=== PATIENT | male | born 1955 | race Caucasian/White ===

== ENCOUNTER 2017-03-20 15:38 | Inpatient (IN) | payer OTHER, SELFPAY ==
[2017-03-20 15:54] LABS: #Eosinphils 0.1 thou/uL (0.0-0.7); #Lymphocytes 0.8 thou/uL (1.20-3.40); #Monocytes 0.4 thou/uL (0.11-0.59); #Neutrophils 4.3 thou/uL (1.40-6.50); %Basophils 0.1 % (0.0-1.0); %Eosinophils 2.3 % (0.0-10.0); %Lymphocytes 14.6 % (21.0-51.0); %Monocytes 6.4 % (0.0-10.0); Hematocrit 34.2 % (42.0-52.0); Mean Platelet Volume 7.5 fL (7.4-10.4); Red Blood Cell (RBC) Count 3.58 mill/uL (4.70-6.10); White Blood Cell (WBC) Count 5.7 thou/uL (4.8-10.8)
[2017-03-20] MEDS ORDERED: Nitroglycerin 2% Ointment 1 INCH/1 GM Packet ONE (16:11)
[2017-03-20] MEDS ORDERED: Nitroglycerin 0.4 MG TAB (25 Tab Bottle) ONE (16:11)
[2017-03-20] MEDS ORDERED: Furosemide 40 MG/4 ML VIAL ONE (16:11)
[2017-03-20 16:15] LABS: ALT (SGPT) 20 U/L (8-55); AST (SGOT) 29 U/L (5-34); Alkaline Phosphatase 126 U/L (40-150); Anion Gap 10 mmol/L (10-20); BUN (Urea Nitrogen) 14 mg/dL (8.4-25.7); Bilirubin, Total 0.8 mg/dL (0.2-1.2); CK (CPK) 151 U/L (30-200); Calc. Creatinine Clearance 0 mL/min (70-130); Calcium 8.3 mg/dL (7.8-10.44); Carbon Dioxide 23 mmol/L (22-29); Chloride 103 mmol/L (98-107); Estimated GFR-MDRD 61; Globulin 4.5 g/dL (2.4-3.5); Protein, Total 7.7 g/dL (6.0-8.3)
[2017-03-20 16:19] LABS: Troponin I 0.116 ng/mL (< 0.028)
--- NOTE | 2017-03-20 16:43 | RAD ---
AP VIEW OF THE CHEST 03/20/17 INDICATION: Difficulty breathing. COMPARISON: Prior exam dated 08/27/15. FINDINGS: There is mild cardiomegaly. There is mild pulmonary vascular congestion. Left costophrenic angle is e xcluded. Right costophrenic angle is clear. No pneumothorax is evident. IMPRESSION: Cardiomegaly with pulmonary vascular congestion. POS: [facility]
[2017-03-20] MEDS ORDERED: Acetaminophen 325 MG TAB PO PRN (16:55)
[2017-03-20] MEDS ORDERED: Guaifenesin DM 100-10/5 ML UDCUP PO PRN (16:55)
[2017-03-20] MEDS ORDERED: Zolpidem Tartrate 5 MG TAB PO PRN (16:55)
[2017-03-20] MEDS ORDERED: Ondansetron HCl/PF 4 MG/2 ML Vial IVP PRN (16:55)
--- NOTE | 2017-03-20 17:41 | HP ---
DATE OF ADMISSION: 03/20/2017 ADMITTING PHYSICIAN: Russel Perrin M.D. PRIMARY CARE PHYSICIAN: None. CHIEF COMPLAINT: Shortness of breath. HISTORY OF PRESENT ILLNESS: The patient is a 61-year-old male with history of chronic heart failure, hyperglycemia, and hypertension as well as COPD. The patient admits that he has not taken any medic ation in several months. He reports that 3-4 days ago he began to experience increased dyspnea on ex ertion. He also reports increased shortness of breath when he is lying flat. He denies chest pain, diaphoresis, nausea or vomiting. He does report a nonproductive cough, but denies fevers, chills, or sick contacts. REVIEW OF SYSTEMS: The following complete review of systems was negative, unless otherwise mentioned in the HPI or below: Constitutional: Weight loss or gain, sense of well-being, ability to conduct usual activities, exercise tolerance. Skin/Breast: Rash, itching, changes in hair growth or loss, n ail changes, breast lumps, tenderness, swelling, nipple discharge. Eyes: Vision, double vision, tea ring, blind spots, pain. ENT/Mouth: Headaches (location, time of onset, duration, precipitating fac tors), vertigo, lightheadedness, injury. Vision, double vision, tearing, blind spots, pain, nose blee ding, colds, obstruction, discharge, dental difficulties, gingival bleeding, dentures, neck stiffness , pain, tenderness, masses in thyroid or other areas. Cardiovascular: Precordial pain, substernal d istress, palpitations, syncope, dyspnea on exertion, orthopnea, nocturnal paroxysmal dyspnea, edema, cyanosis, hypertension, heart murmurs, varicosities, phlebitis, claudication. Respiratory: Pain, sh ortness of breath, wheezing, stridor, cough, hemoptysis, fever or night sweats. Gastrointestinal: P oor appetite, dysphagia, indigestion, abdominal pain, heartburn, eructation, nausea, vomiting, hemate mesis, jaundice, constipation, or diarrhea, abnormal stools (bo-colored, tarry, bloody, greasy, fou l smelling), flatulence, hemorrhoids, recent changes in bowel habits. Genitourinary: Urgency, frequ ency, dysuria, nocturia, hematuria, polyuria, oliguria, unusual (or change in) color of urine, stones , hesitancy, change in size of stream, dribbling, acute retention or incontinence, libido, potency. Musculoskeletal: Pain, swelling, redness or heat of muscles or joints, limitation, of motion, muscul ar weakness, atrophy, cramps. Neurologic/Psychiatric: Convulsions, paralyses, tremor, incoordinatio n, parasthesias, difficulties with memory of speech, sensory or motor disturbances, or muscular coord ination (ataxia, tremor), emotional problems, anxiety, depression, previous psychiatric care, unusual perceptions, hallucinations. Allergy/Immunologic: Skin rash, anemia, bleeding tendency, polydipsia , polyuria, intolerance to heat or cold. PAST MEDICAL HISTORY: Untreated hypertension, coronary artery disease, GERD, COPD, congestive heart failure, hyperglycemia. PAST SURGICAL HISTORY: Significant for, right knee replacement, 2 cardiac stent placements and 2 her kelly repairs. PSYCHIATRIC HISTORY: Unknown. SOCIAL HISTORY: Patient does drink alcohol daily, does smoke cigarettes. Denies illicit drug abuse. HOME MEDICATIONS: None as patient is noncompliant. ALLERGIES: PENICILLINS. PHYSICAL EXAMINATION: VITAL SIGNS: Blood pressure 150/83, pulse 90, respirations 20, satting 99% on 2 liters. GENERAL: The patient is in mild distress, tachypneic. HEENT: Normocephalic, atraumatic. EYES: Pupils equally round and reactive to light. Extraocular muscles intact. Scleral icterus is p resent. ENT: Nose exam normal. No bleeding from the naris. Uvula exam normal. Tonsil exam normal. Mouth exam normal. [place] and moist mucous membranes. NECK: The patient does have visible JVD in the upper chest and neck. RESPIRATORY: Mild respiratory distress with shallow inspirations with some basilar crackles. CARDIOVASCULAR: Heart sounds were normal. No murmurs, regurgitation or gallops. ABDOMEN: Slightly distended, but nontender. Positive bowel sounds. EXTREMITIES: No clubbing, cyanosis or edema. NEUROLOGIC: Full range of motion of all extremities. Cranial nerves II-XII are grossly intact. LABORATORY DATA AND IMAGES: The 12 lead EKG shows sinus rhythm with occasional PVCs with normal ST s egments. Chest film shows mild cardiomegaly with pulmonary vascular congestion. CMP shows sodium of 132, potassium 4.3, CO2 of 23, BUN 14, creatinine 1.2, glucose 260. AST of 29, ALT of 20, alkaline phosphatase 126. Cardiac enzymes show creatinine kinase of 151, CK-MB of 4.4, troponin I of 0.116. BNP of 1234, albumin 3.2. CBC shows a white count of 5.7, hemoglobin 11.1, hematocrit 34.2, platelet s 139. ASSESSMENT: 1. Acute on chronic congestive heart failure. 2. Hypertension. 3. Hyperglycemia. 4. Chronic obstructive pulmonary disease. PLAN: The patient will be admitted to the telemetry floor. The patient will be treated with IV Lasi x as well as ZEENAT inhibitor and aspirin. We will order an echocardiogram and based on his EF we will add a beta tahir. Patient will also be given DuoNeb treatment p.r.n. We will place him on Accu- eks q.a.c. and at bedtime and also obtain hemoglobin A1c for definitive diagnosis.
[2017-03-20 18:03] VITALS: BMI 31.0
[2017-03-20 22:47] LABS: Troponin I 0.142 ng/mL (< 0.028)
[2017-03-21] MEDS: Furosemide 40 MG/4 ML VIAL SLOW IVP SCH ×2 (05:11→15:00)
[2017-03-21 05:46] LABS: #Eosinphils 0.1 thou/uL (0.0-0.7); #Lymphocytes 1.2 thou/uL (1.20-3.40); #Monocytes 0.5 thou/uL (0.11-0.59); #Neutrophils 3.8 thou/uL (1.40-6.50); %Basophils 0.3 % (0.0-1.0); %Eosinophils 2.6 % (0.0-10.0); %Lymphocytes 21.7 % (21.0-51.0); %Monocytes 8.2 % (0.0-10.0); Hematocrit 33.8 % (42.0-52.0); Mean Platelet Volume 7.7 fL (7.4-10.4); Red Blood Cell (RBC) Count 3.59 mill/uL (4.70-6.10); White Blood Cell (WBC) Count 5.7 thou/uL (4.8-10.8)
[2017-03-21 06:07] LABS: Hemoglobin A1c 7.5 % (4.0-6.0)
[2017-03-21 06:11] LABS: Anion Gap 12 mmol/L (10-20); BUN (Urea Nitrogen) 14 mg/dL (8.4-25.7); Calc. Creatinine Clearance 80 mL/min (70-130); Calcium 9.1 mg/dL (7.8-10.44); Carbon Dioxide 30 mmol/L (22-29); Chloride 101 mmol/L (98-107); Cholesterol 169 mg/dl (< 200 Desired); Estimated GFR-MDRD 59; LDL Cholesterol, Calculated 117 mg/dL
[2017-03-21] MEDS: Lisinopril 2.5 MG TAB PO SCH (08:10)
[2017-03-21] MEDS: Enoxaparin Sodium 40 MG/0.4 ML SYRINGE SC SCH (08:11)
--- NOTE | 2017-03-21 11:36 | PDOC.PN ---
- Subjective Encounter Start Date: 03/21/17 Encounter Start Time: 11:34 Subjective: FEELING MUCH BETTER, EXHAUSTED BUT BREATHING BETTER - Objective Resuscitation Status: Resuscitation Status FULL:Full Resuscitation MAR Reviewed: Yes Vital Signs & Weight: Vital Signs (12 hours) Temp Pulse Resp BP BP Pulse Ox 03/21/17 08:15 98.6 F 83 20 93 L 03/21/17 08:10 83 139/73 03/21/17 07:49 98.6 F 83 20 139/73 93 L 03/21/17 05:16 98.8 F 92 20 172/85 H 94 L Weight Weight 193 lb 6.4 oz I&O: 03/20/17 03/21/17 03/22/17 06:59 06:59 06:59 Intake Total 720 Output Total 3575 Balance -2855 Result Diagrams: 03/21/17 05:20 03/21/17 05:20 Additional Labs: Accuchecks 03/21/17 06:01 POC Glucose 116 H Phys Exam - Physical Examination Constitutional: NAD HEENT: PERRLA, moist MMs, sclera anicteric Neck: supple, full ROM Respiratory: clear to auscultation bilateral CRACKLES Cardiovascular: RRR Gastrointestinal: soft, non-tender, positive bowel sounds Musculoskeletal: no edema Neurological: non-focal, moves all 4 limbs Psychiatric: normal affect, A&O x 3 Skin: no rash Dx/Plan (1) Systolic and diastolic CHF, acute on chronic Code(s): I50.43 - ACUTE ON CHRONIC COMBINED SYSTOLIC AND DIASTOLIC HRT FAIL Status: Acute Comment: improving (2) CAD (coronary artery disease) Code(s): I25.10 - ATHSCL HEART DISEASE OF [place] CORONARY ARTERY W/O ANG PCTRS Status: Chronic Comment: s/p stent 08/26 (3) CKD (chronic kidney disease) stage 3, GFR 30-59 ml/min Status: Chronic (4) PVD (peripheral vascular disease) Code(s): I73.9 - PERIPHERAL VASCULAR DISEASE, UNSPECIFIED Status: Chronic (5) Tobacco dependence Code(s): F17.200 - NICOTINE DEPENDENCE, UNSPECIFIED, UNCOMPLICATED Status: Chronic - Plan cont current plan of care IMPROVED, HOME TOMORROW IF LABS AND FLUID STATUS WNL. * .
[2017-03-22 05:30] LABS: Anion Gap 9 mmol/L (10-20); BUN (Urea Nitrogen) 16 mg/dL (8.4-25.7); Calc. Creatinine Clearance 71 mL/min (70-130); Calcium 8.5 mg/dL (7.8-10.44); Carbon Dioxide 31 mmol/L (22-29); Chloride 96 mmol/L (98-107); Estimated GFR-MDRD 53
[2017-03-22] MEDS: Furosemide 40 MG/4 ML VIAL SLOW IVP SCH (05:42)
[2017-03-22] MEDS: Lisinopril 2.5 MG TAB PO SCH (09:09)
[2017-03-22] MEDS: Enoxaparin Sodium 40 MG/0.4 ML SYRINGE SC SCH (09:10)
[2017-03-22] MEDS ORDERED: Furosemide 40 MG TAB PO SCH (14:00)
--- NOTE | 2017-03-22 20:57 | PDOC.PN ---
- Subjective Encounter Start Date: 03/22/17 Encounter Start Time: 13:30 Patient seen and examined. SOB improving. No overnight events - Objective Resuscitation Status: Resuscitation Status FULL:Full Resuscitation MAR Reviewed: Yes Vital Signs & Weight: Vital Signs (12 hours) Temp Pulse Resp BP BP Pulse Ox 03/22/17 16:48 97.7 F 85 20 117/60 93 L 03/22/17 12:53 97.8 F 88 18 131/80 97 03/22/17 09:09 88 120/68 Weight Weight 186 lb 3.2 oz I&O: 03/21/17 03/22/17 03/23/17 06:59 06:59 06:59 Intake Total 720 1200 1010 Output Total 6739 8280 8965 Balance -1816 -6216 -828 Result Diagrams: 03/21/17 05:20 03/22/17 04:29 EKG Reviewed by me: Yes (Tele SR) Phys Exam - Physical Examination Constitutional: NAD Respiratory: no wheezing, no rhonchi Cardiovascular: RRR, no rub Gastrointestinal: soft, non-tender, positive bowel sounds Musculoskeletal: no edema Neurological: moves all 4 limbs Dx/Plan - Plan DVT proph w/lovenox, DVT proph w/SCDs IMPRESSION: 1. Acute on Chronic Systolic/Diastolic HF 2. CAD s/p BM stent 3. PVD 4. HTN 5. Tob dep 6. Hypokalemia PLAN: * Will change Lasix to PO * Cont to monitor * Cont low dose ZEENAT * Hold Coreg for now due to BP on low side * Replace Potassium Review of Systems - Review of Systems Respiratory: negative: Cough, Dry, Shortness of Breath, Hemoptysis, SOB with Excertion, Pleuritic Pain, Sputum, Wheezing Cardiovascular: negative: Chest Pain, Palpitations, Orthopnea, Paroxysmal Noc. Dyspnea, Edema, Light Headedness - Medications/Allergies Allergies/Adverse Reactions: Allergies Allergy/AdvReac Type Severity Reaction Status Date / Time Penicillins Allergy Verified 03/20/17 19:55 Medications: Current Medications Acetaminophen (Tylenol) 650 mg PO Q4H PRN PRN Reason: Headache/Fever or Pain Aspirin (Aspirin Chewable) 81 mg PO DAILY [facility] Last Admin: 03/22/17 09:09 Dose: 81 mg Furosemide (Lasix) 40 mg PO 0900,1400 [facility] Last Admin: 03/22/17 14:45 Dose: 40 mg Guaifenesin/Dextromethorphan (Robitussin Dm) 15 ml PO Q4H PRN PRN Reason: Cough Lisinopril (Zestril) 2.5 mg PO DAILY [facility] Last Admin: 03/22/17 09:09 Dose: 2.5 mg Ondansetron HCl (Zofran) 4 mg IVP Q6H PRN PRN Reason: Nausea/Vomiting Zolpidem Tartrate (Ambien) 5 mg PO HSPRN PRN PRN Reason: Insomnia
[2017-03-23] MEDS ORDERED: Potassium Chloride 20 MEQ TAB PO SCH (08:15)
[2017-03-23] MEDS ORDERED: Carvedilol 3.125 MG TAB PO SCH (09:00)
--- NOTE | 2017-03-23 11:09 | PDOC.EVN ---
Event Note - Event Note Event Note: No ACEI/ARB/Aldactone due to renal insufficiency
[2017-03-23 12:23] VITALS: BP 103/59; TEMP 97.7
--- NOTE | 2017-03-23 14:50 | DIS ---
DATE OF DISCHARGE: 03/23/2017 DISCHARGE DISPOSITION: Home. FOLLOWUP: With [facility] in 1 week. ALLERGIES: The patient is allergic to PENICILLIN. The patient was seen and examined on the day of discharge. Denies any new complaints. Shortness of breath has completely resolved. DISCHARGE MEDICATIONS: Aspirin 81 mg daily, carvedilol 3.125 mg b.i.d., Lasix 20 mg daily, potassium chloride 10 mEq daily. Base met in 1 week is recommended. Primary care physician is advised to follow. The patient was adv ised to follow up with [facility] in 1 week for medication refills. BRIEF HOSPITAL COURSE: The patient is a 61-year-old white male with chronic systolic and diastolic h eart failure, coronary artery disease, status post bare metal stent, hypertension, and peripheral vas cular disease and tobacco dependence, presented to the hospital with shortness of breath. Please not e that patient has discontinued taking all of his heart failure medications. Please refer to the his tory and physical dated 03/20/2017 for further details. The patient was admitted to the telemetry unit with a diagnosis of acute on chronic systolic/diastoli c heart failure exacerbation. He showed good improvement with diuretics. His weight on the day of d ischarge is 185 pounds from 198 pounds on admission. Due to slight elevation of creatinine, IV Lasix has been discontinued. He will follow up with [facility] next week for repeat labs. Lif estyle modification was emphasized including tobacco cessation. His A1c was 7.5. He appears stable for discharge. He was extensively counseled on heart failure including fluid restriction. FINAL DIAGNOSES: 1. Acute on chronic systolic/diastolic heart failure exacerbation. 2. Coronary artery disease, status post right coronary artery bare metal stent placement in 2015. 3. Ongoing tobacco abuse, the patient was counseled. 4. Chronic kidney disease stage 3. 5. Peripheral vascular disease. 6. New onset diabetes mellitus type 2. Hemoglobin A1c was 7.5. Metformin was not started due to sl ightly elevated creatinine. Primary care physician is advised to follow. He was advised to monitor his blood glucose and maintain a log. 7. Hypokalemia, replaced. 8. Tobacco dependence. The patient was counseled. 9. Elevated troponins, probably secondary to demand ischemia. 10. Penicillin allergy. Total time coordinating the discharge of this patient was 33 minutes.
== END 2017-03-23 13:55 | disposition home or self-care (01) | DRG 291 ==
LOC: ERS 15:38 → 2NO 16:47
PROVIDERS: ADMIT Internal Medicine Addiction Medicine; ATTEND Internal Medicine Addiction Medicine
DX: I13.0 Hypertensive heart and chronic kidney disease with heart failure and stage 1 through stage 4 chronic kidney disease, or unspecified chronic kidney disease (principal); I50.43 Acute on chronic combined systolic (congestive) and diastolic (congestive) heart failure; N18.3 Chronic kidney disease, stage 3 (moderate); E11.65 Type 2 diabetes mellitus with hyperglycemia; I24.8 Other forms of acute ischemic heart disease; I73.9 Peripheral vascular disease, unspecified; J44.9 Chronic obstructive pulmonary disease, unspecified; E87.6 Hypokalemia; I25.10 Atherosclerotic heart disease of native coronary artery without angina pectoris; F17.210 Nicotine dependence, cigarettes, uncomplicated; Z95.5 Presence of coronary angioplasty implant and graft; Z96.651 Presence of right artificial knee joint; Z88.0 Allergy status to penicillin; Z91.19 Patient's noncompliance with other medical treatment and regimen
CPT/HCPCS: 36415; 36416; 71010; 80048; 80053; 80061; 82553; 83036; 83880; 84484; 85025; 93005; 93306; 93798; 94640; 96374; J1650; J1940

== ENCOUNTER 2017-07-20 11:01 | Inpatient (IN) | payer SELFPAY ==
[2017-07-20 11:35] LABS: #Eosinphils 0.1 thou/uL (0.0-0.7); #Lymphocytes 1.1 thou/uL (1.20-3.40); #Monocytes 0.6 thou/uL (0.11-0.59); %Basophils 0.2 % (0.0-1.0); %Eosinophils 1.6 % (0.0-10.0); %Lymphocytes 13.6 % (21.0-51.0); %Monocytes 7.6 % (0.0-10.0); %Neutrophils 76.9 % (42.0-75.0); Hemoglobin 11.1 g/dL (14.0-18.0); Mean Corpuscular HGB CONC 32.4 g/dL (32.0-36.0); Mean Corpuscular Hemoglobin 29.4 pg (27.0-31.0); Mean Corpuscular Volume 90.7 fl (80.0-94.0); Mean Platelet Volume 8.3 fL (7.4-10.4); Platelet Count 187 thou/uL (130-400); RBC Distribution Width 14.9 % (11.5-14.5); Red Blood Cell (RBC) Count 3.76 mill/uL (4.70-6.10); White Blood Cell (WBC) Count 7.8 thou/uL (4.8-10.8)
[2017-07-20] MEDS ORDERED: Furosemide 40 MG/4 ML VIAL ONE (11:48)
[2017-07-20] MEDS ORDERED: methylPREDNISolone Sod Succ/PF 125 MG/2 ML VIAL ONE (11:48)
--- NOTE | 2017-07-20 11:51 | RAD ---
UPRIGHT PORTABLE CHEST ONE VIEW: History: 61-year-old male with history of dyspnea for three days. Past medial history of congestive heart fail ure and COPD. Comparison: 03-20-17 FINDINGS: Marked cardiomegaly. Mild increased markings bilaterally. No confluent pneumonia or pleural effusion. IMPRESSION: Stable cardiomegaly with mild vascular congestion. No overt edema, pneumonia, or other acute process. POS: [facility]
[2017-07-20 11:54] LABS: ALT (SGPT) 18 U/L (8-55); AST (SGOT) 51 U/L (5-34); Albumin 3.2 g/dL (3.5-5.0); Alkaline Phosphatase 139 U/L (40-150); Anion Gap 15 mmol/L (10-20); BUN (Urea Nitrogen) 27 mg/dL (8.4-25.7); Bilirubin, Total 1.4 mg/dL (0.2-1.2); CK (CPK) 568 U/L (30-200); Calc. Creatinine Clearance 0 mL/min (70-130); Calcium 8.4 mg/dL (7.8-10.44); Carbon Dioxide 23 mmol/L (22-29); Chloride 103 mmol/L (98-107); Estimated GFR-MDRD 35; Glucose 160 mg/dL (70-105); Protein, Total 8.2 g/dL (6.0-8.3); Sodium 136 mmol/L (136-145)
[2017-07-20 11:57] LABS: Troponin I 0.136 ng/mL (< 0.028)
[2017-07-20 12:01] LABS: CKMB 9.9 ng/mL (0-6.6)
[2017-07-20] MEDS ORDERED: Acetaminophen 325 MG TAB PO PRN ×2 (12:30→15:09)
[2017-07-20] MEDS ORDERED: Ondansetron ODT 4 MG TAB SL PRN (12:30)
[2017-07-20] MEDS ORDERED: Ondansetron HCl/PF 4 MG/2 ML Vial IVP PRN ×2 (12:30→15:09)
[2017-07-20] MEDS ORDERED: HYDROcodone/Acetaminophen 5/325 mg Tablet PO PRN ×2 (12:30)
[2017-07-20 13:17] LABS: Bilirubin Negative (Negative); Blood, Urine Negative (Negative); Clarity CLEAR (Clear); Glucose, Urine (Dipstick) Negative (Negative); Leukocyte Negative (Negative); Nitrite Negative (Negative); Protein, Urine (Dipstick) Negative (Neg-Trace); Specific Gravity, Urine 1.008 (1.002-1.036); Urobilinogen 0.2 mg/dL (0.2-1.0)
--- NOTE | 2017-07-20 13:17 | HP ---
PRIMARY CARE PHYSICIAN: [facility]. REASON FOR ADMISSION: Acute on chronic systolic congestive heart failure exacerbation. HISTORY OF PRESENT ILLNESS: A 61-year-old male who has chronic systolic heart failure, coronary artery disease as well as COPD, who came to emergency room with a complaint of increasing shortness of breath, increasing lower extremity edema. The patient reports that because he wanted to stay on his medication and money, he started taking half dose of his Lasix. Even though, he was taking Lasix half dose, he ran out his Lasix medication. The patient reports that when he was taking half dose of Lasix, he was not making much urination and his lower extremity edema started getting worse. Three days ago, he refilled the prescription and as his swelling was significantly increased and he gained significant amount of weight, he started taking Lasix double dose of whatever he was prescribed in the past, but he was not making urine and his swelling was getting worse and worse. He also started orthopnea and PND. He was feeling bloated. He reports that total of 40-pound he gained weight for the last few weeks. Even after walking a few steps, he was getting out of breath and that is why he decided to come to emergency room for evaluation. In the emergency room, his BNP was elevated. His chest x-ray showed pulmonary vascular congestion. He was having anasarca including lower extremity edema and scrotal swelling. We are admitting this patient in the hospital for appropriate diuresis. The patient denies any UTI symptoms. He denies any constipation or diarrhea. He denies any angina. He denies any melena or hematochezia. He denies any abdominal pain. He denies any flu-like illness. He denies any recent travel or sick exposure. He denies any syncope or palpitations. ALLERGIES: PENICILLIN. CURRENT HOME MEDICATIONS: The patient did not bring medication with him and based on our hospital record, the patient is on the following medications: Aspirin 81 mg p.o. daily, Coreg 3.125 mg p.o. b.i.d., Lasix 20 mg p.o. daily and potassium chloride 10 mEq p.o. daily. PAST MEDICAL HISTORY: Coronary artery disease with a history of stent x2 in 2004, history of stroke in 2004, gastroesophageal reflux disease, COPD, hypertension, chronic systolic heart failure, lumbar stenosis and valvular dysfunction. PAST SURGICAL HISTORY: Coronary artery stenting in 2004, left carotid endarterectomy in 2004, bilateral inguinal hernia repair in 2014, stent placement in the left leg in 2010 and right leg torn ligament repair by Dr. Faulkner in 1993. PAST PSYCHIATRIC HISTORY: Reviewed and negative. SOCIAL HISTORY: The patient is and lives at home with his . No history of alcohol abuse. He smokes on and off basis. He denies any other illicit drug abuse. FAMILY HISTORY: Father from heart disease and mother had hypertension. EMERGENCY ROOM COURSE: The patient is given Solu-Medrol 125 mg, Lasix 40 mg and DuoNeb therapy. REVIEW OF SYSTEMS: The following complete review of systems was negative, unless otherwise mentioned in the HPI or below: Constitutional: Weight loss or gain, ability to conduct usual activities. Skin: Rash, itching. Eyes: Double vision, pain. ENT/Mouth: Nose bleeding, neck stiffness, pain, tenderness. Cardiovascular: Palpitations, dyspnea on exertion, orthopnea. Respiratory: Shortness of breath, wheezing, cough, hemoptysis, fever or night sweats. Gastrointestinal: Poor appetite, abdominal pain, heartburn, nausea, vomiting, constipation, or diarrhea. Genitourinary: Urgency, frequency, dysuria, nocturia. Musculoskeletal: Pain, swelling. Neurologic/Psychiatric: Anxiety, depression. Allergy/Immunologic: Skin rash, bleeding tendency. Please see my HPI for pertinent positive and negative. All other review of systems reviewed and negative except as mentioned in the HPI. PHYSICAL EXAMINATION: VITAL SIGNS: On arrival, blood pressure 126/67, pulse 106, respiratory rate 24 , temperature 97.9, saturation 96% on room air and weight 99.7 kilograms. GENERAL: The patient is currently alert, awake, hypertensive, tachycardic and in mild distress due to shortness of breath, has generalized anasarca. HEAD: Normocephalic and atraumatic. EYES: Pupils are round and reactive to light. Extraocular muscle intact. ENT: Oropharynx within normal limits. Moist mucous membranes. No oral lesion , no pharyngeal erythema, no exudate. NECK: Supple, elevated JVD. No thyromegaly, no carotid bruit. LUNGS: Bilateral basilar rales and expiratory wheezing heard. Reduced air entry also noted. CARDIAC: S1 and S2 regular, tachycardia, diastolic murmur noted at apex. No gallop, no rub. ABDOMEN: Obesity present. Abdominal wall edema noted. No suprapubic tenderness, no peritoneal sign, no guarding, no rigidity, no organomegaly, no obesity limiting examination. GENITOURINARY: Testicular edema noted. BACK: Unremarkable. No CVA tenderness. EXTREMITIES: Upper extremity passive movement of all joints are normal. Lower extremity bilateral +4 pitting edema noted. SKIN: No skin rash. HEMATOLOGICAL SYSTEM: No lymphadenopathy. PSYCHIATRIC: Normal affect. NEUROLOGIC: Nonfocal examination. The patient is moving all 4 limbs. Plantar bilateral flexor. PSYCHIATRIC: Normal affect. SIGNIFICANT LABS AND IMAGING DATA: 1. EKG showing sinus tachycardia, nonspecific ST-T changes. Chest x-ray showing cardiomegaly and pulmonary vascular congestion. 2. CBC: WBC 7.8, hemoglobin 11.1 and platelet 187. 3. BMP: Sodium 136, potassium 5.0, chloride 103, carbon dioxide 23, anion gap 15, BUN 27, creatinine 1.96, glucose 160 and calcium 8.4. 3. LFT: AST 51, ALT 18, alkaline phosphatase 139, albumin 3.2. CK 568, CK-MB 9.9, troponin I 0.136. BNP 1557.2. ASSESSMENT, PLAN AND IMPRESSION: 1. Acute on chronic systolic and diastolic congestive heart failure exacerbation, likely due to medication noncompliance. The patient started taking half dose of Lasix and that might have contributed to his gradual worsening of edema. Currently, patient has anasarca and he will need hospitalization for diuresis. At this point, the patient will be admitted to telemetry floor. We will continue with Lasix 40 mg IV b.i.d. We will also give him Zaroxolyn 5 mg p.o. daily for adequate diuresis. We will monitor renal function and we will monitor creatinine. We will replace electrolytes as needed basis. We will monitor daily weight. Cardiac rehabilitation will be consulted while in hospital. Dietary education and fluid restriction discussed with the patient. 2. Acute kidney failure, likely due to cardiorenal syndrome. We will give him Lasix along with Zaroxolyn and we will monitor renal function. 3. Rhabdomyolysis. We will check TSH. We will avoid statin therapy. We will repeat CK level tomorrow. The patient has CK-MB elevated because of elevated total CK and we will also do serial cardiac enzymes to rule out any acute coronary syndrome. Because of elevated CK, he has AST elevated as well. Most likely, elevated total CK can be explained by his muscle edema from congestive heart failure from anasarca. 4. Anasarca. This patient has significant fluid overload status with edema of lower extremity abdominal wall and scrotal edema. This patient will need appropriate diuresis to make him euvolemic. 5. Coronary artery disease with history of stent. We will continue aspirin 325 mg p.o. daily. We will hold on statin therapy because of elevated total CK. We will continue Coreg 3.125 mg twice daily. We are avoiding lisinopril or ZEENAT inhibitor or ARB at this point because of relative hyperkalemia and renal insufficiency. 6. Morbid obesity. Dietary education given, weight loss education given. Healthy lifestyle measures discussed with the patient. 7. Gastroesophageal reflux disease. We will continue Pepcid 20 mg p.o. daily. 8. Chronic obstructive pulmonary disease. We will continue DuoNeb therapy q.6 hourly and Dulera 2 puffs inhalation b.i.d. 9. Hypertension. We will continue nitro patch q.8 hourly and patient is also kept on Lasix therapy. We will also continue Coreg 3.125 mg p.o. b.i.d. and upon stabilization, we will consider adding aldosterone receptor tahir. 10. Aortic regurgitation. 11. Mild tobacco and alcohol abuse. The patient is given counseling to avoid smoking as well as alcohol abuse. 12. Deep venous thrombosis prophylaxis. Heparin 5000 units subcu twice daily. 13. Gastrointestinal prophylaxis. Pepcid 20 mg p.o. daily. 14. Elevated troponin. We will do serial cardiac enzyme x3 to rule out acute coronary syndrome and we will continue aspirin 325 mg p.o. daily. 15. Chronic kidney disease, stage 3. We will monitor renal function, avoid nephrotoxin agent. 16. Hypoalbuminemia, likely related with renal insufficiency. 17. Anemia, normocytic, normochromic. We will continue with ferrous sulfate 325 mg p.o. daily. CODE STATUS: The patient is FULL CODE and patient's is the surrogate decision maker. Disposition plan based on clinical course. We are expecting patient's stay in hospital more than 2 midnights. Plan of care discussed with the patient and his in the emergency room. RAMONE
[2017-07-20] MEDS ORDERED: Loperamide HCl 2 MG CAP PO PRN (15:09)
[2017-07-20] MEDS ORDERED: Eucerin (Mineral Oil/Petrolatum,White) 30 gm Jar TOP PRN (15:09)
[2017-07-20] MEDS ORDERED: Mag-Al 1200 mg/1200 mg/30 ML UDCUP PO PRN (15:09)
[2017-07-20] MEDS ORDERED: Milk Of Magnesia 30 ML UDCUP PO PRN (15:09)
[2017-07-20] MEDS ORDERED: Chloraseptic Spray 180 ml Bottle PO PRN (15:09)
[2017-07-20] MEDS ORDERED: Diabetic Tussin 200 MG/10 ML UDCUP PO PRN (15:09)
[2017-07-20] MEDS ORDERED: Senokot 8.6 MG TAB PO PRN (15:09)
[2017-07-20] MEDS ORDERED: Ondansetron ODT 4 MG TAB PO PRN (15:09)
[2017-07-20] MEDS ORDERED: Artificial Tear Sol 15 ML BOT EA EYE PRN (15:09)
[2017-07-20] MEDS ORDERED: Sodium Chloride 0.65% Nasal 44 ML BOT EA NARE PRN (15:09)
[2017-07-20] MEDS ORDERED: hydrALAZINE 20 MG/ML VIAL SLOW IVP PRN (15:09)
[2017-07-20] MEDS ORDERED: Nitroglycerin 0.4 MG TAB (25 Tab Bottle) SL PRN (15:09)
[2017-07-20] MEDS ORDERED: Zolpidem Tartrate 5 MG TAB PO PRN (15:09)
[2017-07-20] MEDS ORDERED: Loratadine 10 MG TAB PO PRN (15:09)
[2017-07-20] MEDS ORDERED: Metolazone 5 MG TAB PO SCH (15:30)
[2017-07-20] MEDS: HYDROcodone/Acetaminophen 5/325 mg Tablet PO PRN (15:50)
[2017-07-20 16:10] LABS: Troponin I 0.139 ng/mL (< 0.028)
[2017-07-20 17:58] LABS: Troponin I 0.122 ng/mL (< 0.028)
[2017-07-20] MEDS: Mometasone/Formoterol 120 PUFF INHALER INH SCH (18:40)
[2017-07-20 18:41] LABS: Bilirubin Negative (Negative); Blood, Urine Negative (Negative); Clarity CLEAR (Clear); Glucose, Urine (Dipstick) Negative (Negative); Leukocyte Negative (Negative); Nitrite Negative (Negative); Protein, Urine (Dipstick) Trace mg/dL (Neg-Trace); Specific Gravity, Urine 1.009 (1.002-1.036); Urobilinogen 0.2 mg/dL (0.2-1.0); pH, Urine 5.5 (5.0-9.0)
[2017-07-20 18:43] LABS: Bacteria/HPF None Seen HPF (None Seen); Hyaline Casts/LPF 0-3 HYALINE CAST LPF (0-3 Hyaline); Pathc Cast-AUWi Flag 0.29 (0-2.49); RBC/HPF 0-3 HPF (0-3); Squamous Epithelial None Seen HPF (0-3); WBC/HPF None Seen HPF (0-3)
[2017-07-20] MEDS: Heparin 5,000 UNITS/ML VIAL SC SCH ×2 (20:48)
[2017-07-20] MEDS: Carvedilol 3.125 MG TAB PO SCH (20:48)
[2017-07-20] MEDS: Nitroglycerin 2% Ointment 1 INCH/1 GM Packet TOP SCH (21:18)
[2017-07-21] MEDS: Furosemide 40 MG/4 ML VIAL SLOW IVP SCH ×2 (05:01→14:39)
[2017-07-21] MEDS: Nitroglycerin 2% Ointment 1 INCH/1 GM Packet TOP SCH ×3 (05:01→20:40)
[2017-07-21] MEDS: HYDROcodone/Acetaminophen 5/325 mg Tablet PO PRN ×2 (05:02→14:37)
[2017-07-21 05:08] LABS: #Lymphocytes 0.7 thou/uL (1.20-3.40); #Monocytes 0.5 thou/uL (0.11-0.59); #Neutrophils 6.2 thou/uL (1.40-6.50); %Basophils 0.1 % (0.0-1.0); %Lymphocytes 9.5 % (21.0-51.0); %Monocytes 7.3 % (0.0-10.0); Hemoglobin 10.3 g/dL (14.0-18.0); Mean Corpuscular HGB CONC 32.3 g/dL (32.0-36.0); Mean Corpuscular Hemoglobin 29.3 pg (27.0-31.0); Mean Corpuscular Volume 90.8 fl (80.0-94.0); Mean Platelet Volume 7.8 fL (7.4-10.4); Platelet Count 164 thou/uL (130-400); RBC Distribution Width 14.4 % (11.5-14.5); Red Blood Cell (RBC) Count 3.52 mill/uL (4.70-6.10); White Blood Cell (WBC) Count 7.4 thou/uL (4.8-10.8)
[2017-07-21 05:43] LABS: ALT (SGPT) 16 U/L (8-55); AST (SGOT) 27 U/L (5-34); Albumin 3.3 g/dL (3.5-5.0); Alkaline Phosphatase 132 U/L (40-150); Anion Gap 14 mmol/L (10-20); BUN (Urea Nitrogen) 32 mg/dL (8.4-25.7); Bilirubin, Total 1.2 mg/dL (0.2-1.2); CK (CPK) 630 U/L (30-200); Calc. Creatinine Clearance 57 mL/min (70-130); Calcium 8.6 mg/dL (7.8-10.44); Carbon Dioxide 25 mmol/L (22-29); Cardiac Risk 4.7 (Less than 4.5); Chloride 99 mmol/L (98-107); Cholesterol 173 mg/dl (< 200 Desired); Estimated GFR-MDRD 34; Globulin 4.1 g/dL (2.4-3.5); Glucose 196 mg/dL (70-105); HDL Cholesterol 37 mg/dL (>60 Neg Risk); LDL Cholesterol, Calculated 118 mg/dL; Magnesium 1.7 mg/dL (1.6-2.6); Potassium 3.3 mmol/L (3.5-5.1); Protein, Total 7.4 g/dL (6.0-8.3); Sodium 135 mmol/L (136-145); Triglycerides 92 mg/dL (Less than 150); Uric Acid 7.6 mg/dL (3.5-7.2)
[2017-07-21] MEDS ORDERED: Potassium Chloride 20 MEQ TAB PO SCH ×2 (07:15)
[2017-07-21] MEDS: Mometasone/Formoterol 120 PUFF INHALER INH SCH ×2 (07:45→19:16)
[2017-07-21] MEDS ORDERED: Aspirin 325 MG TAB PO SCH (09:00)
[2017-07-21] MEDS: Potassium Chloride 20 MEQ TAB PO SCH ×2 (09:29)
[2017-07-21] MEDS: Heparin 5,000 UNITS/ML VIAL SC SCH ×4 (09:30→20:40)
[2017-07-21] MEDS: Metolazone 5 MG TAB PO SCH (09:30)
[2017-07-21] MEDS: Ferrous Sulfate 325 MG TAB PO SCH (09:30)
[2017-07-21] MEDS: Famotidine 20 MG TAB PO SCH (09:30)
[2017-07-21] MEDS: Carvedilol 3.125 MG TAB PO SCH ×2 (09:30→20:40)
[2017-07-21 12:24] LABS: Hemoglobin 10.8 g/dL (14.0-18.0); Mean Corpuscular Hemoglobin 29.1 pg (27.0-31.0); Mean Corpuscular Volume 90.7 fl (80.0-94.0); Mean Platelet Volume 7.5 fL (7.4-10.4); Platelet Count 184 thou/uL (130-400); RBC Distribution Width 14.6 % (11.5-14.5); Red Blood Cell (RBC) Count 3.72 mill/uL (4.70-6.10); White Blood Cell (WBC) Count 11.2 thou/uL (4.8-10.8)
[2017-07-21 12:50] LABS: Anion Gap 16 mmol/L (10-20); BUN (Urea Nitrogen) 36 mg/dL (8.4-25.7); Calc. Creatinine Clearance 53 mL/min (70-130); Calcium 9.2 mg/dL (7.8-10.44); Carbon Dioxide 21 mmol/L (22-29); Chloride 101 mmol/L (98-107); Estimated GFR-MDRD 33; Glucose 148 mg/dL (70-105); Potassium 3.3 mmol/L (3.5-5.1); Sodium 135 mmol/L (136-145)
[2017-07-21 12:51] LABS: Band 5 % (5-11); Lymphocytes 12 % (21-51); MDiff Complete? YES; Monocytes 8 % (0-10); Neutrophil 74 % (42-75); PLT Morphology Comment Appears Adequate; Polychromasia SLIGHT = 2-3 cells (100X) (0-2/hpf)
[2017-07-21 12:54] LABS: Troponin I 0.169 ng/mL (< 0.028)
[2017-07-21 13:01] LABS: CKMB 9.5 ng/mL (0-6.6)
--- NOTE | 2017-07-21 13:05 | CT ---
CT BRAIN WITHOUT CONTRAST: History: Fall while on heparin. Hit cheek. Comparison: None. FINDINGS: There is a hypodensity of the left, there is also an infarct of the anterior limb right internal caps ule. No hemorrhage. The paranasal sinuses and mastoids are clear. IMPRESSION: 1. Likely chronic changes. No acute post-traumatic intracranial hemorrhage or sequellae. 2. Likely old left medial orbital wall fracture. POS: [facility]
--- NOTE | 2017-07-21 14:01 | PDOC.EVN ---
Event Note - Event Note Event Note: Code surendra called after patient choked on a hamburger and fell, hitting his right cheek and mouth on the floor. ? passed out. He was awake and well oriented. Has some bleeding from the leg and his great toe. CT head ordered and negative for acute pathology. Wound care consult also placed. Will continue to monitor patient. 12 lead EKG ordered, as well as labs.
--- NOTE | 2017-07-21 14:09 | PDOC.PN ---
- Subjective Encounter Start Date: 07/21/17 Encounter Start Time: 14:28 Subjective: No new complaints. -: No acute events overnight. - Objective Resuscitation Status: Resuscitation Status FULL:Full Resuscitation MAR Reviewed: Yes Vital Signs & Weight: Vital Signs (12 hours) Temp Pulse Resp BP BP Pulse Ox 07/21/17 13:59 112 H 21 H 07/21/17 08:15 97.5 F L 116 H 20 95 07/21/17 08:13 97.5 F L 116 H 20 144/74 H 95 07/21/17 07:45 111 H 20 07/21/17 04:00 97.7 F 105 H 20 135/68 94 L Weight Weight 217 lb 1 oz I&O: 07/20/17 07/21/17 07/22/17 06:59 06:59 06:59 Intake Total 900 Output Total 1775 Balance -875 Result Diagrams: 07/21/17 12:11 07/21/17 12:11 Phys Exam - Physical Examination Constitutional: NAD HEENT: PERRLA, moist MMs, sclera anicteric, oral pharynx no lesions Neck: no JVD, supple, full ROM Respiratory: no wheezing, no rales, no rhonchi, clear to auscultation bilateral mild bibasilar crackles Cardiovascular: RRR, no significant murmur, no rub Gastrointestinal: soft, non-tender, no distention, positive bowel sounds Musculoskeletal: pulses present, edema present anasarca Neurological: non-focal, moves all 4 limbs Psychiatric: normal affect, A&O x 3 Skin: no rash, normal turgor Dx/Plan (1) Systolic and diastolic CHF, acute on chronic Code(s): I50.43 - ACUTE ON CHRONIC COMBINED SYSTOLIC AND DIASTOLIC HRT FAIL Status: Acute Comment: p/w anasarca. Started on diuretics. Cardiology consulted. (2) Acute on chronic renal failure Code(s): N17.9 - ACUTE KIDNEY FAILURE, UNSPECIFIED; N18.9 - CHRONIC KIDNEY DISEASE, UNSPECIFIED Status: Acute Qualifiers: Chronic kidney disease stage: stage 3 (moderate) (3) Rhabdomyolysis Code(s): M62.82 - RHABDOMYOLYSIS Status: Acute Qualifiers: Rhabdomyolysis type: non-traumatic Qualified Code(s): M62.82 - Rhabdomyolysis (4) COPD (chronic obstructive pulmonary disease) Status: Acute Qualifiers: COPD type: unspecified COPD Qualified Code(s): J44.9 - Chronic obstructive pulmonary disease, unspecified (5) HTN (hypertension) Code(s): I10 - ESSENTIAL (PRIMARY) HYPERTENSION Status: Acute Qualifiers: Hypertension type: essential hypertension Qualified Code(s): I10 - Essential (primary) hypertension (6) CAD (coronary artery disease) Code(s): I25.10 - ATHSCL HEART DISEASE OF [place] CORONARY ARTERY W/O ANG PCTRS Status: Chronic Qualifiers: Coronary Disease-Associated Artery/Lesion type: unspecified vessel or lesion type Associated angina: without angina Comment: s/p stent 08/27/15. Stable, chest pain free. (7) PVD (peripheral vascular disease) Code(s): I73.9 - PERIPHERAL VASCULAR DISEASE, UNSPECIFIED Status: Chronic - Plan cont current plan of care, DVT proph w/heparin Continue diuresis -: f/u cardiology recs -: Monitor I/O, daily weights. * . Review of Systems - Medications/Allergies Allergies/Adverse Reactions: Allergies Allergy/AdvReac Type Severity Reaction Status Date / Time Penicillins Allergy Verified 03/20/17 19:55 Medications: Current Medications Acetaminophen (Tylenol) 650 mg PO Q4H PRN PRN Reason: Headache/Fever or Pain Hydrocodone Bitart/Acetaminophen ([place] 5/325) 1 tab PO Q4H PRN PRN Reason: Moderate Pain (4-6) Last Admin: 07/21/17 05:02 Dose: 1 tab Al Hydroxide/Mg Hydroxide (Maalox) 30 ml PO Q6H PRN PRN Reason: Heartburn or Indigestion Albuterol/Ipratropium (Duoneb) 3 ml NEB [id number] [facility] Last Admin: 07/21/17 13:59 Dose: 3 ml Artificial Tears (Tears Renewed 15ml Bottle) 0 drop EA EYE PRN PRN PRN Reason: Dry Eyes Aspirin (Aspirin) 325 mg PO DAILY [facility] Last Admin: 07/21/17 09:30 Dose: 325 mg Carvedilol (Coreg) 3.125 mg PO BID [facility] Last Admin: 07/21/17 09:30 Dose: 3.125 mg Famotidine (Pepcid) 20 mg PO DAILY [facility] Last Admin: 07/21/17 09:30 Dose: Not Given Ferrous Sulfate (Feosol) 325 mg PO QAM-[facility] Last Admin: 07/21/17 09:30 Dose: 325 mg Furosemide (Lasix) 40 mg SLOW IVP 0600,1400 [facility] Last Admin: 07/21/17 05:01 Dose: 40 mg Guaifenesin (Robitussin Sf) 200 mg PO Q4H PRN PRN Reason: Cough Heparin Sodium (Porcine) (Heparin) 5,000 units SC BID [facility] Last Admin: 07/21/17 09:30 Dose: 5,000 units Hydralazine HCl (Apresoline) 10 mg SLOW IVP Q4H PRN PRN Reason: Systolic BP > 180 Loperamide HCl (Imodium) 2 mg PO PRN PRN PRN Reason: Diarrhea/Loose Stools Loratadine (Claritin) 10 mg PO DAILYPRN PRN PRN Reason: Sinus Symptoms Magnesium Hydroxide (Milk Of Magnesium) 30 ml PO DAILYPRN PRN PRN Reason: Constipation Metolazone (Zaroxolyn) 5 mg PO 0830 [facility] Last Admin: 07/21/17 09:30 Dose: 5 mg Mineral Oil/White Petrolatum (Eucerin Cream) 0 gm TOP BIDPRN PRN PRN Reason: Dry Skin Mometasone Furoate/Formoterol Fumar (Dulera 200 Mcg/5 Mcg Inhaler) 2 puff INH BID-RT [facility] Last Admin: 07/21/17 07:45 Dose: 2 puff Nitroglycerin (Nitrostat) 0.4 mg SL Q5MIN PRN PRN Reason: Chest Pain Nitroglycerin (Nitro-Bid 2% Ointment) 0.5 inch TOP Q8HR [facility] Last Admin: 07/21/17 05:01 Dose: 0.5 inch Ondansetron HCl (Zofran Odt) 4 mg PO Q6H PRN PRN Reason: Nausea/Vomiting Ondansetron HCl (Zofran) 4 mg IVP Q6H PRN PRN Reason: Nausea/Vomiting Phenol (Chloraseptic [place] 180 Ml Bot) 0 ml PO PRN PRN PRN Reason: Sore Throat Potassium Chloride (K-Dur) 20 meq PO QAM-[facility] Last Admin: 07/21/17 09:29 Dose: 20 meq Senna (Senokot) 2 tab PO HSPRN PRN PRN Reason: Constipation Sodium Chloride ([place] Nasal [place] 0.65%) 0 ml EA NARE QIDPRN PRN PRN Reason: Nasal Congestion Zolpidem Tartrate (Ambien) 5 mg PO HSPRN PRN PRN Reason: Insomnia
[2017-07-21] MEDS ORDERED: Non-Formulary Item 1 EACH (Budesonide-Formoterol [Symbicort 160-4.5] 2 INHALER) INH PRN ×2 (14:24)
[2017-07-21] MEDS ORDERED: Albuterol Sulfate 2.5 mg/3 ml Neb NEB PRN (14:24)
[2017-07-21] MEDS ORDERED: Mometasone/Formoterol 120 PUFF INHALER INH PRN (14:42)
[2017-07-21 18:33] LABS: ALT (SGPT) 18 U/L (8-55); AST (SGOT) 34 U/L (5-34); Albumin 3.3 g/dL (3.5-5.0); Alkaline Phosphatase 133 U/L (40-150); Anion Gap 14 mmol/L (10-20); BUN (Urea Nitrogen) 42 mg/dL (8.4-25.7); Bilirubin, Total 1.2 mg/dL (0.2-1.2); Calc. Creatinine Clearance 51 mL/min (70-130); Calcium 8.9 mg/dL (7.8-10.44); Carbon Dioxide 28 mmol/L (22-29); Chloride 98 mmol/L (98-107); Estimated GFR-MDRD 32; Globulin 4.2 g/dL (2.4-3.5); Glucose 183 mg/dL (70-105); Potassium 3.5 mmol/L (3.5-5.1); Protein, Total 7.5 g/dL (6.0-8.3); Sodium 136 mmol/L (136-145)
--- NOTE | 2017-07-21 18:33 | CON ---
DATE OF CONSULTATION: 07/21/2017 REASON FOR CONSULTATION: Congestive heart failure and third degree AV block. HISTORY OF PRESENT ILLNESS: Mr. Daniels is a 61-year-old gentleman, who is a patient of Dr. Elliott. Israel shepherd underwent successful stent placement to right coronary artery in 2016. He also has an occluded saniya nt to the OM branch. His LVEF in the past was 45% to 50%. He recently presented with shortness of breath. He states he was secondary to COPD. He has complain ed of lower extremity edema in addition to PND. He has had some diuresis noted over the last 24 hour s. He states he feels better. He recently had a code green after recently choking. He also appeared to have asymptomatic third deg ree AV block noted. This occurred several hours after the code green. He denies syncope, presyncope or other associated symptoms. PAST MEDICAL HISTORY: As above. CVA, acid reflux, COPD, hypertension, mild systolic heart failure, lumbar stenosis. Carotid endarterectomy, inguinal hernia repair, stent placement to the left lower e xtremity. SOCIAL HISTORY: No current alcohol use. He intermittently smokes. FAMILY HISTORY: Positive for CAD. REVIEW OF SYSTEMS: Ten point review of systems reviewed and as above, otherwise negative. PHYSICAL EXAMINATION: GENERAL: Patient is a pleasant male who is in no acute distress. The patient appears his stated age . VITAL SIGNS: Blood pressure 145/74, pulse 110, respirations 20. NEUROLOGIC: The patient is alert and oriented times 3 with no focal neurologic deficits. HEENT: Sclerae without icterus. Mouth has moist mucous membranes with normal pallor. NECK: No JVD. Carotid upstroke brisk. No bruits bilaterally. LUNGS: Rhonchi and rales bilaterally. BACK: No scoliosis or kyphosis. CARDIAC: Regular rate and rhythm with normal S1 and S2. No S3 or S4 noted. No significant rubs, mu rmurs, thrills, or gallops noted throughout the precordium. PMI is not displaced. There is no tish ternal heave. ABDOMEN: Soft, nontender, nondistended. No peritoneal signs present. No hepatosplenomegaly. No ab normal striae. EXTREMITIES: 1 to 2+ pitting edema. SKIN: No gross abnormalities. PERTINENT LABORATORY DATA: Hemoglobin 10.8, white blood cell count 11.2. Peak MB 9.5 with a troponi n of 0.169. Creatinine 2.05. IMPRESSION: 1. Shortness of breath. 2. Mild acute on chronic systolic heart failure. 3. Chronic obstructive pulmonary disease. 4. Third degree AV block. RECOMMENDATIONS: Mr. Daniels continues to do well from a CV standpoint. He is currently on Lasix IV w ith diuresis. Would continue carvedilol in addition to aspirin. Would decrease aspirin to 81 q.a.m. He is also on metolazone. Third degree AV block may be related to electrolyte disturbance. He has received Lasix and metolazone today. We will recheck his potassium level. We would also check a ma gnesium level. We will also consult with EP, recommendations on third degree AV block.
[2017-07-21 18:46] LABS: Troponin I 0.167 ng/mL (< 0.028)
[2017-07-22 05:24] LABS: #Eosinphils 0.1 thou/uL (0.0-0.7); #Monocytes 0.5 thou/uL (0.11-0.59); %Basophils 0.4 % (0.0-1.0); %Eosinophils 1.9 % (0.0-10.0); %Lymphocytes 18.1 % (21.0-51.0); %Monocytes 8.8 % (0.0-10.0); %Neutrophils 70.8 % (42.0-75.0); Hemoglobin 10.4 g/dL (14.0-18.0); Mean Corpuscular HGB CONC 32.2 g/dL (32.0-36.0); Mean Corpuscular Hemoglobin 29.3 pg (27.0-31.0); Mean Platelet Volume 7.3 fL (7.4-10.4); Platelet Count 139 thou/uL (130-400); RBC Distribution Width 14.5 % (11.5-14.5); Red Blood Cell (RBC) Count 3.56 mill/uL (4.70-6.10); White Blood Cell (WBC) Count 5.6 thou/uL (4.8-10.8)
[2017-07-22 05:39] LABS: Anion Gap 12 mmol/L (10-20); BUN (Urea Nitrogen) 41 mg/dL (8.4-25.7); CK (CPK) 529 U/L (30-200); Calc. Creatinine Clearance 52 mL/min (70-130); Calcium 8.9 mg/dL (7.8-10.44); Carbon Dioxide 32 mmol/L (22-29); Chloride 97 mmol/L (98-107); Estimated GFR-MDRD 33; Glucose 132 mg/dL (70-105); Potassium 3.6 mmol/L (3.5-5.1); Sodium 137 mmol/L (136-145)
[2017-07-22] MEDS: Nitroglycerin 2% Ointment 1 INCH/1 GM Packet TOP SCH ×3 (05:43→21:41)
[2017-07-22] MEDS: Furosemide 40 MG/4 ML VIAL SLOW IVP SCH ×2 (05:44→13:31)
[2017-07-22] MEDS: Mometasone/Formoterol 120 PUFF INHALER INH SCH ×2 (06:36→18:59)
[2017-07-22] MEDS: Ferrous Sulfate 325 MG TAB PO SCH (09:06)
[2017-07-22] MEDS: Famotidine 20 MG TAB PO SCH (09:06)
[2017-07-22] MEDS: Metolazone 5 MG TAB PO SCH (09:06)
[2017-07-22] MEDS: Carvedilol 3.125 MG TAB PO SCH ×2 (09:06→20:19)
[2017-07-22] MEDS: Heparin 5,000 UNITS/ML VIAL SC SCH ×4 (09:06→20:19)
[2017-07-22] MEDS: Potassium Chloride 20 MEQ TAB PO SCH ×2 (09:06)
[2017-07-22] MEDS: Triple Antibiotic Oint 1 GM Packet TOP SCH (09:06)
[2017-07-22] MEDS: Spironolactone 25 MG TAB PO SCH (09:06)
--- NOTE | 2017-07-22 14:30 | PDOC.PN ---
- Subjective Encounter Start Date: 07/22/17 Encounter Start Time: 14:36 Subjective: No complaints -: Asymptomatic third degree AV block noted yesterday. - Objective Resuscitation Status: Resuscitation Status FULL:Full Resuscitation MAR Reviewed: Yes Vital Signs & Weight: Vital Signs (12 hours) Temp Pulse Resp BP BP Pulse Ox 07/22/17 13:27 97.0 F L 106 H 18 138/63 95 07/22/17 13:26 84 16 07/22/17 12:00 92 L 07/22/17 08:26 98.2 F 100 20 92 L 07/22/17 08:24 98.2 F 100 20 99/49 L 92 L 07/22/17 06:36 96 16 07/22/17 06:29 96 16 07/22/17 04:00 97.4 F L 80 18 142/69 H 97 Weight Admit Weight 224 lb 3.2 oz Weight 217 lb 1 oz I&O: 07/21/17 07/22/17 07/23/17 06:59 06:59 06:59 Intake Total 900 1180 Output Total 1775 4350 Balance -875 -3170 Result Diagrams: 07/22/17 05:03 07/22/17 05:03 Phys Exam - Physical Examination Constitutional: NAD HEENT: PERRLA, moist MMs, sclera anicteric, oral pharynx no lesions Neck: no JVD, supple, full ROM Respiratory: no wheezing, clear to auscultation bilateral w minimal bibasilar crackles Cardiovascular: RRR, no significant murmur, no rub Gastrointestinal: soft, non-tender, no distention, positive bowel sounds Musculoskeletal: pulses present, edema present (anasarca w scrotal edema) Neurological: non-focal, moves all 4 limbs Psychiatric: normal affect, A&O x 3 Skin: no rash, normal turgor Dx/Plan (1) Systolic and diastolic CHF, acute on chronic Code(s): I50.43 - ACUTE ON CHRONIC COMBINED SYSTOLIC AND DIASTOLIC HRT FAIL Status: Acute Comment: EF 45-50% from TTE in March 2017. p/w anasarca. Started on diuretics- diuresing well. Cardiology on board. Recs appreciated. (2) AV block, 3rd degree Code(s): I44.2 - ATRIOVENTRICULAR BLOCK, COMPLETE Status: Acute Comment: Cardiology on board. EP consulted. (3) Acute on chronic renal failure Code(s): N17.9 - ACUTE KIDNEY FAILURE, UNSPECIFIED; N18.9 - CHRONIC KIDNEY DISEASE, UNSPECIFIED Status: Acute Qualifiers: Chronic kidney disease stage: stage 3 (moderate) Comment: Improving. (4) COPD (chronic obstructive pulmonary disease) Status: Chronic Qualifiers: COPD type: unspecified COPD Qualified Code(s): J44.9 - Chronic obstructive pulmonary disease, unspecified (5) HTN (hypertension) Code(s): I10 - ESSENTIAL (PRIMARY) HYPERTENSION Status: Chronic Qualifiers: Hypertension type: essential hypertension Qualified Code(s): I10 - Essential (primary) hypertension (6) CAD (coronary artery disease) Code(s): I25.10 - ATHSCL HEART DISEASE OF [place] CORONARY ARTERY W/O ANG PCTRS Status: Chronic Qualifiers: Coronary Disease-Associated Artery/Lesion type: unspecified vessel or lesion type Associated angina: without angina Comment: s/p stent 08/27/15. Stable, chest pain free. (7) PVD (peripheral vascular disease) Code(s): I73.9 - PERIPHERAL VASCULAR DISEASE, UNSPECIFIED Status: Chronic - Plan cont current plan of care, out of bed/ambulate, DVT proph w/heparin Continue telemetric monitoring -: f/u EP recs -: Continue IV diuresis * . Review of Systems - Medications/Allergies Allergies/Adverse Reactions: Allergies Allergy/AdvReac Type Severity Reaction Status Date / Time Penicillins Allergy Verified 03/20/17 19:55 Medications: Current Medications Acetaminophen (Tylenol) 650 mg PO Q4H PRN PRN Reason: Headache/Fever or Pain Hydrocodone Bitart/Acetaminophen ([place] 5/325) 1 tab PO Q4H PRN PRN Reason: Moderate Pain (4-6) Last Admin: 07/21/17 14:37 Dose: 1 tab Al Hydroxide/Mg Hydroxide (Maalox) 30 ml PO Q6H PRN PRN Reason: Heartburn or Indigestion Albuterol Sulfate (Ventolin) 2.5 mg NEB [id number] PRN PRN Reason: Wheezing Albuterol/Ipratropium (Duoneb) 3 ml NEB [id number] Last Admin: 07/22/17 13:26 Dose: 3 ml Artificial Tears (Tears Renewed 15ml Bottle) 0 drop EA EYE PRN PRN PRN Reason: Dry Eyes Aspirin (Aspirin Chewable) 81 mg PO DAILY [facility] Last Admin: 07/22/17 09:06 Dose: 81 mg Carvedilol (Coreg) 3.125 mg PO BID [facility] Last Admin: 07/22/17 09:06 Dose: 3.125 mg Famotidine (Pepcid) 20 mg PO DAILY [facility] Last Admin: 07/22/17 09:06 Dose: 20 mg Ferrous Sulfate (Feosol) 325 mg PO QAM-WM [facility] Last Admin: 07/22/17 09:06 Dose: 325 mg Furosemide (Lasix) 40 mg SLOW IVP 0600,1400 [facility] Last Admin: 07/22/17 13:31 Dose: 40 mg Guaifenesin (Robitussin Sf) 200 mg PO Q4H PRN PRN Reason: Cough Heparin Sodium (Porcine) (Heparin) 5,000 units SC BID [facility] Last Admin: 07/22/17 09:06 Dose: 5,000 units Hydralazine HCl (Apresoline) 10 mg SLOW IVP Q4H PRN PRN Reason: Systolic BP > 180 Lidocaine HCl (Xylocaine 4% Topical Denise) 0 ml TOP ASDIR [facility] Loperamide HCl (Imodium) 2 mg PO PRN PRN PRN Reason: Diarrhea/Loose Stools Loratadine (Claritin) 10 mg PO DAILYPRN PRN PRN Reason: Sinus Symptoms Magnesium Hydroxide (Milk Of Magnesium) 30 ml PO DAILYPRN PRN PRN Reason: Constipation Metolazone (Zaroxolyn) 5 mg PO 0830 [facility] Last Admin: 07/22/17 09:06 Dose: 5 mg Mineral Oil/White Petrolatum (Eucerin Cream) 0 gm TOP BIDPRN PRN PRN Reason: Dry Skin Mometasone Furoate/Formoterol Fumar (Dulera 200 Mcg/5 Mcg Inhaler) 2 puff INH BID-RT [facility] Last Admin: 07/22/17 06:36 Dose: 2 puff Mometasone Furoate/Formoterol Fumar (Dulera 200 Mcg/5 Mcg Inhaler) 2 puff INH BIDPRN PRN PRN Reason: SOB Neomycin/Polymyxin/Bacitracin (Triple Antibiotic) 1 gm TOP QAM [facility] Last Admin: 07/22/17 09:06 Dose: 1 gm Nitroglycerin (Nitrostat) 0.4 mg SL Q5MIN PRN PRN Reason: Chest Pain Nitroglycerin (Nitro-Bid 2% Ointment) 0.5 inch TOP Q8HR [facility] Last Admin: 07/22/17 13:31 Dose: 0.5 inch Ondansetron HCl (Zofran Odt) 4 mg PO Q6H PRN PRN Reason: Nausea/Vomiting Ondansetron HCl (Zofran) 4 mg IVP Q6H PRN PRN Reason: Nausea/Vomiting Phenol (Chloraseptic [place] 180 Ml Bot) 0 ml PO PRN PRN PRN Reason: Sore Throat Potassium Chloride (K-Dur) 20 meq PO QAM-WM [facility] Last Admin: 07/22/17 09:06 Dose: 20 meq Senna (Senokot) 2 tab PO HSPRN PRN PRN Reason: Constipation Sodium Chloride ([place] Nasal [place] 0.65%) 0 ml EA NARE QIDPRN PRN PRN Reason: Nasal Congestion Spironolactone (Aldactone) 25 mg PO DAILY [facility] Last Admin: 07/22/17 09:06 Dose: 25 mg Zolpidem Tartrate (Ambien) 5 mg PO HSPRN PRN PRN Reason: Insomnia
[2017-07-22] MEDS: HYDROcodone/Acetaminophen 5/325 mg Tablet PO PRN (16:28)
--- NOTE | 2017-07-22 18:28 | PDOC.CTH ---
Cardiology Progress Note - Subjective he has not had any more AV block. No chest pain. - Objective Vital Signs Temp Pulse Resp BP BP Pulse Ox 07/22/17 16:24 98 F 96 18 150/78 H 96 07/22/17 16:00 96 07/22/17 13:27 97.0 F L 106 H 18 138/63 95 07/22/17 13:26 84 16 07/22/17 12:00 92 L 07/22/17 08:26 98.2 F 100 20 92 L 07/22/17 08:24 98.2 F 100 20 99/49 L 92 L 07/22/17 06:36 96 16 07/22/17 06:29 96 16 Admit Weight 224 lb 3.2 oz Weight 217 lb 1 oz 07/21/17 07/22/17 07/23/17 06:59 06:59 06:59 Intake Total 900 1180 1180 Output Total 8404 1080 5366 [facility], [place] [phone] - Physical Examination General/Neuro: alert & oriented x3, NAD Neck: no JVD present Lungs: CTA, unlabored respirations Heart: RRR Abdomen: NT/ND Extremities: + edema B (3+) - Telemetry Telemetry Rhythm: NSR - Labs Result Diagrams: 07/22/17 05:03 07/22/17 05:03 Troponin/CKMB CK-MB (CK-2) 9.5 ng/mL (0-6.6) H* 07/21/17 12:11 Troponin I 0.167 ng/mL (< 0.028) H 07/21/17 18:06 - Assessment/Plan 1. Intermitent 3rd degree AV block, asymptomatic. 2. Acute on chronic systolic and diastolic CHF 3. Last EF at 45-50% 4. COPD 5. RV dysfunction 6. CARIE on CKD PLAN: - I spoke with him about possible LHC versus a stress test. HE is adamantly refusing a stress test to evaluate for ischemia. As far as a LHC I voiced his risk of developing contrast nephropathy due to baseline high creatinine and he does not want to risk his kidneys at this time. - Will talk to Dr. Bermudez about possible PPM placement for now. - Continue IV lasix and metolazone for now.
--- NOTE | 2017-07-22 20:57 | CON ---
DATE OF CONSULTATION: 07/22/2017 REFERRING PHYSICIANS: Donn Crenshaw M.D. and Daniel Elliott M.D. I am seeing Mr. Daniels at our [facility] as an electrophysiology operations consultant. His problems ar e: 1. Paroxysmal bradyarrhythmias with sinus bradycardia and paroxysmal complete AV block. 2. Occasional PVCs. 3. Acute on chronic systolic congestive heart failure with acute fluid overload on presentation. A. Chronically reduced LVEF in the 30% range, but now improved to 45% to 50% on the last echo in . B. Status post stent placement in 08/2015 in the mid right coronary artery. 4. Coronary artery risk factors significant for a stent placement also x2 in 2004 and 2015, has stro ke in 2004, gastroesophageal reflux disease, chronic obstructive pulmonary disease, hypertension, chr onic systolic heart failure, lumbar stenosis and valvular dysfunction. SUBJECTIVE: Mr. Daniels is here with symptoms of fluid overload, which has been bothering him for a co uple of weeks. He was placed in diuretics usually, but he ran out of Lasix and hence was admitted an d found to be fluid overloaded and is being diuresed while on monitoring, though he developed a choki ng episode and then his heart rate dropped. There was another episode as well of bradycardia and kin d of which is consistent with progressive sinus bradycardia and eventually complete drop of the AV no jordi conduction also seen in occasional junctional escape. He has had some choking sensation in the f irst episode, but later, no symptoms were noted. On further questioning though, he does have episode s of transient blackouts associated with coughing and breathing hard. At home, they are somewhat inf requently a couple of times a month occurring. Never associated with palpitations is impaired or raffaele st pains. Currently, the PND is improving. He continues to diurese. He has no stroke-like symptoms, no bleedi ng issues. REVIEW OF SYSTEMS: Rest of twelve-point system otherwise unremarkable. SOCIAL HISTORY: The patient denies ETOH or drug use intravenous smokes. FAMILY HISTORY: Significant for coronary artery disease. OBJECTIVE DATA: VITAL SIGNS: Blood pressure is 99/49, heart rate 100, respirations 20 and temperature 98.2 degrees F ahrenheit. GENERAL: This is an oriented male, in no apparent distress. NECK: Supple. Jugular veins not distended. CHEST: Coarse without crackles. CARDIOVASCULAR: Heart sounds are regular to rate and rhythm. No murmur or gallop. ABDOMEN: Benign. Bowel sounds positive. EXTREMITIES: Left lower extremities without edema, clubbing or cyanosis. Pulses are adequate. NEUROLOGIC: The patient nonfocal. MUSCULOSKELETAL: No joint swelling or deformities. SKIN: Without rash. DATABASE: EKG is reviewed revealing sinus rhythm, narrow QRS, normal AV conduction at baseline. No ST-T changes. Telemetry strips do reveal episodic sinus rhythm progressing to sinus bradycardia, wilber ntually AV block and junctional escape seen at times. White count is 5.6, hemoglobin 10.4, and plate let count is 139. Sodium 137, potassium 3.6, BUN is 41 and creatinine is 2.09. Troponins are 0.169 and then 0.167 consecutively. BNP was elevated and on admission 15. ASSESSMENT: Mr. Daniels is a pleasant 61-year-old man with prior history of coronary artery disease, p rior stent placement, who had been admitted with an acute heart failure exacerbation. He developed a n episode of coughing, choking on a burger and he subsequently fell and hit his chin. He had subsequ ent episodes of bradycardia, which though on the other hand were asymptomatic. On the other hand, in the past, he has some minor syncopal spells, usually associated with dyspnea. PLAN: This gentleman's gracie episodes are unusual. The progressive sinus bradycardia and concomitan t AV block would suggest hypervagotonia, the potential etiology. On the other hand, he is not compla ined of any abdominal discomfort or any other trigger for hypervagotonia, nonetheless in view of the coronary artery disease history, if ischemia could also be a potential cause. His systolic-diastolic heart failure could also potentially warrant further ischemic evaluation. We discussed with Dr. Col william. If above is negative, we could consider an EP study to evaluate his AV ashlyn conduction and con chisel worker pacing. Should his LVEF further drop back to the previous 35% range or below, then ICD implant ation is a potential option as well. We will follow up with you. Thank you for the consult.
[2017-07-23] MEDS: HYDROcodone/Acetaminophen 5/325 mg Tablet PO PRN ×4 (01:34→20:35)
[2017-07-23] MEDS: Nitroglycerin 2% Ointment 1 INCH/1 GM Packet TOP SCH ×2 (05:15→13:01)
[2017-07-23] MEDS: Furosemide 40 MG/4 ML VIAL SLOW IVP SCH ×2 (05:16→13:00)
[2017-07-23 05:55] LABS: #Eosinphils 0.1 thou/uL (0.0-0.7); #Lymphocytes 0.8 thou/uL (1.20-3.40); #Monocytes 0.4 thou/uL (0.11-0.59); %Basophils 0.5 % (0.0-1.0); %Eosinophils 2.4 % (0.0-10.0); %Lymphocytes 18.3 % (21.0-51.0); %Monocytes 9.4 % (0.0-10.0); %Neutrophils 69.4 % (42.0-75.0); Hemoglobin 11.4 g/dL (14.0-18.0); Mean Corpuscular HGB CONC 32.7 g/dL (32.0-36.0); Mean Corpuscular Hemoglobin 29.7 pg (27.0-31.0); Mean Platelet Volume 7.4 fL (7.4-10.4); Platelet Count 136 thou/uL (130-400); RBC Distribution Width 14.3 % (11.5-14.5); Red Blood Cell (RBC) Count 3.85 mill/uL (4.70-6.10); White Blood Cell (WBC) Count 4.3 thou/uL (4.8-10.8)
[2017-07-23 06:06] LABS: Anion Gap 10 mmol/L (10-20); BUN (Urea Nitrogen) 36 mg/dL (8.4-25.7); Calc. Creatinine Clearance 53 mL/min (70-130); Calcium 9.6 mg/dL (7.8-10.44); Carbon Dioxide 37 mmol/L (22-29); Chloride 92 mmol/L (98-107); Estimated GFR-MDRD 37; Glucose 178 mg/dL (70-105); Magnesium 1.6 mg/dL (1.6-2.6); Potassium 3.7 mmol/L (3.5-5.1); Sodium 135 mmol/L (136-145)
[2017-07-23] MEDS: Mometasone/Formoterol 120 PUFF INHALER INH SCH ×2 (06:53→18:46)
[2017-07-23] MEDS: Ferrous Sulfate 325 MG TAB PO SCH (09:35)
[2017-07-23] MEDS: Carvedilol 3.125 MG TAB PO SCH ×2 (09:35→20:34)
[2017-07-23] MEDS: Famotidine 20 MG TAB PO SCH (09:35)
[2017-07-23] MEDS: Spironolactone 25 MG TAB PO SCH (09:35)
[2017-07-23] MEDS: Triple Antibiotic Oint 1 GM Packet TOP SCH (09:36)
[2017-07-23] MEDS: Potassium Chloride 20 MEQ TAB PO SCH ×2 (09:36)
[2017-07-23] MEDS: Metolazone 5 MG TAB PO SCH (09:36)
[2017-07-23] MEDS: Heparin 5,000 UNITS/ML VIAL SC SCH ×4 (09:36→20:34)
--- NOTE | 2017-07-23 12:47 | PRG ---
DATE OF SERVICE: 07/23/2017 SUBJECTIVE: Mr. Daniels seems to be doing better. He continues to diurese. His in's and out's are ac tually negative 5.1 liters. His weight is also decreasing from 224-197 pounds since admit. OBJECTIVE DATA: VITAL SIGNS: Blood pressure is 135/85, heart rate 80, respiration 18, temperature 97.3 degrees [place] nheit. GENERAL: Alert and oriented man, in no apparent distress. NECK: Supple. Jugular veins slightly distended, hepatojugular reflux is still positive. CHEST: Coarse without crackles. CARDIOVASCULAR: Heart sounds are regular to rate and rhythm. No murmur, rub or gallop. ABDOMEN: Benign. Bowel sounds are positive. EXTREMITIES: Lower extremities without edema, clubbing or cyanosis. DATABASE: Telemetry strips reveal sinus rhythm. Still episodic bradycardia is noted, but no high-gr indu AV blocks are seen today. LABORATORY DATA: Reviewed, the creatinine is 1.88, BUN is 36. Sodium 135, potassium 3.7. ASSESSMENT AND PLAN: Mr. Daniels is a 61-year-old man with history of coronary artery disease, prior s tent placements, who also has ischemic cardiomyopathy. In the past, his left ventricular systolic fu nction was severely reduced, but there was some improvement based on last echocardiogram in March. He continues to have the heart failure exacerbations. The reason for that is could be systolic and diastolic combined heart failure. He denies angina-like chest pains. On the other hand, he was not ed to have a periodic bradycardia somehow associated acute choking on food, but also occurs asymptoma tically. He does take frequent naps during the day and indeed the episodes and the patient has hyper vagotonia possibly related to sleep apnea. He does have occasional syncopal spell related to coughin g spell, but usually they are corrected very quickly. Alternative explanation could be potential inferior wall ischemia as contributing to his hypervagoton ia. We discussed the treatment options. For now, he is very hesitant to undergo further ischemic evaluat ion and that could be indeed a risk of further worsening renal dysfunction. Also at this point, he i s somewhat not very much interested in a pacemaker implantation. Hence, there was a short duration o f these spells, it is not reasonable. He feels better when his fluid levels are corrected. It might be reasonable to continue to monitor him as an outpatient. We will discuss with Dr. Elliott. Thank you for allowing me to participate in the care of this patient.
--- NOTE | 2017-07-23 16:07 | PDOC.PN ---
- Subjective Encounter Start Date: 07/23/17 Encounter Start Time: 16:00 Subjective: f/u for acute systolic CHF due to non-compliance with meds. Overall -: feeling better with weight loss 27lbs since admit. No SOB and able to -: lay in bed. Still c/o scrotal edema. - Objective Resuscitation Status: Resuscitation Status FULL:Full Resuscitation MAR Reviewed: Yes Vital Signs & Weight: Vital Signs (12 hours) Temp Pulse Resp BP Pulse Ox 07/23/17 13:26 82 18 95 07/23/17 12:15 98.2 F 86 18 155/57 H 94 L 07/23/17 09:10 97.9 F 92 18 154/81 H 93 L 07/23/17 08:15 97.9 F 82 18 95 07/23/17 06:53 91 16 97 07/23/17 04:18 97.3 F L 84 18 135/85 94 L Weight Admit Weight 224 lb 3.2 oz Weight 197 lb I&O: 07/22/17 07/23/17 07/24/17 06:59 06:59 06:59 Intake Total 1180 1500 Output Total 3570 7339 [id number] -[id number] Result Diagrams: 07/23/17 05:37 07/23/17 05:37 Additional Labs: Laboratory Tests 03/20/17 07/20/17 07/20/17 15:45 11:26 11:26 Creatinine Troponin I 0.136 H B-Natriuretic Peptide 1234.9 H 1557.2 H 07/20/17 07/20/17 07/21/17 15:31 17:14 12:11 Creatinine Troponin I 0.139 H 0.122 H 0.169 H B-Natriuretic Peptide 07/21/17 07/21/17 07/22/17 18:06 18:06 05:03 Creatinine 2.14 H 2.09 H Troponin I 0.167 H B-Natriuretic Peptide Radiology Reviewed by me: Yes (2D echo - 03/2017 - EF 45%, mod aortic regurg) EKG Reviewed by me: Yes (Tele - SR in 90's) Phys Exam - Physical Examination Constitutional: NAD alert, responsive HEENT: PERRLA, moist MMs, sclera anicteric, oral pharynx no lesions Neck: no nodes, no JVD, supple few basilar crackles Respiratory: no wheezing, no rhonchi I/ JEANNE in RUSB Cardiovascular: RRR, no rub, gallop Gastrointestinal: soft, non-tender, no distention, positive bowel sounds + scrotal edema Musculoskeletal: pulses present, edema present Neurological: non-focal, normal sensation, moves all 4 limbs Psychiatric: normal affect, A&O x 3 Skin: no rash, normal turgor, cap refill <2 seconds Dx/Plan (1) Systolic and diastolic CHF, acute on chronic Code(s): I50.43 - ACUTE ON CHRONIC COMBINED SYSTOLIC AND DIASTOLIC HRT FAIL Status: Acute Comment: EF 45-50% from TTE in March 2017. p/w anasarca. Started on diuretics- weight loss 27lbs since admit, continue IV Lasix (2) AV block, 3rd degree Code(s): I44.2 - ATRIOVENTRICULAR BLOCK, COMPLETE Status: Acute Comment: Cardiology on board. EP consulted. No intervention currently, pt declining pacemaker (3) Acute on chronic renal failure Code(s): N17.9 - ACUTE KIDNEY FAILURE, UNSPECIFIED; N18.9 - CHRONIC KIDNEY DISEASE, UNSPECIFIED Status: Acute Qualifiers: Chronic kidney disease stage: stage 3 (moderate) Comment: Improving. Watch renal function closely given diuretic therapy, serial creatinine, avoid nephrotoxic meds and contrast (4) CAD (coronary artery disease) Code(s): I25.10 - ATHSCL HEART DISEASE OF [place] CORONARY ARTERY W/O ANG PCTRS Status: Chronic Qualifiers: Coronary Disease-Associated Artery/Lesion type: unspecified vessel or lesion type Associated angina: without angina Comment: s/p stent 08/27/15. Stable, chest pain free. Continue ASA and Coreg. 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
--- NOTE | 2017-07-23 18:29 | PDOC.CTH ---
Cardiology Progress Note - Subjective He is feeling much better with increased diuresis. - Objective Vital Signs Temp Pulse Resp BP BP Pulse Ox 07/23/17 16:24 98.4 F 91 18 141/72 H 95 07/23/17 13:26 82 18 95 07/23/17 12:15 98.2 F 86 18 155/57 H 94 L 07/23/17 09:10 97.9 F 92 18 154/81 H 93 L 07/23/17 08:15 97.9 F 82 18 95 07/23/17 06:53 91 16 97 Admit Weight 224 lb 3.2 oz Weight 197 lb 07/22/17 07/23/17 07/24/17 06:59 06:59 06:59 Intake Total 1180 1500 820 Output Total 6059 4515 9944 Balance -8246 -3241 -3415 - Physical Examination General/Neuro: alert & oriented x3, NAD Neck: no JVD present Lungs: unlabored respirations Heart: RRR Abdomen: NT/ND Extremities: + edema B (2+) - Telemetry Telemetry Rhythm: NSR - Labs Result Diagrams: 07/23/17 05:37 07/23/17 05:37 Troponin/CKMB CK-MB (CK-2) 9.5 ng/mL (0-6.6) H* 07/21/17 12:11 Troponin I 0.167 ng/mL (< 0.028) H 07/21/17 18:06 - Assessment/Plan 1. Bradycardia, asymptomatic. 2. Acute on chronic systolic and diastolic CHF 3. Last EF at 45-50% 4. COPD 5. RV dysfunction 6. CARIE on CKD PLAN: - Episodes of braycardia are intermittent, asymptomatic and short lived. Likely related to vagotonia. - No indication for pacemaker rat this time after discussing with EP. - Still volume up, will continue IV diuresis. - Home when more euvolemic.
[2017-07-24] MEDS: HYDROcodone/Acetaminophen 5/325 mg Tablet PO PRN ×5 (00:52→20:08)
[2017-07-24 05:07] LABS: #Eosinphils 0.1 thou/uL (0.0-0.7); #Lymphocytes 0.9 thou/uL (1.20-3.40); #Monocytes 0.4 thou/uL (0.11-0.59); #Neutrophils 3.1 thou/uL (1.40-6.50); %Basophils 0.7 % (0.0-1.0); %Eosinophils 2.9 % (0.0-10.0); %Lymphocytes 19.6 % (21.0-51.0); %Monocytes 8.5 % (0.0-10.0); %Neutrophils 68.2 % (42.0-75.0); Hemoglobin 11.9 g/dL (14.0-18.0); Mean Corpuscular HGB CONC 31.9 g/dL (32.0-36.0); Mean Corpuscular Hemoglobin 28.9 pg (27.0-31.0); Mean Corpuscular Volume 90.7 fl (80.0-94.0); Mean Platelet Volume 7.5 fL (7.4-10.4); Platelet Count 150 thou/uL (130-400); Red Blood Cell (RBC) Count 4.12 mill/uL (4.70-6.10); White Blood Cell (WBC) Count 4.5 thou/uL (4.8-10.8)
[2017-07-24 05:28] LABS: Anion Gap 16 mmol/L (10-20); Carbon Dioxide 33 mmol/L (22-29); Chloride 89 mmol/L (98-107); Potassium 3.6 mmol/L (3.5-5.1); Sodium 134 mmol/L (136-145)
[2017-07-24 05:32] LABS: BUN (Urea Nitrogen) 36 mg/dL (8.4-25.7); Calc. Creatinine Clearance 47 mL/min (70-130); Calcium 9.7 mg/dL (7.8-10.44); Estimated GFR-MDRD 32; Glucose 201 mg/dL (70-105); Magnesium 1.9 mg/dL (1.6-2.6)
[2017-07-24] MEDS: Furosemide 40 MG/4 ML VIAL SLOW IVP SCH ×2 (06:08→14:22)
[2017-07-24] MEDS: Mometasone/Formoterol 120 PUFF INHALER INH SCH ×2 (06:38→19:11)
[2017-07-24] MEDS: Triple Antibiotic Oint 1 GM Packet TOP SCH (10:05)
[2017-07-24] MEDS: Famotidine 20 MG TAB PO SCH (10:05)
[2017-07-24] MEDS: Heparin 5,000 UNITS/ML VIAL SC SCH ×4 (10:05→20:08)
[2017-07-24] MEDS: Carvedilol 3.125 MG TAB PO SCH ×2 (10:06→20:09)
[2017-07-24] MEDS: Spironolactone 25 MG TAB PO SCH (10:07)
[2017-07-24] MEDS: Metolazone 5 MG TAB PO SCH (10:07)
[2017-07-24] MEDS: Potassium Chloride 20 MEQ TAB PO SCH ×2 (10:07)
[2017-07-24] MEDS: Ferrous Sulfate 325 MG TAB PO SCH (10:07)
[2017-07-24] MEDS: Lidocaine 4% Topical Sol 50 ML BOT TOP SCH (10:12)
--- NOTE | 2017-07-24 13:43 | PDOC.CTH ---
Cardiology Progress Note - Subjective He is doing better. Has not had any syncope or presyncope. He is diuresing well and edema has improved. - Objective Vital Signs Temp Pulse Resp BP BP BP Pulse Ox 07/24/17 11:10 86 20 136/69 07/24/17 07:22 97.8 F 94 18 129/71 93 L 07/24/17 06:38 80 14 07/24/17 04:00 97.9 F 87 18 137/67 96 Admit Weight 224 lb 3.2 oz Weight 189 lb 8 oz 07/23/17 07/24/17 07/25/17 06:59 06:59 06:59 Intake Total 1500 1300 Output Total 6604 8640 Balance -3544 -5291 - Physical Examination General/Neuro: alert & oriented x3, NAD Neck: no JVD present Lungs: CTA, unlabored respirations Heart: RRR Abdomen: NT/ND Extremities: + edema B (2+) - Telemetry Telemetry Rhythm: NSR - Labs Result Diagrams: 07/24/17 04:55 07/24/17 04:55 Troponin/CKMB CK-MB (CK-2) 9.5 ng/mL (0-6.6) H* 07/21/17 12:11 Troponin I 0.167 ng/mL (< 0.028) H 07/21/17 18:06 - Assessment/Plan 1. Bradycardia, asymptomatic. 2. Acute on chronic systolic and diastolic CHF 3. Last EF at 45-50% 4. COPD 5. RV dysfunction 6. CARIE on CKD PLAN: - Episodes of braycardia are intermittent, asymptomatic and short lived. Likely related to vagotonia. - No indication for pacemaker per EP. - Still volume up, will continue IV diuresis. - Home when more euvolemic.
--- NOTE | 2017-07-24 14:42 | PDOC.CTH ---
<Zahra Eugene - Last Filed: 07/24/17 14:41> Cardiology Progress Note - Subjective EP progress note: Patient seen and evaluated. No new cardiac complaints. Continues to diurese. No syncope/near syncope. Denies heart racing or palpitations. No dizziness. - Objective Vital Signs Temp Pulse Resp BP BP BP Pulse Ox 07/24/17 13:48 70 14 07/24/17 11:10 86 20 136/69 07/24/17 07:22 97.8 F 94 18 129/71 93 L 07/24/17 06:38 80 14 07/24/17 04:00 97.9 F 87 18 137/67 96 Admit Weight 224 lb 3.2 oz Weight 189 lb 8 oz 07/23/17 07/24/17 07/25/17 06:59 06:59 06:59 Intake Total 1500 1300 Output Total 6608 3950 Balance -4595 -5884 - Physical Examination General/Neuro: alert & oriented x3, NAD Neck: carotid US brisk, no JVD present Lungs: CTA, unlabored respirations Heart: PMI normal, RRR Abdomen: NT/ND, soft - Telemetry Telemetry Rhythm: SR - Labs Result Diagrams: 07/24/17 04:55 07/24/17 04:55 Troponin/CKMB CK-MB (CK-2) 9.5 ng/mL (0-6.6) H* 07/21/17 12:11 Troponin I 0.167 ng/mL (< 0.028) H 07/21/17 18:06 - Assessment/Plan CAD with prior PCI, per cardiology Ischemic cardiomyopathy with fluctuation LVEF, most recently 35-40%, managed by cardiology. Periodic bradycardia episodes which occur with choking. Hypervagotonia, possibly related to inferior wall ischemia Patient wishes for conservative management at this time. No clear indication for PPM. If EF remains low, we will further discuss ICD with him. 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 <Cralton Bermudez - Last Filed: 07/24/17 15:39> Cardiology Progress Note - Objective Vital Signs Temp Pulse Resp BP BP BP Pulse Ox 07/24/17 13:48 70 14 07/24/17 11:10 86 20 136/69 07/24/17 07:22 97.8 F 70 14 129/71 93 L 07/24/17 06:38 80 14 07/24/17 04:00 97.9 F 87 18 137/67 96 Admit Weight 224 lb 3.2 oz Weight 189 lb 8 oz 07/23/17 07/24/17 07/25/17 06:59 06:59 06:59 Intake Total 1500 1300 Output Total 7784 2196 Balance -1785 -0440 - Labs Result Diagrams: 07/24/17 04:55 07/24/17 04:55 Troponin/CKMB CK-MB (CK-2) 9.5 ng/mL (0-6.6) H* 07/21/17 12:11 Troponin I 0.167 ng/mL (< 0.028) H 07/21/17 18:06 Attending Addendum - Attending Addendum Date/Time: 07/24/17 3306 I personally evaluated the patient and discussed the management with Ms Eugene. I agree with the History, Examination, Assessment and Plan documented above with any addition or exceptions noted below.
--- NOTE | 2017-07-24 17:59 | PDOC.PN ---
- Subjective Encounter Start Date: 07/24/17 Encounter Start Time: 17:45 Subjective: f/u for acute systolic CHF with 27+lb weight loss since admit. Overall -: feels better but ambulating short distances with foot pain. Eating well. -: No SOB or fever. - Objective Resuscitation Status: Resuscitation Status FULL:Full Resuscitation MAR Reviewed: Yes Vital Signs & Weight: Vital Signs (12 hours) Temp Pulse Resp BP BP Pulse Ox 07/24/17 16:00 98.1 F 82 15 131/67 97 07/24/17 13:48 70 14 07/24/17 11:10 86 20 136/69 95 07/24/17 07:22 97.8 F 70 14 129/71 93 L 07/24/17 06:38 80 14 Weight Admit Weight 224 lb 3.2 oz Weight 189 lb 8 oz I&O: 07/23/17 07/24/17 07/25/17 06:59 06:59 06:59 Intake Total 1500 1300 Output Total 6679 1573 Balance -5239 -5604 Result Diagrams: 07/24/17 04:55 07/24/17 04:55 Additional Labs: Laboratory Tests 03/20/17 07/20/17 07/20/17 15:45 11:26 11:26 Creatinine Troponin I 0.136 H B-Natriuretic Peptide 1234.9 H 1557.2 H 07/20/17 07/20/17 07/21/17 15:31 17:14 12:11 Creatinine Troponin I 0.139 H 0.122 H 0.169 H B-Natriuretic Peptide 07/21/17 07/21/17 07/22/17 18:06 18:06 05:03 Creatinine 2.14 H 2.09 H Troponin I 0.167 H B-Natriuretic Peptide EKG Reviewed by me: Yes (Tele - SR) Phys Exam - Physical Examination Constitutional: NAD HEENT: PERRLA, moist MMs, sclera anicteric, oral pharynx no lesions Neck: no nodes, no JVD, supple Respiratory: no wheezing, no rales, no rhonchi, clear to auscultation bilateral Cardiovascular: RRR, no significant murmur, no rub, gallop Gastrointestinal: soft, non-tender, no distention, positive bowel sounds decreased edema LE's Musculoskeletal: pulses present, edema present Neurological: non-focal, normal sensation, moves all 4 limbs Psychiatric: normal affect, A&O x 3 Skin: no rash, normal turgor, cap refill <2 seconds Deviation from normal: decreased scrotal edema Dx/Plan (1) Systolic and diastolic CHF, acute on chronic Code(s): I50.43 - ACUTE ON CHRONIC COMBINED SYSTOLIC AND DIASTOLIC HRT FAIL Status: Acute Comment: EF 45-50% from TTE in March 2017. p/w anasarca. Started on diuretics- weight loss 27lbs since admit, continue IV Lasix (2) AV block, 3rd degree Code(s): I44.2 - ATRIOVENTRICULAR BLOCK, COMPLETE Status: Acute Comment: Cardiology on board. EP consulted. No intervention currently, pt declining pacemaker (3) Acute on chronic renal failure Code(s): N17.9 - ACUTE KIDNEY FAILURE, UNSPECIFIED; N18.9 - CHRONIC KIDNEY DISEASE, UNSPECIFIED Status: Acute Qualifiers: Chronic kidney disease stage: stage 3 (moderate) Comment: Watch renal function closely given diuretic therapy, serial creatinine , avoid nephrotoxic meds and contrast (4) CAD (coronary artery disease) Code(s): I25.10 - ATHSCL HEART DISEASE OF [place] CORONARY ARTERY W/O ANG PCTRS Status: Chronic Qualifiers: Coronary Disease-Associated Artery/Lesion type: unspecified vessel or lesion type Associated angina: without angina Comment: s/p stent 08/27/15. Stable, chest pain free. Continue ASA and Coreg. 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
[2017-07-25] MEDS: HYDROcodone/Acetaminophen 5/325 mg Tablet PO PRN ×4 (02:21→20:54)
[2017-07-25] MEDS: Furosemide 40 MG/4 ML VIAL SLOW IVP SCH ×2 (05:39→15:20)
[2017-07-25 06:00] LABS: Anion Gap 12 mmol/L (10-20); BUN (Urea Nitrogen) 37 mg/dL (8.4-25.7); Calc. Creatinine Clearance 44 mL/min (70-130); Calcium 9.6 mg/dL (7.8-10.44); Carbon Dioxide 36 mmol/L (22-29); Chloride 88 mmol/L (98-107); Estimated GFR-MDRD 32; Glucose 246 mg/dL (70-105); Potassium 3.8 mmol/L (3.5-5.1); Sodium 132 mmol/L (136-145)
[2017-07-25] MEDS: Mometasone/Formoterol 120 PUFF INHALER INH SCH ×2 (07:10→18:21)
[2017-07-25] MEDS: Heparin 5,000 UNITS/ML VIAL SC SCH ×4 (07:57→20:44)
[2017-07-25] MEDS: Potassium Chloride 20 MEQ TAB PO SCH ×2 (07:57)
[2017-07-25] MEDS: Famotidine 20 MG TAB PO SCH (07:58)
[2017-07-25] MEDS: Spironolactone 25 MG TAB PO SCH (07:58)
[2017-07-25] MEDS: Carvedilol 3.125 MG TAB PO SCH ×2 (07:58→20:44)
[2017-07-25] MEDS: Ferrous Sulfate 325 MG TAB PO SCH (07:58)
[2017-07-25] MEDS: Metolazone 5 MG TAB PO SCH (07:58)
--- NOTE | 2017-07-25 09:58 | PDOC.CTH ---
<MolinaKasey fernandez - Last Filed: 07/25/17 15:59> Cardiology Progress Note - Subjective Awake, watching tv. Denies acute complaints. No chest pain, shortness of breath, on room air. - Objective Vital Signs Temp Pulse Resp BP Pulse Ox 07/25/17 07:55 97.6 F 92 20 132/70 96 07/25/17 07:13 78 12 07/25/17 07:11 99 07/25/17 07:10 78 12 07/25/17 04:00 97.4 F L 83 13 124/57 L 95 07/24/17 23:48 94 L Admit Weight 224 lb 3.2 oz Weight 189 lb 8 oz 07/24/17 07/25/17 07/26/17 06:59 06:59 06:59 Intake Total 1300 854 Output Total 3950 3475 Balance -0100 -9001 - Physical Examination General/Neuro: alert & oriented x3, NAD Neck: no JVD present Lungs: CTA Heart: RRR Abdomen: NT/ND, soft Extremities: + edema B (moderate BLE edema) Other PE findings: anasarca - Telemetry Telemetry Rhythm: NSR 60s-80s - Labs Result Diagrams: 07/24/17 04:55 07/25/17 05:13 Troponin/CKMB CK-MB (CK-2) 9.5 ng/mL (0-6.6) H* 07/21/17 12:11 Troponin I 0.167 ng/mL (< 0.028) H 07/21/17 18:06 - Assessment/Plan Assessment/Plan: 1. Bradycardia, asymptomatic-intermittent, asymptomatic. Evaluated by EP-no indication for PM at this time. Episodes likely r/t vagotonia. Patient refusing LHC this admission 2. Acute on chronic systolic and diastolic CHF-most recent EF 45-50%, BNP >1550 upon admission, poor compliance with diuretics at home; volume status improving , continue IV diuresis, continue low-dose carvedilol. 3. COPD-stable, on RA 7. CARIE on CKD-stable, creat 2.15 this am Home soon. <Fabian Cross - Last Filed: 07/25/17 16:14> Cardiology Progress Note - Objective Vital Signs Temp Pulse Resp BP Pulse Ox 07/25/17 15:22 98.2 F 85 18 123/64 94 L 07/25/17 14:28 84 16 07/25/17 11:32 97.9 F 83 17 117/65 96 07/25/17 07:55 97.6 F 92 20 132/70 96 07/25/17 07:13 78 12 07/25/17 07:11 99 07/25/17 07:10 78 12 Admit Weight 224 lb 3.2 oz Weight 189 lb 8 oz 07/24/17 07/25/17 07/26/17 06:59 06:59 06:59 Intake Total 1300 854 Output Total 2639 5930 Balance -1770 -7780 - Labs Result Diagrams: 07/24/17 04:55 07/25/17 05:13 Troponin/CKMB CK-MB (CK-2) 9.5 ng/mL (0-6.6) H* 07/21/17 12:11 Troponin I 0.167 ng/mL (< 0.028) H 07/21/17 18:06 Attending Addendum - Attending Addendum Date/Time: 07/25/17 8813 I personally evaluated the patient and discussed the management with Kasey Molina NP. I agree with the History, Examination, Assessment and Plan documented above with any addition or exceptions noted below.
[2017-07-25] MEDS: Triple Antibiotic Oint 1 GM Packet TOP SCH (11:22)
--- NOTE | 2017-07-25 17:28 | PDOC.PN ---
- Subjective Encounter Start Date: 07/25/17 Encounter Start Time: 17:20 Subjective: f/u for systolic CHF with 35lb weight loss on Lasix, Zaroxolyn. Feels diana -: overall. Some foot pain when ambulating. Appetite ok. - Objective Resuscitation Status: Resuscitation Status FULL:Full Resuscitation MAR Reviewed: Yes Vital Signs & Weight: Vital Signs (12 hours) Temp Pulse Resp BP Pulse Ox 07/25/17 15:22 98.2 F 85 18 123/64 94 L 07/25/17 14:28 84 16 07/25/17 11:32 97.9 F 83 17 117/65 96 07/25/17 07:55 97.6 F 92 20 132/70 96 07/25/17 07:13 78 12 07/25/17 07:11 99 07/25/17 07:10 78 12 Weight Admit Weight 224 lb 3.2 oz Weight 189 lb 8 oz I&O: 07/24/17 07/25/17 07/26/17 06:59 06:59 06:59 Intake Total 1300 854 Output Total 3950 1315 Balance -0200 2622 Result Diagrams: 07/24/17 04:55 07/25/17 05:13 Additional Labs: Laboratory Tests 03/20/17 07/20/17 07/20/17 15:45 11:26 11:26 Creatinine Troponin I 0.136 H B-Natriuretic Peptide 1234.9 H 1557.2 H 07/20/17 07/20/17 07/21/17 15:31 17:14 12:11 Creatinine Troponin I 0.139 H 0.122 H 0.169 H B-Natriuretic Peptide 07/21/17 07/21/17 07/22/17 18:06 18:06 05:03 Creatinine 2.14 H 2.09 H Troponin I 0.167 H B-Natriuretic Peptide EKG Reviewed by me: Yes (Tele - SR) Phys Exam - Physical Examination Constitutional: NAD HEENT: PERRLA, moist MMs, sclera anicteric, oral pharynx no lesions Neck: no nodes, no JVD, supple Respiratory: no wheezing, no rales, no rhonchi, clear to auscultation bilateral Cardiovascular: RRR, no significant murmur, no rub, gallop Gastrointestinal: soft, non-tender, no distention, positive bowel sounds mild LE edema Musculoskeletal: pulses present Neurological: non-focal, normal sensation, moves all 4 limbs Psychiatric: normal affect, A&O x 3 Skin: no rash, normal turgor, cap refill <2 seconds Deviation from normal: scrotal edema improved Dx/Plan (1) Systolic and diastolic CHF, acute on chronic Code(s): I50.43 - ACUTE ON CHRONIC COMBINED SYSTOLIC AND DIASTOLIC HRT FAIL Status: Acute Comment: EF 45-50% from TTE in March 2017. p/w anasarca. Started on diuretics- weight loss 35lbs since admit, continue IV Lasix (2) AV block, 3rd degree Code(s): I44.2 - ATRIOVENTRICULAR BLOCK, COMPLETE Status: Acute Comment: Cardiology on board. EP consulted. No intervention currently, pt declining pacemaker (3) Acute on chronic renal failure Code(s): N17.9 - ACUTE KIDNEY FAILURE, UNSPECIFIED; N18.9 - CHRONIC KIDNEY DISEASE, UNSPECIFIED Status: Acute Qualifiers: Chronic kidney disease stage: stage 3 (moderate) Comment: Watch renal function closely given diuretic therapy, serial creatinine , avoid nephrotoxic meds and contrast (4) CAD (coronary artery disease) Code(s): I25.10 - ATHSCL HEART DISEASE OF [place] CORONARY ARTERY W/O ANG PCTRS Status: Chronic Qualifiers: Coronary Disease-Associated Artery/Lesion type: unspecified vessel or lesion type Associated angina: without angina Comment: s/p stent 08/27/15. Stable, chest pain free. Continue ASA and Coreg. d/ c Nitropaste (5) Tobacco dependence Code(s): F17.200 - NICOTINE DEPENDENCE, UNSPECIFIED, UNCOMPLICATED Status: Chronic Comment: Tobacco cessation resources - Plan out of bed/ambulate Stable overall -: Add Mag Oxide 400mg BID -: Continue Lasix IV another 24h then convert to po -: Continue Spironolactone 25mg daily -: OOB/ambulate * AM lab: BMP * Likely home in 24-48h
[2017-07-25] MEDS: Magnesium Oxide 400 MG TAB PO SCH (20:44)
[2017-07-26] MEDS: Furosemide 40 MG/4 ML VIAL SLOW IVP SCH ×2 (05:28→14:38)
[2017-07-26 05:46] LABS: Anion Gap 16 mmol/L (10-20); BUN (Urea Nitrogen) 38 mg/dL (8.4-25.7); Calc. Creatinine Clearance 47 mL/min (70-130); Calcium 9.6 mg/dL (7.8-10.44); Carbon Dioxide 30 mmol/L (22-29); Chloride 91 mmol/L (98-107); Estimated GFR-MDRD 33; Glucose 196 mg/dL (70-105); Potassium 3.9 mmol/L (3.5-5.1); Sodium 133 mmol/L (136-145)
[2017-07-26] MEDS: Mometasone/Formoterol 120 PUFF INHALER INH SCH ×2 (07:43→19:03)
[2017-07-26] MEDS: Carvedilol 3.125 MG TAB PO SCH ×2 (08:39→21:02)
[2017-07-26] MEDS: Ferrous Sulfate 325 MG TAB PO SCH (08:39)
[2017-07-26] MEDS: Famotidine 20 MG TAB PO SCH (08:40)
[2017-07-26] MEDS: Heparin 5,000 UNITS/ML VIAL SC SCH ×4 (08:40→21:02)
[2017-07-26] MEDS: Metolazone 5 MG TAB PO SCH (08:40)
[2017-07-26] MEDS: Potassium Chloride 20 MEQ TAB PO SCH ×2 (08:40)
[2017-07-26] MEDS: Magnesium Oxide 400 MG TAB PO SCH ×2 (08:40→21:02)
--- NOTE | 2017-07-26 08:44 | EKG ---
Test Reason : CODE GREEN Blood Pressure : / mmHG Vent. Rate : 099 BPM Atrial Rate : 099 BPM P-R Int : 168 ms QRS Dur : 108 ms QT Int : 370 ms P-R-T Axes : 071 034 185 degrees QTc Int : 474 ms Normal sinus rhythm T wave abnormality, consider lateral ischemia Prolonged QT Abnormal ECG Confirmed by YAS SHAH, TAMERA ([id number]) on 07/26/2017 8:44:32 AM Referred By: KAREL Confirmed By:TAMERA SORENSON MD
[2017-07-26] MEDS: Spironolactone 25 MG TAB PO SCH (08:45)
[2017-07-26] MEDS: HYDROcodone/Acetaminophen 5/325 mg Tablet PO PRN ×3 (08:45→21:01)
--- NOTE | 2017-07-26 10:03 | PDOC.CTH ---
<Kasey Molina - Last Filed: 07/26/17 13:01> Cardiology Progress Note - Subjective Awake, sitting up in chair at bedside. Feels better, states "I don't want to go home too soon." Has some muscle cramping that started yesterday afternoon, improved with Mag Oxide. Has had 35+ weight loss since admission. Denies chest pain, shortness of breath. No overnight events. - Objective Vital Signs Temp Pulse Resp BP BP Pulse Ox 07/26/17 07:43 85 16 07/26/17 07:39 91 L 07/26/17 07:38 85 16 07/26/17 07:36 98.1 F 85 18 160/83 H 92 L 07/26/17 04:00 98.4 F 75 20 115/66 94 L 07/25/17 23:10 93 L Admit Weight 224 lb 3.2 oz Weight 183 lb 07/25/17 07/26/17 07/27/17 06:59 06:59 06:59 Intake Total 854 1280 Output Total 3475 2420 Balance -2621 -1140 - Physical Examination General/Neuro: alert & oriented x3, NAD Neck: no JVD present (neck veins flat, no distention) Lungs: CTA, unlabored respirations Heart: RRR Abdomen: other: (Obese, firm. Non tender) Extremities: + edema B (Mild BLE edema, improved) - Telemetry Telemetry Rhythm: SR - Labs Result Diagrams: 07/24/17 04:55 07/26/17 05:05 Troponin/CKMB CK-MB (CK-2) 9.5 ng/mL (0-6.6) H* 07/21/17 12:11 Troponin I 0.167 ng/mL (< 0.028) H 07/21/17 18:06 - Assessment/Plan 1. Bradycardia, asymptomatic-intermittent, asymptomatic. Evaluated by EP-no indication for PM at this time. Episodes likely r/t vagotonia. Patient refusing LHC this admission-does not want to cause additional problems with his kidney function. 2. Acute on chronic systolic and diastolic CHF-most recent EF 45-50%, BNP >1550 upon admission, poor compliance with diuretics at home; volume status improving -35 pound weight loss since admission. Convert to PO furosemide today, continue spironolactone. Continue low-dose carvedilol. No ACEi/ARB 2/2 decreased kidney function. Stop metolazone. 3. COPD-stable, on RA 4. CARIE on CKD-stable, creat 2.04 this am. Home tomorrow. <Fabian Cross - Last Filed: 07/26/17 14:38> Cardiology Progress Note - Objective Vital Signs Temp Pulse Resp BP BP Pulse Ox 07/26/17 14:26 78 16 07/26/17 11:13 98.1 F 94 18 128/73 95 07/26/17 08:02 98.1 F 94 18 96 07/26/17 07:43 85 16 07/26/17 07:39 91 L 07/26/17 07:38 85 16 07/26/17 07:36 98.1 F 85 18 160/83 H 92 L 07/26/17 04:00 98.4 F 75 20 115/66 94 L Admit Weight 224 lb 3.2 oz Weight 183 lb 07/25/17 07/26/17 07/27/17 06:59 06:59 06:59 Intake Total 854 1280 Output Total 8805 2420 Balance -4193 -8200 - Labs Result Diagrams: 07/24/17 04:55 07/26/17 05:05 Troponin/CKMB CK-MB (CK-2) 9.5 ng/mL (0-6.6) H* 07/21/17 12:11 Troponin I 0.167 ng/mL (< 0.028) H 07/21/17 18:06 Attending Addendum - Attending Addendum Date/Time: 07/26/17 2195 I personally evaluated the patient and discussed the management with Kasey Molina. SANDRA. I agree with the History, Examination, Assessment and Plan documented above with any addition or exceptions noted below.
[2017-07-26] MEDS: Lidocaine 4% Topical Sol 50 ML BOT TOP SCH (11:03)
[2017-07-26] MEDS: Triple Antibiotic Oint 1 GM Packet TOP SCH (11:03)
--- NOTE | 2017-07-26 16:38 | PDOC.PN ---
- Subjective Encounter Start Date: 07/26/17 Encounter Start Time: 11:15 Subjective: pt up in bed no complains - Objective Resuscitation Status: Resuscitation Status FULL:Full Resuscitation Vital Signs & Weight: Vital Signs (12 hours) Temp Pulse Resp BP Pulse Ox 07/26/17 14:26 78 16 07/26/17 11:13 98.1 F 94 18 128/73 95 07/26/17 08:02 98.1 F 94 18 96 07/26/17 07:43 85 16 07/26/17 07:39 91 L 07/26/17 07:38 85 16 07/26/17 07:36 98.1 F 85 18 160/83 H 92 L Weight Admit Weight 224 lb 3.2 oz Weight 183 lb I&O: 07/25/17 07/26/17 07/27/17 06:59 06:59 06:59 Intake Total 854 1280 Output Total 3475 2420 Balance -7471 -9556 Result Diagrams: 07/24/17 04:55 07/26/17 05:05 Phys Exam - Physical Examination HEENT: PERRLA, moist MMs, sclera anicteric, TM's clear, oral pharynx no lesions , 2+ tonsils Neck: no nodes, no JVD, supple, full ROM Respiratory: no wheezing, no rales, no rhonchi, wheezing present, clear to auscultation bilateral Cardiovascular: RRR, no significant murmur, no rub, gallop, irregular Gastrointestinal: soft, non-tender, no distention, positive bowel sounds Musculoskeletal: edema present Dx/Plan - Plan (1) Systolic and diastolic CHF, acute on chronic: pt has lost 35lbs (2) AV block, 3rd degree: no intervention per EP (3) Acute on chronic renal failure (4) CAD (coronary artery disease) (5) Tobacco dependence - Plan out of bed/ambulate Stable overall -: Add Mag Oxide 400mg BID -: Continue Lasix IV another 24h then convert to po -: Continue Spironolactone 25mg daily -: OOB/ambulate Zaroxolyn dose will be reduced * spoke with cardio [facility] most likely to go home in am Review of Systems - Review of Systems Eyes: negative: Pain, Vision Change, Conjunctivae Inflammation, Eyelid Inflammation, Redness, Other ENT: negative: Ear Pain, Ear Discharge, Nose Pain, Nose Discharge, Nose Congestion, Mouth Pain, Mouth Swelling, Throat Pain, Throat Swelling, Other Respiratory: negative: Cough, Dry, Shortness of Breath, Hemoptysis, SOB with Excertion, Pleuritic Pain, Sputum, Wheezing Cardiovascular: negative: chest pain, palpitations, orthopnea, paroxysmal nocturnal dyspnea, edema, light headedness, other Gastrointestinal: negative: Nausea, Vomiting, Abdominal Pain, Diarrhea, Constipation, Melena, Hematochezia, Other Genitourinary: negative: Dysuria, Frequency, Incontinence, Hematuria, Retention , Other - Medications/Allergies Allergies/Adverse Reactions: Allergies Allergy/AdvReac Type Severity Reaction Status Date / Time Penicillins Allergy Verified 03/20/17 19:55 Medications: Current Medications Acetaminophen (Tylenol) 650 mg PO Q4H PRN PRN Reason: Headache/Fever or Pain Hydrocodone Bitart/Acetaminophen ([place] 5/325) 1 tab PO Q4H PRN PRN Reason: Moderate Pain (4-6) Last Admin: 07/26/17 15:04 Dose: 1 tab Al Hydroxide/Mg Hydroxide (Maalox) 30 ml PO Q6H PRN PRN Reason: Heartburn or Indigestion Albuterol Sulfate (Ventolin) 2.5 mg NEB [id number] PRN PRN Reason: Wheezing Albuterol/Ipratropium (Duoneb) 3 ml NEB [id number] [facility] Last Admin: 07/26/17 14:26 Dose: 3 ml Artificial Tears (Tears Renewed 15ml Bottle) 0 drop EA EYE PRN PRN PRN Reason: Dry Eyes Aspirin (Aspirin Chewable) 81 mg PO DAILY [facility] Last Admin: 07/26/17 08:40 Dose: 81 mg Carvedilol (Coreg) 3.125 mg PO BID [facility] Last Admin: 07/26/17 08:39 Dose: 3.125 mg Famotidine (Pepcid) 20 mg PO DAILY [facility] Last Admin: 07/26/17 08:40 Dose: 20 mg Ferrous Sulfate (Feosol) 325 mg PO QA-[facility] Last Admin: 07/26/17 08:39 Dose: 325 mg Furosemide (Lasix) 40 mg PO 0900,1400 [facility] Guaifenesin (Robitussin Sf) 200 mg PO Q4H PRN PRN Reason: Cough Heparin Sodium (Porcine) (Heparin) 5,000 units SC BID [facility] Last Admin: 07/26/17 08:40 Dose: 5,000 units Hydralazine HCl (Apresoline) 10 mg SLOW IVP Q4H PRN PRN Reason: Systolic BP > 180 Lidocaine HCl (Xylocaine 4% Topical Denise) 0 ml TOP ASDIR [facility] Last Admin: 07/26/17 11:03 Dose: 1 applic Loperamide HCl (Imodium) 2 mg PO PRN PRN PRN Reason: Diarrhea/Loose Stools Loratadine (Claritin) 10 mg PO DAILYPRN PRN PRN Reason: Sinus Symptoms Magnesium Hydroxide (Milk Of Magnesium) 30 ml PO DAILYPRN PRN PRN Reason: Constipation Magnesium Oxide (Magnesium Oxide) 400 mg PO BID [facility] Last Admin: 07/26/17 08:40 Dose: 400 mg Mineral Oil/White Petrolatum (Eucerin Cream) 0 gm TOP BIDPRN PRN PRN Reason: Dry Skin Mometasone Furoate/Formoterol Fumar (Dulera 200 Mcg/5 Mcg Inhaler) 2 puff INH BID-RT [facility] Last Admin: 07/26/17 07:43 Dose: 2 puff Mometasone Furoate/Formoterol Fumar (Dulera 200 Mcg/5 Mcg Inhaler) 2 puff INH BIDPRN PRN PRN Reason: SOB Neomycin/Polymyxin/Bacitracin (Triple Antibiotic) 1 gm TOP QAM [facility] Last Admin: 07/26/17 11:03 Dose: 1 gm Nitroglycerin (Nitrostat) 0.4 mg SL Q5MIN PRN PRN Reason: Chest Pain Ondansetron HCl (Zofran Odt) 4 mg PO Q6H PRN PRN Reason: Nausea/Vomiting Ondansetron HCl (Zofran) 4 mg IVP Q6H PRN PRN Reason: Nausea/Vomiting Phenol (Chloraseptic [place]gs 180 Ml Bot) 0 ml PO PRN PRN PRN Reason: Sore Throat Potassium Chloride (K-Dur) 20 meq PO QAM-WM [facility] Last Admin: 07/26/17 08:40 Dose: 20 meq Senna (Senokot) 2 tab PO HSPRN PRN PRN Reason: Constipation Sodium Chloride ([place] Nasal [place]gs 0.65%) 0 ml EA NARE QIDPRN PRN PRN Reason: Nasal Congestion Sodium Chloride (Flush - Normal Saline) 10 ml IVF Q12HR [facility] Last Admin: 07/26/17 08:49 Dose: 10 ml Spironolactone (Aldactone) 25 mg PO DAILY [facility] Last Admin: 07/26/17 08:45 Dose: 25 mg Zolpidem Tartrate (Ambien) 5 mg PO HSPRN PRN PRN Reason: Insomnia
[2017-07-27 05:16] VITALS: BMI 28.1
[2017-07-27 05:28] LABS: Anion Gap 14 mmol/L (10-20); BUN (Urea Nitrogen) 42 mg/dL (8.4-25.7); Calc. Creatinine Clearance 42 mL/min (70-130); Calcium 9.4 mg/dL (7.8-10.44); Carbon Dioxide 29 mmol/L (22-29); Chloride 90 mmol/L (98-107); Estimated GFR-MDRD 32; Glucose 236 mg/dL (70-105); Potassium 3.8 mmol/L (3.5-5.1); Sodium 129 mmol/L (136-145)
[2017-07-27] MEDS: Mometasone/Formoterol 120 PUFF INHALER INH SCH (07:01)
[2017-07-27] MEDS: Heparin 5,000 UNITS/ML VIAL SC SCH ×2 (08:12)
[2017-07-27] MEDS: Spironolactone 25 MG TAB PO SCH (08:14)
[2017-07-27] MEDS: Potassium Chloride 20 MEQ TAB PO SCH ×2 (08:14)
[2017-07-27] MEDS: Furosemide 40 MG TAB PO SCH ×2 (08:14→14:31)
[2017-07-27] MEDS: Ferrous Sulfate 325 MG TAB PO SCH (08:14)
[2017-07-27] MEDS: Famotidine 20 MG TAB PO SCH (08:14)
[2017-07-27] MEDS: Carvedilol 3.125 MG TAB PO SCH (08:14)
[2017-07-27] MEDS: Magnesium Oxide 400 MG TAB PO SCH (08:14)
[2017-07-27] MEDS: Triple Antibiotic Oint 1 GM Packet TOP SCH (08:15)
--- NOTE | 2017-07-27 08:58 | PDOC.CTH ---
Cardiology Progress Note - Subjective No new issues. He has diuresed very well and is back to euvolemic state. He has been waking around his room and fells well doing so. - Objective Vital Signs Temp Pulse Resp BP BP Pulse Ox 07/27/17 08:06 98.0 F 87 18 125/58 L 94 L 07/27/17 07:02 85 16 95 07/27/17 07:01 82 16 95 07/27/17 04:31 98.2 F 82 18 134/63 93 L 07/27/17 00:15 98.4 F 97 18 129/70 95 Admit Weight 224 lb 3.2 oz Weight 179 lb 14.4 oz 07/26/17 07/27/17 07/28/17 06:59 06:59 06:59 Intake Total 1280 1140 Output Total 2420 1700 Balance -1140 -560 - Physical Examination General/Neuro: alert & oriented x3, NAD Neck: no JVD present Lungs: CTA, unlabored respirations Heart: RRR Abdomen: NT/ND Extremities: + edema B (Trace) - Telemetry Telemetry Rhythm: NSR - Labs Result Diagrams: 07/24/17 04:55 07/27/17 03:30 Troponin/CKMB CK-MB (CK-2) 9.5 ng/mL (0-6.6) H* 07/21/17 12:11 Troponin I 0.167 ng/mL (< 0.028) H 07/21/17 18:06 - Assessment/Plan 1. Bradycardia, asymptomatic. 2. Acute on chronic systolic and diastolic CHF 3. Last EF at 45-50% 4. COPD 5. RV dysfunction 6. CARIE on CKD PLAN: - Episodes of braycardia are intermittent, asymptomatic and short lived. Likely related to vagotonia. No indication for pacemaker per EP. - On PO laxis - He may be discharged home today from cardiac perspective. - Follow up in the office in 1 month.
[2017-07-27] MEDS: HYDROcodone/Acetaminophen 5/325 mg Tablet PO PRN ×2 (09:39→14:31)
[2017-07-27] MEDS ORDERED: Potassium Chloride 20 MEQ TAB PO SCH ×2 (10:00)
[2017-07-27 12:18] LABS: Anion Gap 12 mmol/L (10-20); BUN (Urea Nitrogen) 46 mg/dL (8.4-25.7); Calc. Creatinine Clearance 44 mL/min (70-130); Calcium 9.4 mg/dL (7.8-10.44); Carbon Dioxide 30 mmol/L (22-29); Chloride 91 mmol/L (98-107); Estimated GFR-MDRD 33; Glucose 183 mg/dL (70-105); Potassium 3.9 mmol/L (3.5-5.1); Sodium 129 mmol/L (136-145)
[2017-07-27 16:18] VITALS: BP 144/85; TEMP 98.2
== END 2017-07-27 16:31 | disposition home or self-care (01) | DRG 291 ==
LOC: ERS 11:01 → 2NO 12:25
PROVIDERS: ADMIT Internal Medicine; ATTEND Internal Medicine
DX: I13.0 Hypertensive heart and chronic kidney disease with heart failure and stage 1 through stage 4 chronic kidney disease, or unspecified chronic kidney disease (principal); I50.43 Acute on chronic combined systolic (congestive) and diastolic (congestive) heart failure; I44.2 Atrioventricular block, complete; M62.82 Rhabdomyolysis; N17.9 Acute kidney failure, unspecified; N18.3 Chronic kidney disease, stage 3 (moderate); I73.9 Peripheral vascular disease, unspecified; E66.01 Morbid (severe) obesity due to excess calories; E88.09 Other disorders of plasma-protein metabolism, not elsewhere classified; T17.928A Food in respiratory tract, part unspecified causing other injury, initial encounter; S91.211A Laceration without foreign body of right great toe with damage to nail, initial encounter; I25.5 Ischemic cardiomyopathy; F17.210 Nicotine dependence, cigarettes, uncomplicated; I25.10 Atherosclerotic heart disease of native coronary artery without angina pectoris; J44.9 Chronic obstructive pulmonary disease, unspecified; Z86.73 Personal history of transient ischemic attack (TIA), and cerebral infarction without residual deficits; K21.9 Gastro-esophageal reflux disease without esophagitis; D64.9 Anemia, unspecified; I35.1 Nonrheumatic aortic (valve) insufficiency; T50.1X6A Underdosing of loop [high-ceiling] diuretics, initial encounter; Z95.5 Presence of coronary angioplasty implant and graft; Z91.120 Patient's intentional underdosing of medication regimen due to financial hardship; Z79.82 Long term (current) use of aspirin; Z88.0 Allergy status to penicillin; Z68.28 Body mass index [BMI] 28.0-28.9, adult; W18.30XA Fall on same level, unspecified, initial encounter; Y92.230 Patient room in hospital as the place of occurrence of the external cause
CPT/HCPCS: 36415; 70450; 71045; 80048; 80053; 80061; 81003; 82550; 82553; 83735; 83880; 84443; 84484; 84550; 85025; 93005; 93010; 93798; 94640; 96374; 96375; A4216; J1644; J1940; J2001; J2930; J7620

== ENCOUNTER 2018-10-06 08:19 | Inpatient (IN) | payer MEDICARE, SELFPAY ==
[2018-10-06] MEDS ORDERED: Ondansetron PF 4 MG/2 ML Vial ONE (08:26)
[2018-10-06 08:57] LABS: #Monocytes 1.1 thou/uL (0.11-0.59); %Basophils 0.1 % (0.0-1.0); %Eosinophils 0.1 % (0.0-10.0); %Lymphocytes 13.1 % (21.0-51.0); %Neutrophils 79.7 % (42.0-75.0); Hemoglobin 6.9 g/dL (14.0-18.0); Mean Corpuscular HGB CONC 30.6 g/dL (32.0-36.0); Mean Corpuscular Hemoglobin 22.2 pg (27.0-31.0); Mean Corpuscular Volume 72.7 fL (78.0-98.0); Mean Platelet Volume 10.5 fL (7.4-10.4); Platelet Count 235 thou/uL (130-400); RBC Distribution Width 17.4 % (11.5-14.5); White Blood Cell (WBC) Count 15.1 thou/uL (4.8-10.8)
[2018-10-06] MEDS ORDERED: Pantoprazole 40 MG VIAL ONE ×2 (08:57→08:58)
[2018-10-06 09:00] LABS: INR-International Normal Ratio 1.4; PTT 29.9 SEC (22.9-36.1); Prothrombin Time 17.5 SEC (12.0-14.7)
[2018-10-06] MEDS ORDERED: Octreotide Acetate 1,250 MCG in Sodium Chloride 0.9% 250 ML 250 ML IVPB SCH (09:15)
[2018-10-06 09:19] LABS: Acetaminophen Less than 6.0 mcg/mL (10.0-30.0); Alcohol Less than 10 mg/dL (Less than 10); Salicylate Less than 8.0 mg/dL (15.0-30.0)
[2018-10-06 09:20] LABS: ALT (SGPT) 29 U/L (8-55); AST (SGOT) 32 U/L (5-34); Albumin 2.7 g/dL (3.4-4.8); Alkaline Phosphatase 152 U/L (40-150); Anion Gap 27 mmol/L (10-20); BUN (Urea Nitrogen) 47 mg/dL (8.4-25.7); Bilirubin, Total 1.4 mg/dL (0.2-1.2); CK (CPK) 100 U/L (30-200); Calc. Creatinine Clearance 0 mL/min (70-130); Calcium 8.3 mg/dL (7.8-10.44); Carbon Dioxide 17 mmol/L (23-31); Chloride 91 mmol/L (98-107); Estimated GFR-MDRD 28; Globulin 3.7 g/dL (2.4-3.5); Lipase 110 U/L (8-78); Potassium 3.7 mmol/L (3.5-5.1); Protein, Total 6.4 g/dL (5.8-8.1); Sodium 131 mmol/L (136-145)
[2018-10-06 09:22] LABS: Hypochromia SLIGHT = 6-15 cells (100X) (0-5/hpf); MDiff Complete? YES; Microcytosis SLIGHT = 6-15 cells (100X) (0-5/hpf); Polychromasia MODERATE = 3-4 cells (100X) (0-2/hpf)
[2018-10-06 09:25] LABS: Glucose 771 mg/dL (80-115)
[2018-10-06 09:43] LABS: CKMB 3.5 ng/mL (0-6.6)
[2018-10-06] MEDS ORDERED: Dextrose 5% in Water 1,000 ML IV PRN (09:53)
[2018-10-06] MEDS ORDERED: Dextrose 50% Abboject 50 ML SYRINGE SLOW IVP PRN (09:53)
[2018-10-06] MEDS ORDERED: Insulin Regular 300 UNITS/3 ML VIAL ONE (10:31)
[2018-10-06] MEDS ORDERED: Fentanyl 100 MCG/2 ML VIAL ONE (11:24)
[2018-10-06] MEDS ORDERED: Mag-Al 1200 mg/1200 mg/30 ML UDCUP PO PRN (12:26)
[2018-10-06] MEDS ORDERED: SYSTANE 3.5 GM TUBE EA EYE PRN (12:26)
[2018-10-06] MEDS ORDERED: Acetaminophen 650 MG/20.3 ML UDCUP PO PRN (12:26)
[2018-10-06] MEDS ORDERED: Ondansetron PF 4 MG/2 ML Vial IVP PRN (12:26)
[2018-10-06] MEDS ORDERED: Acetaminophen 650 MG Suppository PR PRN (12:26)
[2018-10-06] MEDS ORDERED: Acetaminophen 325 MG TAB PO PRN (12:29)
[2018-10-06] MEDS ORDERED: Senokot S 8.6-50 MG TAB PO PRN (12:29)
[2018-10-06] MEDS ORDERED: Ondansetron ODT 4 MG TAB PO PRN (12:29)
[2018-10-06] MEDS ORDERED: Calcium Carbonate 500 MG ChewTAB PO PRN (12:29)
[2018-10-06] MEDS ORDERED: Sodium Chloride 0.9% 1,000 ML IV SCH (12:30)
[2018-10-06 12:44] LABS: Amphetamine Not Detected (NotDetected); Barbiturates Screen Not Detected (NotDetected); Benzodiazepine Screen Not Detected (NotDetected); Cocaine Metabolite Screen Not Detected (NotDetected); Medtox Control Line Valid? VALID (VALID); Medtox Reader # READER 1; Methadone Not Detected (NotDetected); Methamphetamine Not Detected (NotDetected); Opiate Screen Not Detected (NotDetected); Oxycodone Screen Not Detected (NotDetected); Phencyclidine (PCP) Not Detected (NotDetected); THC/Cannabinoid Screen Not Detected (NotDetected); Tricyclic Screen Not Detected (NotDetected)
[2018-10-06] MEDS ORDERED: Thiamine HCl 200 MG/2 ML VIAL SLOW IVP SCH (12:45)
[2018-10-06 13:12] LABS: Iron 22 ug/dL (65-175); Iron Binding Capacity, Total 365 mcg/dL (261-462)
[2018-10-06 13:25] LABS: Lactic Acid 4.7 mmol/L (0.5-2.2)
[2018-10-06 13:55] LABS: Hemoglobin A1c 17.4 % (4.0-6.0)
[2018-10-06] MEDS: Insulin Regular 300 UNITS/3 ML VIAL SC PRN ×4 (14:21→20:41)
--- NOTE | 2018-10-06 14:25 | HP ---
PRIMARY CARE PHYSICIAN: [facility]. CHIEF COMPLAINT: Coffee-ground emesis. HISTORY OF PRESENT ILLNESS: The patient is a 63-year-old white male with diabetes mellitus type 2, hypertension, and coronary artery disease, presented to the emergency room with above complaints. Since yesterday evening, the patient had several episodes of vomiting, which was dark in color. He describes as coffee-ground vomiting. He denies any blood in the vomitus. He had a normal bowel movement yesterday. He had some abdominal cramping during the vomiting. He denies use of NSAIDs. No chest pain, palpitations, or syncope reported. He felt somewhat lightheaded. In the emergency room, his initial vital signs showed temperature of 97.8, pulse rate of 125, respiration of 12, blood pressure of 88/62 with O2 saturation of 100% on room air. He received fentanyl, 10 units of IV Novolin R, IV fluids, 80 mg Protonix, Zofran, and was started on octreotide drip. PAST MEDICAL HISTORY: 1. Chronic systolic heart failure, ejection fraction of 45% to 50% range. 2. Chronic obstructive pulmonary disease. 3. Tobacco dependence. 4. Coronary artery disease, status post stent placement in the past. 5. Chronic diastolic heart failure. 6. CKD stage 3. 7. Peripheral vascular disease. 8. Diabetes mellitus type 2. 9. Penicillin allergy. 10. Gastroesophageal reflux disease. 11. History of CVA without significant deficits. 12. Lumbar stenosis. PAST SURGICAL HISTORY: 1. Coronary stent placement. 2. Left carotid endarterectomy. 3. Bilateral inguinal hernia repair. 4. Lower extremity stent placement. 5. Right leg surgery in 1993 for torn ligament. ALLERGIES: THE PATIENT IS ALLERGIC TO PENICILLIN. CURRENT HOME MEDICATIONS: Per ER list, the patient is on, Lasix 20 mg daily, omeprazole 20 mg daily, potassium chloride 20 mEq daily, and carvedilol 3.125 mg b.i.d. SOCIAL HISTORY: The patient currently lives at home. He drinks socially. He states that he drinks once or twice a month. He smokes cigarettes on a daily basis. No drug use. FAMILY HISTORY: Positive for heart disease on the father's side and hypertension on the mother. REVIEW OF SYSTEMS: All other review of systems were reviewed and were found negative. PHYSICAL EXAMINATION: VITAL SIGNS: As discussed above. GENERAL: A 63-year-old male, in no apparent distress. Abdominal pain, improving. Feels generally weak. HEENT: Head, atraumatic and normocephalic. Sclerae anicteric. Dry mucous membranes. No oral lesion. NECK: Supple. No JVD appreciated. No carotid bruit. LUNGS: Clear to auscultation bilaterally. No wheezing, rales, or rhonchi. HEART: S1 and S2 present. Tachycardic. No rubs or gallops appreciated. ABDOMEN: Soft. Mild epigastric tenderness. No rebound or guarding. No costovertebral angle tenderness. EXTREMITIES: No edema or calf tenderness. NEUROLOGIC: Grossly nonfocal. Moves all 4 extremities. PSYCHIATRIC: Alert, awake, and oriented x3. SKIN: Warm and dry. LYMPH NODES: No palpable lymph nodes in the neck. PERIPHERAL VASCULAR: Radial pulses palpable bilaterally. MUSCULOSKELETAL: No joint swelling or tenderness. LABORATORY FINDINGS: Hemoglobin of 6.9. It was 11.9 last year. WBC 15.1, hematocrit 22.4, MCV 72.7. MCH 22.2, and platelets 235. INR 1.4. PT of 17.5. Chemistries showed sodium 131, potassium 3.7, chloride 91, bicarb 17, BUN 47, creatinine 2.4, baseline creatinine between 1.8 to 2.0. Lactic acid 13.2, glucose of 771. Total bilirubin 1.4. Troponin 0.129. Cortisol 21.3. Beta-hydroxybutyrate 0.47. EKG by my review showed sinus tachycardia with occasional PVCs. IMPRESSION: 1. Upper gastrointestinal bleeding. 2. Acute blood loss anemia. 3. Hypotension secondary to #1. 4. Coronary artery disease. 5. Peripheral vascular disease. 6. Chronic systolic and diastolic heart failure. 7. Hypertension. 8. Chronic obstructive pulmonary disease. 9. History of cerebrovascular accident. 10. Ongoing tobacco abuse. 11. Penicillin allergy. 12. Acute kidney injury on chronic kidney disease stage 3. 13. Uncontrolled diabetes mellitus type 2. 14. Abnormal LFTs probably secondary to passive hepatic congestion. 15. Moderate protein-calorie malnutrition. 16. Type 2 myocardial infarction. 17. Lactic acidosis probably secondary to hypotension. PLAN: The patient will be monitored in the intensive care unit. We will continue IV PPIs. Continue Protonix drip with IV fluids. We will monitor closely for volume overload. Thiamine. Accu-Cheks every two hourly with mild sliding scale. N.p.o. for now. Repeat basic metabolic profile and hemoglobin later today. We will resume home medications once confirmed. Plan of care was discussed with the patient in detail. He stated understanding. Job ID: [id number]
[2018-10-06 16:16] LABS: Hemoglobin 9.1 g/dL (14.0-18.0)
[2018-10-06 16:16] LABS: Actual Bicarbonate (HCO3a) 23.5 mEq/L (22-28); Base Excess (BEa) 0.1 mEq/L (-2.0 to +3.0); CO2 Tension 33.1 mmHg (35.0-45.0); Calcium, Ionized 1.11 mmol/L (1.12-1.30); Carboxyhemoglobin (COHb) 1.9 gm% (0.0-3.0); Hemoglobin (Hb) 8.8 g/dL (14.0-18.0); O2 Tension (PaO2) 76.9 mmHg (> 80.0); Potassium - ABG Lab 3.76 mmol/L (3.70-5.30); pH, Arterial 7.47 (7.35-7.45)
[2018-10-06 16:22] LABS: ALV-art Gradient 31.455 (0-20); Puncture Site RRA
[2018-10-06] MEDS ORDERED: PROPOFOL 200 MG/20 ML VIAL ONE (16:23)
[2018-10-06] MEDS ORDERED: Lidocaine 1% PF 5 ML VIAL ONE (16:23)
[2018-10-06] MEDS ORDERED: ePHEDrine 50 MG/ML VIAL ONE (16:23)
[2018-10-06] MEDS ORDERED: Succinylcholine Chloride 20 MG/ML 10 ml SYRINGE FS ONE (16:23)
[2018-10-06] MEDS ORDERED: PHENYLEPHRINE-NS 100 MCG/ML 10 ML SYRINGE ONE (16:23)
[2018-10-06 16:37] LABS: Anion Gap 14 mmol/L (10-20); BUN (Urea Nitrogen) 46 mg/dL (8.4-25.7); Calc. Creatinine Clearance 41 mL/min (70-130); Calcium 7.8 mg/dL (7.8-10.44); Carbon Dioxide 23 mmol/L (23-31); Chloride 101 mmol/L (98-107); Estimated GFR-MDRD 33; Sodium 134 mmol/L (136-145)
[2018-10-06 16:49] LABS: Glucose 575 mg/dL (80-115)
[2018-10-06] MEDS: Sodium Chloride 0.9% 1,000 ML IV SCH (18:14)
--- NOTE | 2018-10-06 19:26 | CON ---
DATE OF CONSULTATION: 10/06/2018 REASON FOR CONSULTATION: Hematemesis. CONSULTING PHYSICIAN: Luis M Luna MD HISTORY OF PRESENT ILLNESS: The patient is a 63-year-old male with past medical history of diabetes, hypertension, and coronary artery disease, presenting with complaints of coffee-grounds emesis. He states that he is in his usual state of health until yesterday when he began to experience increased nausea that was shortly followed by vomiting of black colored material and continued to have approximately 3 to 4 episodes of this black color material prior to being seen in the ED. This was associated with mild abdominal cramping and some lightheadedness/dizziness, but denied any other overt symptoms. With the appearance of these black-colored emesis, it prompted him to seek healthcare assistance in the [facility] ER, where while in the ER, he was noted to have an additional episodes of hematemesis characterized as coffee-grounds emesis. He subsequently had 2 L of IV fluid as well as the infusion of 1 unit of blood and transferred to the ICU for further management. While in the ER, he was noted to be tachycardic and hypotensive, but he also was noted to have a significantly elevated blood sugar consistent with diabetic ketoacidosis. Currently, he states that he is doing better. He does continue to have nausea, but no other further episodes of emesis being admitted to the ICU. Currently, he denies any fevers, chills, melena, hematochezia, abdominal pain, dysphagia, odynophagia, or weight loss. REVIEW OF SYSTEMS: A 10-category review of systems was obtained with all responses negative except for the pertinent positives as listed in HPI. PAST MEDICAL HISTORY: Chronic systolic heart failure with an ejection fraction of 45% to 50%, COPD, coronary artery disease, chronic kidney disease stage 3, peripheral vascular disease, diabetes, GERD, and lumbar stenosis. PAST SURGICAL HISTORY: Left carotid endarterectomy, coronary artery stent placement, bilateral inguinal hernia repair, lower extremity vascular stent placement, and right leg surgery for torn ligament. FAMILY HISTORY: Denies any GI malignancies. SOCIAL HISTORY: Smokes cigarettes daily, but denies any illicit drug use. He also drinks approximately two quarts or a couple shots of sabra around 1 to 2 times per month. OUTPATIENT MEDICATIONS: Reviewed. ALLERGIES: PENICILLIN. PHYSICAL EXAMINATION: VITAL SIGNS: Temperature 98.1, pulse 99, blood pressure 128/77, respiratory rate 15, and saturating 95% on room air. GENERAL: The patient is lying in bed, in no acute distress. Alert and oriented x4. HEENT: Normocephalic and atraumatic. NECK: Supple. No JVD or scleral icterus noted. CARDIOVASCULAR: Regular rate and rhythm with no discernible murmurs, gallops, or rubs. RESPIRATORY: Clear to auscultation bilaterally with no discernible wheezes or rales. ABDOMEN: Hypoactive bowel sounds. Soft, nontender, and nondistended. EXTREMITIES: No cyanosis, clubbing, or edema. LABORATORY DATA: CBC with a white blood cell count of 15.1, hemoglobin 9.1, hematocrit 28, and platelets 235. INR 1.4. Chemistry with a sodium 134, potassium 4.0, chloride 101, CO2 of 23, BUN 46, creatinine 2.03, and glucose 575. Iron 22, TIBC 365. Troponin 0.21. Beta hydroxybutyrate elevated at 0.47. IMAGING DATA: No current GI imaging is available for review. ASSESSMENT AND PLAN: The patient is a 63-year-old male with past medical history of chronic systolic heart failure with an ejection fraction of 45% to 50%, chronic obstructive pulmonary disease, tobacco dependence, coronary artery disease, chronic kidney disease stage 3, peripheral vascular disease, diabetes, gastroesophageal reflux disease, and lumbar stenosis, presenting with hematemesis and what appears to be diabetic ketoacidosis. Hematemesis: The patient is presenting with the acute onset of nausea and vomiting with vomiting of coffee-grounds emesis, that occurred approximately 3 to 4 times at home as well as observed while in the [facility] ER. On admission, he was noted to have a significantly decreased H and H, consistent with active gastrointestinal bleed. He was subsequently given IV fluids as well as blood product and his H and H has actually responded inappropriately given the fact that is now responded to a hemoglobin of 9.1 (overcorrected). He currently denies any offending insult that might contribute to hematemesis including nonsteroidal anti-inflammatory drug use or continued/chronic alcohol abuse nor does he endorse a diagnosis of cirrhosis that could potentially lead to an esophageal varix bleed. Given his presenting symptoms of diabetic ketoacidosis, this could be more due to the nausea and vomiting or related to that particular condition resulting in a Batsheva-Valdez tear and instead resulting in significant gastrointestinal bleed. Differential could also include arteriovenous malformation, Dieulafoy lesion, esophagitis, gastritis, peptic ulcer disease and/or gastrointestinal malignancy. Recommendations; 1. Would continue the patient on n.p.o. status with plans for more urgent esophagogastroduodenoscopy later on tonight if the patient is deemed stable. 2. Would continue to trend H and H and transfuse as necessary to maintain an H and H of 7/21. 3. Continue to monitor clinically for signs of active gastrointestinal bleeding. 4. Would continue with proton pump inhibitor drip and octreotide drip for now until after upper endoscopy. Further recommendations to follow esophagogastroduodenoscopy. Please call with any questions. Job ID: [id number]
[2018-10-06] MEDS ORDERED: Benzonatate 100 MG CAP PO PRN (20:32)
[2018-10-06] MEDS: Pantoprazole 40 MG VIAL IVP SCH (20:41)
--- NOTE | 2018-10-06 23:43 | CT ---
CT Abdomen Pelvis W WO con: 10/06/2018 12:00 AM CLINICAL HISTORY: Liver disease. Esophageal varices seen on EGD.. TECHNIQUE: Multiple contiguous axial images were obtained and a CT of the abdomen and pelvis without and with IV contrast. Coronal reformats were performed. COMPARISON: None. FINDINGS: Liver: Cirrhotic in appearance. No focal liver lesions. Gallbladder and biliary system: Normal. No CT evident gallstones. No biliary ductal dilatation. Spleen: Normal in size with scattered calcified granulomas Pancreas: Normal. Adrenal glands: Normal. Kidneys: Normal. GI tract: Normal. Abdominal aorta and its major branches: Atherosclerotic calcifications with ectasia of the infrarenal aorta. Peritoneum/retroperitoneum: Normal. No ascites. No adenopathy. Pelvic structures: Normal. No pelvic lymphadenopathy. Body wall and musculoskeletal: Degenerative changes in the spine. Visualized lower thorax: Small hiatal hernia. Small esophageal varices along the right posterolateral aspect. No pulmonary parenchymal mass or pleural effusion. IMPRESSION: 1. Cirrhotic liver with sequelae of portal hypertension. 2. Diverticulosis
--- NOTE | 2018-10-07 03:17 | OP ---
DATE OF PROCEDURE: 10/06/2018 PROCEDURE: EGD with band ligation. INDICATION FOR PROCEDURE: Hematemesis. DESCRIPTION OF PROCEDURE: After the risks and benefits of the procedure were explained to the patient including risks of bleeding, infection, perforation, reactions to anesthesia, aspiration and/or pain, informed consent was obtained. The patient was then taken to the endoscopy suite, where deep sedation was administered via propofol and anesthesia support. Once adequate sedation was achieved, the standard gastroscope was introduced into the mouth with intubation of the esophagus, stomach, and the proximal small intestines with the findings listed below. However, during the procedure, he did exhibit some laryngospasm with decrease in oxygen saturation. The procedure was intermittently placed on hold with all equipment removed from the patient. The patient was then subsequently intubated and sedated with general anesthesia. Once the patient was intubated and sedated, he was placed back into the supine position with the procedure resumed. Given the presence of a distal esophageal varices, band ligation was performed x2. The patient tolerated the procedure well with no immediate perioperative complications. Upon conclusion of the procedure, all equipment was removed from the patient and he was transferred to the ICU in satisfactory condition. FINDINGS: Esophagus: Normal-appearing mucosa was seen in the proximal and mid esophagus. However, grade 2/3 esophageal varices were seen in the distal esophagus, one of which exhibited red theresa sign indicative of possible GI bleed and high-risk stigmata of bleeding. Given the presence of these larger esophageal varices, his history of hematemesis in the presence of red theresa sign, band ligation was then performed x2 with good hemostasis achieved and no bleeding seen at the end of the maneuver. Otherwise, there was no evidence of erosions, ulcerations, mass, lesions, or active/recent bleeding. Stomach: Patchy areas of mucosal erythema in a mosaic pattern were seen throughout the entire stomach including the gastric cardia, fundus, body, antrum, and incisura. There was also a mild amount of dark black material seen within the stomach as well but with aggressive irrigation and suctioning, there was no evidence of underlying pathology or active/recent bleeding. With careful examination of the stomach after irrigation and suction, there was no evidence of erosions, ulcerations, mass, lesions, or active/recent bleeding. The gastric mucosa did exhibit some mild nodularity in the areas of increased mucosal erythema, but no other abnormalities seen. No gastric varices were seen on gastric retroflexion. Duodenum: Normal-appearing mucosa was seen in both the duodenal bulb and second portion of the duodenum. There was no evidence of erosions, ulcerations, mass, lesions, or active/recent bleeding. IMPRESSION: 1. Large (grade 2/3) distal esophageal varices with red theresa sign, status post band ligation x2. 2. [id number] portal hypertensive gastropathy. 3. No evidence of gastric varices. RECOMMENDATIONS: 1. Would continue to trend H and H and transfuse as necessary to maintain an H and H of 7/. 2. We will continue to monitor clinically for signs of active GI bleeding. 3. We will continue octreotide drip for total duration of therapy of [address] the patient on antibiotic prophylaxis given possible cirrhosis and GI bleeding with ceftriaxone 2 g daily. 5. We would obtain a CT of the abdomen and pelvis for further evaluation of any liver pathology. 6. We would trend his INR daily in addition to bilirubin for evaluation of hepatic function. 7. We will continue to manage diabetic ketoacidosis per ICU protocol. We will continue to follow. Please call with any questions. Job ID: [id number]
--- NOTE | 2018-10-07 03:17 | CON ---
DATE OF CONSULTATION: 10/06/2018 HISTORY OF PRESENT ILLNESS: Mr. Daniels is a 63-year-old male. He presented with what he says half gallon of bloody vomit at home prior to admission. Some of it was dark, some of it was bright he says. He has also had abdominal cramping. He presented to the emergency department tachycardic and hypotensive. He has received 2 units of packed cells, IV fluids, some insulin, IV Protonix was started on octreotide drip and transferred to the ICU. PAST MEDICAL HISTORY: Remarkable for; 1. Systolic heart failure with ejection fraction of 45% to 50%. 2. History of COPD. 3. History of coronary stenting. 4. History of chronic kidney disease. 5. Peripheral vascular disease. 6. Diabetes. 7. Reflux disease. 8. History of CVA. 9. History of spinal stenosis. 10. History of lower extremity vascular stenting. 11. History of bilateral inguinal herniorrhaphies. 12. History of carotid endarterectomy. 13. History of torn ligament in his right leg requiring surgery in . ALLERGIES: HE REPORTS PENICILLIN ALLERGY. MEDICATIONS: Prior to admission, he was on Lasix, Prilosec, potassium, and Coreg. SOCIAL HISTORY: Apparently lives at home with his mother. He denies being a daily drinker. He has a daily smoker. FAMILY HISTORY: Positive for vascular disease and hypertension. REVIEW OF SYSTEMS: 10-point review of systems completed, otherwise negative. PHYSICAL EXAMINATION: GENERAL: He is cooperative. He is fairly belligerent in the emergency department. VITAL SIGNS: His blood pressure at 05:45 was 91/60, heart rate is 90, respiratory rates in the teens. HEENT: Pupils are equal. Sclerae anicteric. NECK: Supple. LUNGS: Clear. HEART: Regular rhythm. S1, S2 normal. ABDOMEN: Soft and nontender. EXTREMITIES: Without clubbing, cyanosis, or edema. NEUROLOGIC: Nonfocal. PH 7.47, CO2 of 33, PO2 of 76. LABORATORY DATA: Hemoglobin on blood gas was 8.8, that was at 1615. Hemoglobin that was drawn at 4:00 p.m. was 9.1. Sodium 134, potassium 4, chloride 101, bicarb 23, BUN 46, and creatinine 2.03, glucose is down to 428. Iron is 22, TIBC is 365. Troponin is 0.2. IMPRESSION: 1. Upper gastrointestinal bleed most likely. GI has been consulted. If he is bleeding now, it is not briskly. He is hopefully on the schedule for endoscopy tonight. 2. Blood loss anemia. 3. Elevated BUN and creatinine likely secondary to volume contraction. 4. Hyperosmotic hyperglycemia, which should improve with just aggressive hydration alone and a little insulin. 5. Iron deficiency. We will be happy to follow while he is in the Critical Care Unit. TIME SPENT: This is a 70-minute consult, with greater than 50% of the time spent on the unit coordinating care. Job ID: [id number] MTDD
[2018-10-07] MEDS: Sodium Chloride 0.9% 1,000 ML IV SCH ×3 (04:24→20:48)
[2018-10-07 08:09] LABS: Lactic Acid 1.3 mmol/L (0.5-2.2)
[2018-10-07 08:13] LABS: ALT (SGPT) 34 U/L (8-55); AST (SGOT) 58 U/L (5-34); Albumin 2.3 g/dL (3.4-4.8); Alkaline Phosphatase 113 U/L (40-150); Anion Gap 10 mmol/L (10-20); BUN (Urea Nitrogen) 30 mg/dL (8.4-25.7); Bilirubin, Total 0.8 mg/dL (0.2-1.2); Calc. Creatinine Clearance 67 mL/min (70-130); Calcium 7.9 mg/dL (7.8-10.44); Carbon Dioxide 23 mmol/L (23-31); Chloride 108 mmol/L (98-107); Estimated GFR-MDRD 57; Globulin 3.4 g/dL (2.4-3.5); Glucose 168 mg/dL (80-115); Potassium 3.5 mmol/L (3.5-5.1); Protein, Total 5.7 g/dL (5.8-8.1); Sodium 137 mmol/L (136-145)
[2018-10-07] MEDS ORDERED: Magnesium 2 GM/50 ML 2 GM in Premix Bag 1 BAG IVPB SCH (08:15)
[2018-10-07] MEDS: Multivit, Therapeutic 1 TAB PO SCH (08:46)
[2018-10-07] MEDS: Thiamine 100 MG TAB PO SCH (08:46)
[2018-10-07] MEDS: Pantoprazole 40 MG VIAL IVP SCH ×2 (08:46→20:48)
[2018-10-07] MEDS: Folic Acid 1 MG TAB PO SCH (08:46)
[2018-10-07 09:19] LABS: #Eosinphils 0.1 thou/uL (0.0-0.7); #Monocytes 0.4 thou/uL (0.11-0.59); %Basophils 0.4 % (0.0-1.0); %Eosinophils 2.1 % (0.0-10.0); %Lymphocytes 14.8 % (21.0-51.0); %Monocytes 6.2 % (0.0-10.0); %Neutrophils 76.5 % (42.0-75.0); Hemoglobin 8.4 g/dL (14.0-18.0); MDiff Complete? YES; Mean Corpuscular HGB CONC 31.1 g/dL (32.0-36.0); Mean Corpuscular Hemoglobin 25.5 pg (27.0-31.0); Mean Corpuscular Volume 82.1 fL (78.0-98.0); Mean Platelet Volume 9.6 fL (7.4-10.4); Platelet Count 109 thou/uL (130-400); Platelet Morphology Comment Appears Decreased; RBC Distribution Width 18.9 % (11.5-14.5); Red Blood Cell (RBC) Count 3.28 mill/uL (4.70-6.10); White Blood Cell (WBC) Count 6.6 thou/uL (4.8-10.8)
--- NOTE | 2018-10-07 09:22 | PRG ---
DATE OF SERVICE: 10/07/2018 SUBJECTIVE: Kenyon Daniels, this morning, is awake, alert responsive. No further pain or discomfort. OBJECTIVE: VITAL SIGNS: Blood pressure 114/54, pulse 94, saturations 98%, respirations 18, and afebrile. CHEST: Decreased breath sounds. Minimal wheezing. CARDIAC: Normal S1 and S2. No gallops. ABDOMEN: No masses. LABORATORY DATA: Creatinine 1.28. IMPRESSION: 1. Gastrointestinal bleed. 2. Morbid obesity. 3. Chronic obstructive pulmonary disease. 4. Asthma. PLAN: I initiated his home neb treatment and Symbicort. His H and H are stable. He will be transferred out of the ICU. Job ID: [id number]
[2018-10-07] MEDS: Insulin Regular 300 UNITS/3 ML VIAL SC PRN ×2 (11:13→15:47)
[2018-10-07] MEDS ORDERED: Sodium Chloride 0.9% 1,000 ML IV SCH (16:48)
[2018-10-07] MEDS: Mometasone/Formoterol 120 PUFF INHALER INH SCH (19:01)
--- NOTE | 2018-10-07 19:10 | PRG ---
DATE OF SERVICE: 10/07/2018 SUBJECTIVE: Mr. Daniels is status post banding of esophageal varices yesterday. He is without complaints. He has been on clear liquids. He has had no bleeding. MEDICATIONS: Folic acid, multivitamin, octreotide, Zofran p.r.n., thiamine, and pantoprazole 40 IV q.12. PHYSICAL EXAMINATION: GENERAL: The patient is resting comfortably in bed. He is actually sitting up in a chair, mom states. VITAL SIGNS: Temperature is 97.9, he has been afebrile since admission, respirations 20, blood pressure 122/67. LUNGS: Clear. HEART: Regular rate and rhythm without clicks or murmurs. ABDOMEN: Protuberant fluid wave. There is no palpable hepatosplenomegaly. EXTREMITIES: Reveal trace edema. LABORATORY DATA: Hemoglobin is 8.4 platelet count 109. INR 1.4 on admission. Sodium 137, potassium 3.5, BUN and creatinine 30 and 1.23, AST 58, ALT 34, alkaline phosphatase 113, protein 5.7, and albumin 2.3. ASSESSMENT: 1. Gastrointestinal bleeding secondary to variceal hemorrhage, status post banding, hemodynamically stable. 2. Cirrhosis of unclear etiology. RECOMMENDATIONS: 1. Continue octreotide drip. Advance diet to soft. 2. The patient needs Rocephin for prophylaxis of GI bleed and cirrhotic, high risk for bacteremia and SBP. Serologic workup for cirrhosis ordered. Dr. Quintana will return tomorrow. Job ID: [id number]
--- NOTE | 2018-10-07 19:42 | PRG ---
DATE OF SERVICE: 10/07/2018 SUBJECTIVE: The patient is a 63-year-old male with diabetes mellitus type 2, coronary artery disease, congestive heart failure, peripheral vascular disease, presented to the emergency room yesterday with coffee-grounds emesis. His workup was consistent with upper GI bleeding. He underwent EGD yesterday that showed large grade 2/3 distal esophageal varices, status post band ligation x2. It also showed changes consistent with [id number] portal hypertensive gastropathy. There was no gastric varices noted. He underwent a CT scan of the abdomen yesterday that showed findings consistent with cirrhosis along with portal hypertension. The patient denies any new episodes of GI bleeding today. He has mild generalized abdominal discomfort. No fever, chills, diarrhea reported. CURRENT MEDICATIONS: Reviewed. The patient is on octreotide drip along with IV hydration, IV PPIs, folic acid, multivitamin, and thiamine. OBJECTIVE: VITAL SIGNS: Temperature 97.8, pulse rate of 92, blood pressure of 122/67, respirations of 20, O2 saturation 98% on room air. Telemetry monitoring by my review showed sinus rhythm. GENERAL: A 63-year-old male, in no apparent distress. HEENT: Head atraumatic, normocephalic. Sclerae anicteric. Moist mucous membranes. No oral lesion. NECK: Supple. No JVD. No carotid bruit. LUNGS: Clear to auscultation bilaterally. No rales, rhonchi, or wheezing. HEART: S1, S2 present. Regular rate and rhythm. No rubs or gallops. ABDOMEN: Soft. Mild generalized tenderness. No rebound or guarding. No costovertebral angle tenderness. EXTREMITIES: No edema or calf tenderness. NEUROLOGIC: Grossly nonfocal. LABORATORY FINDINGS: Hemoglobin 8.4 from 6.9 yesterday. Chemistry showed sodium 137, potassium 3.5, chloride 108, bicarb 23, BUN 30, creatinine 1.28, magnesium of 1.4, albumin 2.3. CT scan of the abdomen and pelvis by my review as discussed above. IMPRESSION: 1. Upper GI bleeding secondary to esophageal varices, status post banding. 2. Acute blood loss anemia, status post 2 units of PRBC. 3. Hypotension secondary to GI bleeding, improved. 4. Coronary artery disease. 5. Chronic systolic and diastolic heart failure. 6. Diabetes mellitus type 2 with hyperglycemia. 7. Hypertension. 8. Chronic obstructive pulmonary disease. 9. History of cerebrovascular accident. 10. Ongoing tobacco abuse. 11. Acute kidney injury on chronic kidney disease stage 3 secondary to hypovolemia, improving. 12. Abnormal LFTs secondary to cirrhosis with portal hypertension. 13. Thrombocytopenia with coagulopathy secondary to cirrhosis, suspected alcoholic. 14. Type 2 myocardial infarction. 15. Lactic acidosis. PLAN: Octreotide drip will be continued. We will start empiric antibiotics for SBP prophylaxis. Please note, the patient is allergic to penicillin. We will continue IV PPIs. We will recheck labs in a.m. Gastroenterology input appreciated. We will transfer the patient to medical floor. We will change sliding scale to moderate. Change Accu-Cheks to a.c. at bedtime. We will continue nebulizer treatment as needed. Plan was discussed with the patient in detail. He stated understanding. Current diet full liquid. Job ID: [id number]
[2018-10-08] MEDS: Insulin Regular 300 UNITS/3 ML VIAL SC PRN ×3 (01:54→13:29)
[2018-10-08] MEDS: Sodium Chloride 0.9% 1,000 ML IV SCH ×2 (01:57→13:42)
[2018-10-08 06:21] LABS: ALT (SGPT) 35 U/L (8-55); AST (SGOT) 52 U/L (5-34); Albumin 2.4 g/dL (3.4-4.8); Alkaline Phosphatase 117 U/L (40-150); Anion Gap 8 mmol/L (10-20); BUN (Urea Nitrogen) 14 mg/dL (8.4-25.7); Bilirubin, Total 0.7 mg/dL (0.2-1.2); Calc. Creatinine Clearance 81 mL/min (70-130); Calcium 7.5 mg/dL (7.8-10.44); Carbon Dioxide 24 mmol/L (23-31); Chloride 104 mmol/L (98-107); Estimated GFR-MDRD 71; Globulin 3.3 g/dL (2.4-3.5); Glucose 261 mg/dL (80-115); Iron 12 ug/dL (65-175); Iron Binding Capacity, Total 346 mcg/dL (261-462); Magnesium 1.6 mg/dL (1.6-2.6); Phosphorus 2.1 mg/dL (2.3-4.7); Potassium 3.6 mmol/L (3.5-5.1); Protein, Total 5.7 g/dL (5.8-8.1); Sodium 132 mmol/L (136-145)
[2018-10-08 06:37] LABS: Ferritin 43.57 ng/mL (22-322)
[2018-10-08] MEDS: Mometasone/Formoterol 120 PUFF INHALER INH SCH ×2 (06:39→19:41)
[2018-10-08 06:50] LABS: HBCM Index 0.07 S/CO (0-0.79); HBSAg Index 0.28 S/CO (0-0.99); Hep A IgM AB Non-Reactive (NonReactive); Hep A IgM S/CO 0.12 S/CO (0-0.79); Hep B Surf Ag Non-Reactive S/CO (NonReactive); Hepatitis B Core IgM Abs Non-Reactive (NonReactive)
[2018-10-08 07:00] LABS: #Eosinphils 0.1 thou/uL (0.0-0.7); #Lymphocytes 0.7 thou/uL (1.20-3.40); #Monocytes 0.3 thou/uL (0.11-0.59); #Neutrophils 2.4 thou/uL (1.40-6.50); %Basophils 0.1 % (0.0-1.0); %Eosinophils 1.7 % (0.0-10.0); %Lymphocytes 20.4 % (21.0-51.0); %Monocytes 8.4 % (0.0-10.0); %Neutrophils 69.4 % (42.0-75.0); Anisocytosis SLIGHT = 6-15 cells (100X) (0-5/hpf); Hemoglobin 7.1 g/dL (14.0-18.0); MDiff Complete? YES; Mean Corpuscular Volume 80.7 fL (78.0-98.0); Mean Platelet Volume 9.3 fL (7.4-10.4); Platelet Count 84 thou/uL (130-400); Platelet Morphology Comment Appears Decreased; RBC Distribution Width 18.8 % (11.5-14.5); Red Blood Cell (RBC) Count 2.84 mill/uL (4.70-6.10); White Blood Cell (WBC) Count 3.4 thou/uL (4.8-10.8)
[2018-10-08 07:06] LABS: Hep C IgG Ab Reflex HepC Qnt (NonReactive); Hep C Index 1.29 S/CO (0-0.79)
[2018-10-08] MEDS ORDERED: PHOS-NAK 1 PKT PACK PO SCH (08:15)
[2018-10-08] MEDS: Folic Acid 1 MG TAB PO SCH (08:41)
[2018-10-08] MEDS: Thiamine 100 MG TAB PO SCH (08:41)
[2018-10-08] MEDS: Multivit, Therapeutic 1 TAB PO SCH (08:41)
[2018-10-08] MEDS: Pantoprazole 40 MG VIAL IVP SCH ×2 (08:42→20:45)
[2018-10-08 11:16] VITALS: BMI 26.9
--- NOTE | 2018-10-08 13:29 | PDOC.PN ---
- Subjective Encounter Start Date: 10/08/18 Encounter Start Time: 13:27 Patient seen and examined for GI bleeding. No BM today. No N/V/Abd pain. Tolerating current diet. No new complaints. No overnight events - Objective Resuscitation Status - Order Detail: 10/06/18 12:29 Resuscitation Status Routine Resuscitation Status: FULL: Full Resuscitation MAR Reviewed: Yes Vital Signs & Weight: Vital Signs (12 hours) Temp Pulse Pulse Resp BP BP Pulse Ox 10/08/18 13:01 92 16 97 10/08/18 11:11 98.4 F 91 17 117/70 98 10/08/18 08:00 97 10/08/18 07:55 98.1 F 88 20 119/68 99 10/08/18 06:42 98 10/08/18 06:41 82 16 98 10/08/18 06:39 82 16 98 10/08/18 04:00 98.0 F 91 18 108/61 97 10/08/18 02:00 97 Weight Admit Weight 167 lb 8.821 oz Weight 171 lb 15.369 oz Most Recent Monitor Data Heart Rate from ECG 101 NIBP 146/99 NIBP BP-Mean 114 Respiration from ECG 21 SpO2 94 I&O: 10/07/18 10/08/18 10/09/18 06:59 06:59 06:59 Intake Total 3208.8 3760.2 0 Output Total 1425 1005 Balance 1783.8 2755.2 0 Result Diagrams: 10/08/18 05:27 10/08/18 05:27 Additional Labs: Accuchecks 10/08/18 10/08/18 10/08/18 11:19 05:32 01:54 POC Glucose 302 H 288 H 299 H 10/07/18 10/07/18 20:40 15:16 POC Glucose 320 H 398 H Laboratory Tests 10/08/18 05:27 Phosphorus 2.1 L Magnesium 1.6 Phys Exam - Physical Examination Constitutional: NAD Respiratory: no wheezing, no rhonchi Cardiovascular: RRR, no rub Gastrointestinal: soft, non-tender, positive bowel sounds Musculoskeletal: no edema Neurological: moves all 4 limbs Dx/Plan - Plan DVT proph w/SCDs IMPRESSION: 1. Upper GI bleeding secondary to esophageal varices, status post banding. 2. Acute blood loss anemia, status post 2 units of PRBC. 3. Hypotension secondary to GI bleeding, improved. 4. Coronary artery disease. 5. Chronic systolic and diastolic heart failure. 6. Diabetes mellitus type 2 with hyperglycemia. 7. Hypertension. 8. Chronic obstructive pulmonary disease. 9. History of cerebrovascular accident. 10. Ongoing tobacco abuse. 11. Acute kidney injury on chronic kidney disease stage 3 secondary to hypovolemia, improving. 12. Abnormal LFTs secondary to cirrhosis with portal hypertension. 13. Thrombocytopenia with coagulopathy secondary to cirrhosis, suspected alcoholic. 14. Type 2 myocardial infarction. 15. Lactic acidosis. 16. Hypophosphatemia/Hypomagnesemia 17. Abn Hep C antibody PLAN: Cont Octreotide drip Cont empiric antibiotics for SBP prophylaxis. Continue IV PPIs. Transfuse 1 unit PRBC Replace Phosphorus and Magnessium by PO AM labs Cont other meds as below Hep C RNA sent Reduce IVF to KVO Review of Systems - Review of Systems Respiratory: negative: Cough, Dry, Shortness of Breath, Hemoptysis, SOB with Excertion, Pleuritic Pain, Sputum, Wheezing Cardiovascular: negative: chest pain, palpitations, orthopnea, paroxysmal nocturnal dyspnea, edema, light headedness, other Gastrointestinal: negative: Nausea, Vomiting, Abdominal Pain, Diarrhea, Constipation, Melena, Hematochezia, Other - Medications/Allergies Allergies/Adverse Reactions: Allergies Allergy/AdvReac Type Severity Reaction Status Date / Time Penicillins Allergy Verified 10/06/18 12:16 Medications: Current Medications Al Hydroxide/Mg Hydroxide (Maalox) 30 ml PO Q8H PRN PRN Reason: Indigestion Albuterol/Ipratropium (Duoneb) 3 ml NEB F6ON-RT [facility] Last Admin: 10/08/18 13:01 Dose: 3 ml Benzonatate (Tessalon) 100 mg PO TIDPRN PRN PRN Reason: Cough Last Admin: 10/06/18 20:41 Dose: 100 mg Calcium Carbonate (Tums) 1,000 mg PO Q4H PRN PRN Reason: Heartburn or Indigestion Dextrose/Water (Dextrose 50%) 25 gm SLOW IVP PRN PRN PRN Reason: Hypoglycemia Last Admin: 10/07/18 04:24 Dose: 25 gm Folic Acid (Folvite) 1 mg PO DAILY [facility] Last Admin: 10/08/18 08:41 Dose: 1 mg Glucagon (Glucagon) 1 mg IM PRN PRN PRN Reason: Hypoglycemia Octreotide Acetate 1,250 mcg/ (Sodium Chloride) 251.25 mls @ 5.02 mls/hr IVPB INF [facility] Last Admin: 10/08/18 10:42 Dose: 251.25 mls Dextrose/Water (D5w) 1,000 mls @ 0 mls/hr IV .Q0M PRN PRN Reason: Hypoglycemia Levofloxacin 500 mg/ Device 100 mls @ 100 mls/hr IVPB Q24HR [facility] Last Admin: 10/07/18 20:48 Dose: 100 mls Sodium Chloride (Normal Saline 0.9%) 1,000 mls @ 30 mls/hr IV .Q24H [facility] Insulin Human Regular (Humulin R) 0 units SC .MODERATE SLIDING SC PRN PRN Reason: Moderate Correctional Scale Last Admin: 10/08/18 05:33 Dose: 6 unit Magnesium Chloride (Slow-Mag) 64 mg PO BID [facility] Mineral Oil/White Petrolatum (Systane Nighttime Eye Ointment) 0 gm EA EYE PRN PRN PRN Reason: Dry Eyes Miscellaneous Medication (Phos-Nak) 1 pkt PO BID-WM [facility] Stop: 10/10/18 17:01 Mometasone Furoate/Formoterol Fumar (Dulera 200 Mcg/5 Mcg Inhaler) 2 puff INH BID-RT [facility] Last Admin: 10/08/18 06:39 Dose: 2 puff Multivitamins (Theragran) 1 tab PO DAILY [facility] Last Admin: 10/08/18 08:41 Dose: 1 tab Ondansetron HCl (Zofran) 4 mg IVP Q6H PRN PRN Reason: Nausea/Vomiting Ondansetron HCl (Zofran Odt) 4 mg PO Q6H PRN PRN Reason: Nausea/Vomiting Pantoprazole Sodium (Protonix) 40 mg IVP Q12HR [facility] Last Admin: 10/08/18 08:42 Dose: 40 mg Senna/Docusate Sodium (Senokot S) 2 tab PO BID PRN PRN Reason: Constipation Sodium Chloride (Flush - Normal Saline) 10 ml IVF PRN PRN PRN Reason: Saline Flush Sodium Chloride (Flush - Normal Saline) 10 ml IVF PRN PRN PRN Reason: Saline Flush Thiamine HCl (Thiamine) 100 mg PO DAILY [facility] Last Admin: 10/08/18 08:41 Dose: 100 mg
[2018-10-08] MEDS ORDERED: NPH, Human Insulin Isophane 300 UNIT/3 ML VIAL SC SCH (13:45)
--- NOTE | 2018-10-08 16:35 | PRG ---
DATE OF SERVICE: 10/08/2018 REASON FOR CONSULTATION: Hematemesis. SUBJECTIVE: The patient states that he is doing well today with no acute events or problems overnight. He did not have a bowel movement within the last 24 hours nor has he experienced any episodes of hematemesis or coffee-grounds emesis. Otherwise, at this time, he states that he is extremely hungry and would like something more substantial to eat. He denies any nausea, vomiting, fevers, chills, hematemesis, melena, or hematochezia. OBJECTIVE: VITAL SIGNS: Temperature 98, pulse 92, blood pressure 114/69, respiratory rate 17, saturating 93% on room air. GENERAL: The patient was lying in bed, in no acute distress. Alert and oriented x4. CARDIOVASCULAR: Regular rate and rhythm. RESPIRATORY: Clear to auscultation bilaterally. ABDOMEN: Normoactive bowel sounds. Soft, nontender, nondistended. EXTREMITIES: No cyanosis, clubbing, or edema. LABORATORY DATA: CBC with a white blood cell count of 3.4, hemoglobin 7.1, hematocrit 22.9, platelets 84. Chemistry with a sodium of 132, potassium 3.6, chloride 104, CO2 of 24, BUN 14, creatinine 1.06, glucose 261. AST 52, ALT 35, alkaline phosphatase 117, total bilirubin 0.7. Iron 12, ferritin 43, TIBC 346. IMAGING DATA: CT of the abdomen and pelvis was obtained on September 06, 2018, which showed cirrhotic morphology without presence of any focal liver lesion. It did not show any evidence of splenomegaly, although there were scattered calcified granulomas within the spleen. Also seen was a small hiatal hernia along with small esophageal varices along the right posterolateral aspect and diverticulosis seen within the colon. ASSESSMENT AND PLAN: The patient is a 63-year-old male with past medical history of chronic systolic heart failure with an ejection fraction of 45% to 50%, chronic obstructive pulmonary disease, tobacco dependence, coronary artery disease, chronic kidney disease stage 3, peripheral vascular disease, diabetes, gastroesophageal reflux disease, lumbar stenosis, and cirrhosis complicated by esophageal varices, presenting with hematemesis. Hematemesis. The patient initially presented with complaints of nausea and vomiting with coffee-grounds emesis that was also associated with a significant decrease in his H and H. He subsequently underwent EGD on October 06, 2018, with the findings of large esophageal varices within the distal esophagus. These were subsequently banded x2 with good hemostasis achieved and no further episodes of hematemesis or melena at this time. Upon further evaluation of the patient, and questioning the patient, he states that this happened approximately 3 years ago when he had esophageal varices banded at another institution. At this point, his H and H are slowly downtrending concerning for continued presence of a gastrointestinal bleed, although it is difficult to assess whether or not this is hemodilution from IV fluid administration or this is equilibration from his gastrointestinal bleed on admission. He was given 1 unit of PRBCs earlier today and I would like to see where that goes. RECOMMENDATIONS: 1. We would continue to trend H and H and transfuse as necessary to maintain an H and H of /. 2. Continue to monitor clinically for signs of active GI bleeding. 3. We would continue PPI b.i.d. and octreotide drip for approximately 24 hours, then discontinue the octreotide drip and transfer the patient to oral PPI therapy. 4. We would continue antibiotic prophylaxis, bleeding cirrhotic for treatment of approximately 5 days total therapy. 5. The patient will need to be placed on propranolol prior to discharge, but would hold off on this medication right now given possible continued bleeding and risk of hypotension. 6. Cirrhosis. The patient is presenting with a history of cirrhosis, for which the patient had undergone esophageal varix banding in the past (around 3 years ago). The current etiology of his cirrhosis is largely unknown, but he does have an increased history of drinking alcohol in the past, which could further create this clinical picture. Currently, he has decompensated disease given the presence of bleeding esophageal varices. However, per labs, he has preserved synthetic function based on normal total bilirubin, but does have a decreased albumin consistent with hepatic dysfunction. Based on the INR obtained on October 06, 2018, the patient currently has a MELD score of 17 and may benefit from transplant evaluation as an outpatient. However, given his history of noncompliance with therapy, this may be ill-advised. Currently, he has a CT scan from the other day that does not show any evidence of focal liver lesions, but we will need serial imaging as an outpatient as well. RECOMMENDATIONS: Would have the patient follow up in the GI Clinic within 3 to 4 weeks after discharge for further management of his cirrhosis with placement on routine screening for hepatocellular carcinoma as well as determine the etiology of this cirrhosis. We will continue to follow. Please call with any questions. Job ID: [id number]
[2018-10-08] MEDS: PHOS-NAK 1 PKT PACK PO SCH (16:45)
[2018-10-08] MEDS: NPH, Human Insulin Isophane 300 UNIT/3 ML VIAL SC SCH (16:45)
[2018-10-08] MEDS: Docusate 100 MG CAP PO SCH (20:44)
[2018-10-08] MEDS: Magnesium Chloride 64 MG TAB PO SCH (20:45)
[2018-10-09] MEDS: Insulin Regular 300 UNITS/3 ML VIAL SC PRN ×2 (04:40→12:07)
[2018-10-09 05:12] LABS: Hemoglobin 8.4 g/dL (14.0-18.0); Platelet Count 84 thou/uL (130-400)
[2018-10-09 05:18] LABS: Albumin 2.5 g/dL (3.4-4.8); Anion Gap 11 mmol/L (10-20); BUN (Urea Nitrogen) 7 mg/dL (8.4-25.7); BUN/Creatinine Ratio 7.29; Calc. Creatinine Clearance 88 mL/min (70-130); Calcium 7.5 mg/dL (7.8-10.44); Carbon Dioxide 21 mmol/L (23-31); Chloride 105 mmol/L (98-107); Estimated GFR-MDRD 79; Glucose 240 mg/dL (80-115); Phosphorus 2.1 mg/dL (2.3-4.7); Potassium 3.5 mmol/L (3.5-5.1); Sodium 133 mmol/L (136-145)
[2018-10-09] MEDS: Mometasone/Formoterol 120 PUFF INHALER INH SCH ×2 (06:36→19:35)
[2018-10-09] MEDS: Folic Acid 1 MG TAB PO SCH (10:29)
[2018-10-09] MEDS: PHOS-NAK 1 PKT PACK PO SCH ×2 (10:29→17:13)
[2018-10-09] MEDS: Docusate 100 MG CAP PO SCH ×2 (10:29→20:27)
[2018-10-09] MEDS: Thiamine 100 MG TAB PO SCH (10:29)
[2018-10-09] MEDS: Pantoprazole 40 MG VIAL IVP SCH ×2 (10:29→20:27)
[2018-10-09] MEDS: Multivit, Therapeutic 1 TAB PO SCH (10:29)
[2018-10-09] MEDS: NPH, Human Insulin Isophane 300 UNIT/3 ML VIAL SC SCH (12:04)
[2018-10-09] MEDS: Magnesium Chloride 64 MG TAB PO SCH ×2 (12:08→20:27)
--- NOTE | 2018-10-09 12:30 | PRG ---
DATE OF SERVICE: 10/09/2018 SUBJECTIVE: This is a 63-year-old male, hospitalized with a hematemesis, underwent EGD by Dr. Dayron Quintana 2 days ago. He was found to have 3 to 4+ varicosities of the esophagus and underwent banding. He is on IV octreotide drip. He is given clear liquid diet over the last 48 hours. The patient had to have a transfusion yesterday because of a drop in blood count bleeding. He had a stool this morning and the nurse tells it looks dark, more like an olive green, and the patient also tells me it looks more brownish. The patient's hemoglobin this morning is stable at 8.4. He has abdominal pain. No nausea, no vomiting. He is on a regular diet and is tolerating diet. PHYSICAL EXAMINATION: GENERAL: He is obese, appears comfortable. VITAL SIGNS: He is afebrile. Pulse is 97, blood pressure . CARDIOVASCULAR: First and second heart sounds are heard. LUNGS: Clear to auscultation. ABDOMEN: Soft. Abdomen is nontender. No organomegaly or masses. CLINICAL IMPRESSION: 1. Gastrointestinal bleeding. 2. Liver cirrhosis - esophageal varices, status post banding. 3. Anemia due to blood loss. 4. Obesity. RECOMMENDATION: 1. Diet as tolerated. 2. Repeat H and H later on this evening. Blood count is stable, we may consider tapering of the octreotide over the next 12 hours. 3. If he has recurrence of bleeding or blood count drops, may need to consider a repeat EGD tomorrow. Job ID: [id number]
[2018-10-09] MEDS ORDERED: Melatonin 3 MG TAB PO PRN (13:08)
--- NOTE | 2018-10-09 13:11 | PDOC.PN ---
- Subjective Encounter Start Date: 10/09/18 Encounter Start Time: 13:09 Feels good. Was happy to get food. Report difficulty falling asleep. Says he gets close and then wakes. Also reports that he takes the Lasix at home for CHF. - Objective Resuscitation Status - Order Detail: 10/06/18 12:29 Resuscitation Status Routine Resuscitation Status: FULL: Full Resuscitation Vital Signs & Weight: Vital Signs (12 hours) Temp Pulse Resp BP BP Pulse Ox 10/09/18 08:00 98.4 F 97 18 126/75 97 10/09/18 06:36 87 16 98 10/09/18 02:48 91 20 125/79 96 Weight Admit Weight 167 lb 8.821 oz Weight 171 lb 15.369 oz Most Recent Monitor Data Heart Rate from ECG 101 NIBP 146/99 NIBP BP-Mean 114 Respiration from ECG 21 SpO2 94 I&O: 10/08/18 10/09/18 10/10/18 06:59 06:59 06:59 Intake Total 3760.2 1728 Output Total 1005 Balance 2755.2 1728 Result Diagrams: 10/09/18 04:07 10/09/18 04:07 Additional Labs: Accuchecks 10/09/18 10/08/18 10/08/18 11:09 19:02 16:54 POC Glucose 232 H 241 H 330 H Phys Exam - Physical Examination Constitutional: NAD Respiratory: no wheezing, no rales, no rhonchi Cardiovascular: RRR, no significant murmur, no rub Gastrointestinal: soft, non-tender, no distention, positive bowel sounds Musculoskeletal: no edema Neurological: non-focal, moves all 4 limbs Psychiatric: normal affect, A&O x 3 Skin: no rash, normal turgor Dx/Plan (1) GI bleed Code(s): K92.2 - GASTROINTESTINAL HEMORRHAGE, UNSPECIFIED Status: Acute (2) Anemia Code(s): D64.9 - ANEMIA, UNSPECIFIED Status: Acute (3) Gastric varices Code(s): I86.4 - GASTRIC VARICES Status: Acute (4) CAD (coronary artery disease) Code(s): I25.10 - ATHSCL HEART DISEASE OF [place] CORONARY ARTERY W/O ANG PCTRS Status: Chronic Qualifiers: Coronary Disease-Associated Artery/Lesion type: unspecified vessel or lesion type Associated angina: without angina Comment: s/p stent 08/27/15. Stable, chest pain free. Continue ASA and Coreg. d/ c Nitropaste (5) CKD (chronic kidney disease) stage 3, GFR 30-59 ml/min Status: Chronic (6) COPD (chronic obstructive pulmonary disease) Status: Chronic Qualifiers: COPD type: unspecified COPD Qualified Code(s): J44.9 - Chronic obstructive pulmonary disease, unspecified (7) HTN (hypertension) Code(s): I10 - ESSENTIAL (PRIMARY) HYPERTENSION Status: Chronic Qualifiers: Hypertension type: essential hypertension Qualified Code(s): I10 - Essential (primary) hypertension (8) PVD (peripheral vascular disease) Code(s): I73.9 - PERIPHERAL VASCULAR DISEASE, UNSPECIFIED Status: Chronic (9) Chronic combined systolic and diastolic CHF, NYHA class 2 Code(s): I50.42 - CHRONIC COMBINED SYSTOLIC AND DIASTOLIC HRT FAIL Status: Acute (10) Positive hepatitis C antibody test Code(s): R76.8 - OTHER SPECIFIED ABNORMAL IMMUNOLOGICAL FINDINGS IN SERUM Status: Acute - Plan * Generally stable. * Was unaware of having diabetes. * Diabetic education. * Change to carb consistent diet. * SSI. * Per GI, recheck hgb later today. If stable, consider weaning the Octreotide. * Continue to follow H/H. * Melatonin. * Give one dose of Lasix po now. His BP is adequate to tolerate it now.
[2018-10-09] MEDS ORDERED: Furosemide 40 MG TAB PO SCH (13:15)
[2018-10-09] MEDS: Sodium Chloride 0.9% 1,000 ML IV SCH (14:34)
[2018-10-09 16:08] LABS: #Eosinphils 0.1 thou/uL (0.0-0.7); #Lymphocytes 0.8 thou/uL (1.20-3.40); #Monocytes 0.3 thou/uL (0.11-0.59); #Neutrophils 2.8 thou/uL (1.40-6.50); %Basophils 0.6 % (0.0-1.0); %Eosinophils 2.8 % (0.0-10.0); %Lymphocytes 19.7 % (21.0-51.0); %Monocytes 7.5 % (0.0-10.0); %Neutrophils 69.4 % (42.0-75.0); Hemoglobin 8.5 g/dL (14.0-18.0); Mean Corpuscular HGB CONC 32.2 g/dL (32.0-36.0); Mean Corpuscular Hemoglobin 26.4 pg (27.0-31.0); Mean Corpuscular Volume 82.2 fL (78.0-98.0); Platelet Count 82 thou/uL (130-400); RBC Distribution Width 18.6 % (11.5-14.5); Red Blood Cell (RBC) Count 3.22 mill/uL (4.70-6.10)
--- NOTE | 2018-10-10 00:46 | EKG ---
Test Reason : Blood Pressure : / mmHG Vent. Rate : 122 BPM Atrial Rate : 122 BPM P-R Int : 154 ms QRS Dur : 112 ms QT Int : 310 ms P-R-T Axes : 058 001 133 degrees QTc Int : 441 ms Sinus tachycardia with occasional Premature ventricular complexes Confirmed by VICTORIANO VAZQUEZ ([id number]), brands editor CHRIS JOAQUIN ([id number] on 10/10/2018 12:46:02 AM Referred By: Confirmed By:VICTORIANO VAZQUEZ
[2018-10-10] MEDS: Insulin Regular 300 UNITS/3 ML VIAL SC PRN ×2 (04:06→12:33)
[2018-10-10] MEDS: Mometasone/Formoterol 120 PUFF INHALER INH SCH (07:06)
[2018-10-10 07:24] VITALS: BP 116/80; TEMP 98.1
[2018-10-10] MEDS: Folic Acid 1 MG TAB PO SCH (09:10)
[2018-10-10] MEDS: Magnesium Chloride 64 MG TAB PO SCH (09:10)
[2018-10-10] MEDS: Docusate 100 MG CAP PO SCH (09:10)
[2018-10-10] MEDS: Multivit, Therapeutic 1 TAB PO SCH (09:10)
[2018-10-10] MEDS: PHOS-NAK 1 PKT PACK PO SCH (09:10)
[2018-10-10] MEDS: Pantoprazole 40 MG VIAL IVP SCH (09:10)
[2018-10-10] MEDS: Thiamine 100 MG TAB PO SCH (09:10)
[2018-10-10] MEDS: NPH, Human Insulin Isophane 300 UNIT/3 ML VIAL SC SCH (09:14)
--- NOTE | 2018-10-10 16:42 | PRG ---
DATE OF SERVICE: 10/10/2018 SUBJECTIVE: This is a 63-year-old male, had a GI bleeding and was seen by Dr. Dayron Quintana. He underwent EGD and variceal banding. He was on IV octreotide tapering dose. His blood count has been pretty stable. He has had a couple of stools yesterday and 2 stools today. The stool was actually brown . His last hemoglobin was 8.4 yesterday and repeat one done at 4 o'clock yesterday was 8.5. He is clinically stable. He wants to actually go home. His octreotide dose was cut down to 25 mcg yesterday. PHYSICAL EXAMINATION: GENERAL: He is obese, appears comfortable. VITAL SIGNS: Afebrile, pulse is 88, blood pressure 116/80. CARDIOVASCULAR AND LUNGS: Within normal limits. ABDOMEN: Soft. No organomegaly. No tenderness. No masses. CLINICAL IMPRESSION: 1. Upper gastrointestinal bleeding. 2. Esophageal varices, status post banding. 3. Liver cirrhosis. 4. Obesity. RECOMMENDATION: 1. Discontinue IV octreotide. 2. The patient can be discharged home today and he will come back to see Dr. Dayron Quintana as an outpatient. He is advised to come back to the ER if he develops any hematemesis or melena. Advised an iron supplement and also may need to be on beta blockers because . Job ID: [id number]
[2018-10-10 20:06] LABS: Hep C PCR-Quant HCV Not Detected IU/mL (.)
--- NOTE | 2018-10-11 01:12 | DIS ---
DATE OF ADMISSION: 10/06/2018 DATE OF DISCHARGE: 10/10/2018 DISCHARGE DIAGNOSES: 1. Upper gastrointestinal bleed. 2. Acute blood loss anemia. 3. Esophageal varices. 4. Coronary artery disease. 5. Chronic kidney disease stage 3. 6. Chronic obstructive pulmonary disease. 7. Hypertension. 8. Peripheral vascular disease. 9. Combined systolic diastolic heart failure. 10. Positive hepatitis C antibody. HISTORY OF PRESENT ILLNESS: This patient is a 63-year-old male with a history of chronic systolic heart failure with ejection fraction 45% to 55%, COPD, coronary artery disease, chronic kidney disease stage 3, and history of prior CVA. The patient reports he was unaware of having any prior diabetes. He presented to the emergency department complaining of several episodes of vomiting with dark emesis and ultimately some coffee-ground emesis associated with some abdominal cramping. The patient was noted to be significantly hypotensive and had a hemoglobin of 6.9. White count was 15.1. Troponin was 0.129. The EKG showed sinus tach with some PVCs. HOSPITAL COURSE: The patient was admitted to the hospital with what appeared to be upper gastrointestinal bleed, hypovolemic shock with hypotension secondary to acute blood loss anemia. The patient was initially placed in the ICU. He received transfusion of 3 units of packed red cells, was seen in consultation by Pulmonary Critical Care and GI subsequently did an urgent endoscopy and found the patient to have distal esophageal varices grade 2/3 with "red theresa sign" and the patient had ligation x2. Had [id number] portal hypertensive gastropathy with no evidence of gastric varices. The patient is subsequently maintained on octreotide drip for 72 hours. His hemoglobin was maintained. He was then advanced on his diet, which he appeared to tolerate well. The patient also had a hemoglobin A1c done at the time of admission, which was 17.4, ferritin levels were 43.6, TIBC 346. The patient was initially maintained on a sliding scale insulin. He reported that he had previously been unaware that he had diabetes and had not been following any particular diet. He was educated extensively on diabetes and appropriate changes in diet. DISPOSITION: The patient is discharged to home. ACTIVITY: He is to have activity as tolerated. DIET: He will remain on a diabetic diet. MEDICATIONS: He will be on: 1. Pantoprazole 40 mg daily. 2. Glipizide 5 mg daily. 3. He will continue albuterol nebs p.r.n. and requested a refill on those. 4. Continue with aspirin 81 mg daily. 5. Carvedilol 3.125 b.i.d. 6. Spironolactone 25 mg daily. 7. Ferrous sulfate 325 q.a.m. 8. Lasix 40 mg b.i.d. 9. Magnesium 400 mg b.i.d. 10. Dulera 2 puffs b.i.d. 11. Potassium 20 mEq daily. 12. He will discontinue the famotidine. FOLLOWUP: The patient is to follow up with his PCP at the [facility] in the next few days. He will also see Dr. Quintana in 7 days and he can return to the hospital should he have any problems prior to that time. PHYSICAL EXAMINATION: VITAL SIGNS: On the day of discharge, the patient was in stable condition. Temperature was 98.1, pulse 88, respirations 20, O2 saturation 98% on room air, BP was 116/80. GENERAL: He is awake, alert, very pleasant, and cooperative. HEART: Regular rate and rhythm. LUNGS: Clear bilaterally. ABDOMEN: Soft, nontender, and nondistended. EXTREMITIES: No significant edema. TIME SPENT: Total time in discharge activities including [id number] time with the patient was 32 minutes. Job ID: [id number]
[2018-10-11 14:08] LABS: Smooth Muscle Total ABS 6 Units (0-19)
[2018-10-12 11:50] LABS: ANA Symphony (Qualitative) Negative (Negative); ANA Symphony (Quantitative) 0.2 Ratio (< 0.7 Negative); EliA Vaculitis New Method **** NEW METHOD ****; Mitochondrial Ab 0.8 U/mL (<4 Negative)
[2018-10-12 13:13] LABS: Alpha-1-Antitrypsin 137 mg/dL (90-200)
== END 2018-10-10 14:39 | disposition home or self-care (01) | DRG 441 ==
LOC: ERS 08:19 → CCU 09:58 → T4-A 10-07 17:55
PROVIDERS: ADMIT Internal Medicine; ATTEND Internal Medicine
PROC: 06L38CZ Occlusion of Esophageal Vein with Extraluminal Device, Via Natural or Artificial Opening Endoscopic (ICD-10-PCS; principal; 2018-10-06)
PROC: 3E033XZ Introduction of Vasopressor into Peripheral Vein, Percutaneous Approach (ICD-10-PCS; 2018-10-06)
PROC: 30233N1 Transfusion of Nonautologous Red Blood Cells into Peripheral Vein, Percutaneous Approach (ICD-10-PCS; 2018-10-06)
DX: K76.6 Portal hypertension (principal); E11.10 Type 2 diabetes mellitus with ketoacidosis without coma; I85.11 Secondary esophageal varices with bleeding; R57.1 Hypovolemic shock; I13.0 Hypertensive heart and chronic kidney disease with heart failure and stage 1 through stage 4 chronic kidney disease, or unspecified chronic kidney disease; D62 Acute posthemorrhagic anemia; N17.9 Acute kidney failure, unspecified; E87.2 Acidosis; I50.42 Chronic combined systolic (congestive) and diastolic (congestive) heart failure; K74.60 Unspecified cirrhosis of liver; K31.89 Other diseases of stomach and duodenum; I25.10 Atherosclerotic heart disease of native coronary artery without angina pectoris; E11.22 Type 2 diabetes mellitus with diabetic chronic kidney disease; J44.9 Chronic obstructive pulmonary disease, unspecified; N18.3 Chronic kidney disease, stage 3 (moderate); E11.51 Type 2 diabetes mellitus with diabetic peripheral angiopathy without gangrene; K21.9 Gastro-esophageal reflux disease without esophagitis; F17.210 Nicotine dependence, cigarettes, uncomplicated; E66.01 Morbid (severe) obesity due to excess calories; E83.39 Other disorders of phosphorus metabolism; E83.42 Hypomagnesemia; R76.8 Other specified abnormal immunological findings in serum; D69.6 Thrombocytopenia, unspecified; Z86.73 Personal history of transient ischemic attack (TIA), and cerebral infarction without residual deficits; Z88.0 Allergy status to penicillin; Z68.26 Body mass index [BMI] 26.0-26.9, adult
CPT/HCPCS: 36415; 36416; 36430; 74177; 74178; 80053; 80069; 80074; 80306; 80307; 82010; 82103; 82104; 82105; 82533; 82550; 82553; 82728; 82805; 83036; 83516; 83540; 83550; 83605; 83690; 83735; 84100; 84484; 85014; 85018; 85025; 85049; 85610; 85730; 86038; 86225; 86850; 86900; 86901; 87522; 93005; 94640; C9113; J1815; J1956; J2001; J2354; J2405; J2704; J3010; J3411; J3475; J3490; J7050; J7620; P9016

== ENCOUNTER 2018-10-22 13:03 | Day surgery (SDC) | payer MEDICARE ==
[2018-10-22 14:18] VITALS: BMI 27.7
[2018-10-22] MEDS ORDERED: Acetaminophen 325 MG TAB PO SCH (14:46)
[2018-10-22 22:24] VITALS: BP 148/88; TEMP 97.9
[2018-10-22 23:11] LABS: Band 13 % (5-11); Hemoglobin 10.8 g/dL (14.0-18.0); Lymphocytes 18 % (21-51); MDiff Complete? YES; Mean Corpuscular HGB CONC 30.4 g/dL (32.0-36.0); Mean Corpuscular Hemoglobin 25.7 pg (27.0-31.0); Mean Corpuscular Volume 84.5 fL (78.0-98.0); Mean Platelet Volume 10.8 fL (7.4-10.4); Monocytes 3 % (0-10); Neutrophil 66 % (42-75); Platelet Count 136 thou/uL (130-400); RBC Distribution Width 18.5 % (11.5-14.5); White Blood Cell (WBC) Count 5.3 thou/uL (4.8-10.8)
== END 2018-10-22 22:50 | disposition home or self-care (01) ==
LOC: ONC/OP 13:03 → ONC 13:53 → ONC/OP 22:50
PROVIDERS: ATTEND Internal Medicine Gastroenterology
DX: D64.9 Anemia, unspecified (principal); K74.60 Unspecified cirrhosis of liver; Z88.0 Allergy status to penicillin
CPT/HCPCS: 36415; 36430; 85025; 86850; 86900; 86901; P9016

== ENCOUNTER 2018-11-16 09:27 | Day surgery (SDC) | payer MEDICARE ==
[2018-11-15 13:18] VITALS: BMI 27.1
--- NOTE | 2018-11-16 15:43 | OP ---
DATE OF PROCEDURE: 11/16/2018 PROCEDURES PERFORMED: Colonoscopy with snare polypectomy. PREMEDICATION: Given by Anesthesiology Department. PREPROCEDURE DIAGNOSIS: Anemia. POSTPROCEDURE DIAGNOSES: 1. Two sigmoid polyps, 4 and 6 mm. 2. Sigmoid diverticulosis. DESCRIPTION OF PROCEDURE: Written consents were obtained prior to procedure. After adequate sedation, rectal exam performed was normal. The endoscope was advanced to the cecum. The quality of the bowel prep was good. The appendiceal orifice, ileocecal valve, and cecum appeared normal. The ascending colon, hepatic flexure, transverse colon, splenic flexure, and descending colon appeared normal. Scattered diverticula were noted in the sigmoid colon. Two sessile polyp measuring between 4 to 6 mm were noted. These polyps were removed with cold snare and retrieved. Prominent veins were noted in the rectal vault. Retroflexion did not show any hemorrhoids. The patient tolerated the procedure well. ASSESSMENT: 1. Sigmoid polyps x2, status post polypectomies. 2. Sigmoid diverticulosis coli. 3. Otherwise, normal colon exam. RECOMMENDATION: Await path result of the polyps. Job ID: [id number]
--- NOTE | 2018-11-16 19:58 | OP ---
DATE OF PROCEDURE: 11/16/2018 PROCEDURE PERFORMED: Esophagogastroduodenoscopy with esophageal banding ligation. PREPROCEDURE DIAGNOSIS: History of variceal bleed, status post banding of esophageal varices on 10/06/2018. POSTPROCEDURE DIAGNOSES: 1. Two columns of grade 2 distal esophageal varices, one column of grade 1 esophageal varices above the esophageal scar area, status post banding. 2. Mild portal hypertension. 3. No evidence of gastric varices. DESCRIPTION OF PROCEDURE: Written consents were obtained prior to procedure. After adequate sedation, forward-viewing endoscope was advanced down the stomach under direct vision to the second portion of duodenum. The duodenum and the bulb appeared normal. The pulses patent. Diffuse portal gastropathy changes were noted throughout the gastric lining. Retroflexion did not show any evidence of gastric varices. The GE junction noted at 40 cm from the incisors. Two columns of grade 2 esophageal varices were noted. Esophageal scarring was noted at approximately 37 cm. Above this scarred area, one column of grade 1 esophageal varices was noted. Both of these three varices were banded with good ligation. There was no bleeding during or after the procedure. The patient tolerated the procedure well without any complication. ASSESSMENT: 1. Lower esophageal varices x3, status post banding ligation. 2. Mild portal gastropathy. PLAN: 1. Follow up in GI clinic in 3 to 4 weeks. Job ID: [id number] MTDD
== END 2018-11-16 15:30 | disposition home or self-care (01) ==
LOC: SDC 09:27
PROVIDERS: ATTEND Internal Medicine
PROC: 0DBN8ZX Excision of Sigmoid Colon, Via Natural or Artificial Opening Endoscopic, Diagnostic (ICD-10-PCS; principal; 2018-11-16)
PROC: 0W3P8ZZ Control Bleeding in Gastrointestinal Tract, Via Natural or Artificial Opening Endoscopic (ICD-10-PCS; 2018-11-16)
DX: K74.60 Unspecified cirrhosis of liver (principal); K76.6 Portal hypertension; K31.89 Other diseases of stomach and duodenum; I85.10 Secondary esophageal varices without bleeding; K63.5 Polyp of colon; K57.30 Diverticulosis of large intestine without perforation or abscess without bleeding; I13.0 Hypertensive heart and chronic kidney disease with heart failure and stage 1 through stage 4 chronic kidney disease, or unspecified chronic kidney disease; E11.22 Type 2 diabetes mellitus with diabetic chronic kidney disease; N18.9 Chronic kidney disease, unspecified; I50.9 Heart failure, unspecified; D63.1 Anemia in chronic kidney disease; J44.9 Chronic obstructive pulmonary disease, unspecified; K21.9 Gastro-esophageal reflux disease without esophagitis; I25.10 Atherosclerotic heart disease of native coronary artery without angina pectoris; F17.210 Nicotine dependence, cigarettes, uncomplicated; Z99.3 Dependence on wheelchair; Z88.0 Allergy status to penicillin; Z79.899 Other long term (current) drug therapy
CPT/HCPCS: 88305

== ENCOUNTER 2019-01-15 13:13 | Inpatient (IN) | payer MEDICARE ==
[2019-01-15 13:59] LABS: #Eosinphils 0.1 thou/uL (0.0-0.7); #Lymphocytes 0.5 thou/uL (1.20-3.40); #Monocytes 0.3 thou/uL (0.11-0.59); #Neutrophils 3.4 thou/uL (1.40-6.50); %Basophils 0.2 % (0.0-1.0); %Eosinophils 1.7 % (0.0-10.0); %Lymphocytes 12.7 % (21.0-51.0); %Monocytes 6.6 % (0.0-10.0); %Neutrophils 78.9 % (42.0-75.0); Hemoglobin 8.7 g/dL (14.0-18.0); Mean Corpuscular HGB CONC 30.8 g/dL (32.0-36.0); Mean Corpuscular Hemoglobin 25.3 pg (27.0-31.0); Mean Platelet Volume 9.6 fL (7.4-10.4); Platelet Count 104 thou/uL (130-400); RBC Distribution Width 18.5 % (11.5-14.5); Red Blood Cell (RBC) Count 3.44 mill/uL (4.70-6.10); White Blood Cell (WBC) Count 4.3 thou/uL (4.8-10.8)
[2019-01-15 14:18] LABS: ALT (SGPT) 8 U/L (8-55); AST (SGOT) 24 U/L (5-34); Albumin 3.2 g/dL (3.4-4.8); Alkaline Phosphatase 155 U/L (40-110); Anion Gap 13 mmol/L (10-20); BUN (Urea Nitrogen) 12 mg/dL (8.4-25.7); Bilirubin, Total 1.4 mg/dL (0.2-1.2); Calc. Creatinine Clearance 0 mL/min (70-130); Calcium 7.9 mg/dL (7.8-10.44); Carbon Dioxide 28 mmol/L (23-31); Chloride 98 mmol/L (98-107); Estimated GFR-MDRD 48; Globulin 4.7 g/dL (2.4-3.5); Glucose 221 mg/dL (80-115); Protein, Total 7.9 g/dL (5.8-8.1); Sodium 136 mmol/L (136-145)
[2019-01-15 14:22] LABS: Potassium 2.5 mmol/L (3.5-5.1)
[2019-01-15 14:34] LABS: Bilirubin Negative (Negative); Blood, Urine Negative (Negative); Clarity Clear (Clear); Glucose, Urine (Dipstick) Normal (Negative); Leukocyte Negative Leu/uL (Negative); Nitrite Negative (Negative); Protein, Urine (Dipstick) 20 mg/dL (Neg-Trace)
[2019-01-15 14:37] LABS: CKMB 1.6 ng/mL (0-6.6)
[2019-01-15] MEDS ORDERED: Potassium Chloride 20 MEQ TAB ONE (14:46)
--- NOTE | 2019-01-15 15:34 | RAD ---
PORTABLE CHEST ONE VIEW: 01/15/2019 2:37 p.m. HISTORY: CHF. Shortness of breath. COMPARISON: 07/20/2017 FINDINGS: The heart is enlarged. The aorta is tortuous. The lungs are well expanded without lobar consolidation , pneumothoraces or pleural effusions. There is mild pulmonary vascular congestion. POS: MZA
[2019-01-15 17:28] LABS: Troponin I 0.086 ng/mL (< 0.028)
[2019-01-15] MEDS ORDERED: Dextrose 50% Abboject 50 ML SYRINGE SLOW IVP PRN (18:01)
[2019-01-15] MEDS ORDERED: Dextrose 5% in Water 1,000 ML IV PRN (18:01)
[2019-01-15] MEDS ORDERED: HumaLOG 300 UNITS/3 ML VIAL SC PRN (18:01)
--- NOTE | 2019-01-15 18:33 | HP ---
PRIMARY CARE PROVIDER: Clary Johnson MD CHIEF COMPLAINT: Abdominal distention. HISTORY OF PRESENT ILLNESS: Mr. Daniels is a pleasant 63-year-old gentleman, who was seen at [facility] on January 15, 2019. He was hospitalized at this facility from October 06 to of this year for upper GI bleed, acute blood loss anemia, esophageal varices, and combined systolic and diastolic heart failure. He reports that he was doing well until about a week ago. One week ago, he started having abdominal distention. He reports shortness of breath with exertion. He denies orthopnea. He denies paroxysmal nocturnal dyspnea. He denies any chest pain. He denies any lower extremity edema. He reports that he has been increasing his diuretic with no significant relief. He therefore presented to the emergency room. REVIEW OF SYSTEMS: All systems were reviewed and found to be negative except for the pertinent positives mentioned above. PAST MEDICAL HISTORY: Esophageal varices; chronic systolic heart failure; chronic obstructive pulmonary disease; tobacco dependence; coronary artery disease, status post PCI with stent; chronic diastolic heart failure; chronic kidney disease, stage 3; peripheral vascular disease; diabetes mellitus, type 2; gastroesophageal reflux disease; history of cerebrovascular accident without significant deficits; and lumbar stenosis. PAST SURGICAL HISTORY: PCI with coronary stents, left carotid endarterectomy, bilateral inguinal hernia repair, lower extremity stent placement, and right leg surgery in 1993 for torn ligament. ALLERGIES: PENICILLIN. CURRENT MEDICATIONS: 1. Januvia 100 mg daily. 2. Pantoprazole 40 mg daily. 3. Lasix 20 to 40 mg daily. 4. Potassium chloride 20 mEq daily. 5. Cyclobenzaprine 5 mg 2 times a day. 6. Tramadol p.r.n. FAMILY HISTORY: Significant for heart disease on his father's side and hypertension in his mother. SOCIAL HISTORY: The patient smokes half a pack of cigarettes a day. He denies alcohol use or recreational drug use. PHYSICAL EXAMINATION: GENERAL: On examination, Mr. Daniels is awake and alert, not in acute distress. VITAL SIGNS: Blood pressure is 131/90, pulse 105, respiratory rate 19, oxygen saturation 98% on 2 L of oxygen, and he is afebrile. EYES: No scleral icterus. No conjunctival pallor. ENT: Moist mucosal membranes. No oropharyngeal erythema or exudates. NECK: Supple, nontender. Trachea is midline. RESPIRATORY: Accessory muscles of breathing are mildly active. Chest wall movements are symmetric bilaterally. Lung examination reveals a few bibasal crackles. CARDIOVASCULAR: S1 and S2 are heard, tachycardic and regular. Peripheral pulses palpable. No carotid bruit. No pericardial rub. ABDOMEN: Distended, nontender. Bowel sounds are heard. He has fluid thrill and shifting dullness. NEUROLOGIC: Cranial nerves II through XII are intact. MUSCULOSKELETAL: Power is 5/5 in all 4 extremities. SKIN: He has bilateral lower extremity edema. LYMPHATIC: No cervical lymphadenopathy. PSYCHIATRIC: Normal mood. Normal affect. The patient is oriented to person, place, and time. DIAGNOSTIC DATA: Mr. Daniels's labs and investigations were reviewed. I reviewed his electrocardiogram, which shows sinus tachycardia, no ST changes to suggest an acute coronary syndrome. I also reviewed his chest x-ray, which does not show any pulmonary infiltrates. He has pulmonary vascular congestion. He has pancytopenia with white count of 4300, hemoglobin 8.7, and platelet count of 104,000. He has normal sodium, decreased potassium of 2.5, elevated creatinine of 1.48, it was 0.96 on October 09, 2018, was 2.03 on October 06, 2018, and 2.05 on July 27, 2017. Total bilirubin is elevated at 1.4. Alkaline phosphatase is elevated at 155. It was normal at 117 on October 08, 2018. Troponin I is indeterminate at 0.086. His troponins were in the similar range in the past. BNP is elevated at 1573. Albumin is decreased at 3.2. Urinalysis is positive only for urine urobilinogen. ASSESSMENT AND PLAN: Mr. Daniels is a pleasant 63-year-old gentleman, who was seen at [facility] on January 15, 2019. His problem list includes: 1. Abdominal distention: Mr. Daniels is presenting with abdominal distention. It is possible that this is secondary to fluid accumulation from congestive heart failure exacerbation. He does have a shifting dullness and fluid thrill. We will obtain CT of the abdomen to evaluate for intraabdominal abnormalities. If this indicates ascites, he may need paracentesis. 2. Congestive heart failure exacerbation: His BNP is elevated. He does have mild lower extremity edema. He will be treated for acute on chronic combined systolic and diastolic heart failure, NYHA class III with intravenous diuretics. We will also check 2D echocardiogram. 3. Diabetes mellitus, type 2: We will start the patient on Accu-Cheks and insulin sliding scale. 4. Coronary artery disease: This appears to be stable. The patient denies any chest pain. His troponins are in the similar range in which they have been in the past. He will be monitored on telemetry. 5. Hypokalemia: The patient is presenting with significant hypokalemia. We will replete potassium and recheck potassium level. 6. Tobacco abuse: The patient was counseled regarding tobacco cessation. We will start nicotine replacement therapy. 7. Gastroesophageal reflux disease: This appears to be stable, continue PPI. 8. Peripheral vascular disease: This appears to be stable as well. 9. Chronic obstructive pulmonary disease: Stable. Many thanks for allowing me to participate in your patient's care. Please feel free to contact me with any questions or concerns. LEVEL OF RISK: High. LEVEL OF COMPLEXITY: High. Job ID: [id number]
[2019-01-15 20:42] LABS: Troponin I 0.102 ng/mL (< 0.028)
[2019-01-15 22:22] VITALS: BMI 29.9
--- NOTE | 2019-01-15 22:26 | CT ---
EXAM: Abdomen and pelvic CT scan without contrast: HISTORY: Abdominal distention COMPARISON: 10/06/[address] scan, 11/27/[address] scan FINDINGS: Small right pleural effusion. Liver: Abnormal liver nodularity evidence for cirrhosis. Gallbladder:Unremarkable. Pancreas:Unremarkable Spleen:Minimal splenomegaly. Adrenal glands:Unremarkable. Kidneys:No renal calculus or acute obstruction. No solid or cystic renal mass. No evidence for large or small bowel obstruction. No CT evidence for acute appendicitis. The urinary bladder is unremarkable. Reproductive system:Unremarkable Extensive ascites showing marked increase from the prior study. Increased nonspecific fat stranding t hroughout the central mesentery probably related to the ascites. Evolving mild compression fractures of T12 and L4. Stable anterolisthesis at L5-S1 with pars defects. Developing abdominal wall anasarca. IMPRESSION: Evidence for cirrhosis. Splenomegaly. Much worsening ascites and mesenteric fat stranding as well as developing anasarca. Other findings as above.
[2019-01-15] MEDS: Potassium Chloride 20 MEQ TAB PO SCH (23:02)
[2019-01-15] MEDS: Nicotine 14 MG PATCH TD SCH (23:09)
[2019-01-16] MEDS: Furosemide 40 MG/4 ML VIAL SLOW IVP SCH ×2 (04:51→14:31)
[2019-01-16 05:50] LABS: #Eosinphils 0.1 thou/uL (0.0-0.7); #Lymphocytes 0.7 thou/uL (1.20-3.40); #Monocytes 0.4 thou/uL (0.11-0.59); #Neutrophils 4.2 thou/uL (1.40-6.50); %Basophils 0.1 % (0.0-1.0); %Eosinophils 1.3 % (0.0-10.0); %Lymphocytes 13.2 % (21.0-51.0); %Monocytes 7.1 % (0.0-10.0); %Neutrophils 78.3 % (42.0-75.0); Hemoglobin 9.1 g/dL (14.0-18.0); Mean Corpuscular HGB CONC 30.6 g/dL (32.0-36.0); Mean Corpuscular Volume 81.9 fL (78.0-98.0); Mean Platelet Volume 10.2 fL (7.4-10.4); Platelet Count 122 thou/uL (130-400); RBC Distribution Width 18.7 % (11.5-14.5); Red Blood Cell (RBC) Count 3.64 mill/uL (4.70-6.10); White Blood Cell (WBC) Count 5.3 thou/uL (4.8-10.8)
[2019-01-16 06:14] LABS: Anion Gap 12 mmol/L (10-20); BUN (Urea Nitrogen) 12 mg/dL (8.4-25.7); Calc. Creatinine Clearance 69 mL/min (70-130); Calcium 8.1 mg/dL (7.8-10.44); Carbon Dioxide 28 mmol/L (23-31); Chloride 98 mmol/L (98-107); Estimated GFR-MDRD 53; Glucose 137 mg/dL (80-115); Sodium 135 mmol/L (136-145)
[2019-01-16 06:23] LABS: Potassium 2.9 mmol/L (3.5-5.1)
[2019-01-16] MEDS: Potassium Chloride 20 MEQ TAB PO SCH (07:48)
[2019-01-16] MEDS: Enoxaparin Sodium 40 MG/0.4 ML SYRINGE SC SCH (11:07)
[2019-01-16] MEDS ORDERED: Lorazepam 2 MG/ML VIAL SLOW IVP PRN (17:25)
--- NOTE | 2019-01-16 17:30 | PDOC.HOSPP ---
- Subjective Encounter Date: 01/16/19 Encounter Time: 07:20 Subjective: Pt seen for followup re: CHF exacerbation. Feels slightly better. Less short of breath. - Objective Vital Signs & Weight: Vital Signs (12 hours) Temp Pulse Resp BP Pulse Ox 01/16/19 16:36 97.7 F 99 16 114/77 95 01/16/19 11:38 97.6 F 108 H 20 126/71 96 01/16/19 11:00 100 01/16/19 07:34 97.5 F L 105 H 24 H 116/73 100 Weight Weight 191 lb I&O: 01/15/19 01/16/19 01/17/19 06:59 06:59 06:59 Intake Total 1284 Output Total 600 650 Balance 684 -650 Result Diagrams: 01/16/19 05:18 01/16/19 05:18 Additional Labs: Accuchecks 01/16/19 01/16/19 01/15/19 10:35 04:57 22:48 POC Glucose 174 H 149 H 204 H Labs and MARs reviewed by me EKG Reviewed by me: Yes (Tele: NSR) Hospitalist ROS - Review of Systems Respiratory: reports: SOB with excertion. denies: cough, dry, shortness of breath, hemoptysis, pleuritic pain, sputum, wheezing Cardiovascular: reports: edema. denies: chest pain, palpitations, orthopnea, paroxysmal noc. dyspnea, light headedness - Medication Medications: Active Medications Generic Name Dose Route Start Last Admin Trade Name Freq PRN Reason Stop Dose Admin Enoxaparin Sodium 40 mg 01/16/19 09:00 01/16/19 11:07 Lovenox SC 40 mg 0900 YANNICK Administration Furosemide 40 mg 01/16/19 06:00 01/16/19 14:31 Lasix SLOW IVP 40 mg 0600,1400 YANNICK Administration Nicotine 14 mg 01/15/19 19:00 01/15/19 23:09 Nicoderm Patch TD Not Given Q24HR YANNICK - Exam General Appearance: NAD Eye: anicteric sclera ENT: moist mucosa Neck: supple, no thyromegaly Heart: RRR Respiratory: no wheezes Respiratory - other findings: Bibasal crackles Gastrointestinal: soft, normal bowel sounds, distended Extremities: no clubbing Psychiatric: normal affect, normal behavior Hosp A/P (1) Acute on chronic combined systolic and diastolic CHF, NYHA class 3 Code(s): I50.43 - ACUTE ON CHRONIC COMBINED SYSTOLIC AND DIASTOLIC HRT FAIL Status: Acute (2) Hypokalemia Code(s): E87.6 - HYPOKALEMIA Status: Acute (3) Ascites Code(s): R18.8 - OTHER ASCITES Status: Acute (4) COPD (chronic obstructive pulmonary disease) Status: Chronic Qualifiers: COPD type: unspecified COPD Qualified Code(s): J44.9 - Chronic obstructive pulmonary disease, unspecified (5) HTN (hypertension) Code(s): I10 - ESSENTIAL (PRIMARY) HYPERTENSION Status: Chronic Qualifiers: Hypertension type: essential hypertension Qualified Code(s): I10 - Essential (primary) hypertension (6) PVD (peripheral vascular disease) Code(s): I73.9 - PERIPHERAL VASCULAR DISEASE, UNSPECIFIED Status: Chronic - Plan plan discussed w/ family, out of bed/ambulate Continue IV furosemide. Consult GI (ascites and cirrhosis) and cardiology (CHF exac). 2D echo report pending. Replace potassium. Continue accuchecks and insulin sliding scale. Resume Januvia. COPD stable.
[2019-01-16] MEDS ORDERED: traMADol HCl 50 MG TAB PO PRN (17:42)
[2019-01-16] MEDS: Cyclobenzaprine 10 MG TAB PO SCH (20:47)
[2019-01-16] MEDS: Nicotine 14 MG PATCH TD SCH (20:48)
--- NOTE | 2019-01-16 22:59 | CON ---
DATE OF CONSULTATION: REASON FOR CONSULTATION: Suspected ascites, history of cirrhosis and heart failure. HISTORY OF PRESENT ILLNESS: Mr. Daniels is a pleasant 63-year-old, who is being seen by Dr. Sam Montanez in the distant past and more recently presented to the hospital in October of this year with a GI bleed. He underwent an upper endoscopy, was found to have grade 3 esophageal varices with stigmata of bleeding and had cauterization performed. It was not clear that he had a diagnosis of cirrhosis before that. In talking with the patient and reviewing the records here, I have not had a chance to review the records from the office. In any event, he had a workup, the CAT scan in October that showed a nodular liver and portal hypertension with splenomegaly. He had serologic evaluation, which was negative for hepatitis C. There was a hep C antibody positive, but PCR, HCV RNA was negative. He had negative signs of hemochromatosis or autoimmune liver disease, or primary biliary cirrhosis. Alpha-1 antitrypsin levels are normal. He had subsequent banding in November. He has been on diuretics, but came to the emergency room yesterday as he noted worsening shortness of breath with exertion. He increased his fluid pill from 1-1/2 of 20 mg furosemide tablets to 2 and then to 3, but he felt his belly was filling with fluid. Also, his shortness of breath was worsening. His intolerance to exertion was worsening as well. In the emergency room, he was found to be tachycardic with a pulse of 133 to 106, blood pressure 119/72. He is afebrile. O2 saturation was good. PAST MEDICAL HISTORY: Hypertension. There is some history of CHF, although there is no recent echocardiogram that I can find. He has not seen a electro optical engineer recently. He has a history of COPD, chronic kidney disease, prior history of anemia and strokes x2. PAST SURGICAL HISTORY: Includes EGD with banding of varices in October and November. He has had no bleeding since, hernia repair in the inguinal areas bilaterally, orthopedic knee surgery, can't remember which one, carotid surgery on the left and two previous stents. He states these were with Dr. Ma, who was the CV surgeon at the [facility] in the past. SOCIAL HISTORY: The patient does not drink alcohol now, but did heavily in the past. Denies drug use. He smokes a couple of cigarettes per day. Lives at home with family. REVIEW OF SYSTEMS: Weight gain from 170 to 190. No fever or chills. No confusion. No melena, hematochezia, hematemesis, dysphagia, or odynophagia. He does have dyspnea on exertion, increasing edema in his legs and swelling in his abdomen and shortness of breath and general fatigue. He has had no tremor, or seizures. He has had no bruising, fever, chills, or rashes. MEDICATIONS: At home; 1. Januvia. 2. Pantoprazole. 3. Lasix 40 mg daily. 4. Potassium chloride 20 mEq daily. 5. Cyclobenzaprine. 6. Tramadol. Here in the hospital; 1. Tylenol p.r.n. 2. DuoNebs p.r.n. 3. Flexeril. 4. Lovenox. 5. Lasix 40 mg IV b.i.d. 6. Glucagon 1 mg p.r.n. 7. Insulin sliding scale p.r.n. 8. Ativan p.r.n. 9. Nicotine patch. 10. Protonix. 11. Tramadol. PHYSICAL EXAMINATION: VITAL SIGNS: Temperature 97.7, pulse 99, it has been anywhere from 109 to 50 since admission, respirations 16, O2 saturation 95%. GENERAL: He is resting comfortably in bed. He is sitting up though. He has some muscle wasting. He has a very round abdomen. He is nonicteric. He is alert and oriented to person, place, and time. NECK: Supple without any adenopathy. There is a scar of left neck consistent with previous carotid endarterectomy. LUNGS: Clear with no crackles at the bases. HEART: Regular rate and rhythm. ABDOMEN: Notable for some protuberance, it seems to be a fluid wave, but no shifting dullness. He has a palpable liver about 6 cm below the right costal margin. EXTREMITIES: Reveal some mottling and cyanosis. He has trace edema. SKIN: Somewhat shiny. He has no asterixis. LABORATORY DATA: On admission yesterday, his white count was 4.3, this is stable. His hemoglobin was 8.7, which is about his baseline. MCV was 82, platelet count was 104 to 122. He had 78% segs, no bands. INR was not done. Sodium 135, potassium 2.8, today it has been replaced. BUN and creatinine 12 and 1.37, glucose 147, calcium 8.1. His troponins are 0.086 and 0.102. On admission, his bilirubin was 1.4, AST and ALT are 28 and 8 and alkaline phosphatase is 155. His last AFP was in October and was normal. TSH was 1.8 in 2013, had a serum protein electrophoresis that was normal in 2014. Iron was low in October 2018, 12, TIBC of 346, ferritin of 43. Chest x-ray was performed in the ER, showed enlarged heart without consolidation. Mild pulmonary vascular congestion, but not much. CT scan of the abdomen and pelvis showed nodular liver, small right pleural effusion, ascites, but is not tappable, splenomegaly. There is anasarca as well, it was a study without contrast. My review of those films, there is not a significant amount of tappable fluid. It is true that it is increased ascites from his previous films, but there is a small amount of fluid up by the liver, which is in a very small pocket, probably not safely tappable and there is a small amount in the pelvis. Final lab, the patient's BNP was 1573. ASSESSMENT: Mr. Daniels has had some decompensation neither as heart failure, which is poorly defined by my review of the chart, or his liver disease, although his liver function tests remain normal and he shows no overt signs of hepatic encephalopathy. He has had a weight gain of about 20 pounds despite increasing his Lasix from 40 mg to 60 and then up to 80 a day. He presented with some fluid overload mild and also some hypokalemia and hyperkalemia while he was admitted, probably the hypokalemia is related to him increasing his furosemide without increasing his potassium. The radiologist commented that he had extensive ascites, but reviewing the films, there is not really a tappable pocket. He has had some anasarca and a little bit of fluid up by the liver and spleen and a very small amount in the pelvis, but nothing that is to tap for like 3 to 4 L of fluid. His cirrhosis is presumably related to his alcohol abuse. He probably has a component of right heart failure as he has had a history of chronic obstructive pulmonary disease. He also has vascular disease and his previous cardiac history is unknown to me. He saw Dr. Ma in [place], that may be where his cardiac care has been in the past. RECOMMENDATIONS: 1. 2 g sodium diet. 2. Daily weights. 3. We would start Aldactone 100 mg daily, it will help with his potassium balance to probably help with his diuresis. 4. We will get an echocardiogram and looking at both right and left heart function to evaluate for possible right heart failure, which may be contributing to his ascites. 5. At this time, there is no role for paracentesis as there is no fluid to significantly take off much fluid to make him feel better. 6. With regard to his anemia, we will check B12 and folate, iron and TIBC. We would check TSH with his worsening function as well. Job ID: [id number]
[2019-01-17] MEDS: Furosemide 40 MG/4 ML VIAL SLOW IVP SCH ×2 (05:13→14:32)
[2019-01-17 06:01] LABS: Anion Gap 14 mmol/L (10-20); BUN (Urea Nitrogen) 18 mg/dL (8.4-25.7); Calc. Creatinine Clearance 59 mL/min (70-130); Calcium 8.6 mg/dL (7.8-10.44); Carbon Dioxide 26 mmol/L (23-31); Chloride 97 mmol/L (98-107); Estimated GFR-MDRD 44; Glucose 172 mg/dL (80-115); Potassium 3.1 mmol/L (3.5-5.1); Sodium 134 mmol/L (136-145)
[2019-01-17 06:24] LABS: Thyroid Stimulating Hormone 6.3795 uIU/mL (0.35-4.94)
[2019-01-17] MEDS: Spironolactone 100 MG TAB PO SCH (07:59)
[2019-01-17] MEDS: Alogliptin 25 MG TAB PO SCH (07:59)
[2019-01-17] MEDS ORDERED: Magnesium 2 GM/50 ML 2 GM in Premix Bag 1 BAG IVPB SCH (08:00)
[2019-01-17] MEDS ORDERED: Potassium Chloride 20 MEQ TAB PO SCH (08:00)
[2019-01-17] MEDS: Cyclobenzaprine 10 MG TAB PO SCH ×2 (08:00→21:47)
[2019-01-17] MEDS: Enoxaparin Sodium 40 MG/0.4 ML SYRINGE SC SCH (08:00)
[2019-01-17] MEDS ORDERED: Potassium Chloride 10 MEQ TAB PO SCH (09:00)
[2019-01-17] MEDS: DOBUTamine 500 mg/250 ml 250 ML IVPB SCH (11:41)
--- NOTE | 2019-01-17 12:07 | CON ---
DATE OF CONSULTATION: 01/17/2019 REASON FOR CONSULTATION: Heart failure. HISTORY OF PRESENT ILLNESS: Mr. Daniels is a 63-year-old white gentleman, who comes to the hospital for increased shortness of breath. He was started on IV diuresis. He had ascites and has not shown any improvement. Cardiology has been consulted as he has past medical history of ischemic cardiomyopathy, EF in the past was as low as 20% to 25%; however, after stenting to the RCA, he went up to about 45% to 50%. Last evaluation was in 2017. I have not seen him since he has not shown to the office since 2016. Currently, he admits to PND and orthopnea for the last few weeks. He was found to have ascites and had his Lasix increased. He was also found to have cirrhosis. He denies any chest pain, tightness, or pressure. He had an admission to the hospital back in November of this year for esophageal varices that were bleeding secondary to what appears to be cirrhosis. PAST MEDICAL HISTORY: 1. Bleeding esophageal varices. 2. Chronic systolic and diastolic heart failure in the past. 3. COPD. 4. Tobacco use. 5. Coronary artery disease, status post stenting to the right coronary artery. 6. Chronic kidney disease, stage 3. 7. PVD. 8. Type 2 diabetes. 9. GERD. 10. CVA without significant deficits. 11. Lumbar stenosis. SURGICAL HISTORY: 1. PCI to the RCA in 2015. 2. Left carotid endarterectomy. 3. Bilateral inguinal hernia repair. 4. Lower extremity stent. 5. Right leg surgery in 1993 for torn ligament. ALLERGIES: PENICILLIN. OUTPATIENT MEDICATIONS: 1. Januvia. 2. Pantoprazole. 3. Lasix 40 mg a day, this was increased from 20. 4. Potassium chloride 20 mEq a day. 5. Cyclobenzaprine. 6. Tramadol p.r.n. FAMILY HISTORY: Father's side has a lot of heart disease and hypertension in his mother side. SOCIAL HISTORY: He smokes half pack of cigarettes. Denies alcohol or drug use. REVIEW OF SYSTEMS: A 12-point review of systems was done and was all negative unless stated in the history of present illness. PHYSICAL EXAMINATION: VITAL SIGNS: Temperature 97.9, pulse 109, respiratory rate 20, saturating 97% on room air, blood pressure 117/73. GENERAL: Awake, alert, and oriented x3, in no distress. HEENT: Normocephalic and atraumatic. NECK: Supple. JVD up to about 14 cm of water. LUNGS: Clear. CARDIOVASCULAR: S1 and S2. No S3 or S4. There is a grade 3/6 systolic murmur at the right upper sternal border. ABDOMEN: Positive ascitic wave. EXTREMITIES: 2+ edema. SKIN: Warm and dry. LABORATORY WORK: Reviewed. CBC with anemia at 9.1, platelets are low at 122. Chemistry; potassium 3.1; creatinine 1.6, actually increased from 1.3 to 1.6 with diuresis. Vitamin B12 was high. TSH was high at 6.3. UA was unremarkable. CT of the abdomen and pelvis shows liver cirrhosis, splenomegaly, worsening ascites, and mesenteric fat stranding and anasarca. Echocardiogram showed EF of 30% to 35%. RV is dilated with decreased RV systolic function. Right atrium is enlarged and RV size is enlarged as well. There is a mild pericardial effusion. RVSP was estimated at 41 mmHg with mild to moderate TR and moderate aortic regurgitation. ASSESSMENT AND PLAN: 1. Acute on chronic systolic heart failure. 2. Right ventricular heart failure. 3. Liver cirrhosis, could be related to cardiac cirrhosis. 4. Chronic obstructive pulmonary disease. 5. Ongoing tobacco use. 6. Coronary artery disease. PLAN: 1. Continue IV diuresis. 2. We will try to increase his forward flow with a dobutamine drip at 5. If this does not improve his hemodynamics, we may have to switch to Milrinone to try to decrease the pulmonary vascular resistance. 3. Continue IV Lasix, but we will increase to 80 mg IV twice a day. 4. Blood pressure is borderline low to start any other antihypertensives at this time. 5. We will follow. Job ID: [id number]
--- NOTE | 2019-01-17 19:35 | PRG ---
DATE OF SERVICE: 01/17/2019 REASON FOR CONSULTATION: Increased weight gain, history of cirrhosis, and heart failure. SUBJECTIVE: The patient states that he is doing well this morning other than increased insomnia overnight. He has been having some mild difficulty breathing/shortness of breath over the course of the day and has been getting frequent breathing treatments as result of that, but otherwise does feel well after the treatments himself. He has not had any episodes of GI bleeding since early this year when he was hospitalized for bleeding from esophageal varices. He has been advanced in terms of his diuretic management and is currently being evaluated by the Cardiology Service for his congestive heart failure. Otherwise, he denies any nausea, vomiting, fevers, chills, GI bleeding, increased abdominal distention, diarrhea, constipation, dysphagia, or odynophagia. He does continue to have lower extremity edema, but states that it is stable when compared to previous. OBJECTIVE: VITAL SIGNS: Temperature 98.5, pulse 103, blood pressure 107/62, respiratory rate 20, and saturating 97% on room air. GENERAL: The patient is lying in bed, in no acute distress. Alert and oriented x4. CARDIOVASCULAR: Tachycardic rate, but regular rhythm. No discernible murmurs, gallops, or rubs. RESPIRATORY: Increased resistance to air flow in all lung alba auscultated with possible wheezing in the left lower lobe. ABDOMEN: Normoactive bowel sounds. Soft and nontender. Mild abdominal distention. EXTREMITIES: No cyanosis or clubbing. 1+/2+ bilateral lower extremity edema extending up to both knees. LABORATORY DATA: CBC with a white blood cell count of 5.3, hemoglobin 9.1, hematocrit 29.8, and platelets 122. Chemistry with a sodium of 134, potassium 3.1, chloride 97, CO2 of 26, BUN 18, creatinine 1.6, and glucose 172. BNP 1573. IMAGING DATA: Echocardiogram obtained on January 17, 2019, showed that his ejection fraction was visually estimated at 30% to 35% with global hypokinesis, dilated right ventricle with reduced right ventricular systolic function, [id number] tricuspid regurgitation, moderate pulmonic regurgitation present as well as a small pericardial effusion without evidence of tamponade. ASSESSMENT AND PLAN: The patient is a 63-year-old male with past medical history of hypertension, chronic obstructive pulmonary disease, chronic kidney disease, anemia, cerebrovascular accident x2, congestive heart failure, and cirrhosis complicated by ascites and esophageal varices presenting with increased weight gain and probable hypervolemia secondary to worsening congestive heart failure. Weight gain/hypervolemia: The patient initially presented to the hospital with increasing weight with concerns of worsening ascites and increased abdominal distention. However, upon review of the imaging during this hospitalization, the patient has very little abdominal ascites and has gained approximately 10 pounds over the last 2 to 3 months when compared to the weight obtained during his last clinic visit in the [facility]. At this point, the likelihood of his weight gain being secondary to worsening ascites is unlikely, but rather he is exhibiting significant lower extremity edema. This lower extremity edema could be secondary to his liver dysfunction versus worsening congestive heart failure and with his decreased ejection fraction noted on the echocardiogram today as well as an elevated BNP could be more congestive heart failure related as opposed to his chronic liver disease. RECOMMENDATIONS: 1. We will continue spironolactone 100 mg daily in addition to the furosemide regimen as dictated by Cardiology Service for continued diuresis and attempts to maintain normal potassium levels. 2. We would continue with a low-sodium diet with no more than 2000 mg sodium consumed in 24 hours, as this increasing amounts of sodium would contribute to his water retention. 3. No paracentesis is indicated at this time due to the little amount of fluid seen on imaging. 4. Further diuretic management will be deferred to Cardiology Service given evidence of possible worsening congestive heart failure. 5. We would continue to obtain serial chemistries and INR daily for monitoring of the patient's liver function. 6. We will continue to follow. Please call with any questions. Job ID: [id number]
[2019-01-17] MEDS: Nicotine 14 MG PATCH TD SCH (21:47)
[2019-01-17] MEDS: Magnesium Chloride 64 MG TAB PO SCH (21:48)
--- NOTE | 2019-01-17 22:22 | PDOC.HOSPP ---
- Subjective Encounter Date: 01/17/19 Encounter Time: 08:30 Subjective: Patient seen and examined for CHF flare. SOB on mild exertion. No other complaints. No overnight events - Objective Vital Signs & Weight: Vital Signs (12 hours) Temp Pulse Resp BP Pulse Ox 01/17/19 15:36 98.5 F 103 H 20 107/62 97 01/17/19 12:00 98.3 F 102 H 22 H 118/81 97 Weight Weight 185 lb 6.4 oz I&O: 01/16/19 01/17/19 01/18/19 06:59 06:59 06:59 Intake Total 1284 1324 908 Output Total 600 2490 1175 Balance 134 -726 -375 Result Diagrams: 01/16/19 05:18 01/18/19 04:47 Additional Labs: Accuchecks 01/17/19 01/17/19 01/17/19 20:25 17:29 11:28 POC Glucose 189 H 177 H 167 H 01/17/19 05:43 POC Glucose 195 H EKG Reviewed by me: Yes (Tele SR) Hospitalist ROS - Review of Systems Constitutional: denies: fever, chills, sweats, weakness, malaise, other Gastrointestinal: denies: nausea, vomiting, abdominal pain, diarrhea, constipation, melena, hematochezia, other - Medication Medications: Active Medications Generic Name Dose Route Start Last Admin Trade Name Freq PRN Reason Stop Dose Admin Albuterol/Ipratropium 3 ml 01/15/19 23:25 01/16/19 21:49 Duoneb NEB 3 ml Q4H PRN Administration SOB &/or Wheezing Alogliptin Benzoate 25 mg 01/17/19 09:00 01/17/19 07:59 Alogliptin PO 25 mg QAM YANNICK Administration Cyclobenzaprine HCl 5 mg 01/16/19 21:00 01/17/19 21:47 Flexeril PO 5 mg BID YANNICK Administration Furosemide 80 mg 01/17/19 11:20 01/17/19 14:32 Lasix SLOW IVP 80 mg 0600,1400 YANNICK Administration Dobutamine HCl/Dextrose 250 mls @ 12.614 mls/hr 01/17/19 11:30 01/17/19 11:41 Dobutamine 500 Mg/250 Ml IVPB 250 mls INF YANNICK Administration Protocol 5 MCG/KG/MIN Magnesium Chloride 64 mg 01/17/19 21:00 01/17/19 21:48 Slow-Mag PO 64 mg BID YANNICK Administration Nicotine 14 mg 01/15/19 19:00 01/17/19 21:47 Nicoderm Patch TD Not Given Q24HR YANNICK Pantoprazole Sodium 40 mg 01/17/19 09:00 01/17/19 08:00 Protonix PO 40 mg QAM YANNICK Administration Spironolactone 100 mg 01/17/19 08:00 01/17/19 07:59 Aldactone PO 100 mg QAM-WM YANNICK Administration Tramadol HCl 50 mg 01/16/19 17:42 01/16/19 20:45 Ultram PO 50 mg TIDPRN PRN Administration Pain - Exam General Appearance: NAD Neck: supple, no JVD Heart: RRR, no gallops Respiratory: CTAB, no ronchi, rales (at bases) Gastrointestinal: soft, non-tender, normal bowel sounds Hosp A/P - Plan DVT proph w/SCDs Acute on chronic systolic/diastolic HF exacerbation Ascites due to #1/Cirrhosis PVD Chronic Hep C Hypomagnesemia/Hypokalemia h/o UGI bleed earlier this year CKD 3 PLAN: Cont diuresis Add fluid restriction AM labs Replace Potassium
[2019-01-18] MEDS: Furosemide 40 MG/4 ML VIAL SLOW IVP SCH ×2 (05:24→14:40)
[2019-01-18 05:43] LABS: Anion Gap 13 mmol/L (10-20); BUN (Urea Nitrogen) 18 mg/dL (8.4-25.7); Calc. Creatinine Clearance 59 mL/min (70-130); Calcium 8.4 mg/dL (7.8-10.44); Carbon Dioxide 27 mmol/L (23-31); Chloride 97 mmol/L (98-107); Estimated GFR-MDRD 45; Glucose 132 mg/dL (80-115); Magnesium 1.8 mg/dL (1.6-2.6); Sodium 134 mmol/L (136-145)
[2019-01-18 05:48] LABS: Potassium 2.6 mmol/L (3.5-5.1)
[2019-01-18] MEDS ORDERED: Potassium Chloride 40 MEQ in Sodium Chloride 0.9% 500 ML IVPB SCH (06:15)
[2019-01-18] MEDS ORDERED: Potassium Chloride 20 MEQ TAB PO SCH (06:15)
[2019-01-18] MEDS: DOBUTamine 500 mg/250 ml 250 ML IVPB SCH (08:18)
[2019-01-18] MEDS: Alogliptin 25 MG TAB PO SCH (08:19)
[2019-01-18] MEDS: Spironolactone 100 MG TAB PO SCH (08:19)
[2019-01-18] MEDS: Cyclobenzaprine 10 MG TAB PO SCH ×2 (08:19→20:34)
[2019-01-18] MEDS: Magnesium Chloride 64 MG TAB PO SCH ×2 (08:19→20:33)
[2019-01-18] MEDS: Potassium Chloride 20 MEQ TAB PO SCH ×3 (08:24→16:46)
[2019-01-18 15:25] LABS: Potassium 3.5 mmol/L (3.5-5.1)
--- NOTE | 2019-01-18 17:30 | PDOC.CPN ---
- Subjective Date: 01/18/19 Time: 17:29 Interval history: He is feeling better. Has diuresed much better with increased dose of lasix and dobutamine drip. Able to sleep better, he states he slept 6 hrs straight this morning and had not been able to do this for many months. - Review of Systems General: denies: fever/chills, weight/appetite/sleep changes, night sweats, fatigue Respiratory: denies: cough, congestion, shortness of breath, exercise intolerance Cardiovascular: denies: chest pain, palpitation, edema, paroxysmal nocturnal dyspnea, orthopnea Gastrointestinal: denies: nausea, vomiting, diarrhea, constipation, abd pain, GI bleeding Musculoskeletal: reports: swelling. denies: pain, tenderness, stiffness, arthritis/arthralgias Neurological: denies: numbness, syncope, seizure, weakness - Objective Allergies/Adverse Reactions: Allergies Allergy/AdvReac Type Severity Reaction Status Date / Time Penicillins Allergy Severe Anaphylaxis Verified 01/15/19 22:27 Visit Medications: Current Medications Acetaminophen (Tylenol) 650 mg PO Q4H PRN PRN Reason: Headache/Fever/Mild Pain (1-3) Albuterol/Ipratropium (Duoneb) 3 ml NEB Q4H PRN PRN Reason: SOB &/or Wheezing Last Admin: 01/18/19 01:21 Dose: 3 ml Albuterol/Ipratropium (Duoneb) 3 ml NEB [id number] PRN PRN Reason: Dyspnea/Wheezing/SOB Albuterol/Ipratropium (Duoneb) 3 ml NEB Q4H PRN PRN Reason: SOB &/or Wheezing Alogliptin Benzoate (Alogliptin) 25 mg PO QAM [facility] Last Admin: 01/18/19 08:19 Dose: 25 mg Cyclobenzaprine HCl (Flexeril) 5 mg PO BID [facility] Last Admin: 01/18/19 08:19 Dose: 5 mg Dextrose/Water (Dextrose 50%) 25 gm SLOW IVP PRN PRN PRN Reason: Hypoglycemia Furosemide (Lasix) 80 mg SLOW IVP 0600,1400 [facility] Last Admin: 01/18/19 14:40 Dose: 80 mg Glucagon (Glucagon) 1 mg IM PRN PRN PRN Reason: Hypoglycemia Dextrose/Water (D5w) 1,000 mls @ 0 mls/hr IV .Q0M PRN PRN Reason: Hypoglycemia Dobutamine HCl/Dextrose (Dobutamine 500 Mg/250 Ml) 250 mls @ 12.614 mls/hr IVPB INF [facility]; Protocol Last Admin: 01/18/19 08:18 Dose: 250 mls Insulin Human Lispro (Humalog) 0 units SC .MILD SLIDING SCALE PRN PRN Reason: Mild Correctional Scale Lorazepam (Ativan) 1 mg SLOW IVP Q6H PRN PRN Reason: Seizures Magnesium Chloride (Slow-Mag) 64 mg PO BID [facility] Last Admin: 01/18/19 08:19 Dose: 64 mg Nicotine (Nicoderm Patch) 14 mg TD Q24HR [facility] Last Admin: 01/17/19 21:47 Dose: Not Given Pantoprazole Sodium (Protonix) [facility] [place] Last Admin: 01/18/19 08:19 Dose: 40 mg Potassium Chloride (K-Dur) 20 meq PO TID-[facility] Stop: 01/18/19 23:59 Last Admin: 01/18/19 16:46 Dose: 20 meq Spironolactone (Aldactone) 100 mg PO QAM-[facility] Last Admin: 01/18/19 08:19 Dose: 100 mg Tramadol HCl (Ultram) 50 mg PO TIDPRN PRN PRN Reason: Pain Last Admin: 01/16/19 20:45 Dose: 50 mg Vital Signs & Weight: Vital Signs Temp Pulse Resp BP BP Pulse Ox 01/18/19 16:25 97.5 F L 103 H 12 128/60 95 01/18/19 11:00 97.1 F L 105 H 20 114/59 L 93 L 01/18/19 07:49 97.7 F 107 H 20 114/56 L 97 Weight 186 lb 4.8 oz - Physical Exam General: alert & oriented x3, no apparent distress HEENT: mucus membranes moist, normocephaly Neck: supple neck, midline trachea Cardiac: regular rate and rhythm, no murmur Lungs: clear to auscultation, no wheeze, rales, rhonchi Neuro: coordination normal Abdomen: active bowel sounds, soft, non-tender Extremities: no cyanosis, no clubbing, 1+ LE edema Skin: clear Musculoskeletal: no pain - Labs Result Diagrams: 01/16/19 05:18 01/18/19 15:00 Troponin/CKMB CK-MB (CK-2) 1.6 ng/mL (0-6.6) 01/15/19 13:48 Troponin I 0.102 ng/mL (< 0.028) H 01/15/19 20:07 - Telemetry Sinus rhythms and dysrhythmias: sinus rhythm - Assessment/Plan Assessment/Plan: 1. Acute on chronic systolic heart failure. EF at 30-35% 2. RV systolic dysfunction. 3. Liver cirrhosis. 4. Ongoing tobacco use 5. CAD 6. COPD. PLAN: - Continue IV diuresis and IV dobutamine. - Will need lifevest before discharge will discuss with him tomorrow. - Will start evidence based therapies once BP and renal function allows.
[2019-01-18] MEDS: Nicotine 14 MG PATCH TD SCH (20:33)
--- NOTE | 2019-01-18 23:14 | PRG ---
DATE OF SERVICE: 01/18/2019 REASON FOR CONSULTATION: Increased weight gain, history of cirrhosis. SUBJECTIVE: The patient states that he did well overnight with no acute events or problems. He was able to sleep approximately 6 hours earlier this morning, which is an improvement from his chronic insomnia as an outpatient. He states that his breathing and shortness of breath have been getting better over the last few days as well. He has been able to tolerate the diuresis well thus far with increased urinary output. He has also been able to tolerate a diet well with no additional problems. Currently, he denies any nausea, vomiting, fevers, chills, abdominal pain, increased abdominal distention, GI bleeding, diarrhea, or constipation. OBJECTIVE: VITAL SIGNS: Temperature 97.5, pulse 103, blood pressure 128/60, respiratory rate 12, saturating 95% on room air. GENERAL: The patient was sitting in a chair at bedside, in no acute distress. Alert and oriented x4. CARDIOVASCULAR: Tachycardic rate, but regular rhythm. RESPIRATORY: Resistance to air flow was auscultated in all lung alba, but no wheezing noted today. ABDOMEN: Normoactive bowel sounds. Soft and nontender. Mild abdominal distention. EXTREMITIES: No cyanosis or clubbing. EXTREMITIES: 1+/2+ bilateral lower extremity edema extending up to both knees. LABORATORY DATA: Chemistry with a sodium of 134, potassium 2.6, chloride 97, CO2 27, BUN 18, creatinine 1.56, glucose 132. IMAGING DATA: No current GI imaging is available for review. ASSESSMENT AND PLAN: The patient is a 63-year-old male with past medical history of hypertension, chronic obstructive pulmonary disease, chronic kidney disease, anemia, cerebrovascular accident x2, congestive heart failure, and cirrhosis complicated by ascites and esophageal varices, initially presenting with weight gain, shortness of breath, and probable hypervolemia secondary to worsening congestive heart failure in light of the concurrent diagnosis of cirrhosis. Weight gain/hypervolemia: The patient initially presented to the hospital with unintentional weight gain of approximately 10 to 12 pounds over the last 2 to 3 months concerning for worsening ascites as evidenced by increased abdominal distention. However, upon review of the imaging obtained during this hospitalization, the patient has very little abnormal ascites or large pockets that would be able to be tapped and most likely not contributing to his weight gain over the last 2 to 3 months. Given his elevated BNP, worsening EF function as noted on echocardiogram, this seems more indicative of an acute exacerbation of his congestive heart failure when compared to possible worsening liver disease. Currently, he is tolerating diuretic management well with stable renal function, but does have a significant hypokalemia as noted on labs today probably secondary to increased diuresis with furosemide. RECOMMENDATIONS: 1. We will continue the spironolactone 100 mg daily in addition to the furosemide regimen with careful monitoring of potassium and replacement as needed. Goal of therapy would be to decrease the furosemide to a 5:2 ratio when compared to spironolactone with the ratio being spironolactone to furosemide in a 5:2 ratio. 2. Would continue a low-sodium diet with no more than 2000 mg sodium consumed in 24 hours. 3. No paracentesis is indicated at this time due to the little amount of fluid pockets seen on imaging. 4. Would recommend obtaining serial chemistries and INR daily for monitoring the patient's liver function. 5. If the patient does experience increased renal dysfunction/creatinine, we would consider holding diuretic management with possible infusion of albumin to prevent any further kidney injury or possible degradation to hepatorenal syndrome. 6. Given that the majority of his symptoms seem to be related more to an acute exacerbation of his congestive heart failure, we will sign off at this time. I would have the patient to follow up in the GI Clinic in 3 to 4 weeks after discharge for further management of his chronic liver disease/cirrhosis. Please call with any additional questions. Job ID: [id number]
[2019-01-19 04:52] LABS: Hemoglobin 7.9 g/dL (14.0-18.0)
[2019-01-19 04:53] LABS: INR-International Normal Ratio 1.3; PTT 35.4 SEC (22.9-36.1); Prothrombin Time 15.9 SEC (12.0-14.7)
[2019-01-19] MEDS: DOBUTamine 500 mg/250 ml 250 ML IVPB SCH (05:07)
[2019-01-19] MEDS: Furosemide 40 MG/4 ML VIAL SLOW IVP SCH ×2 (05:07→15:13)
[2019-01-19 05:16] LABS: Anion Gap 13 mmol/L (10-20); BUN (Urea Nitrogen) 18 mg/dL (8.4-25.7); Calc. Creatinine Clearance 55 mL/min (70-130); Calcium 8.5 mg/dL (7.8-10.44); Carbon Dioxide 27 mmol/L (23-31); Chloride 98 mmol/L (98-107); Estimated GFR-MDRD 41; Glucose 131 mg/dL (80-115); Magnesium 1.6 mg/dL (1.6-2.6); Sodium 135 mmol/L (136-145)
[2019-01-19] MEDS ORDERED: Magnesium 2 GM/50 ML 2 GM in Premix Bag 1 BAG IVPB SCH (08:00)
[2019-01-19] MEDS ORDERED: Magnesium Sulfate 2 GM in Sodium Chloride 0.9% 100 ML IVPB SCH (08:00)
--- NOTE | 2019-01-19 08:02 | PDOC.HOSPP ---
- Subjective Encounter Date: 01/18/19 Encounter Time: 11:00 Subjective: Patient seen and examined for CHF flare. SOB improving. No CP. No new complaints. No overnight events - Objective Vital Signs & Weight: Vital Signs (12 hours) Temp Pulse Resp BP BP Pulse Ox 01/19/19 04:00 98.2 F 112 H 19 127/71 94 L 01/18/19 23:50 109 H 116/75 Weight Weight 188 lb 12.8 oz I&O: 01/18/19 01/19/19 01/20/19 06:59 06:59 06:59 Intake Total 1196 2396 Output Total 2748 1231 Balance -237 -596 Result Diagrams: 01/19/19 04:31 01/19/19 04:31 Additional Labs: Accuchecks 01/19/19 01/18/19 01/18/19 05:30 20:00 16:37 POC Glucose 145 H 156 H 179 H 01/18/19 10:11 POC Glucose 195 H EKG Reviewed by me: Yes (Tele SR) Hospitalist ROS - Review of Systems Constitutional: denies: fever, chills, sweats, weakness, malaise, other Respiratory: reports: SOB with excertion. denies: cough, dry, shortness of breath, hemoptysis, pleuritic pain, sputum, wheezing, other Gastrointestinal: denies: nausea, vomiting, abdominal pain, diarrhea, constipation, melena, hematochezia, other - Medication Medications: Active Medications Generic Name Dose Route Start Last Admin Trade Name Freq PRN Reason Stop Dose Admin Albuterol/Ipratropium 3 ml 01/15/19 23:25 01/18/19 01:21 Duoneb NEB 3 ml Q4H PRN Administration SOB &/or Wheezing Alogliptin Benzoate 25 mg 01/17/19 09:00 01/18/19 08:19 Alogliptin PO 25 mg QAM YANNICK Administration Cyclobenzaprine HCl 5 mg 01/16/19 21:00 01/18/19 20:34 Flexeril PO 5 mg BID YANNICK Administration Furosemide 80 mg 01/17/19 11:20 01/19/19 05:07 Lasix SLOW IVP 80 mg 0600,1400 YANNICK Administration Dobutamine HCl/Dextrose 250 mls @ 12.614 mls/hr 01/17/19 11:30 01/19/19 05:07 Dobutamine 500 Mg/250 Ml IVPB 250 mls INF YANNICK Administration Protocol 5 MCG/KG/MIN Magnesium Chloride 64 mg 01/17/19 21:00 01/18/19 20:33 Slow-Mag PO 64 mg BID YANNICK Administration Pantoprazole Sodium 40 mg 01/17/19 09:00 01/18/19 08:19 Protonix PO 40 mg QAM YANNICK Administration Spironolactone 100 mg 01/17/19 08:00 01/18/19 08:19 Aldactone PO 100 mg QAM-WM YANNICK Administration Tramadol HCl 50 mg 01/16/19 17:42 01/16/19 20:45 Ultram PO 50 mg TIDPRN PRN Administration Pain - Exam General Appearance: NAD Heart: RRR, no gallops Respiratory: CTAB, no rales Gastrointestinal: soft, non-tender, normal bowel sounds Extremities: 1+ LE edema Hosp A/P - Plan Acute on chronic systolic/diastolic HF exacerbation Ascites due to #1/Cirrhosis PVD Chronic Hep C Hypomagnesemia/Hypokalemia h/o UGI bleed earlier this year CKD 3 PLAN: Replace Potassium Cont diuresis/dobutamine Cont Aldactone AM labs
[2019-01-19] MEDS: Cyclobenzaprine 10 MG TAB PO SCH ×2 (09:15→22:09)
[2019-01-19] MEDS: Alogliptin 25 MG TAB PO SCH (09:16)
[2019-01-19] MEDS: Acetaminophen 325 MG TAB PO PRN ×2 (09:17→15:14)
[2019-01-19] MEDS: Spironolactone 100 MG TAB PO SCH (09:17)
[2019-01-19] MEDS: Magnesium Chloride 64 MG TAB PO SCH ×2 (09:17→22:09)
--- NOTE | 2019-01-19 20:28 | PDOC.CPN ---
- Subjective Date: 01/19/19 Time: 20:26 Interval history: He is doing much better. SOB improving. Diuresing well. - Review of Systems General: denies: fever/chills, weight/appetite/sleep changes, night sweats, fatigue Respiratory: denies: cough, congestion, shortness of breath, exercise intolerance Cardiovascular: denies: chest pain, palpitation, edema, paroxysmal nocturnal dyspnea, orthopnea Gastrointestinal: denies: nausea, vomiting, diarrhea, constipation, abd pain, GI bleeding Musculoskeletal: reports: swelling. denies: pain, tenderness, stiffness, arthritis/arthralgias Neurological: denies: numbness, syncope, seizure, weakness - Objective Allergies/Adverse Reactions: Allergies Allergy/AdvReac Type Severity Reaction Status Date / Time Penicillins Allergy Severe Anaphylaxis Verified 01/15/19 22:27 Visit Medications: Current Medications Acetaminophen (Tylenol) 650 mg PO Q4H PRN PRN Reason: Headache/Fever/Mild Pain (1-3) Last Admin: 01/19/19 15:14 Dose: 650 mg Albuterol/Ipratropium (Duoneb) 3 ml NEB Q4H PRN PRN Reason: SOB &/or Wheezing Last Admin: 01/19/19 14:29 Dose: 3 ml Albuterol/Ipratropium (Duoneb) 3 ml NEB [id number] PRN PRN Reason: Dyspnea/Wheezing/SOB Albuterol/Ipratropium (Duoneb) 3 ml NEB Q4H PRN PRN Reason: SOB &/or Wheezing Alogliptin Benzoate (Alogliptin) 25 mg PO QAM [facility] Last Admin: 01/19/19 09:16 Dose: 25 mg Cyclobenzaprine HCl (Flexeril) 5 mg PO BID [facility] Last Admin: 01/19/19 09:15 Dose: 5 mg Dextrose/Water (Dextrose 50%) 25 gm SLOW IVP PRN PRN PRN Reason: Hypoglycemia Furosemide (Lasix) 80 mg SLOW IVP 0600,1400 [facility] Last Admin: 01/19/19 15:13 Dose: 80 mg Glucagon (Glucagon) 1 mg IM PRN PRN PRN Reason: Hypoglycemia Dextrose/Water (D5w) 1,000 mls @ 0 mls/hr IV .Q0M PRN PRN Reason: Hypoglycemia Dobutamine HCl/Dextrose (Dobutamine 500 Mg/250 Ml) 250 mls @ 12.614 mls/hr IVPB INF [facility]; Protocol Last Admin: 01/19/19 05:07 Dose: 250 mls Insulin Human Lispro (Humalog) 0 units SC .MILD SLIDING SCALE PRN PRN Reason: Mild Correctional Scale Lorazepam (Ativan) 1 mg SLOW IVP Q6H PRN PRN Reason: Seizures Magnesium Chloride (Slow-Mag) 64 mg PO BID YANNICK Last Admin: 01/19/19 09:17 Dose: 64 mg Pantoprazole Sodium (Protonix) 40 mg PO QAM [facility] Last Admin: 01/19/19 09:16 Dose: 40 mg Potassium Chloride (Klor-Con) 20 meq PO TID-[facility] Stop: 01/20/19 08:01 Last Admin: 01/19/19 16:58 Dose: 20 meq Spironolactone (Aldactone) 100 mg PO QAM-[facility] Last Admin: 01/19/19 09:17 Dose: 100 mg Tramadol HCl (Ultram) 50 mg PO TIDPRN PRN PRN Reason: Pain Last Admin: 01/16/19 20:45 Dose: 50 mg Vital Signs & Weight: Vital Signs Temp Pulse Resp BP Pulse Ox 01/19/19 14:29 106 H 20 99 01/19/19 11:48 97.9 F 110 H 16 124/85 01/19/19 09:16 99 Weight 188 lb 12.8 oz - Physical Exam General: alert & oriented x3, no apparent distress HEENT: mucus membranes moist, normocephaly Neck: supple neck, midline trachea Cardiac: regular rate and rhythm, no murmur Lungs: clear to auscultation Neuro: coordination normal Abdomen: active bowel sounds, non-tender Extremities: no cyanosis, no clubbing, 1+ LE edema Skin: clear Musculoskeletal: no pain - Labs Result Diagrams: 01/19/19 04:31 01/19/19 04:31 Troponin/CKMB CK-MB (CK-2) 1.6 ng/mL (0-6.6) 01/15/19 13:48 Troponin I 0.102 ng/mL (< 0.028) H 01/15/19 20:07 - Telemetry Sinus rhythms and dysrhythmias: sinus tachycardia - Assessment/Plan Assessment/Plan: 1. Acute on chronic systolic heart failure. EF at 30-35% 2. RV systolic dysfunction. 3. Liver cirrhosis. 4. Ongoing tobacco use 5. CAD 6. COPD. PLAN: - Will stop dobutamine drip. - He agrees to lifevest before discharge. - Will start low dose BB, will stop aldactone as creaitnine continues to rise. - Will switch lasix to PO dosing. - Will order lifevest.
--- NOTE | 2019-01-19 20:52 | PDOC.HOSPP ---
- Subjective Encounter Date: 01/19/19 Encounter Time: 10:30 Subjective: Patient seen and examined for CHF. SOB improving. No CP. No new complaints. No overnight events - Objective Vital Signs & Weight: Vital Signs (12 hours) Temp Pulse Resp BP Pulse Ox 01/19/19 14:29 106 H 20 99 01/19/19 11:48 97.9 F 110 H 16 124/85 01/19/19 09:16 99 Weight Weight 188 lb 12.8 oz I&O: 01/18/19 01/19/19 01/20/19 06:59 06:59 06:59 Intake Total 1196 2396 1200 Output Total 4272 4340 3305 [facility]701 [phone] Result Diagrams: 01/19/19 04:31 01/19/19 04:31 Additional Labs: Accuchecks 01/19/19 01/19/19 01/19/19 20:18 11:03 05:30 POC Glucose 197 H 154 H 145 H EKG Reviewed by me: Yes (Tele SR) Hospitalist ROS - Review of Systems Respiratory: reports: SOB with excertion. denies: cough, dry, shortness of breath, hemoptysis, pleuritic pain, sputum, wheezing, other Cardiovascular: reports: edema. denies: chest pain, palpitations, orthopnea, paroxysmal noc. dyspnea, light headedness, other - Medication Medications: Active Medications Generic Name Dose Route Start Last Admin Trade Name Freq PRN Reason Stop Dose Admin Acetaminophen 650 mg 01/15/19 17:45 01/19/19 15:14 Tylenol PO 650 mg Q4H PRN Administration Headache/Fever/Mild Pain (1-3) Albuterol/Ipratropium 3 ml 01/15/19 23:25 01/19/19 14:29 Duoneb NEB 3 ml Q4H PRN Administration SOB &/or Wheezing Alogliptin Benzoate 25 mg 01/17/19 09:00 01/19/19 09:16 Alogliptin PO 25 mg QAM YANNICK Administration Cyclobenzaprine HCl 5 mg 01/16/19 21:00 01/19/19 09:15 Flexeril PO 5 mg BID YANNICK Administration Magnesium Chloride 64 mg 01/17/19 21:00 01/19/19 09:17 Slow-Mag PO 64 mg BID YANNICK Administration Pantoprazole Sodium 40 mg 01/17/19 09:00 01/19/19 09:16 Protonix PO 40 mg QAM YANNICK Administration Potassium Chloride 20 meq 01/19/19 08:00 01/19/19 16:58 Klor-Con PO 01/20/19 08:01 20 meq TID-WM YANNICK Administration Tramadol HCl 50 mg 01/16/19 17:42 01/16/19 20:45 Ultram PO 50 mg TIDPRN PRN Administration Pain - Exam General Appearance: NAD Heart: RRR, no rubs Respiratory: CTAB, rhonchi Gastrointestinal: soft, non-tender, normal bowel sounds, distended Extremities: 2+ LE edema Hosp A/P - Plan Acute on chronic systolic/diastolic HF exacerbation Ascites due to #1/Cirrhosis PVD Chronic Hep C Hypomagnesemia/Hypokalemia h/o UGI bleed earlier this year CKD 3 PLAN: Cont diuresis/dobutamine Replace Potassium Lifevest at dc Cont Aldactone AM labs
[2019-01-20 05:22] LABS: #Eosinphils 0.1 thou/uL (0.0-0.7); #Lymphocytes 0.6 thou/uL (1.20-3.40); #Monocytes 0.4 thou/uL (0.11-0.59); #Neutrophils 3.2 thou/uL (1.40-6.50); %Basophils 0.3 % (0.0-1.0); %Eosinophils 1.8 % (0.0-10.0); %Lymphocytes 14.5 % (21.0-51.0); %Monocytes 8.6 % (0.0-10.0); %Neutrophils 74.8 % (42.0-75.0); Hemoglobin 8.8 g/dL (14.0-18.0); Mean Corpuscular Hemoglobin 25.5 pg (27.0-31.0); Mean Corpuscular Volume 82.3 fL (78.0-98.0); Mean Platelet Volume 9.3 fL (7.4-10.4); Platelet Count 121 thou/uL (130-400); RBC Distribution Width 18.8 % (11.5-14.5); Red Blood Cell (RBC) Count 3.45 mill/uL (4.70-6.10); White Blood Cell (WBC) Count 4.2 thou/uL (4.8-10.8)
[2019-01-20 05:43] LABS: Anion Gap 13 mmol/L (10-20); BUN (Urea Nitrogen) 19 mg/dL (8.4-25.7); Calc. Creatinine Clearance 52 mL/min (70-130); Calcium 8.6 mg/dL (7.8-10.44); Carbon Dioxide 27 mmol/L (23-31); Chloride 98 mmol/L (98-107); Estimated GFR-MDRD 39; Glucose 142 mg/dL (80-115); Magnesium 2.1 mg/dL (1.6-2.6); Potassium 3.5 mmol/L (3.5-5.1); Sodium 134 mmol/L (136-145)
[2019-01-20] MEDS ORDERED: Carvedilol 3.125 MG TAB PO SCH (08:00)
[2019-01-20] MEDS: Cyclobenzaprine 10 MG TAB PO SCH (09:33)
[2019-01-20] MEDS: Alogliptin 25 MG TAB PO SCH (09:34)
[2019-01-20] MEDS: Furosemide 40 MG TAB PO SCH ×2 (09:35→14:21)
[2019-01-20] MEDS: Magnesium Chloride 64 MG TAB PO SCH (09:36)
[2019-01-20 15:18] VITALS: BP 131/86; TEMP 97.9
--- NOTE | 2019-01-20 18:57 | PDOC.CPN ---
- Subjective Date: 01/20/19 Time: 12:00 Interval history: He is doing better. Breathing at baseline. Edema still there but significantly improved. No angina. - Review of Systems General: denies: fever/chills, weight/appetite/sleep changes, night sweats, fatigue Respiratory: denies: cough, congestion, shortness of breath, exercise intolerance Cardiovascular: reports: edema. denies: chest pain, palpitation, paroxysmal nocturnal dyspnea, orthopnea Gastrointestinal: denies: nausea, vomiting, diarrhea, constipation, abd pain, GI bleeding Musculoskeletal: denies: pain, tenderness, stiffness, swelling, arthritis/ arthralgias Neurological: denies: numbness, syncope, seizure, weakness - Objective Allergies/Adverse Reactions: Allergies Allergy/AdvReac Type Severity Reaction Status Date / Time Penicillins Allergy Severe Anaphylaxis Verified 01/15/19 22:27 Vital Signs & Weight: Vital Signs Temp Pulse Resp BP Pulse Ox 01/20/19 15:00 97.9 F 94 17 131/86 92 L 01/20/19 11:38 96.6 F L 122 H 17 138/94 H 97 01/20/19 09:35 97 01/20/19 07:37 96.2 F L 123 H 17 129/84 97 Weight 185 lb 9 oz - Physical Exam General: alert & oriented x3 HEENT: mucus membranes moist, normocephaly Neck: supple neck, midline trachea Cardiac: regular rate and rhythm, no murmur Lungs: clear to auscultation, normal breath sounds Neuro: grossly intact Abdomen: active bowel sounds, soft, non-tender Extremities: no cyanosis, no clubbing, 1+ LE edema Skin: clear Musculoskeletal: no pain - Labs Result Diagrams: 01/20/19 05:10 01/20/19 05:10 Troponin/CKMB CK-MB (CK-2) 1.6 ng/mL (0-6.6) 01/15/19 13:48 Troponin I 0.102 ng/mL (< 0.028) H 01/15/19 20:07 - Telemetry Sinus rhythms and dysrhythmias: sinus tachycardia - Assessment/Plan Assessment/Plan: 1. Acute on chronic systolic heart failure. EF at 30-35% 2. RV systolic dysfunction. 3. Liver cirrhosis. 4. Ongoing tobacco use 5. CAD 6. COPD. PLAN: - Lifevest in place. - Continue PO lasix. - Continue BB - May discharge home - Plan to follow up in office in 4-6 weeks.
--- NOTE | 2019-01-21 10:58 | DIS ---
DATE OF ADMISSION: 01/16/2019 DATE OF DISCHARGE: 01/20/2019 DIAGNOSES AT THE TIME OF ADMISSION: 1. Abdominal distention. 2. Congestive heart failure exacerbation. 3. Diabetes mellitus type 2. 4. Coronary artery disease. 5. Hypokalemia. 6. Tobacco abuse. 7. Gastroesophageal reflux disease. 8. Peripheral vascular disease. 9. Chronic obstructive pulmonary disease. DIAGNOSES AT THE TIME OF DISCHARGE: 1. Acute on chronic systolic/diastolic congestive heart failure exacerbation. 2. Ascites secondary to liver cirrhosis. 3. Peripheral vascular disease. 4. Chronic hepatitis C. 5. Hypomagnesemia/hypokalemia, corrected. 6. History of upper GI bleeding. 7. Chronic kidney disease stage 3. 8. Diabetes mellitus type 2. 9. Coronary artery disease. 10. Tobacco abuse. 11. Chronic obstructive pulmonary disease. 12. Gastroesophageal reflux disease. CONSULTANTS: 1. Dr. Daniel Elliott, Cardiology Service. 2. Dr. Zoltan Estevez, Gastrointestinal Service. 3. Dr. Dayron Quintana, Gastrointestinal Service. HOSPITAL COURSE: The patient was a 63-year-old male, who was admitted to the hospital with chief complaints of abdominal distention. Apparently, he was hospitalized in this facility in October for upper GI bleed, acute blood loss anemia, esophageal varices, and combined systolic and diastolic heart failure. He was doing quite well until approximately a week ago prior to this hospitalization when he started having some abdominal distention and he became short of breath with exertion. He denied any orthopnea. He denied any paroxysmal nocturnal dyspnea. He denied any chest pain or lower extremity edema. Apparently, he went up on his diuretics with no significant relief. He presented to the emergency room for further medical attention. At the time of emergency room visit, his lab work showed pancytopenia with white count of 4300, hemoglobin 8.7, and platelet count 104. Potassium was 2.5, creatinine was up to 1.48. His total bilirubin was elevated at 1.4, alkaline phosphatase was 155. Troponin I was indeterminate at 0.086. BNP was elevated at 1573. Urinalysis was positive only for urobilinogen. His electrocardiogram showed sinus tachycardia with no ST changes to suggest any acute coronary syndrome and chest x-ray did not show any pulmonary infiltrates; only pulmonary vascular congestion. The patient got admitted to the hospital. The CT of the abdomen was done and showed a small right pleural effusion with liver abnormality suggestive of liver cirrhosis. There was some minimal splenomegaly. There was extensive ascites showing marked increase from the prior study. There was nonspecific fat stranding throughout the central mesentery, probably related to the ascites. There was mild compression fracture of T12 and L4 and stable anterolisthesis of L5-S1 with pars defects. Abdominal wash shows some anasarca. The patient was seen by Dr. Estevez for gastrointestinal consultation, who recommended to keep him on 2 g sodium diet with daily weights. Add Aldactone 100 mg daily. There was no any indication for paracentesis. His vitamin B12 level came back high at 1099, folate level was 14.00 which was normal and TSH was 6.3. His glycemia was ranging from 160 to 177 and he required multiple doses of potassium to get him to normal level. Echocardiogram showed LVEF estimated at 30% to 35% with global hypokinesias, dilated RV with reduced RV systolic function, moderately dilated left atrium, moderately enlarged right atrium along with moderate aortic regurgitation, right ventricular systolic pressure estimated at 41 mmHg. Also, there was moderate pulmonic regurgitation present and small pericardial effusion without tamponade. Cardiology was consulted and the patient was seen by Dr. Elliott who recommended dobutamine drip to improve his hemodynamics and continue IV Lasix with increased dose to 80 mg twice a day. His cardiopulmonary status improved with dobutamine drip. LifeVest was obtained and today, the patient's blood pressure is 138/94, his respiratory rate is 17, temperature is 96.6, O2 saturation is 97% on room air. He is discharged home in good condition. DIET: He is going to stay on his heart healthy diet and diabetic diet. ACTIVITIES: As tolerated. MEDICATIONS: At the time of discharge: 1. Carvedilol 3.125 mg twice a day. 2. Furosemide 40 mg twice a day. 3. Magnesium 64 mg twice a day. 4. Pantoprazole one tablet once a day. 5. Sitagliptin 100 mg daily. 6. Cyclobenzaprine 5 mg twice a day. 7. DuoNeb q.6 hours p.r.n. 8. Potassium chloride 20 mEq twice a day. 9. Tramadol 50 mg 3 times a day. FOLLOWUP: I explained to him that he needs to have a potassium level and kidney function checked in 1 week when he goes back to his primary doctor and he will do follow up with his residence director, Dr. Elliott in the next 2 to 4 weeks. He is going to call his office to set up final appointment for that. Job ID: [id number]
--- NOTE | 2019-01-22 14:13 | EKG ---
Test Reason : Blood Pressure : / mmHG Vent. Rate : 104 BPM Atrial Rate : 104 BPM P-R Int : 000 ms QRS Dur : 108 ms QT Int : 378 ms P-R-T Axes : 069 022 119 degrees QTc Int : 497 ms Sinus tachycardia with Premature atrial complexes Incomplete left bundle branch block Nonspecific T wave abnormality Abnormal ECG Confirmed by CLAUDIA SHAH, YOLANDE ([id number]), marketing editor COMFORT KANG ([id number] on 01/22/2019 2:13:42 PM Referred By: Confirmed By:YOLANDE TAYLOR MD
== END 2019-01-20 15:09 | disposition home or self-care (01) | DRG 291 ==
LOC: ERS 13:13 → ERHOLD 16:45 → 2SW 22:14 → OBSVTOIN 01-16 12:04 → 2NO 01-16 19:38
PROVIDERS: ADMIT Internal Medicine; ATTEND Internal Medicine
DX: I13.0 Hypertensive heart and chronic kidney disease with heart failure and stage 1 through stage 4 chronic kidney disease, or unspecified chronic kidney disease (principal); I50.43 Acute on chronic combined systolic (congestive) and diastolic (congestive) heart failure; R18.8 Other ascites; I31.3 Pericardial effusion (noninflammatory); I85.00 Esophageal varices without bleeding; N18.3 Chronic kidney disease, stage 3 (moderate); E11.22 Type 2 diabetes mellitus with diabetic chronic kidney disease; E87.6 Hypokalemia; K21.9 Gastro-esophageal reflux disease without esophagitis; F17.200 Nicotine dependence, unspecified, uncomplicated; Z71.6 Tobacco abuse counseling; I25.10 Atherosclerotic heart disease of native coronary artery without angina pectoris; J44.9 Chronic obstructive pulmonary disease, unspecified; K74.60 Unspecified cirrhosis of liver; E83.42 Hypomagnesemia; E11.51 Type 2 diabetes mellitus with diabetic peripheral angiopathy without gangrene; Z86.73 Personal history of transient ischemic attack (TIA), and cerebral infarction without residual deficits; K76.1 Chronic passive congestion of liver; I37.1 Nonrheumatic pulmonary valve insufficiency; I07.1 Rheumatic tricuspid insufficiency; B18.2 Chronic viral hepatitis C
CPT/HCPCS: 36415; 36416; 71045; 74176; 80048; 80053; 81003; 82553; 82607; 82746; 83735; 83880; 84443; 84484; 85014; 85018; 85025; 85610; 85730; 93005; 93306; 93798; 94640; J1250; J1650; J1940; J3475; J3480; J7050; J7620

== ENCOUNTER 2019-02-02 11:21 | Inpatient (IN) | payer MEDICARE ==
[2019-02-02 12:26] LABS: #Eosinphils 0.1 thou/uL (0.0-0.7); #Lymphocytes 0.6 thou/uL (1.20-3.40); #Monocytes 0.4 thou/uL (0.11-0.59); %Basophils 0.4 % (0.0-1.0); %Eosinophils 1.9 % (0.0-10.0); %Lymphocytes 12.5 % (21.0-51.0); %Monocytes 7.4 % (0.0-10.0); %Neutrophils 77.8 % (42.0-75.0); Hemoglobin 8.6 g/dL (14.0-18.0); Mean Corpuscular HGB CONC 31.6 g/dL (32.0-36.0); Mean Corpuscular Hemoglobin 25.8 pg (27.0-31.0); Mean Corpuscular Volume 81.7 fL (78.0-98.0); Mean Platelet Volume 8.9 fL (7.4-10.4); Platelet Count 142 thou/uL (130-400); RBC Distribution Width 18.2 % (11.5-14.5); Red Blood Cell (RBC) Count 3.33 mill/uL (4.70-6.10); White Blood Cell (WBC) Count 5.1 thou/uL (4.8-10.8)
[2019-02-02] MEDS ORDERED: HYDROcodone/Acetaminophen 5/325 mg Tablet ONE (12:28)
[2019-02-02] MEDS ORDERED: Furosemide 40 MG/4 ML VIAL ONE (12:28)
[2019-02-02] MEDS ORDERED: Nitroglycerin 2% Ointment 1 INCH/1 GM Packet ONE (12:28)
[2019-02-02 12:31] LABS: Actual Bicarbonate (HCO3a) 20.5 mEq/L (22-28); Analyzer IN Cardio ER; Base Excess (BEa) -2.5 mEq/L (-2.0 to +3.0); CO2 Tension 28.8 mmHg (35.0-45.0); Carboxyhemoglobin (COHb) 4.2 gm% (0.0-3.0); Hemoglobin (Hb) 9.3 g/dL (14.0-18.0); O2 Tension (PaO2) 134.2 mmHg (> 80.0); Potassium - ABG Lab 3.06 mmol/L (3.70-5.30); Puncture Site RRA; pH, Arterial 7.47 (7.35-7.45)
[2019-02-02 12:37] LABS: ALT (SGPT) 12 U/L (8-55); AST (SGOT) 23 U/L (5-34); Albumin 3.3 g/dL (3.4-4.8); Alkaline Phosphatase 144 U/L (40-110); Anion Gap 13 mmol/L (10-20); BUN (Urea Nitrogen) 28 mg/dL (8.4-25.7); Bilirubin, Total 1.7 mg/dL (0.2-1.2); CK (CPK) 177 U/L (30-200); Calc. Creatinine Clearance 0 mL/min (70-130); Calcium 8.4 mg/dL (7.8-10.44); Carbon Dioxide 25 mmol/L (23-31); Chloride 101 mmol/L (98-107); Estimated GFR-MDRD 36; Globulin 4.9 g/dL (2.4-3.5); Glucose 154 mg/dL (80-115); Lipase 19 U/L (8-78); Protein, Total 8.2 g/dL (5.8-8.1); Sodium 136 mmol/L (136-145)
[2019-02-02 12:59] LABS: CKMB 3.6 ng/mL (0-6.6)
[2019-02-02] MEDS ORDERED: Potassium Chloride 20 MEQ TAB ONE (13:26)
[2019-02-02] MEDS ORDERED: Aspirin Chewable 81 MG TAB ONE (13:26)
--- NOTE | 2019-02-02 13:27 | RAD ---
CHEST 1 VIEW: Date: 02/02/19 HISTORY: Dyspnea. COMPARISON: 01/15/19. FINDINGS: Cardiac silhouette is magnified and enlarged. Pulmonary vasculature remains upper limits of normal. M ediastinum is midline. No lobar consolidation or evidence of pneumothorax. Metallic clips at the left neck are partially visualized. IMPRESSION: Cardiomegaly. Chronic-type findings are stable. POS: [facility]
[2019-02-02 15:25] LABS: Troponin I 0.077 ng/mL (< 0.028)
[2019-02-02 18:52] LABS: Troponin I 0.108 ng/mL (< 0.028)
[2019-02-02] MEDS ORDERED: Albuterol Sulfate 2.5 mg/3 ml Neb ONE (19:54)
[2019-02-03] MEDS ORDERED: Furosemide 40 MG/4 ML VIAL SLOW IVP SCH ×2 (00:45→08:45)
[2019-02-03] MEDS ORDERED: Acetaminophen 325 MG TAB PO PRN (08:31)
[2019-02-03] MEDS ORDERED: Dextrose 50% Abboject 50 ML SYRINGE SLOW IVP PRN (08:36)
[2019-02-03] MEDS ORDERED: Dextrose 5% in Water 1,000 ML IV PRN (08:36)
[2019-02-03] MEDS ORDERED: HumaLOG 300 UNITS/3 ML VIAL SC PRN (08:36)
[2019-02-03 08:44] LABS: #Eosinphils 0.1 thou/uL (0.0-0.7); #Lymphocytes 0.6 thou/uL (1.20-3.40); #Monocytes 0.4 thou/uL (0.11-0.59); %Basophils 0.3 % (0.0-1.0); %Eosinophils 1.3 % (0.0-10.0); %Lymphocytes 12.2 % (21.0-51.0); %Monocytes 7.2 % (0.0-10.0); %Neutrophils 79.1 % (42.0-75.0); Hemoglobin 8.5 g/dL (14.0-18.0); Mean Corpuscular HGB CONC 30.2 g/dL (32.0-36.0); Mean Corpuscular Hemoglobin 25.2 pg (27.0-31.0); Mean Corpuscular Volume 83.4 fL (78.0-98.0); Mean Platelet Volume 8.5 fL (7.4-10.4); Platelet Count 124 thou/uL (130-400); RBC Distribution Width 18.2 % (11.5-14.5); Red Blood Cell (RBC) Count 3.38 mill/uL (4.70-6.10); White Blood Cell (WBC) Count 5.1 thou/uL (4.8-10.8)
[2019-02-03] MEDS ORDERED: Potassium Chloride 20 MEQ TAB PO SCH (08:45)
[2019-02-03 09:03] LABS: Anion Gap 14 mmol/L (10-20); BUN (Urea Nitrogen) 26 mg/dL (8.4-25.7); Calc. Creatinine Clearance 59 mL/min (70-130); Calcium 8.7 mg/dL (7.8-10.44); Carbon Dioxide 24 mmol/L (23-31); Chloride 100 mmol/L (98-107); Estimated GFR-MDRD 40; Glucose 161 mg/dL (80-115); Potassium 3.3 mmol/L (3.5-5.1); Sodium 135 mmol/L (136-145)
[2019-02-03] MEDS: Enoxaparin Sodium 30 MG/0.3 ML SYRINGE SC SCH (09:22)
[2019-02-03] MEDS: traMADol HCl 50 MG TAB PO PRN (09:22)
[2019-02-03] MEDS: Alogliptin 25 MG TAB PO SCH (09:22)
[2019-02-03] MEDS: Furosemide 40 MG/4 ML VIAL SLOW IVP SCH (14:28)
--- NOTE | 2019-02-03 14:30 | HP ---
CHIEF COMPLAINT: Edema and shortness of breath. HISTORY OF PRESENT ILLNESS: This patient is a 63-year-old male, who was recently discharged from this facility with congestive heart failure exacerbation and cirrhosis. He required IV dobutamine in order to adequately diurese. He had an echocardiogram that revealed an EF of 30% to 35% with global hypokinesis, dilated right ventricle with reduced right ventricular function, moderate AR, [id number] TR, moderate pulmonic regurgitation. The patient was discharged with a LifeVest. He says he tried to watch his diet and take his medicines appropriately, but subsequently developed significant peripheral edema. Again, it is causing him discomfort and had increasing shortness of breath, seems to be a progressive in nature. Her had to remove the LifeVest two days ago because it was causing discomfort with the increased abdominal girth. He subsequently presented to the emergency department. REVIEW OF SYSTEMS: Notable for anxiety, insomnia, muscle cramps in his hands and rib cage. He has had normal bowel activity and urine output. All other systems reviewed, all pertinent positives and negatives noted in the history of present illness. PAST MEDICAL HISTORY: Notable for chronic hepatitis C with cirrhosis and has esophageal varices; coronary artery disease, status post PCI with stents; ongoing tobacco abuse; chronic systolic heart failure; chronic kidney disease, stage 3; peripheral vascular disease; diabetes mellitus, type 2; gastroesophageal reflux disorder; and history of prior CVA without significant residual deficits. PAST SURGICAL HISTORY: PCI with coronary stents, left carotid endarterectomy, bilateral inguinal hernia repair, lower extremity stent replacement surgery to torn ligament of the right lower extremity. FAMILY HISTORY: Notable for heart disease on his father's side, hypertension on his mother's side. SOCIAL HISTORY: The patient continues to smoke half pack of cigarettes per day. Denies alcohol or recreational drugs. He is full code and his mother would be his surrogate decision maker should that become necessary. CURRENT MEDICATIONS: 1. Carvedilol 3.125 one p.o. b.i.d. 2. Lasix 40 mg p.o. b.i.d. 3. Magnesium 64 mg p.o. b.i.d. 4. Pantoprazole 40 mg daily. 5. Sitagliptin 100 mg every morning. 6. DuoNeb p.r.n. 7. Flexeril 5 mg b.i.d. 8. Tramadol 50 mg t.i.d. p.r.n. 9. Potassium 20 mEq b.i.d. ALLERGIES: PENICILLIN. PHYSICAL EXAMINATION: VITAL SIGNS: Temperature 98.9, pulse 76, respirations 20, O2 saturation currently 99% on room air. On presentation, the patient was tachycardic at 122, O2 saturation of 94%. GENERAL APPEARANCE: Age-appropriate male, is in no acute distress. He is awake and alert. He is pleasant and cooperative. HEENT: JORGE. He has no OP lesions. Generally poor dentition. NECK: Supple and symmetric. HEART: Regular rate and rhythm without significant murmurs noted. LUNGS: Diminished, but otherwise no wheezes or rales are noted. ABDOMEN: Distended, but not tight. It is relatively soft with normal bowel sounds. EXTREMITIES: Slightly mottled in the lower extremity around the knees. He has 2 to 3+ pitting edema going up to the upper thighs. PSYCHIATRIC: Generally normal affect and behavior. NEUROLOGIC: The patient has normal cognition, normal cranial nerves and no generalized focal deficits. LABORATORY DATA: White count 5.1, hemoglobin 8.6, platelets 142. Sodium 136, potassium 3.0, chloride 101, CO2 is 25, BUN 28, creatinine is 1.92, GFR 36, glucose 154, total bilirubin 1.7, AST 23, ALT 12, alkaline phosphatase 144. CK 177, initial troponin was 0.11, subsequent 0.077, and third is 0.108. BNP is 1816. Albumin is 3.3. Chest x-ray shows cardiomegaly with chronic findings. ER COURSE: The patient received nebulizer treatments, potassium p.o., aspirin, IV Lasix, [place], Nitro-Bid transdermal, and a second nebulizer. IMPRESSION AND PLAN: 1. Decompensated acute on chronic systolic heart failure. The patient has known valvular disease with a reduced ejection fraction and right heart failure as well. He has received IV Lasix. We will give additional IV Lasix now and increase that to IV b.i.d. We will consult Cardiology, it is likely the patient will require IV dobutamine again in order to have adequate improvement. His situation is made worse by his liver disease and relatively low albumin levels and his chronic kidney disease. 2. Acute hypoxic respiratory failure, relatively mild. Continue with oxygen, wean off as he is subsequently diuresed. 3. Chronic kidney disease, stage 3, appears to be at his baseline function. 4. History of cirrhosis with varices. He does not appear to be on other specific therapy related to these. We will continue with home medication regimen. 5. Hypokalemia. He was given a dose of potassium previously. We will recheck those labs now and give an additional dose in light of the additional diuretics. 6. History of gastroesophageal reflux disorder. We will continue with the PPI. 7. Chronic obstructive pulmonary disease. Continue with p.r.n. nebulizers. 8. Peripheral vascular disease, stable. 9. Ongoing tobacco abuse. 10. Chronic anemia secondary to chronic kidney disease. He is at his baseline hemoglobin now. 11. Elevated troponins. These are consistent with his previous values and are likely his baseline numbers not representing any acute ischemia. 12. Diabetes mellitus. Continue home medications with Accu-Cheks and sliding scale. Job ID: [id number] MTDD
[2019-02-03] MEDS ORDERED: Ondansetron PF 4 MG/2 ML Vial IVP PRN (17:00)
[2019-02-03] MEDS: Carvedilol 3.125 MG TAB PO SCH (17:27)
[2019-02-03] MEDS: ALPRAZolam 0.25 MG TAB PO PRN (17:27)
--- NOTE | 2019-02-03 18:50 | CON ---
DATE OF CONSULTATION: PRIMARY SYBASE DEVELOPER: Daniel Elliott MD REASON FOR REQUEST: Recurrent congestive heart failure systolic, acute on chronic. HISTORY OF PRESENT ILLNESS: Mr. Daniels is a very pleasant 63-year-old gentleman with a history of severely depressed left ventricular function. The patient was hospitalized earlier this month with heart failure, was able to be released home, but had to come back less than a couple of weeks later with recurrent difficulty breathing and edema. The patient is not having chest pain. The patient has a history of a very low ejection fraction as low as 20% to 25%, but after stenting the right coronary artery, improved to 45% to 50%. The patient has also been found to have ascites and some cirrhosis. PAST MEDICAL HISTORY: 1. Bleeding esophageal varices. 2. Chronic systolic and diastolic heart failure. 3. Coronary artery disease, previous stent in the right coronary artery. 4. Renal insufficiency. PAST SURGICAL HISTORY: 1. PCI to the right coronary in 2016. 2. Left carotid endarterectomy. ALLERGIES: TO PENICILLIN. MEDICATIONS: As an outpatient; 1. Pantoprazole. 2. Albuterol. 3. Carvedilol. 4. Furosemide. 5. Potassium. PHYSICAL EXAMINATION: GENERAL: This is a pleasant elderly gentleman, who is resting comfortably, in no distress. VITAL SIGNS: Blood pressure 123/89 and earlier was 152/92 and pulse 110 and sinus. HEENT: Eyes, sclerae nonicteric. Mouth, mucous membranes moist. NECK: Supple. No lymphadenopathy. LUNGS: Clear. CARDIAC: I do not hear murmur, rub, or gallop. ABDOMEN: Soft and nontender. EXTREMITIES: [id number] peripheral edema. SKIN: Warm and dry. PSYCHIATRIC: Mood and affect normal. NEUROLOGIC: Grossly normal. PERTINENT LABORATORY DATA: Hemoglobin is 8.5 and hematocrit 28.2. Potassium is 3.3. BNP is 1816. Creatinine yesterday was 1.9. ASSESSMENT: 1. Congestive heart failure systolic and diastolic combined acute on chronic, recurrent. 2. Hypokalemia. 3. Stage 3 renal failure. 4. Diabetes. 5. Coronary artery disease, previous stent in the right coronary artery. The patient previously was given infusion, I believe of dobutamine to help him diurese. PLAN: 1. Dr. Elliott to see the patient tomorrow. ? Candidate for Entresto. We will need to watch creatinines closely. Dr. Elliott to see the patient tomorrow. 2. Another option would be SGLT2 inhibitors for diabetes, although again the creatinine will need to be watched closely in that event. Those drugs have been showed to reduce hospitalization for the patients with heart failure. Job ID: [id number]
[2019-02-03] MEDS: Ondansetron ODT 4 MG TAB PO PRN (21:22)
[2019-02-04 04:47] LABS: #Eosinphils 0.1 thou/uL (0.0-0.7); #Lymphocytes 0.7 thou/uL (1.20-3.40); #Monocytes 0.4 thou/uL (0.11-0.59); #Neutrophils 3.9 thou/uL (1.40-6.50); %Basophils 0.7 % (0.0-1.0); %Eosinophils 1.3 % (0.0-10.0); %Monocytes 7.8 % (0.0-10.0); %Neutrophils 77.2 % (42.0-75.0); Hemoglobin 8.6 g/dL (14.0-18.0); Mean Corpuscular HGB CONC 30.6 g/dL (32.0-36.0); Mean Corpuscular Hemoglobin 25.3 pg (27.0-31.0); Mean Corpuscular Volume 82.6 fL (78.0-98.0); Mean Platelet Volume 8.8 fL (7.4-10.4); Platelet Count 145 thou/uL (130-400); RBC Distribution Width 18.3 % (11.5-14.5); Red Blood Cell (RBC) Count 3.41 mill/uL (4.70-6.10)
[2019-02-04 05:09] LABS: Anion Gap 14 mmol/L (10-20); BUN (Urea Nitrogen) 31 mg/dL (8.4-25.7); Calc. Creatinine Clearance 56 mL/min (70-130); Calcium 8.9 mg/dL (7.8-10.44); Carbon Dioxide 24 mmol/L (23-31); Chloride 101 mmol/L (98-107); Estimated GFR-MDRD 38; Glucose 130 mg/dL (80-115); Potassium 3.6 mmol/L (3.5-5.1); Sodium 135 mmol/L (136-145)
[2019-02-04] MEDS: Furosemide 40 MG/4 ML VIAL SLOW IVP SCH ×2 (06:04→13:55)
[2019-02-04] MEDS: Enoxaparin Sodium 30 MG/0.3 ML SYRINGE SC SCH (07:51)
[2019-02-04] MEDS: Carvedilol 3.125 MG TAB PO SCH ×2 (07:51→18:10)
[2019-02-04] MEDS: Alogliptin 25 MG TAB PO SCH (07:51)
[2019-02-04] MEDS: ALPRAZolam 0.25 MG TAB PO PRN ×2 (08:18→22:40)
[2019-02-04] MEDS: Ondansetron ODT 4 MG TAB PO PRN (15:46)
--- NOTE | 2019-02-04 16:27 | PRG ---
DATE OF SERVICE: 02/04/2019 SUBJECTIVE: Mr. Daniels has been here since yesterday. He says he really has not had much response to the diuretics. OBJECTIVE: VITAL SIGNS: His heart rate is 100 to 110. Blood pressure 124/67. LUNGS: Clear. CARDIAC: Normal S1, normal S2. ABDOMEN: Soft and nontender. EXTREMITIES: Moderate to severe edema. ASSESSMENT: 1. Congestive heart failure, still volume overloaded. 2. Heart rate is relatively rapid, may not tolerate dobutamine at the present time. The patient's congestive heart failure is systolic and diastolic mixed. 3. Renal failure, stable with a creatinine of 1.83, estimated GFR is 38. It is renal failure, stage 3. The options appear limited. We will do the following;. a. Try low-dose Entresto. b. We will need to monitor daily creatinine. The patient is only able to stay out of the hospital about 2 weeks he said after the recent admission. Prognosis is guarded. Dr. Kaufman will see this weekend. Dr. Elliott will back on Thursday. Job ID: [id number]
--- NOTE | 2019-02-04 22:51 | PDOC.HOSPP ---
- Subjective Subjective: Not voiding much. Still edematous. Wants me to change the xanax to valium. Says his anxiety and insomnia are severe. - Objective Vital Signs & Weight: Vital Signs (12 hours) Temp Pulse Resp BP Pulse Ox 02/04/19 19:40 97.5 F L 103 H 20 136/82 98 02/04/19 19:00 81 16 93 L 02/04/19 16:00 97.6 F 98 20 111/69 95 02/04/19 13:20 88 16 02/04/19 12:00 97.4 F L 110 H 20 124/67 98 Weight Weight 208 lb 5 oz I&O: 02/03/19 02/04/19 02/05/19 06:59 06:59 06:59 Intake Total 450 1080 610 Output Total 800 1575 250 Balance -350 -495 360 Result Diagrams: 02/04/19 03:58 02/05/19 05:57 Additional Labs: Accuchecks 02/04/19 02/04/19 02/04/19 20:37 17:22 11:10 POC Glucose 137 H 166 H 185 H 02/04/19 05:59 POC Glucose 127 H Hospitalist ROS - Medication Medications: Active Medications Generic Name Dose Route Start Last Admin Trade Name Freq PRN Reason Stop Dose Admin Albuterol/Ipratropium 3 ml 02/03/19 00:44 02/04/19 19:00 Duoneb NEB 3 ml Q6H PRN Administration SOB &/or Wheezing Alogliptin Benzoate 25 mg 02/03/19 09:00 02/04/19 07:51 Alogliptin PO 25 mg DAILY YANNICK Administration Alprazolam 0.25 mg 02/03/19 17:00 02/04/19 22:40 Xanax PO 0.25 mg TIDPRN PRN Administration Anxiety Carvedilol 3.125 mg 02/03/19 17:00 02/04/19 18:10 Coreg PO 3.125 mg BID-WM YANNICK Administration Enoxaparin Sodium 30 mg 02/03/19 09:00 02/04/19 07:51 Lovenox SC 30 mg 0900 YANNICK Administration Furosemide 40 mg 02/03/19 14:00 02/04/19 13:55 Lasix SLOW IVP 40 mg 0600,1400 YANNICK Administration Ondansetron HCl 4 mg 02/03/19 17:00 02/04/19 15:46 Zofran Odt PO 4 mg Q6H PRN Administration Nausea/Vomiting Sacubitril/Valsartan 1 tab 02/04/19 21:00 02/04/19 20:41 Entresto 24 Mg-26 Mg Tablet PO 1 tab BID YANNICK Administration Sodium Chloride 10 ml 02/03/19 09:00 02/04/19 20:41 Flush - Normal Saline IVF 10 ml Q12HR YANNICK Administration Sodium Chloride 10 ml 02/03/19 08:52 02/04/19 13:56 Flush - Normal Saline IVF 10 ml PRN PRN Administration Saline Flush Tramadol HCl 50 mg 02/03/19 08:35 02/03/19 09:22 Ultram PO 50 mg Q6H PRN Administration Moderate to Severe Pain (6-10) - Exam General Appearance: NAD, awake alert Heart: RRR, no murmur, no gallops, no rubs, normal peripheral pulses Respiratory: CTAB, no wheezes, no rales, no ronchi, normal chest expansion, no tachypnea, normal percussion Gastrointestinal: soft, non-tender, distended Extremities: no cyanosis, 2+ LE edema Musculoskeletal: normal tone, normal strength Psychiatric: normal affect, normal behavior, A&O x 3 Hosp A/P (1) Acute on chronic combined systolic and diastolic CHF, NYHA class 3 Code(s): I50.43 - ACUTE ON CHRONIC COMBINED SYSTOLIC AND DIASTOLIC HRT FAIL Status: Acute (2) Acute on chronic renal failure Code(s): N17.9 - ACUTE KIDNEY FAILURE, UNSPECIFIED; N18.9 - CHRONIC KIDNEY DISEASE, UNSPECIFIED Status: Acute Qualifiers: Chronic kidney disease stage: stage 3 (moderate) (3) COPD (chronic obstructive pulmonary disease) Status: Chronic Qualifiers: COPD type: unspecified COPD Qualified Code(s): J44.9 - Chronic obstructive pulmonary disease, unspecified (4) HTN (hypertension) Code(s): I10 - ESSENTIAL (PRIMARY) HYPERTENSION Status: Chronic Qualifiers: Hypertension type: essential hypertension Qualified Code(s): I10 - Essential (primary) hypertension (5) PVD (peripheral vascular disease) Code(s): I73.9 - PERIPHERAL VASCULAR DISEASE, UNSPECIFIED Status: Chronic (6) Tobacco dependence Code(s): F17.200 - NICOTINE DEPENDENCE, UNSPECIFIED, UNCOMPLICATED Status: Chronic (7) Alcoholic cirrhosis Code(s): K70.30 - ALCOHOLIC CIRRHOSIS OF LIVER WITHOUT ASCITES Status: Acute - Plan He has not voided much. Discussed with Dr. Cross. He will initiate low dose Entresto. Continue Lasix. Change to Valium.
[2019-02-05] MEDS: Furosemide 40 MG/4 ML VIAL SLOW IVP SCH ×2 (05:44→13:54)
[2019-02-05 07:13] LABS: Anion Gap 15 mmol/L (10-20); BUN (Urea Nitrogen) 36 mg/dL (8.4-25.7); Calc. Creatinine Clearance 52 mL/min (70-130); Calcium 8.8 mg/dL (7.8-10.44); Carbon Dioxide 25 mmol/L (23-31); Chloride 99 mmol/L (98-107); Estimated GFR-MDRD 34; Glucose 123 mg/dL (80-115); Potassium 3.4 mmol/L (3.5-5.1); Sodium 136 mmol/L (136-145)
[2019-02-05] MEDS ORDERED: Metolazone 5 MG TAB PO SCH (07:30)
[2019-02-05] MEDS: Enoxaparin Sodium 30 MG/0.3 ML SYRINGE SC SCH (10:36)
[2019-02-05] MEDS: Alogliptin 25 MG TAB PO SCH (10:36)
[2019-02-05] MEDS: Carvedilol 3.125 MG TAB PO SCH ×3 (10:37→20:01)
[2019-02-05] MEDS: Metolazone 5 MG TAB PO SCH (13:54)
--- NOTE | 2019-02-05 15:44 | PDOC.HOSPP ---
- Subjective Subjective: Still has not voided much. Feels like his abdominal girth is increased. - Objective Vital Signs & Weight: Vital Signs (12 hours) Temp Pulse Resp BP BP Pulse Ox 02/05/19 13:53 81 16 02/05/19 12:00 81 19 101/60 96 02/05/19 08:00 97.6 F 89 20 94/50 L 97 02/05/19 06:27 92 L 02/05/19 06:20 83 12 02/05/19 03:55 96.4 F L 88 18 101/51 L 96 Weight Weight 211 lb 6 oz I&O: 02/04/19 02/05/19 02/06/19 06:59 06:59 05:59 Intake Total 1080 1080 Output Total 1575 525 Balance -495 555 Result Diagrams: 02/04/19 03:58 02/05/19 05:57 Additional Labs: Accuchecks 02/05/19 02/05/19 02/04/19 10:59 05:57 20:37 POC Glucose 183 H 147 H 137 H 02/04/19 17:22 POC Glucose 166 H Hospitalist ROS - Medication Medications: Active Medications Generic Name Dose Route Start Last Admin Trade Name Freq PRN Reason Stop Dose Admin Albuterol/Ipratropium 3 ml 02/03/19 00:44 02/05/19 13:53 Duoneb NEB 3 ml Q6H PRN Administration SOB &/or Wheezing Alogliptin Benzoate 25 mg 02/03/19 09:00 02/05/19 10:36 Alogliptin PO 25 mg DAILY YANNICK Administration Carvedilol 3.125 mg 02/03/19 17:00 02/05/19 10:37 Coreg PO 3.125 mg BID-WM YANNICK Administration Enoxaparin Sodium 30 mg 02/03/19 09:00 02/05/19 10:36 Lovenox SC 30 mg 0900 YANNICK Administration Furosemide 60 mg 02/05/19 14:00 02/05/19 13:54 Lasix SLOW IVP 60 mg 0600,1400 YANNICK Administration Metolazone 5 mg 02/05/19 13:00 02/05/19 13:54 Zaroxolyn PO 5 mg 0600,1300 YANNICK Administration Ondansetron HCl 4 mg 02/03/19 17:00 02/04/19 15:46 Zofran Odt PO 4 mg Q6H PRN Administration Nausea/Vomiting Sacubitril/Valsartan 1 tab 02/04/19 21:00 02/05/19 10:37 Entresto 24 Mg-26 Mg Tablet PO 1 tab BID YANNICK Administration Sodium Chloride 10 ml 02/03/19 09:00 02/05/19 10:38 Flush - Normal Saline IVF 10 ml Q12HR YANNICK Administration Sodium Chloride 10 ml 02/03/19 08:52 02/05/19 14:00 Flush - Normal Saline IVF 10 ml PRN PRN Administration Saline Flush Tramadol HCl 50 mg 02/03/19 08:35 02/03/19 09:22 Ultram PO 50 mg Q6H PRN Administration Moderate to Severe Pain (6-10) - Exam General Appearance: NAD, awake alert Heart: RRR, no murmur, no gallops, no rubs, normal peripheral pulses Respiratory: CTAB, no wheezes, no rales, no ronchi, normal chest expansion, no tachypnea, normal percussion Gastrointestinal: soft, non-tender, normal bowel sounds, no palpable masses, no hepatomegaly, no splenomegaly, no bruit, distended Extremities: 2+ LE edema Skin: normal turgor Musculoskeletal: normal tone, normal strength, no muscle wasting Psychiatric: normal affect, normal behavior, A&O x 3 Hosp A/P (1) Acute on chronic combined systolic and diastolic CHF, NYHA class 3 Code(s): I50.43 - ACUTE ON CHRONIC COMBINED SYSTOLIC AND DIASTOLIC HRT FAIL Status: Acute (2) Acute on chronic renal failure Code(s): N17.9 - ACUTE KIDNEY FAILURE, UNSPECIFIED; N18.9 - CHRONIC KIDNEY DISEASE, UNSPECIFIED Status: Acute Qualifiers: Chronic kidney disease stage: stage 3 (moderate) (3) COPD (chronic obstructive pulmonary disease) Status: Chronic Qualifiers: COPD type: unspecified COPD Qualified Code(s): J44.9 - Chronic obstructive pulmonary disease, unspecified (4) HTN (hypertension) Code(s): I10 - ESSENTIAL (PRIMARY) HYPERTENSION Status: Chronic Qualifiers: Hypertension type: essential hypertension Qualified Code(s): I10 - Essential (primary) hypertension (5) PVD (peripheral vascular disease) Code(s): I73.9 - PERIPHERAL VASCULAR DISEASE, UNSPECIFIED Status: Chronic (6) Tobacco dependence Code(s): F17.200 - NICOTINE DEPENDENCE, UNSPECIFIED, UNCOMPLICATED Status: Chronic (7) Alcoholic cirrhosis Code(s): K70.30 - ALCOHOLIC CIRRHOSIS OF LIVER WITHOUT ASCITES Status: Acute - Plan He has not voided much. Low dose Entresto. Increased lasix to 60 mg IV BID. Added metolazone. Not sure his liver disease has been fully treated with diuretics. Will add low dose Aldactone. Valium for anxiety and insomnia.
[2019-02-05] MEDS ORDERED: Spironolactone 25 MG TAB PO SCH (15:45)
[2019-02-05] MEDS: traMADol HCl 50 MG TAB PO PRN (18:19)
[2019-02-06] MEDS: traMADol HCl 50 MG TAB PO PRN ×3 (00:34→21:36)
[2019-02-06] MEDS: Diazepam 5 MG TAB PO PRN ×3 (00:35→21:36)
[2019-02-06 05:20] LABS: Anion Gap 12 mmol/L (10-20); BUN (Urea Nitrogen) 33 mg/dL (8.4-25.7); Calc. Creatinine Clearance 55 mL/min (70-130); Calcium 8.8 mg/dL (7.8-10.44); Carbon Dioxide 29 mmol/L (23-31); Chloride 100 mmol/L (98-107); Estimated GFR-MDRD 37; Glucose 128 mg/dL (80-115); Potassium 3.5 mmol/L (3.5-5.1); Sodium 137 mmol/L (136-145)
[2019-02-06] MEDS: Furosemide 40 MG/4 ML VIAL SLOW IVP SCH ×2 (05:53→13:47)
[2019-02-06] MEDS: Metolazone 5 MG TAB PO SCH ×2 (05:53→13:47)
[2019-02-06] MEDS: Carvedilol 3.125 MG TAB PO SCH ×2 (09:46→17:03)
[2019-02-06] MEDS: Spironolactone 25 MG TAB PO SCH (09:46)
[2019-02-06] MEDS: Enoxaparin Sodium 30 MG/0.3 ML SYRINGE SC SCH (09:47)
[2019-02-06] MEDS: Alogliptin 25 MG TAB PO SCH (09:47)
--- NOTE | 2019-02-06 12:00 | PDOC.HOSPP ---
- Subjective Encounter Date: 02/06/19 Encounter Time: 11:58 Subjective: Doing better today. Slept better. Voiding a lot. Ambulated. 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 Additional Labs: Accuchecks 02/06/19 02/06/19 02/05/19 10:44 05:06 20:32 POC Glucose 196 H 140 H 191 H 02/05/19 17:36 POC Glucose 138 H Hospitalist ROS - Medication Medications: Active Medications Generic Name Dose Route Start Last Admin Trade Name Freq PRN Reason Stop Dose Admin Albuterol/Ipratropium 3 ml 02/03/19 00:44 02/06/19 08:09 Duoneb NEB 3 ml Q6H PRN Administration SOB &/or Wheezing Alogliptin Benzoate 25 mg 02/03/19 09:00 02/06/19 09:47 Alogliptin PO 25 mg DAILY YANNICK Administration Carvedilol 3.125 mg 02/03/19 17:00 02/06/19 09:46 Coreg PO 3.125 mg BID-WM YANNICK Administration Diazepam 5 mg 02/05/19 07:30 02/06/19 00:35 Valium PO 5 mg TID PRN Administration Anxiety Enoxaparin Sodium 30 mg 02/03/19 09:00 02/06/19 09:47 Lovenox SC 30 mg 0900 YANNICK Administration Furosemide 60 mg 02/05/19 14:00 02/06/19 05:53 Lasix SLOW IVP 60 mg 0600,1400 YANNICK Administration Metolazone 5 mg 02/05/19 13:00 02/06/19 05:53 Zaroxolyn PO 5 mg 0600,1300 YANNICK Administration Ondansetron HCl 4 mg 02/03/19 17:00 02/04/19 15:46 Zofran Odt PO 4 mg Q6H PRN Administration Nausea/Vomiting Sacubitril/Valsartan 1 tab 02/04/19 21:00 02/06/19 10:23 Entresto 24 Mg-26 Mg Tablet PO 1 tab BID YANNICK Administration Sodium Chloride 10 ml 02/03/19 09:00 02/06/19 09:47 Flush - Normal Saline IVF 10 ml Q12HR YANNICK Administration Sodium Chloride 10 ml 02/03/19 08:52 02/05/19 14:00 Flush - Normal Saline IVF 10 ml PRN PRN Administration Saline Flush Spironolactone 25 mg 02/06/19 08:00 02/06/19 09:46 Aldactone PO 25 mg QAM-WM YANNICK Administration Tramadol HCl 50 mg 02/03/19 08:35 02/06/19 00:34 Ultram PO 50 mg Q6H PRN Administration Moderate to Severe Pain (6-10) - Exam General Appearance: NAD, awake alert Heart: RRR, no murmur, no gallops, no rubs, normal peripheral pulses Respiratory: CTAB, no wheezes, no rales, no ronchi, normal chest expansion, no tachypnea, normal percussion Gastrointestinal: soft, non-tender, normal bowel sounds, no palpable masses, distended Extremities: no cyanosis, no clubbing, 2+ LE edema Musculoskeletal: normal tone, normal strength, no muscle wasting Psychiatric: normal affect, normal behavior, A&O x 3 Hosp A/P (1) Acute on chronic combined systolic and diastolic CHF, NYHA class 3 Code(s): I50.43 - ACUTE ON CHRONIC COMBINED SYSTOLIC AND DIASTOLIC HRT FAIL Status: Acute (2) Acute on chronic renal failure Code(s): N17.9 - ACUTE KIDNEY FAILURE, UNSPECIFIED; N18.9 - CHRONIC KIDNEY DISEASE, UNSPECIFIED Status: Acute Qualifiers: Chronic kidney disease stage: stage 3 (moderate) (3) COPD (chronic obstructive pulmonary disease) Status: Chronic Qualifiers: COPD type: unspecified COPD Qualified Code(s): J44.9 - Chronic obstructive pulmonary disease, unspecified (4) HTN (hypertension) Code(s): I10 - ESSENTIAL (PRIMARY) HYPERTENSION Status: Chronic Qualifiers: Hypertension type: essential hypertension Qualified Code(s): I10 - Essential (primary) hypertension (5) PVD (peripheral vascular disease) Code(s): I73.9 - PERIPHERAL VASCULAR DISEASE, UNSPECIFIED Status: Chronic (6) Tobacco dependence Code(s): F17.200 - NICOTINE DEPENDENCE, UNSPECIFIED, UNCOMPLICATED Status: Chronic (7) Alcoholic cirrhosis Code(s): K70.30 - ALCOHOLIC CIRRHOSIS OF LIVER WITHOUT ASCITES Status: Acute (8) Anemia Code(s): D64.9 - ANEMIA, UNSPECIFIED Status: Acute (9) Ascites Code(s): R18.8 - OTHER ASCITES Status: Acute (10) CAD (coronary artery disease) Code(s): I25.10 - ATHSCL HEART DISEASE OF [place] CORONARY ARTERY W/O ANG PCTRS Status: Chronic Qualifiers: Coronary Disease-Associated Artery/Lesion type: unspecified vessel or lesion type Associated angina: without angina (11) CKD (chronic kidney disease) stage 3, GFR 30-59 ml/min Status: Chronic - Plan Voiding better on Entresto, Lasix, Metolazone, Aldactone. Weight down 4 pounds. Limit po fluids. Continue the current regimen. Will take some time to extract the large volume of fluid. Continue to monitor lytes and renal function.
[2019-02-07 05:36] LABS: Anion Gap 12 mmol/L (10-20); BUN (Urea Nitrogen) 34 mg/dL (8.4-25.7); Calc. Creatinine Clearance 58 mL/min (70-130); Calcium 8.9 mg/dL (7.8-10.44); Carbon Dioxide 24 mmol/L (23-31); Chloride 99 mmol/L (98-107); Estimated GFR-MDRD 39; Glucose 129 mg/dL (80-115); Potassium 3.2 mmol/L (3.5-5.1); Sodium 132 mmol/L (136-145)
[2019-02-07] MEDS: Furosemide 40 MG/4 ML VIAL SLOW IVP SCH (06:42)
[2019-02-07] MEDS: Metolazone 5 MG TAB PO SCH ×2 (06:43→12:38)
[2019-02-07] MEDS: Spironolactone 25 MG TAB PO SCH (08:40)
[2019-02-07] MEDS: Alogliptin 25 MG TAB PO SCH (08:40)
[2019-02-07] MEDS: Carvedilol 3.125 MG TAB PO SCH ×2 (08:40→17:31)
[2019-02-07] MEDS: Enoxaparin Sodium 30 MG/0.3 ML SYRINGE SC SCH (08:40)
[2019-02-07] MEDS: Diazepam 5 MG TAB PO PRN ×2 (10:18→18:42)
--- NOTE | 2019-02-07 12:32 | PDOC.CPN ---
- Subjective Date: 02/07/19 Time: 12:32 Interval history: No new issues. Continues to be SOB and swelling not improving. - Review of Systems General: denies: fever/chills, weight/appetite/sleep changes, night sweats, fatigue Respiratory: reports: congestion. denies: cough, shortness of breath, exercise intolerance Cardiovascular: reports: edema. denies: chest pain, palpitation, paroxysmal nocturnal dyspnea, orthopnea Gastrointestinal: denies: nausea, vomiting, diarrhea, constipation, abd pain, GI bleeding Musculoskeletal: reports: swelling. denies: pain, tenderness, stiffness, arthritis/arthralgias Neurological: denies: numbness, syncope, seizure, weakness - Objective Allergies/Adverse Reactions: Allergies Allergy/AdvReac Type Severity Reaction Status Date / Time Penicillins Allergy Severe Anaphylaxis Verified 01/15/19 22:27 Visit Medications: Current Medications Acetaminophen (Tylenol) 650 mg PO Q4H PRN PRN Reason: Headache/Fever/Mild Pain (1-3) Albuterol/Ipratropium (Duoneb) 3 ml NEB Q6H PRN PRN Reason: SOB &/or Wheezing Last Admin: 02/06/19 13:54 Dose: 3 ml Alogliptin Benzoate (Alogliptin) 25 mg PO DAILY [facility] Last Admin: 02/07/19 08:40 Dose: 25 mg Carvedilol (Coreg) 3.125 mg PO BID-[facility] Last Admin: 02/07/19 08:40 Dose: 3.125 mg Cyclobenzaprine HCl (Flexeril) 10 mg PO TID PRN PRN Reason: Muscle Spasm Dextrose/Water (Dextrose 50%) 25 gm SLOW IVP PRN PRN PRN Reason: Hypoglycemia Diazepam (Valium) 5 mg PO TID PRN PRN Reason: Anxiety Last Admin: 02/07/19 10:18 Dose: 5 mg Enoxaparin Sodium (Lovenox) 30 mg SC 0900 [facility] Last Admin: 02/07/19 08:40 Dose: 30 mg Furosemide (Lasix) 80 mg SLOW IVP 0600,1400 [facility] Glucagon (Glucagon) 1 mg IM PRN PRN PRN Reason: Hypoglycemia Dextrose/Water (D5w) 1,000 mls @ 0 mls/hr IV .Q0M PRN PRN Reason: Hypoglycemia Dobutamine HCl/Dextrose (Dobutamine 500 Mg/250 Ml) 250 mls @ 14.101 mls/hr IVPB INF [facility]; Protocol Insulin Human Lispro (Humalog) 0 units SC .MILD SLIDING SCALE PRN PRN Reason: Mild Correctional Scale Metolazone (Zaroxolyn) 5 mg PO 0600,1300 [facility] Last Admin: 02/07/19 06:43 Dose: 5 mg Ondansetron HCl (Zofran Odt) 4 mg PO Q6H PRN PRN Reason: Nausea/Vomiting Last Admin: 02/04/19 15:46 Dose: 4 mg Ondansetron HCl (Zofran) 4 mg IVP Q6H PRN PRN Reason: Nausea/Vomiting Sacubitril/Valsartan (Entresto 24 Mg-26 Mg Tablet) 1 tab PO BID [facility] Last Admin: 02/07/19 10:18 Dose: 1 tab Sodium Chloride (Flush - Normal Saline) 10 ml IVF Q12HR [facility] Last Admin: 02/07/19 08:40 Dose: 10 ml Sodium Chloride (Flush - Normal Saline) 10 ml IVF PRN PRN PRN Reason: Saline Flush Last Admin: 02/05/19 14:00 Dose: 10 ml Spironolactone (Aldactone) 25 mg PO QAM-[facility] Last Admin: 02/07/19 08:40 Dose: 25 mg Tramadol HCl (Ultram) 50 mg PO Q6H PRN PRN Reason: Moderate to Severe Pain (6-10) Last Admin: 02/06/19 21:36 Dose: 50 mg Vital Signs & Weight: Vital Signs Temp Pulse Pulse Pulse Resp BP BP 02/07/19 11:56 02/07/19 11:45 97.0 F L 83 20 02/07/19 09:20 92 85 101/53 L 100/51 L 02/07/19 08:05 97.5 F L 86 16 02/07/19 03:20 97.6 F 85 20 BP BP Pulse Ox 02/07/19 11:56 104/62 02/07/19 11:45 86/54 L 98 02/07/19 09:20 02/07/19 08:05 99/58 L 95 02/07/19 03:20 96/53 L 94 L Weight 207 lb 4 oz - Physical Exam General: alert & oriented x3 HEENT: mucus membranes moist Neck: supple neck Cardiac: regular rate and rhythm Lungs: clear to auscultation Neuro: grossly intact Abdomen: active bowel sounds Extremities: 2+ LE edema Skin: clear Musculoskeletal: no pain - Labs Result Diagrams: 02/04/19 03:58 02/07/19 04:52 Troponin/CKMB CK-MB (CK-2) 3.6 ng/mL (0-6.6) 02/02/19 12:05 Troponin I 0.108 ng/mL (< 0.028) H 02/02/19 18:10 - Telemetry Sinus rhythms and dysrhythmias: sinus rhythm - Assessment/Plan Assessment/Plan: 1. Acute on chronic systolic heart failure. 2. Dilated CM EF at 30-35% 3. Hx. of bleeding esophageal varices. 4. Hx of cirrhosis. 5. CAD s/p PCI to RCA 2016 6. PVD, s/p Left CEA 7. Stage 3 CKD Type 2 Dm PLAN: - Will start dobutamine drip to help diuresis and will increase lasix to 80 mg IV BID. - Continue fluid restriction.
[2019-02-07] MEDS: traMADol HCl 50 MG TAB PO PRN ×2 (12:38→18:42)
[2019-02-07] MEDS ORDERED: DOBUTamine 500 mg/250 ml 250 ML IVPB SCH (12:45)
[2019-02-07] MEDS: DOBUTamine 500 mg/250 ml 500 MG in Premix Bag 1 BAG IVPB SCH (14:38)
[2019-02-07] MEDS: Furosemide 100 MG/10 ML VIAL SLOW IVP SCH ×2 (14:42→14:48)
[2019-02-07] MEDS ORDERED: Potassium Chloride 20 MEQ TAB PO SCH (14:45)
--- NOTE | 2019-02-07 21:19 | PDOC.HOSPP ---
- Subjective Subjective: Doing a little better. Edema in legs slightly improved. Still has trouble getting up and he is using a urinal. Says he needs help with that. - Objective Vital Signs & Weight: Vital Signs (12 hours) Temp Pulse Pulse Pulse Resp BP BP 02/07/19 15:05 98.2 F 82 18 02/07/19 11:56 02/07/19 11:45 97.0 F L 83 20 02/07/19 09:20 92 85 101/53 L 100/51 L BP Pulse Ox 02/07/19 15:05 100/72 97 02/07/19 11:56 104/62 02/07/19 11:45 86/54 L 98 02/07/19 09:20 Weight Weight 203 lb 4 oz I&O: 02/06/19 02/07/19 02/08/19 06:59 06:59 06:59 Intake Total 980 480 Output Total 2550 515 Balance -1570 -35 Result Diagrams: 02/04/19 03:58 02/07/19 04:52 Additional Labs: Accuchecks 02/07/19 02/07/19 02/07/19 20:31 16:34 10:43 POC Glucose 146 H 127 H 154 H 02/07/19 05:39 POC Glucose 137 H Hospitalist ROS - Medication Medications: Active Medications Generic Name Dose Route Start Last Admin Trade Name Freq PRN Reason Stop Dose Admin Albuterol/Ipratropium 3 ml 02/03/19 00:44 02/06/19 13:54 Duoneb NEB 3 ml Q6H PRN Administration SOB &/or Wheezing Alogliptin Benzoate 25 mg 02/03/19 09:00 02/07/19 08:40 Alogliptin PO 25 mg DAILY [facility] Administration Carvedilol 3.125 mg 02/03/19 17:00 02/07/19 17:31 Coreg PO 3.125 mg BID-WM [facility] Administration Diazepam 5 mg 02/05/19 07:30 02/07/19 18:42 Valium PO 5 mg TID PRN Administration Anxiety Enoxaparin Sodium 30 mg 02/03/19 09:00 02/07/19 08:40 Lovenox SC 30 mg 0900 [facility] Administration Furosemide 80 mg 02/07/19 14:00 02/07/19 14:48 Lasix SLOW IVP Not Given 0600,1400 [facility] Dobutamine HCl/Dextrose 500 mg 250 mls @ 13.82 mls/hr 02/07/19 14:30 14:38 / Device IVPB 250 mls INF [facility] Administration Protocol 5 MCG/KG/MIN Metolazone 5 mg 02/05/19 13:00 02/07/19 12:38 Zaroxolyn PO 5 mg 0600,1300 [facility] Administration Ondansetron HCl 4 mg 02/03/19 17:00 02/04/19 15:46 Zofran Odt PO 4 mg Q6H PRN Administration Nausea/Vomiting Sacubitril/Valsartan 1 tab 02/04/19 21:00 02/07/19 10:18 Entresto 24 Mg-26 Mg Tablet PO 1 tab BID [facility] Administration Sodium Chloride 10 ml 02/03/19 09:00 02/07/19 08:40 Flush - Normal Saline IVF 10 ml Q12HR [facility] Administration Sodium Chloride 10 ml 02/03/19 08:52 02/05/19 14:00 Flush - Normal Saline IVF 10 ml PRN PRN Administration Saline Flush Spironolactone 25 mg 02/06/19 08:00 02/07/19 08:40 Aldactone PO 25 mg QAM-WM [facility] Administration Tramadol HCl 50 mg 02/03/19 08:35 02/07/19 18:42 Ultram PO 50 mg Q6H PRN Administration Moderate to Severe Pain (6-10) - Exam General Appearance: NAD, awake alert Heart: RRR, no murmur Respiratory: CTAB, no wheezes, no rales, no ronchi, normal chest expansion, no tachypnea, normal percussion Gastrointestinal: soft, non-tender, normal bowel sounds, distended Extremities: no cyanosis, no clubbing, 2+ LE edema Neurological: cranial nerve grossly intact, normal sensation to touch, no weakness, no focal deficits, no new deficit Musculoskeletal: normal tone, generalized weakness Psychiatric: normal affect, normal behavior, A&O x 3 Hosp A/P (1) Acute on chronic combined systolic and diastolic CHF, NYHA class 3 Code(s): I50.43 - ACUTE ON CHRONIC COMBINED SYSTOLIC AND DIASTOLIC HRT FAIL Status: Acute (2) Acute on chronic renal failure Code(s): N17.9 - ACUTE KIDNEY FAILURE, UNSPECIFIED; N18.9 - CHRONIC KIDNEY DISEASE, UNSPECIFIED Status: Acute Qualifiers: Chronic kidney disease stage: stage 3 (moderate) (3) COPD (chronic obstructive pulmonary disease) Status: Chronic Qualifiers: COPD type: unspecified COPD Qualified Code(s): J44.9 - Chronic obstructive pulmonary disease, unspecified (4) HTN (hypertension) Code(s): I10 - ESSENTIAL (PRIMARY) HYPERTENSION Status: Chronic Qualifiers: Hypertension type: essential hypertension Qualified Code(s): I10 - Essential (primary) hypertension (5) PVD (peripheral vascular disease) Code(s): I73.9 - PERIPHERAL VASCULAR DISEASE, UNSPECIFIED Status: Chronic (6) Tobacco dependence Code(s): F17.200 - NICOTINE DEPENDENCE, UNSPECIFIED, UNCOMPLICATED Status: Chronic (7) Alcoholic cirrhosis Code(s): K70.30 - ALCOHOLIC CIRRHOSIS OF LIVER WITHOUT ASCITES Status: Acute (8) Anemia Code(s): D64.9 - ANEMIA, UNSPECIFIED Status: Acute (9) Ascites Code(s): R18.8 - OTHER ASCITES Status: Acute (10) CAD (coronary artery disease) Code(s): I25.10 - ATHSCL HEART DISEASE OF [place] CORONARY ARTERY W/O ANG PCTRS Status: Chronic Qualifiers: Coronary Disease-Associated Artery/Lesion type: unspecified vessel or lesion type Associated angina: without angina (11) CKD (chronic kidney disease) stage 3, GFR 30-59 ml/min Status: Chronic - Plan Voiding better on Entresto, Lasix, Metolazone, Aldactone. Dobutamine gtt added. Limit po fluids. Will take some time to extract the large volume of fluid. Continue to monitor lytes and renal function. Replace potassium. Renal function remains stable.
[2019-02-08] MEDS ORDERED: Morphine 2 MG/ML SYRINGE SLOW IVP SCH (01:00)
[2019-02-08 05:33] LABS: Anion Gap 12 mmol/L (10-20); BUN (Urea Nitrogen) 29 mg/dL (8.4-25.7); Calc. Creatinine Clearance 64 mL/min (70-130); Calcium 8.3 mg/dL (7.8-10.44); Carbon Dioxide 30 mmol/L (23-31); Chloride 96 mmol/L (98-107); Estimated GFR-MDRD 45; Glucose 100 mg/dL (80-115); Potassium 3.1 mmol/L (3.5-5.1); Sodium 135 mmol/L (136-145)
[2019-02-08] MEDS: Metolazone 5 MG TAB PO SCH ×2 (06:11→13:56)
[2019-02-08] MEDS: Furosemide 100 MG/10 ML VIAL SLOW IVP SCH ×2 (06:12→13:56)
[2019-02-08] MEDS: Carvedilol 3.125 MG TAB PO SCH ×2 (08:05→18:27)
[2019-02-08] MEDS: Spironolactone 25 MG TAB PO SCH (08:05)
[2019-02-08] MEDS: Diazepam 5 MG TAB PO PRN ×2 (08:05→23:57)
[2019-02-08] MEDS: Alogliptin 25 MG TAB PO SCH (08:05)
[2019-02-08] MEDS: Enoxaparin Sodium 30 MG/0.3 ML SYRINGE SC SCH (08:05)
[2019-02-08] MEDS: Morphine 2 MG/ML SYRINGE SLOW IVP PRN ×3 (08:41→19:38)
[2019-02-08] MEDS: traMADol HCl 50 MG TAB PO PRN (10:13)
[2019-02-08] MEDS: DOBUTamine 500 mg/250 ml 500 MG in Premix Bag 1 BAG IVPB SCH (10:14)
[2019-02-08] MEDS ORDERED: Potassium Chloride 20 MEQ TAB PO SCH (13:45)
--- NOTE | 2019-02-08 17:34 | PDOC.CPN ---
- Subjective Date: 02/08/19 Time: 17:33 Interval history: He is diuresing much better. He had a run of high degree AV block while sleeping , likely sleep apnea. - Review of Systems General: denies: fever/chills, weight/appetite/sleep changes, night sweats, fatigue Respiratory: denies: cough, congestion, shortness of breath, exercise intolerance Cardiovascular: reports: edema. denies: chest pain, palpitation, paroxysmal nocturnal dyspnea, orthopnea Gastrointestinal: denies: nausea, vomiting, diarrhea, constipation, abd pain, GI bleeding Musculoskeletal: denies: pain, tenderness, stiffness, swelling, arthritis/ arthralgias Neurological: denies: numbness, syncope, seizure, weakness - Objective Allergies/Adverse Reactions: Allergies Allergy/AdvReac Type Severity Reaction Status Date / Time Penicillins Allergy Severe Anaphylaxis Verified 01/15/19 22:27 Visit Medications: Current Medications Acetaminophen (Tylenol) 650 mg PO Q4H PRN PRN Reason: Headache/Fever/Mild Pain (1-3) Albuterol/Ipratropium (Duoneb) 3 ml NEB Q6H PRN PRN Reason: SOB &/or Wheezing Last Admin: 02/06/19 13:54 Dose: 3 ml Alogliptin Benzoate (Alogliptin) 25 mg PO DAILY [facility] Last Admin: 02/08/19 08:05 Dose: 25 mg Carvedilol (Coreg) 3.125 mg PO BID-[facility] Last Admin: 02/08/19 08:05 Dose: 3.125 mg Cyclobenzaprine HCl (Flexeril) 10 mg PO TID PRN PRN Reason: Muscle Spasm Dextrose/Water (Dextrose 50%) 25 gm SLOW IVP PRN PRN PRN Reason: Hypoglycemia Diazepam (Valium) 5 mg PO TID PRN PRN Reason: Anxiety Last Admin: 02/08/19 08:05 Dose: 5 mg Enoxaparin Sodium (Lovenox) 30 mg SC 0900 [facility] Last Admin: 02/08/19 08:05 Dose: 30 mg Furosemide (Lasix) 80 mg SLOW IVP 0600,1400 [facility] Last Admin: 02/08/19 13:56 Dose: 80 mg Glucagon (Glucagon) 1 mg IM PRN PRN PRN Reason: Hypoglycemia Dextrose/Water (D5w) 1,000 mls @ 0 mls/hr IV .Q0M PRN PRN Reason: Hypoglycemia Dobutamine HCl/Dextrose 500 mg (/ Device) 250 mls @ 13.82 mls/hr IVPB INF [facility]; Protocol Last Admin: 02/08/19 10:14 Dose: 250 mls Insulin Human Lispro (Humalog) 0 units SC .MILD SLIDING SCALE PRN PRN Reason: Mild Correctional Scale Metolazone (Zaroxolyn) 5 mg PO 0600,1300 [facility] Last Admin: 02/08/19 13:56 Dose: 5 mg Morphine Sulfate (Morphine) 2 mg SLOW IVP Q3H PRN PRN Reason: Pain Last Admin: 02/08/19 14:07 Dose: 2 mg Ondansetron HCl (Zofran Odt) 4 mg PO Q6H PRN PRN Reason: Nausea/Vomiting Last Admin: 02/04/19 15:46 Dose: 4 mg Ondansetron HCl (Zofran) 4 mg IVP Q6H PRN PRN Reason: Nausea/Vomiting Sacubitril/Valsartan (Entresto 24 Mg-26 Mg Tablet) 1 tab PO BID [facility] Last Admin: 02/08/19 10:13 Dose: 1 tab Sodium Chloride (Flush - Normal Saline) 10 ml IVF Q12HR [facility] Last Admin: 02/08/19 08:05 Dose: 10 ml Sodium Chloride (Flush - Normal Saline) 10 ml IVF PRN PRN PRN Reason: Saline Flush Last Admin: 02/05/19 14:00 Dose: 10 ml Spironolactone (Aldactone) 25 mg PO QAM-WM [facility] Last Admin: 02/08/19 08:05 Dose: 25 mg Tramadol HCl (Ultram) 50 mg PO Q6H PRN PRN Reason: Moderate to Severe Pain (6-10) Last Admin: 02/08/19 10:13 Dose: 50 mg Vital Signs & Weight: Vital Signs Temp Pulse Pulse Pulse Resp BP BP 02/08/19 15:52 97.5 F L 86 18 02/08/19 12:00 97.5 F L 85 16 02/08/19 10:17 96 81 114/58 L 98/55 L 02/08/19 08:00 97.4 F L 88 16 BP Pulse Ox 02/08/19 15:52 116/57 L 96 02/08/19 12:00 122/56 L 96 02/08/19 10:17 02/08/19 08:00 120/58 L 95 Weight 203 lb 4 oz - Physical Exam General: alert & oriented x3 HEENT: mucus membranes moist Neck: supple neck Cardiac: regular rate and rhythm Lungs: clear to auscultation Neuro: grossly intact Abdomen: active bowel sounds Extremities: 2+ LE edema Skin: clear Musculoskeletal: no pain - Labs Result Diagrams: 02/04/19 03:58 02/08/19 05:02 Troponin/CKMB CK-MB (CK-2) 3.6 ng/mL (0-6.6) 02/02/19 12:05 Troponin I 0.108 ng/mL (< 0.028) H 02/02/19 18:10 - Telemetry Sinus rhythms and dysrhythmias: sinus rhythm (High degree AV block while sleeping.) - Assessment/Plan Assessment/Plan: 1. Acute on chronic systolic heart failure. 2. Dilated CM EF at 30-35% 3. Hx. of bleeding esophageal varices. 4. Hx of cirrhosis. 5. CAD s/p PCI to RCA 2016 6. PVD, s/p Left CEA 7. Stage 3 CKD 8. Type 2 Dm 9. High degree AV block while sleeping likely sleep apnea. PLAN: - Continue IV lasix - Continue Dobutamine gtt.
--- NOTE | 2019-02-08 21:53 | PDOC.HOSPP ---
- Subjective Subjective: Doing ok. Voiding a fair amount. Complains of scrotal edema. - Objective Vital Signs & Weight: Vital Signs (12 hours) Temp Pulse Pulse Pulse Resp BP BP 02/08/19 15:52 97.5 F L 86 18 02/08/19 12:00 97.5 F L 85 16 02/08/19 10:17 96 81 114/58 L 98/55 L BP Pulse Ox 02/08/19 15:52 116/57 L 96 02/08/19 12:00 122/56 L 96 02/08/19 10:17 Weight Weight 203 lb 4 oz I&O: 02/07/19 02/08/19 02/09/19 06:59 06:59 06:59 Intake Total 980 720 766 Output Total 2503.210.4726 Balance -8703 -222 -8536 Result Diagrams: 02/04/19 03:58 02/08/19 05:02 Additional Labs: Accuchecks 02/08/19 02/08/19 02/08/19 20:22 16:52 10:53 POC Glucose 138 H 125 H 154 H 02/08/19 05:27 POC Glucose 118 H Hospitalist ROS - Medication Medications: Active Medications Generic Name Dose Route Start Last Admin Trade Name Freq PRN Reason Stop Dose Admin Albuterol/Ipratropium 3 ml 02/03/19 00:44 02/06/19 13:54 Duoneb NEB 3 ml Q6H PRN Administration SOB &/or Wheezing Alogliptin Benzoate 25 mg 02/03/19 09:00 02/08/19 08:05 Alogliptin PO 25 mg DAILY [facility] Administration Carvedilol 3.125 mg 02/03/19 17:00 02/08/19 18:27 Coreg PO 3.125 mg BID-WM [facility] Administration Diazepam 5 mg 02/05/19 07:30 02/08/19 08:05 Valium PO 5 mg TID PRN Administration Anxiety Enoxaparin Sodium 30 mg 02/03/19 09:00 02/08/19 08:05 Lovenox SC 30 mg 0900 [facility] Administration Furosemide 80 mg 02/07/19 14:00 02/08/19 13:56 Lasix SLOW IVP 80 mg 0600,1400 [facility] Administration Dobutamine HCl/Dextrose 500 mg 250 mls @ 13.82 mls/hr 02/07/19 14:30 10:14 / Device IVPB 250 mls INF [facility] Administration Protocol 5 MCG/KG/MIN Metolazone 5 mg 02/05/19 13:00 02/08/19 13:56 Zaroxolyn PO 5 mg 0600,1300 [facility] Administration Morphine Sulfate 2 mg 02/08/19 04:00 02/08/19 19:38 Morphine SLOW IVP 2 mg Q3H PRN Administration Pain Ondansetron HCl 4 mg 02/03/19 17:00 02/04/19 15:46 Zofran Odt PO 4 mg Q6H PRN Administration Nausea/Vomiting Sacubitril/Valsartan 1 tab 02/04/19 21:00 02/08/19 21:33 Entresto 24 Mg-26 Mg Tablet PO Not Given BID [facility] Sodium Chloride 10 ml 02/03/19 09:00 02/08/19 21:33 Flush - Normal Saline IVF Not Given Q12HR [facility] Sodium Chloride 10 ml 02/03/19 08:52 02/05/19 14:00 Flush - Normal Saline IVF 10 ml PRN PRN Administration Saline Flush Spironolactone 25 mg 02/06/19 08:00 02/08/19 08:05 Aldactone PO 25 mg QAM-WM [facility] Administration Tramadol HCl 50 mg 02/03/19 08:35 02/08/19 10:13 Ultram PO 50 mg Q6H PRN Administration Moderate to Severe Pain (6-10) - Exam General Appearance: NAD, awake alert Heart: RRR, no murmur, no gallops, no rubs, normal peripheral pulses Respiratory: CTAB, no wheezes, no rales, no ronchi, normal chest expansion, no tachypnea, normal percussion Extremities: 2+ LE edema Neurological: cranial nerve grossly intact, normal sensation to touch, no weakness, no focal deficits, no new deficit Musculoskeletal: normal tone, normal strength, no muscle wasting Psychiatric: normal affect, normal behavior, A&O x 3 Hosp A/P (1) Acute on chronic combined systolic and diastolic CHF, NYHA class 3 Code(s): I50.43 - ACUTE ON CHRONIC COMBINED SYSTOLIC AND DIASTOLIC HRT FAIL Status: Acute (2) Acute on chronic renal failure Code(s): N17.9 - ACUTE KIDNEY FAILURE, UNSPECIFIED; N18.9 - CHRONIC KIDNEY DISEASE, UNSPECIFIED Status: Acute Qualifiers: Chronic kidney disease stage: stage 3 (moderate) (3) COPD (chronic obstructive pulmonary disease) Status: Chronic Qualifiers: COPD type: unspecified COPD Qualified Code(s): J44.9 - Chronic obstructive pulmonary disease, unspecified (4) HTN (hypertension) Code(s): I10 - ESSENTIAL (PRIMARY) HYPERTENSION Status: Chronic Qualifiers: Hypertension type: essential hypertension Qualified Code(s): I10 - Essential (primary) hypertension (5) PVD (peripheral vascular disease) Code(s): I73.9 - PERIPHERAL VASCULAR DISEASE, UNSPECIFIED Status: Chronic (6) Tobacco dependence Code(s): F17.200 - NICOTINE DEPENDENCE, UNSPECIFIED, UNCOMPLICATED Status: Chronic (7) Alcoholic cirrhosis Code(s): K70.30 - ALCOHOLIC CIRRHOSIS OF LIVER WITHOUT ASCITES Status: Acute (8) Anemia Code(s): D64.9 - ANEMIA, UNSPECIFIED Status: Acute (9) Ascites Code(s): R18.8 - OTHER ASCITES Status: Acute (10) CAD (coronary artery disease) Code(s): I25.10 - ATHSCL HEART DISEASE OF [place] CORONARY ARTERY W/O ANG PCTRS Status: Chronic Qualifiers: Coronary Disease-Associated Artery/Lesion type: unspecified vessel or lesion type Associated angina: without angina (11) CKD (chronic kidney disease) stage 3, GFR 30-59 ml/min Status: Chronic - Plan Voiding better on Entresto, Lasix, Metolazone, Aldactone. Dobutamine gtt added. Limit po fluids. Will take some time to extract the large volume of fluid. Continue to monitor lytes and renal function. Replace potassium. Renal function remains stable.
[2019-02-08] MEDS: Cyclobenzaprine 10 MG TAB PO PRN (23:57)
[2019-02-09] MEDS: DOBUTamine 500 mg/250 ml 500 MG in Premix Bag 1 BAG IVPB SCH (05:25)
[2019-02-09] MEDS: Furosemide 100 MG/10 ML VIAL SLOW IVP SCH ×2 (05:26→13:18)
[2019-02-09] MEDS: Metolazone 5 MG TAB PO SCH ×2 (05:27→12:00)
[2019-02-09] MEDS: Diazepam 5 MG TAB PO PRN ×2 (05:35→15:51)
[2019-02-09] MEDS: Morphine 2 MG/ML SYRINGE SLOW IVP PRN ×2 (07:52→13:18)
[2019-02-09] MEDS: Carvedilol 3.125 MG TAB PO SCH ×2 (07:53→17:14)
[2019-02-09] MEDS: Spironolactone 25 MG TAB PO SCH (07:53)
[2019-02-09] MEDS: Alogliptin 25 MG TAB PO SCH (09:32)
[2019-02-09] MEDS: Enoxaparin Sodium 30 MG/0.3 ML SYRINGE SC SCH (09:32)
[2019-02-09 10:42] LABS: ALT (SGPT) 13 U/L (8-55); AST (SGOT) 25 U/L (5-34); Albumin 3.2 g/dL (3.4-4.8); Alkaline Phosphatase 137 U/L (40-110); BUN (Urea Nitrogen) 25 mg/dL (8.4-25.7); Bilirubin, Total 1.1 mg/dL (0.2-1.2); Calc. Creatinine Clearance 56 mL/min (70-130); Calcium 9.4 mg/dL (7.8-10.44); Estimated GFR-MDRD 42; Globulin 4.9 g/dL (2.4-3.5); Glucose 153 mg/dL (80-115); Protein, Total 8.1 g/dL (5.8-8.1)
[2019-02-09 10:58] LABS: Anion Gap 14 mmol/L (10-20); Chloride 90 mmol/L (98-107); Potassium 3.2 mmol/L (3.5-5.1); Sodium 135 mmol/L (136-145)
[2019-02-09 11:44] LABS: Carbon Dioxide 30 mmol/L (23-31)
--- NOTE | 2019-02-09 14:25 | PDOC.HOSPP ---
- Subjective Subjective: Very sleepy. Awake enough to tell me that he thinks the pain meds are making him sleepy. - Objective Vital Signs & Weight: Vital Signs (12 hours) Temp Pulse Resp BP Pulse Ox 02/09/19 11:24 97.3 F L 80 18 136/72 95 02/09/19 08:14 97 02/09/19 07:48 97.9 F 95 19 116/56 L 97 02/09/19 04:00 97.8 F 91 20 115/64 91 L Weight Weight 190 lb 12.8 oz I&O: 02/08/19 02/09/19 02/10/19 06:59 06:59 06:59 Intake Total 720 1066 Output Total 918 4115 Balance -195 -3480 Result Diagrams: 02/04/19 03:58 02/09/19 09:43 Additional Labs: Accuchecks 02/09/19 02/09/19 02/08/19 10:44 05:33 20:22 POC Glucose 187 H 147 H 138 H 02/08/19 16:52 POC Glucose 125 H Hospitalist ROS - Medication Medications: Active Medications Generic Name Dose Route Start Last Admin Trade Name Freq PRN Reason Stop Dose Admin Albuterol/Ipratropium 3 ml 02/03/19 00:44 02/06/19 13:54 Duoneb NEB 3 ml Q6H PRN Administration SOB &/or Wheezing Alogliptin Benzoate 25 mg 02/03/19 09:00 02/09/19 09:32 Alogliptin PO 25 mg DAILY [facility] Administration Carvedilol 3.125 mg 02/03/19 17:00 02/09/19 07:53 Coreg PO 3.125 mg BID-WM [facility] Administration Cyclobenzaprine HCl 10 mg 02/03/19 08:35 02/08/19 23:57 Flexeril PO 10 mg TID PRN Administration Muscle Spasm Diazepam 5 mg 02/05/19 07:30 02/09/19 05:35 Valium PO 5 mg TID PRN Administration Anxiety Enoxaparin Sodium 30 mg 02/03/19 09:00 02/09/19 09:32 Lovenox SC 30 mg 0900 [facility] Administration Furosemide 80 mg 02/07/19 14:00 02/09/19 13:18 Lasix SLOW IVP 80 mg 0600,1400 [facility] Administration Dobutamine HCl/Dextrose 500 mg 250 mls @ 13.82 mls/hr 02/07/19 14:30 05:25 / Device IVPB 250 mls INF [facility] Administration Protocol 5 MCG/KG/MIN Metolazone 5 mg 02/05/19 13:00 02/09/19 12:00 Zaroxolyn PO 5 mg 0600,1300 [facility] Administration Morphine Sulfate 2 mg 02/08/19 04:00 02/09/19 13:18 Morphine SLOW IVP 2 mg Q3H PRN Administration Pain Ondansetron HCl 4 mg 02/03/19 17:00 02/04/19 15:46 Zofran Odt PO 4 mg Q6H PRN Administration Nausea/Vomiting Sacubitril/Valsartan 1 tab 02/04/19 21:00 02/09/19 09:38 Entresto 24 Mg-26 Mg Tablet PO 1 tab BID [facility] Administration Sodium Chloride 10 ml 02/03/19 09:00 02/09/19 09:34 Flush - Normal Saline IVF Not Given Q12HR [facility] Sodium Chloride 10 ml 02/03/19 08:52 02/05/19 14:00 Flush - Normal Saline IVF 10 ml PRN PRN Administration Saline Flush Spironolactone 25 mg 02/06/19 08:00 02/09/19 07:53 Aldactone PO 25 mg QAM-WM [facility] Administration Tramadol HCl 50 mg 02/03/19 08:35 02/08/19 10:13 Ultram PO 50 mg Q6H PRN Administration Moderate to Severe Pain (6-10) - Exam General Appearance: NAD, awake alert Neck: supple, symmetric, no JVD, no thyromegaly, no lymphadenopathy, no carotid bruit Heart: RRR, no murmur, no gallops, no rubs, normal peripheral pulses Respiratory: CTAB, no wheezes, no rales, no ronchi, normal chest expansion, no tachypnea, normal percussion Gastrointestinal: soft, non-tender, non-distended, normal bowel sounds, no palpable masses, no hepatomegaly, no splenomegaly, no bruit Extremities: no cyanosis, no clubbing, 2+ LE edema Skin: normal turgor Musculoskeletal: normal tone Psychiatric: somnolent Hosp A/P (1) Acute on chronic combined systolic and diastolic CHF, NYHA class 3 Code(s): I50.43 - ACUTE ON CHRONIC COMBINED SYSTOLIC AND DIASTOLIC HRT FAIL Status: Acute (2) Acute on chronic renal failure Code(s): N17.9 - ACUTE KIDNEY FAILURE, UNSPECIFIED; N18.9 - CHRONIC KIDNEY DISEASE, UNSPECIFIED Status: Acute Qualifiers: Chronic kidney disease stage: stage 3 (moderate) (3) COPD (chronic obstructive pulmonary disease) Status: Chronic Qualifiers: COPD type: unspecified COPD Qualified Code(s): J44.9 - Chronic obstructive pulmonary disease, unspecified (4) HTN (hypertension) Code(s): I10 - ESSENTIAL (PRIMARY) HYPERTENSION Status: Chronic Qualifiers: Hypertension type: essential hypertension Qualified Code(s): I10 - Essential (primary) hypertension (5) PVD (peripheral vascular disease) Code(s): I73.9 - PERIPHERAL VASCULAR DISEASE, UNSPECIFIED Status: Chronic (6) Tobacco dependence Code(s): F17.200 - NICOTINE DEPENDENCE, UNSPECIFIED, UNCOMPLICATED Status: Chronic (7) Alcoholic cirrhosis Code(s): K70.30 - ALCOHOLIC CIRRHOSIS OF LIVER WITHOUT ASCITES Status: Acute (8) Anemia Code(s): D64.9 - ANEMIA, UNSPECIFIED Status: Acute (9) Ascites Code(s): R18.8 - OTHER ASCITES Status: Acute (10) CAD (coronary artery disease) Code(s): I25.10 - ATHSCL HEART DISEASE OF [place] CORONARY ARTERY W/O ANG PCTRS Status: Chronic Qualifiers: Coronary Disease-Associated Artery/Lesion type: unspecified vessel or lesion type Associated angina: without angina (11) CKD (chronic kidney disease) stage 3, GFR 30-59 ml/min Status: Chronic - Plan Voiding well on Entresto, Lasix, Metolazone, Aldactone, dobutamine. Limit po fluids. Will take some time to extract the large volume of fluid. Continue to monitor lytes and renal function. Replace potassium. Renal function remains stable. Stop morphine and start po T#3.
[2019-02-09] MEDS: Acetaminophen/Codeine 30-300mg Tablet PO PRN (15:50)
--- NOTE | 2019-02-09 17:51 | PDOC.CPN ---
- Subjective Date: 02/09/19 Time: 17:50 Interval history: He has diuresed very well since yesterday. Edema has improved significantly. - Review of Systems General: denies: fever/chills, weight/appetite/sleep changes, night sweats, fatigue Respiratory: denies: cough, congestion, shortness of breath, exercise intolerance Cardiovascular: reports: edema. denies: chest pain, palpitation, paroxysmal nocturnal dyspnea, orthopnea Gastrointestinal: denies: nausea, vomiting, diarrhea, constipation, abd pain, GI bleeding Musculoskeletal: denies: pain, tenderness, stiffness, swelling, arthritis/ arthralgias Neurological: denies: numbness, syncope, seizure, weakness - Objective Allergies/Adverse Reactions: Allergies Allergy/AdvReac Type Severity Reaction Status Date / Time Penicillins Allergy Severe Anaphylaxis Verified 01/15/19 22:27 Visit Medications: Current Medications Acetaminophen (Tylenol) 650 mg PO Q4H PRN PRN Reason: Headache/Fever/Mild Pain (1-3) Acetaminophen/Codeine Phosphate (Tylenol #3) 1 tab PO Q6H PRN PRN Reason: Moderate to Severe Pain (6-10) Last Admin: 02/09/19 15:50 Dose: 1 tab Albuterol/Ipratropium (Duoneb) 3 ml NEB Q6H PRN PRN Reason: SOB &/or Wheezing Last Admin: 02/06/19 13:54 Dose: 3 ml Alogliptin Benzoate (Alogliptin) 25 mg PO DAILY [facility] Last Admin: 02/09/19 09:32 Dose: 25 mg Carvedilol (Coreg) 3.125 mg PO BID-[facility] Last Admin: 02/09/19 17:14 Dose: 3.125 mg Cyclobenzaprine HCl (Flexeril) 10 mg PO TID PRN PRN Reason: Muscle Spasm Last Admin: 02/08/19 23:57 Dose: 10 mg Dextrose/Water (Dextrose 50%) 25 gm SLOW IVP PRN PRN PRN Reason: Hypoglycemia Diazepam (Valium) 5 mg PO TID PRN PRN Reason: Anxiety Last Admin: 02/09/19 15:51 Dose: 5 mg Enoxaparin Sodium (Lovenox) 30 mg SC 0900 [facility] Last Admin: 02/09/19 09:32 Dose: 30 mg Furosemide (Lasix) 80 mg SLOW IVP 0600,1400 [facility] Last Admin: 02/09/19 13:18 Dose: 80 mg Glucagon (Glucagon) 1 mg IM PRN PRN PRN Reason: Hypoglycemia Dextrose/Water (D5w) 1,000 mls @ 0 mls/hr IV .Q0M PRN PRN Reason: Hypoglycemia Dobutamine HCl/Dextrose 500 mg (/ Device) 250 mls @ 13.82 mls/hr IVPB INF [facility]; Protocol Last Admin: 02/09/19 05:25 Dose: 250 mls Insulin Human Lispro (Humalog) 0 units SC .MILD SLIDING SCALE PRN PRN Reason: Mild Correctional Scale Ondansetron HCl (Zofran Odt) 4 mg PO Q6H PRN PRN Reason: Nausea/Vomiting Last Admin: 02/04/19 15:46 Dose: 4 mg Ondansetron HCl (Zofran) 4 mg IVP Q6H PRN PRN Reason: Nausea/Vomiting Sacubitril/Valsartan (Entresto 24 Mg-26 Mg Tablet) 1 tab PO BID [facility] Last Admin: 02/09/19 09:38 Dose: 1 tab Sodium Chloride (Flush - Normal Saline) 10 ml IVF Q12HR [facility] Last Admin: 02/09/19 09:34 Dose: Not Given Sodium Chloride (Flush - Normal Saline) 10 ml IVF PRN PRN PRN Reason: Saline Flush Last Admin: 02/05/19 14:00 Dose: 10 ml Spironolactone (Aldactone) 25 mg PO QAM-WM [facility] Last Admin: 02/09/19 07:53 Dose: 25 mg Vital Signs & Weight: Vital Signs Temp Pulse Resp BP BP Pulse Ox 02/09/19 15:39 97.9 F 110 H 16 115/56 L 96 02/09/19 11:24 97.3 F L 80 18 136/72 95 02/09/19 08:14 97 02/09/19 07:48 97.9 F 95 19 116/56 L 97 Weight 190 lb 12.8 oz - Physical Exam General: alert & oriented x3 HEENT: mucus membranes moist Neck: supple neck Cardiac: regular rate and rhythm Lungs: clear to auscultation Neuro: grossly intact Abdomen: active bowel sounds Extremities: 1+ LE edema Musculoskeletal: no pain - Labs Result Diagrams: 02/04/19 03:58 02/09/19 09:43 Troponin/CKMB CK-MB (CK-2) 3.6 ng/mL (0-6.6) 02/02/19 12:05 Troponin I 0.108 ng/mL (< 0.028) H 02/02/19 18:10 - Telemetry Sinus rhythms and dysrhythmias: sinus rhythm - Assessment/Plan Assessment/Plan: 1. Acute on chronic systolic heart failure. 2. Dilated CM EF at 30-35% 3. Hx. of bleeding esophageal varices. 4. Hx of cirrhosis. 5. CAD s/p PCI to RCA 2015 6. PVD, s/p Left CEA 7. Stage 3 CKD 8. Type 2 Dm 9. High degree AV block while sleeping likely sleep apnea. PLAN: - Continue IV lasix - Continue Dobutamine gtt. - Will back off on metolazone and wean dobutamine down to 2.5 mg overnight and off tomorrow at noon.
[2019-02-09] MEDS ORDERED: DOBUTamine 500 mg/250 ml 500 MG in Premix Bag 1 BAG IVPB SCH (17:52)
[2019-02-09] MEDS ORDERED: Potassium Chloride 20 MEQ TAB PO SCH (18:30)
[2019-02-10 03:53] LABS: Anion Gap 11 mmol/L (10-20); BUN (Urea Nitrogen) 23 mg/dL (8.4-25.7); Calc. Creatinine Clearance 62 mL/min (70-130); Calcium 9.2 mg/dL (7.8-10.44); Carbon Dioxide 35 mmol/L (23-31); Chloride 92 mmol/L (98-107); Estimated GFR-MDRD 47; Glucose 138 mg/dL (80-115); Potassium 3.3 mmol/L (3.5-5.1); Sodium 135 mmol/L (136-145)
[2019-02-10] MEDS: Acetaminophen/Codeine 30-300mg Tablet PO PRN (06:36)
[2019-02-10] MEDS: Furosemide 100 MG/10 ML VIAL SLOW IVP SCH ×2 (06:39→10:40)
[2019-02-10 08:19] LABS: #Eosinphils 0.1 thou/uL (0.0-0.7); #Lymphocytes 0.7 thou/uL (1.20-3.40); #Monocytes 0.4 thou/uL (0.11-0.59); #Neutrophils 2.2 thou/uL (1.40-6.50); %Basophils 0.5 % (0.0-1.0); %Eosinophils 2.1 % (0.0-10.0); %Lymphocytes 21.4 % (21.0-51.0); %Monocytes 12.4 % (0.0-10.0); %Neutrophils 63.6 % (42.0-75.0); Hemoglobin 8.7 g/dL (14.0-18.0); Mean Corpuscular Hemoglobin 24.8 pg (27.0-31.0); Mean Corpuscular Volume 82.9 fL (78.0-98.0); Mean Platelet Volume 8.6 fL (7.4-10.4); Platelet Count 120 thou/uL (130-400); RBC Distribution Width 17.4 % (11.5-14.5); White Blood Cell (WBC) Count 3.4 thou/uL (4.8-10.8)
[2019-02-10] MEDS: Spironolactone 25 MG TAB PO SCH (08:53)
[2019-02-10] MEDS: Enoxaparin Sodium 30 MG/0.3 ML SYRINGE SC SCH (10:24)
[2019-02-10] MEDS: Carvedilol 3.125 MG TAB PO SCH ×2 (10:24→16:31)
[2019-02-10] MEDS: Alogliptin 25 MG TAB PO SCH (10:24)
[2019-02-10 13:38] VITALS: BMI 28.5
[2019-02-10] MEDS: Diazepam 5 MG TAB PO PRN (16:31)
--- NOTE | 2019-02-10 17:04 | PDOC.CPN ---
- Subjective Date: 02/10/19 Time: 17:02 Interval history: He had hypotension this morning and had to skip BP meds. Could not wean from dobutamine. - Review of Systems General: denies: fever/chills, weight/appetite/sleep changes, night sweats, fatigue Respiratory: denies: cough, congestion, shortness of breath, exercise intolerance Cardiovascular: reports: edema. denies: chest pain, palpitation, paroxysmal nocturnal dyspnea, orthopnea Gastrointestinal: denies: nausea, vomiting, diarrhea, constipation, abd pain, GI bleeding Musculoskeletal: denies: pain, tenderness, stiffness, swelling, arthritis/ arthralgias Neurological: denies: numbness, syncope, seizure, weakness - Objective Allergies/Adverse Reactions: Allergies Allergy/AdvReac Type Severity Reaction Status Date / Time Penicillins Allergy Severe Anaphylaxis Verified 01/15/19 22:27 Visit Medications: Current Medications Acetaminophen (Tylenol) 650 mg PO Q4H PRN PRN Reason: Headache/Fever/Mild Pain (1-3) Acetaminophen/Codeine Phosphate (Tylenol #3) 1 tab PO Q6H PRN PRN Reason: Moderate to Severe Pain (6-10) Last Admin: 02/10/19 06:36 Dose: 1 tab Albuterol/Ipratropium (Duoneb) 3 ml NEB Q6H PRN PRN Reason: SOB &/or Wheezing Last Admin: 02/06/19 13:54 Dose: 3 ml Alogliptin Benzoate (Alogliptin) 25 mg PO DAILY [facility] Last Admin: 02/10/19 10:24 Dose: 25 mg Carvedilol (Coreg) 3.125 mg PO BID-[facility] Last Admin: 02/10/19 16:31 Dose: 3.125 mg Cyclobenzaprine HCl (Flexeril) 10 mg PO TID PRN PRN Reason: Muscle Spasm Last Admin: 02/08/19 23:57 Dose: 10 mg Dextrose/Water (Dextrose 50%) 25 gm SLOW IVP PRN PRN PRN Reason: Hypoglycemia Diazepam (Valium) 5 mg PO TID PRN PRN Reason: Anxiety Last Admin: 02/10/19 16:31 Dose: 5 mg Enoxaparin Sodium (Lovenox) 30 mg SC 0900 [facility] Last Admin: 02/10/19 10:24 Dose: 30 mg Furosemide (Lasix) 80 mg SLOW IVP 0600,1400 [facility] Last Admin: 02/10/19 10:40 Dose: Not Given Glucagon (Glucagon) 1 mg IM PRN PRN PRN Reason: Hypoglycemia Dextrose/Water (D5w) 1,000 mls @ 0 mls/hr IV .Q0M PRN PRN Reason: Hypoglycemia Insulin Human Lispro (Humalog) 0 units SC .MILD SLIDING SCALE PRN PRN Reason: Mild Correctional Scale Ondansetron HCl (Zofran Odt) 4 mg PO Q6H PRN PRN Reason: Nausea/Vomiting Last Admin: 02/04/19 15:46 Dose: 4 mg Ondansetron HCl (Zofran) 4 mg IVP Q6H PRN PRN Reason: Nausea/Vomiting Sacubitril/Valsartan (Entresto 24 Mg-26 Mg Tablet) 1 tab PO BID [facility] Last Admin: 02/10/19 10:39 Dose: Not Given Sodium Chloride (Flush - Normal Saline) 10 ml IVF Q12HR [facility] Last Admin: 02/10/19 10:28 Dose: 10 ml Sodium Chloride (Flush - Normal Saline) 10 ml IVF PRN PRN PRN Reason: Saline Flush Last Admin: 02/10/19 06:39 Dose: 10 ml Spironolactone (Aldactone) 25 mg PO QAM-WM [facility] Last Admin: 02/10/19 08:53 Dose: Not Given Vital Signs & Weight: Vital Signs Temp Pulse Resp BP BP Pulse Ox 02/10/19 16:00 97.6 F 97 16 96/54 L 95 02/10/19 11:19 97.8 F 92 16 95/52 L 95 02/10/19 07:35 97.8 F 88 18 100/55 L 93 L Admit Weight 209 lb 8 oz Weight 182 lb 6.4 oz - Physical Exam General: alert & oriented x3 HEENT: mucus membranes moist Neck: supple neck, midline trachea Cardiac: regular rate and rhythm, no murmur Lungs: clear to auscultation Neuro: grossly intact Abdomen: active bowel sounds Extremities: 1+ LE edema Skin: clear Musculoskeletal: no pain - Labs Result Diagrams: 02/10/19 07:59 02/10/19 03:24 Troponin/CKMB CK-MB (CK-2) 3.6 ng/mL (0-6.6) 02/02/19 12:05 Troponin I 0.108 ng/mL (< 0.028) H 02/02/19 18:10 - Telemetry Sinus rhythms and dysrhythmias: sinus rhythm - Assessment/Plan Assessment/Plan: 1. Acute on chronic systolic heart failure. 2. Dilated CM EF at 30-35% 3. Hx. of bleeding esophageal varices. 4. Hx of cirrhosis. 5. CAD s/p PCI to RCA 2016 6. PVD, s/p Left CEA 7. Stage 3 CKD 8. Type 2 Dm 9. High degree AV block while sleeping likely sleep apnea. PLAN: - Continue IV lasix - Continue Dobutamine gtt, will increase dose to 5. - If kidney function remains stable will plan on doing LHC on Thursday. - Critical Care Time Critical care time (mins): 30
--- NOTE | 2019-02-10 20:52 | PDOC.HOSPP ---
- Subjective Subjective: Still doing ok. No specific complaints. - Objective Vital Signs & Weight: Vital Signs (12 hours) Temp Pulse Resp BP BP Pulse Ox 02/10/19 19:10 98 F 86 20 102/56 L 02/10/19 16:00 97.6 F 97 16 96/54 L 95 02/10/19 11:19 97.8 F 92 16 95/52 L 95 Weight Admit Weight 209 lb 8 oz Weight 182 lb 6.4 oz I&O: 02/09/19 02/10/19 02/11/19 06:59 06:59 06:59 Intake Total 1066 877.4 360 Output Total 4115 4740 2875 [facility]3049 -3862.6 -2515 Result Diagrams: 02/10/19 07:59 02/10/19 03:24 Additional Labs: Accuchecks 02/10/19 02/10/19 02/10/19 20:28 16:35 11:56 POC Glucose 163 H 115 H 157 H 02/10/19 02/09/19 05:57 20:40 POC Glucose 135 H 146 H Hospitalist ROS - Medication Medications: Active Medications Generic Name Dose Route Start Last Admin Trade Name Freq PRN Reason Stop Dose Admin Acetaminophen/Codeine Phosphate 1 tab 02/09/19 14:24 02/10/19 06:36 Tylenol #3 PO 1 tab Q6H PRN Administration Moderate to Severe Pain (6-10) Albuterol/Ipratropium 3 ml 02/03/19 00:44 02/06/19 13:54 Duoneb NEB 3 ml Q6H PRN Administration SOB &/or Wheezing Alogliptin Benzoate 25 mg 02/03/19 09:00 02/10/19 10:24 Alogliptin PO 25 mg DAILY [facility] Administration Carvedilol 3.125 mg 02/03/19 17:00 02/10/19 16:31 Coreg PO 3.125 mg BID-WM [facility] Administration Cyclobenzaprine HCl 10 mg 02/03/19 08:35 02/08/19 23:57 Flexeril PO 10 mg TID PRN Administration Muscle Spasm Diazepam 5 mg 02/05/19 07:30 02/10/19 16:31 Valium PO 5 mg TID PRN Administration Anxiety Enoxaparin Sodium 30 mg 02/03/19 09:00 02/10/19 10:24 Lovenox SC 30 mg 0900 [facility] Administration Furosemide 80 mg 02/07/19 14:00 02/10/19 10:40 Lasix SLOW IVP Not Given 0600,1400 [facility] Ondansetron HCl 4 mg 02/03/19 17:00 02/04/19 15:46 Zofran Odt PO 4 mg Q6H PRN Administration Nausea/Vomiting Sacubitril/Valsartan 1 tab 02/04/19 21:00 02/10/19 10:39 Entresto 24 Mg-26 Mg Tablet PO Not Given BID [facility] Sodium Chloride 10 ml 02/03/19 09:00 02/10/19 10:28 Flush - Normal Saline IVF 10 ml Q12HR [facility] Administration Sodium Chloride 10 ml 02/03/19 08:52 02/10/19 06:39 Flush - Normal Saline IVF 10 ml PRN PRN Administration Saline Flush Spironolactone 25 mg 02/06/19 08:00 02/10/19 08:53 Aldactone PO Not Given QA-[facility] - Exam General Appearance: NAD, awake alert Heart: RRR, no murmur, no gallops, no rubs, normal peripheral pulses Respiratory: CTAB, no wheezes, no rales, no ronchi, normal chest expansion, no tachypnea, normal percussion Gastrointestinal: soft, non-tender, non-distended, normal bowel sounds, no palpable masses, no hepatomegaly, no splenomegaly, no bruit Extremities: 1+ LE edema Neurological: cranial nerve grossly intact, normal sensation to touch, no weakness, no focal deficits, no new deficit Hosp A/P (1) Acute on chronic combined systolic and diastolic CHF, NYHA class 3 Code(s): I50.43 - ACUTE ON CHRONIC COMBINED SYSTOLIC AND DIASTOLIC HRT FAIL Status: Acute (2) Acute on chronic renal failure Code(s): N17.9 - ACUTE KIDNEY FAILURE, UNSPECIFIED; N18.9 - CHRONIC KIDNEY DISEASE, UNSPECIFIED Status: Acute Qualifiers: Chronic kidney disease stage: stage 3 (moderate) (3) COPD (chronic obstructive pulmonary disease) Status: Chronic Qualifiers: COPD type: unspecified COPD Qualified Code(s): J44.9 - Chronic obstructive pulmonary disease, unspecified (4) HTN (hypertension) Code(s): I10 - ESSENTIAL (PRIMARY) HYPERTENSION Status: Chronic Qualifiers: Hypertension type: essential hypertension Qualified Code(s): I10 - Essential (primary) hypertension (5) PVD (peripheral vascular disease) Code(s): I73.9 - PERIPHERAL VASCULAR DISEASE, UNSPECIFIED Status: Chronic (6) Tobacco dependence Code(s): F17.200 - NICOTINE DEPENDENCE, UNSPECIFIED, UNCOMPLICATED Status: Chronic (7) Alcoholic cirrhosis Code(s): K70.30 - ALCOHOLIC CIRRHOSIS OF LIVER WITHOUT ASCITES Status: Acute (8) Anemia Code(s): D64.9 - ANEMIA, UNSPECIFIED Status: Acute (9) Ascites Code(s): R18.8 - OTHER ASCITES Status: Acute (10) CAD (coronary artery disease) Code(s): I25.10 - ATHSCL HEART DISEASE OF [place] CORONARY ARTERY W/O ANG PCTRS Status: Chronic Qualifiers: Coronary Disease-Associated Artery/Lesion type: unspecified vessel or lesion type Associated angina: without angina (11) CKD (chronic kidney disease) stage 3, GFR 30-59 ml/min Status: Chronic - Plan Voiding well on Entresto, Lasix, Metolazone, Aldactone, dobutamine. Limit po fluids. Continue to monitor lytes and renal function. Replace potassium Renal function remains stable. Tyelonol #3 prn pain. Cards following. BP running low. Holding meds as needed.
[2019-02-11] MEDS: Cyclobenzaprine 10 MG TAB PO PRN ×2 (00:23→20:47)
[2019-02-11] MEDS: Diazepam 5 MG TAB PO PRN ×2 (00:24→20:47)
[2019-02-11 05:49] LABS: Anion Gap 11 mmol/L (10-20); BUN (Urea Nitrogen) 19 mg/dL (8.4-25.7); Calc. Creatinine Clearance 59 mL/min (70-130); Calcium 9.5 mg/dL (7.8-10.44); Carbon Dioxide 37 mmol/L (23-31); Chloride 92 mmol/L (98-107); Estimated GFR-MDRD 47; Glucose 129 mg/dL (80-115); Potassium 3.1 mmol/L (3.5-5.1); Sodium 137 mmol/L (136-145)
[2019-02-11] MEDS: Furosemide 100 MG/10 ML VIAL SLOW IVP SCH ×2 (06:11→13:25)
[2019-02-11] MEDS ORDERED: Potassium Chloride 20 MEQ TAB PO SCH (07:30)
[2019-02-11] MEDS: Acetaminophen/Codeine 30-300mg Tablet PO PRN (08:54)
[2019-02-11] MEDS: Carvedilol 3.125 MG TAB PO SCH ×2 (08:54→16:44)
[2019-02-11] MEDS: Enoxaparin Sodium 30 MG/0.3 ML SYRINGE SC SCH (08:55)
[2019-02-11] MEDS: Spironolactone 25 MG TAB PO SCH (09:00)
[2019-02-11] MEDS: Alogliptin 25 MG TAB PO SCH (09:22)
[2019-02-11] MEDS: DOBUTamine 500 mg/250 ml 250 ML IVPB SCH (13:30)
[2019-02-11] MEDS ORDERED: Sodium Chloride 0.9% 250 ML 250 ML IVPB SCH (16:30)
--- NOTE | 2019-02-11 16:52 | PDOC.HOSPP ---
- Subjective Subjective: Doing ok in general. Has been a little more lethargic the past couple of days. He thinks it is more related to the lower BP. - Objective Vital Signs & Weight: Vital Signs (12 hours) Temp Pulse Resp BP Pulse Ox 02/11/19 15:15 97.3 F L 88 16 96/53 L 93 L 02/11/19 12:00 98.6 F 86 16 108/68 95 02/11/19 07:50 98.1 F 89 17 104/64 95 Weight Admit Weight 209 lb 8 oz Weight 164 lb I&O: 02/10/19 02/11/19 02/12/19 06:59 06:59 06:59 Intake Total 877.4 670 Output Total 5158 2980 Balance -4342.6 -5770 Result Diagrams: 02/10/19 07:59 02/11/19 05:02 Additional Labs: Accuchecks 02/11/19 02/11/19 02/10/19 10:36 05:12 20:28 POC Glucose 245 H 145 H 163 H 02/10/19 16:35 POC Glucose 115 H Hospitalist ROS - Medication Medications: Active Medications Generic Name Dose Route Start Last Admin Trade Name Freq PRN Reason Stop Dose Admin Acetaminophen/Codeine Phosphate 1 tab 02/09/19 14:24 02/11/19 08:54 Tylenol #3 PO 1 tab Q6H PRN Administration Moderate to Severe Pain (6-10) Albuterol/Ipratropium 3 ml 02/03/19 00:44 02/06/19 13:54 Duoneb NEB 3 ml Q6H PRN Administration SOB &/or Wheezing Alogliptin Benzoate 25 mg 02/03/19 09:00 02/11/19 09:22 Alogliptin PO 25 mg DAILY [facility] Administration Carvedilol 3.125 mg 02/03/19 17:00 02/11/19 16:44 Coreg PO Not Given BID- [facility] Cyclobenzaprine HCl 10 mg 02/03/19 08:35 02/11/19 00:23 Flexeril PO 10 mg TID PRN Administration Muscle Spasm Diazepam 5 mg 02/05/19 07:30 02/11/19 00:24 Valium PO 5 mg TID PRN Administration Anxiety Enoxaparin Sodium 30 mg 02/03/19 09:00 02/11/19 08:55 Lovenox SC 30 mg 0900 [facility] Administration Dobutamine HCl/Dextrose 250 mls @ 11.158 mls/hr 02/11/19 13:30 02/11/19 13:30 Dobutamine 500 Mg/250 Ml IVPB 250 mls INF [facility] Administration Protocol 5 MCG/KG/MIN Sodium Chloride 250 mls @ 999 mls/hr 02/11/19 16:30 02/11/19 16:26 Normal Saline 0.9% 250 Ml Bag IVPB 02/11/19 18:00 250 mls NOW [facility] Administration Ondansetron HCl 4 mg 02/03/19 17:00 02/04/19 15:46 Zofran Odt PO 4 mg Q6H PRN Administration Nausea/Vomiting Sacubitril/Valsartan 1 tab 02/04/19 21:00 02/11/19 09:00 Entresto 24 Mg-26 Mg Tablet PO Not Given BID [facility] Sodium Chloride 10 ml 02/03/19 09:00 02/11/19 08:55 Flush - Normal Saline IVF 10 ml Q12HR [facility] Administration Sodium Chloride 10 ml 02/03/19 08:52 02/10/19 06:39 Flush - Normal Saline IVF 10 ml PRN PRN Administration Saline Flush Spironolactone 25 mg 02/06/19 08:00 02/11/19 09:00 Aldactone PO Not Given QAM-WM [facility] - Exam General Appearance: NAD, awake alert Heart: RRR, no murmur, no gallops, no rubs, normal peripheral pulses Respiratory: CTAB, no wheezes, no rales, no ronchi, normal chest expansion, no tachypnea, normal percussion Gastrointestinal: soft, non-tender, normal bowel sounds, distended (Much less so.) Extremities: 1+ LE edema Skin: normal turgor Musculoskeletal: normal tone, normal strength, no muscle wasting Psychiatric: normal affect, lethargic Hosp A/P (1) Acute on chronic combined systolic and diastolic CHF, NYHA class 3 Code(s): I50.43 - ACUTE ON CHRONIC COMBINED SYSTOLIC AND DIASTOLIC HRT FAIL Status: Acute (2) Acute on chronic renal failure Code(s): N17.9 - ACUTE KIDNEY FAILURE, UNSPECIFIED; N18.9 - CHRONIC KIDNEY DISEASE, UNSPECIFIED Status: Acute Qualifiers: Chronic kidney disease stage: stage 3 (moderate) (3) COPD (chronic obstructive pulmonary disease) Status: Chronic Qualifiers: COPD type: unspecified COPD Qualified Code(s): J44.9 - Chronic obstructive pulmonary disease, unspecified (4) HTN (hypertension) Code(s): I10 - ESSENTIAL (PRIMARY) HYPERTENSION Status: Chronic Qualifiers: Hypertension type: essential hypertension Qualified Code(s): I10 - Essential (primary) hypertension (5) PVD (peripheral vascular disease) Code(s): I73.9 - PERIPHERAL VASCULAR DISEASE, UNSPECIFIED Status: Chronic (6) Tobacco dependence Code(s): F17.200 - NICOTINE DEPENDENCE, UNSPECIFIED, UNCOMPLICATED Status: Chronic (7) Alcoholic cirrhosis Code(s): K70.30 - ALCOHOLIC CIRRHOSIS OF LIVER WITHOUT ASCITES Status: Acute (8) Anemia Code(s): D64.9 - ANEMIA, UNSPECIFIED Status: Acute (9) Ascites Code(s): R18.8 - OTHER ASCITES Status: Acute (10) CAD (coronary artery disease) Code(s): I25.10 - ATHSCL HEART DISEASE OF [place] CORONARY ARTERY W/O ANG PCTRS Status: Chronic Qualifiers: Coronary Disease-Associated Artery/Lesion type: unspecified vessel or lesion type Associated angina: without angina (11) CKD (chronic kidney disease) stage 3, GFR 30-59 ml/min Status: Chronic - Plan Voiding well on Entresto, Lasix, Metolazone, Aldactone, dobutamine. Limit po fluids. Discussed with Dr. Elliott. He has lost 45 pounds of fluid. BP has been borderline low. He will pull back on the Lasix and start lower oral dose on Thursday. Continue to monitor lytes and renal function. Replace potassium Renal function remains stable. Tyelonol #3 prn pain.
--- NOTE | 2019-02-11 17:15 | PDOC.CPN ---
- Subjective Date: 02/11/19 Time: 17:13 Interval history: His diuresis has slowed down but his edema is significantly better and has lost a lot of fluid weight. He has been hypotensive likely overdiuresis. - Review of Systems General: denies: fever/chills, weight/appetite/sleep changes, night sweats, fatigue Respiratory: denies: cough, congestion, shortness of breath, exercise intolerance Cardiovascular: denies: chest pain, palpitation, edema, paroxysmal nocturnal dyspnea, orthopnea Gastrointestinal: denies: nausea, vomiting, diarrhea, constipation, abd pain, GI bleeding Musculoskeletal: denies: pain, tenderness, stiffness, swelling, arthritis/ arthralgias Neurological: denies: numbness, syncope, seizure, weakness - Objective Allergies/Adverse Reactions: Allergies Allergy/AdvReac Type Severity Reaction Status Date / Time Penicillins Allergy Severe Anaphylaxis Verified 01/15/19 22:27 Visit Medications: Current Medications Acetaminophen (Tylenol) 650 mg PO Q4H PRN PRN Reason: Headache/Fever/Mild Pain (1-3) Acetaminophen/Codeine Phosphate (Tylenol #3) 1 tab PO Q6H PRN PRN Reason: Moderate to Severe Pain (6-10) Last Admin: 02/11/19 08:54 Dose: 1 tab Albuterol/Ipratropium (Duoneb) 3 ml NEB Q6H PRN PRN Reason: SOB &/or Wheezing Last Admin: 02/06/19 13:54 Dose: 3 ml Alogliptin Benzoate (Alogliptin) 25 mg PO DAILY [facility] Last Admin: 02/11/19 09:22 Dose: 25 mg Carvedilol (Coreg) 3.125 mg PO BID-[facility] Last Admin: 02/11/19 16:44 Dose: Not Given Cyclobenzaprine HCl (Flexeril) 10 mg PO TID PRN PRN Reason: Muscle Spasm Last Admin: 02/11/19 00:23 Dose: 10 mg Dextrose/Water (Dextrose 50%) 25 gm SLOW IVP PRN PRN PRN Reason: Hypoglycemia Diazepam (Valium) 5 mg PO TID PRN PRN Reason: Anxiety Last Admin: 02/11/19 00:24 Dose: 5 mg Enoxaparin Sodium (Lovenox) 30 mg SC 0900 [facility] Last Admin: 02/11/19 08:55 Dose: 30 mg Glucagon (Glucagon) 1 mg IM PRN PRN PRN Reason: Hypoglycemia Dextrose/Water (D5w) 1,000 mls @ 0 mls/hr IV .Q0M PRN PRN Reason: Hypoglycemia Dobutamine HCl/Dextrose (Dobutamine 500 Mg/250 Ml) 250 mls @ 11.158 mls/hr IVPB INF [facility]; Protocol Last Admin: 02/11/19 13:30 Dose: 250 mls Sodium Chloride (Normal Saline 0.9% 250 Ml Bag) 250 mls @ 999 mls/hr IVPB NOW [facility] Stop: 02/11/19 18:00 Last Admin: 02/11/19 16:26 Dose: 250 mls Insulin Human Lispro (Humalog) 0 units SC .MILD SLIDING SCALE PRN PRN Reason: Mild Correctional Scale Ondansetron HCl (Zofran Odt) 4 mg PO Q6H PRN PRN Reason: Nausea/Vomiting Last Admin: 02/04/19 15:46 Dose: 4 mg Ondansetron HCl (Zofran) 4 mg IVP Q6H PRN PRN Reason: Nausea/Vomiting Sacubitril/Valsartan (Entresto 24 Mg-26 Mg Tablet) 1 tab PO BID [facility] Last Admin: 02/11/19 09:00 Dose: Not Given Sodium Chloride (Flush - Normal Saline) 10 ml IVF Q12HR [facility] Last Admin: 02/11/19 08:55 Dose: 10 ml Sodium Chloride (Flush - Normal Saline) 10 ml IVF PRN PRN PRN Reason: Saline Flush Last Admin: 02/10/19 06:39 Dose: 10 ml Spironolactone (Aldactone) 25 mg PO QAM-WM [facility] Last Admin: 02/11/19 09:00 Dose: Not Given Vital Signs & Weight: Vital Signs Temp Pulse Resp BP Pulse Ox 02/11/19 15:15 97.3 F L 88 16 96/53 L 93 L 02/11/19 12:00 98.6 F 86 16 108/68 95 02/11/19 07:50 98.1 F 89 17 104/64 95 Admit Weight 209 lb 8 oz Weight 164 lb - Physical Exam General: alert & oriented x3 HEENT: mucus membranes moist Neck: supple neck Cardiac: regular rate and rhythm Lungs: clear to auscultation, normal breath sounds Neuro: grossly intact Abdomen: active bowel sounds, soft, non-tender Extremities: no edema Skin: clear Musculoskeletal: no pain - Labs Result Diagrams: 02/10/19 07:59 02/11/19 05:02 Troponin/CKMB CK-MB (CK-2) 3.6 ng/mL (0-6.6) 02/02/19 12:05 Troponin I 0.108 ng/mL (< 0.028) H 02/02/19 18:10 - Telemetry Sinus rhythms and dysrhythmias: sinus rhythm - Assessment/Plan Assessment/Plan: 1. Acute on chronic systolic heart failure. 2. Dilated CM EF at 30-35% 3. Hx. of bleeding esophageal varices. 4. Hx of cirrhosis. 5. CAD s/p PCI to RCA 2015 6. PVD, s/p Left CEA 7. Stage 3 CKD 8. Type 2 Dm 9. High degree AV block while sleeping likely sleep apnea. PLAN: - Will hold IV lasix and will give 250 ml IV bolus. - Continue Dobutamine gtt at 5. - If kidney function remains stable will plan on doing LHC on Thursday.
[2019-02-12] MEDS: Acetaminophen/Codeine 30-300mg Tablet PO PRN ×2 (02:41→17:41)
[2019-02-12] MEDS ORDERED: Potassium Chloride 20 MEQ TAB PO SCH ×2 (08:15→15:00)
[2019-02-12] MEDS: Carvedilol 3.125 MG TAB PO SCH ×2 (08:32→17:39)
[2019-02-12] MEDS: Spironolactone 25 MG TAB PO SCH (08:32)
[2019-02-12] MEDS: Alogliptin 25 MG TAB PO SCH (09:22)
[2019-02-12 09:40] LABS: #Eosinphils 0.1 thou/uL (0.0-0.7); #Lymphocytes 0.7 thou/uL (1.20-3.40); #Monocytes 0.3 thou/uL (0.11-0.59); #Neutrophils 1.7 thou/uL (1.40-6.50); %Basophils 0.6 % (0.0-1.0); %Eosinophils 2.6 % (0.0-10.0); %Lymphocytes 23.5 % (21.0-51.0); %Monocytes 10.2 % (0.0-10.0); Hemoglobin 8.3 g/dL (14.0-18.0); Mean Corpuscular HGB CONC 30.9 g/dL (32.0-36.0); Mean Corpuscular Hemoglobin 25.5 pg (27.0-31.0); Mean Corpuscular Volume 82.7 fL (78.0-98.0); Mean Platelet Volume 8.5 fL (7.4-10.4); Platelet Count 111 thou/uL (130-400); RBC Distribution Width 17.3 % (11.5-14.5); Red Blood Cell (RBC) Count 3.26 mill/uL (4.70-6.10); White Blood Cell (WBC) Count 2.8 thou/uL (4.8-10.8)
[2019-02-12 09:47] LABS: Anion Gap 15 mmol/L (10-20); BUN (Urea Nitrogen) 15 mg/dL (8.4-25.7); Calc. Creatinine Clearance 55 mL/min (70-130); Carbon Dioxide 32 mmol/L (23-31); Chloride 92 mmol/L (98-107); Estimated GFR-MDRD 49; Glucose 178 mg/dL (80-115); Sodium 136 mmol/L (136-145)
[2019-02-12] MEDS: Enoxaparin Sodium 30 MG/0.3 ML SYRINGE SC SCH (10:27)
--- NOTE | 2019-02-12 10:47 | PDOC.HOSPP ---
- Subjective Encounter Date: 02/12/19 Encounter Time: 10:45 Subjective: 63 y/o male with cardiomyopathy with EF 30-35, CHF, cirrhosis, DM, CKD 3, COPD, PAD and others admitted with worsening edema and SOB. Treated with dobutamine and lasix with improvement. Developed hypotension necessitating NS bolus and discontinuation of lasix. LHC is planned on thursday. No new problem. - Objective Vital Signs & Weight: Vital Signs (12 hours) Temp Pulse Resp BP Pulse Ox 02/12/19 07:46 97.4 F L 97 18 101/51 L 95 02/12/19 07:32 93 L 02/12/19 03:42 98.7 F 92 18 121/56 L 93 L Weight Admit Weight 209 lb 8 oz Weight 164 lb I&O: 02/11/19 02/12/19 02/13/19 06:59 06:59 06:59 Intake Total 670 1594 Output Total 4550 3090 Balance -2520 -9860 Result Diagrams: 02/12/19 08:51 02/12/19 08:51 Additional Labs: Accuchecks 02/12/19 02/11/19 02/11/19 05:34 20:25 16:41 POC Glucose 143 H 188 H 151 H 02/11/19 10:36 POC Glucose 245 H Hospitalist ROS - Medication Medications: Active Medications Generic Name Dose Route Start Last Admin Trade Name Freq PRN Reason Stop Dose Admin Acetaminophen/Codeine Phosphate 1 tab 02/09/19 14:24 02/12/19 02:41 Tylenol #3 PO 1 tab Q6H PRN Administration Moderate to Severe Pain (6-10) Albuterol/Ipratropium 3 ml 02/03/19 00:44 02/06/19 13:54 Duoneb NEB 3 ml Q6H PRN Administration SOB &/or Wheezing Alogliptin Benzoate 25 mg 02/03/19 09:00 02/12/19 09:22 Alogliptin PO 25 mg DAILY YANNICK Administration Carvedilol 3.125 mg 02/03/19 17:00 02/12/19 08:32 Coreg PO Not Given BID-WM YANNICK Cyclobenzaprine HCl 10 mg 02/03/19 08:35 02/11/19 20:47 Flexeril PO 10 mg TID PRN Administration Muscle Spasm Diazepam 5 mg 02/05/19 07:30 02/11/19 20:47 Valium PO 5 mg TID PRN Administration Anxiety Enoxaparin Sodium 30 mg 02/03/19 09:00 02/12/19 10:27 Lovenox SC 30 mg 0900 YANNICK Administration Dobutamine HCl/Dextrose 250 mls @ 11.158 mls/hr 02/11/19 13:30 02/11/19 13:30 Dobutamine 500 Mg/250 Ml IVPB 250 mls INF YANNICK Administration Protocol 5 MCG/KG/MIN Ondansetron HCl 4 mg 02/03/19 17:00 02/04/19 15:46 Zofran Odt PO 4 mg Q6H PRN Administration Nausea/Vomiting Potassium Chloride 40 meq 02/12/19 10:30 02/12/19 10:27 Klor-Con PO 02/12/19 12:00 40 meq 1030 YANNICK Administration Sacubitril/Valsartan 1 tab 02/04/19 21:00 02/12/19 08:32 Entresto 24 Mg-26 Mg Tablet PO Not Given BID YANNICK Sodium Chloride 10 ml 02/03/19 09:00 02/12/19 09:23 Flush - Normal Saline IVF Not Given Q12HR YANNICK Sodium Chloride 10 ml 02/03/19 08:52 02/10/19 06:39 Flush - Normal Saline IVF 10 ml PRN PRN Administration Saline Flush Spironolactone 25 mg 02/06/19 08:00 02/12/19 08:32 Aldactone PO Not Given QAM-WM YANNICK - Exam General Appearance: awake alert Eye: anicteric sclera ENT: normocephalic atraumatic Neck: supple, no JVD Heart: RRR Respiratory: no wheezes, no rales, no ronchi, normal chest expansion, no tachypnea Gastrointestinal: soft, non-tender, non-distended, normal bowel sounds Extremities: no cyanosis, no edema Neurological: cranial nerve grossly intact, no focal deficits Psychiatric: A&O x 3 Hosp A/P (1) Acute on chronic combined systolic and diastolic CHF, NYHA class 3 Code(s): I50.43 - ACUTE ON CHRONIC COMBINED SYSTOLIC AND DIASTOLIC HRT FAIL Status: Acute (2) Hypomagnesemia Code(s): E83.42 - HYPOMAGNESEMIA Status: Acute (3) Alcoholic cirrhosis Code(s): K70.30 - ALCOHOLIC CIRRHOSIS OF LIVER WITHOUT ASCITES Status: Acute (4) AV block, 3rd degree Code(s): I44.2 - ATRIOVENTRICULAR BLOCK, COMPLETE Status: Acute (5) Hypokalemia Code(s): E87.6 - HYPOKALEMIA Status: Acute (6) CKD (chronic kidney disease) stage 3, GFR 30-59 ml/min Status: Chronic (7) COPD (chronic obstructive pulmonary disease) Status: Chronic Qualifiers: COPD type: unspecified COPD Qualified Code(s): J44.9 - Chronic obstructive pulmonary disease, unspecified (8) HTN (hypertension) Code(s): I10 - ESSENTIAL (PRIMARY) HYPERTENSION Status: Chronic Qualifiers: Hypertension type: essential hypertension Qualified Code(s): I10 - Essential (primary) hypertension (9) PVD (peripheral vascular disease) Code(s): I73.9 - PERIPHERAL VASCULAR DISEASE, UNSPECIFIED Status: Chronic - Plan Replete serum potassium and magnesium Heart failure and AV block treatment as per cardiology. Monitor vitals and renal function. Continue other treatments.
[2019-02-12] MEDS ORDERED: Magnesium Sulfate 4 GM in Sodium Chloride 0.9% 250 ML 250 ML IVPB SCH (11:30)
[2019-02-12] MEDS: DOBUTamine 500 mg/250 ml 250 ML IVPB SCH (12:49)
[2019-02-12] MEDS: Diazepam 5 MG TAB PO PRN ×2 (13:03→23:07)
--- NOTE | 2019-02-12 17:58 | PDOC.CPN ---
- Subjective Date: 02/12/19 Time: 17:57 Interval history: He is doing much better. BP stable now. - Review of Systems General: denies: fever/chills, weight/appetite/sleep changes, night sweats, fatigue Respiratory: denies: cough, congestion, shortness of breath, exercise intolerance Cardiovascular: denies: chest pain, palpitation, edema, paroxysmal nocturnal dyspnea, orthopnea Gastrointestinal: denies: nausea, vomiting, diarrhea, constipation, abd pain, GI bleeding Musculoskeletal: denies: pain, tenderness, stiffness, swelling, arthritis/ arthralgias Neurological: denies: numbness, syncope, seizure, weakness - Objective Allergies/Adverse Reactions: Allergies Allergy/AdvReac Type Severity Reaction Status Date / Time Penicillins Allergy Severe Anaphylaxis Verified 01/15/19 22:27 Visit Medications: Current Medications Acetaminophen (Tylenol) 650 mg PO Q4H PRN PRN Reason: Headache/Fever/Mild Pain (1-3) Acetaminophen/Codeine Phosphate (Tylenol #3) 1 tab PO Q6H PRN PRN Reason: Moderate to Severe Pain (6-10) Last Admin: 02/12/19 17:41 Dose: 1 tab Albuterol/Ipratropium (Duoneb) 3 ml NEB Q6H PRN PRN Reason: SOB &/or Wheezing Last Admin: 02/06/19 13:54 Dose: 3 ml Alogliptin Benzoate (Alogliptin) 25 mg PO DAILY [facility] Last Admin: 02/12/19 09:22 Dose: 25 mg Carvedilol (Coreg) 3.125 mg PO BID-[facility] Last Admin: 02/12/19 17:39 Dose: 3.125 mg Cyclobenzaprine HCl (Flexeril) 10 mg PO TID PRN PRN Reason: Muscle Spasm Last Admin: 02/11/19 20:47 Dose: 10 mg Dextrose/Water (Dextrose 50%) 25 gm SLOW IVP PRN PRN PRN Reason: Hypoglycemia Diazepam (Valium) 5 mg PO TID PRN PRN Reason: Anxiety Last Admin: 02/12/19 13:03 Dose: 5 mg Enoxaparin Sodium (Lovenox) 30 mg SC 0900 [facility] Last Admin: 02/12/19 10:27 Dose: 30 mg Glucagon (Glucagon) 1 mg IM PRN PRN PRN Reason: Hypoglycemia Dextrose/Water (D5w) 1,000 mls @ 0 mls/hr IV .Q0M PRN PRN Reason: Hypoglycemia Dobutamine HCl/Dextrose (Dobutamine 500 Mg/250 Ml) 250 mls @ 11.158 mls/hr IVPB INF [facility]; Protocol Last Admin: 02/12/19 12:49 Dose: 250 mls Insulin Human Lispro (Humalog) 0 units SC .MILD SLIDING SCALE PRN PRN Reason: Mild Correctional Scale Ondansetron HCl (Zofran Odt) 4 mg PO Q6H PRN PRN Reason: Nausea/Vomiting Last Admin: 02/04/19 15:46 Dose: 4 mg Ondansetron HCl (Zofran) 4 mg IVP Q6H PRN PRN Reason: Nausea/Vomiting Sacubitril/Valsartan (Entresto 24 Mg-26 Mg Tablet) 1 tab PO BID [facility] Last Admin: 02/12/19 08:32 Dose: Not Given Sodium Chloride (Flush - Normal Saline) 10 ml IVF Q12HR [facility] Last Admin: 02/12/19 09:23 Dose: Not Given Sodium Chloride (Flush - Normal Saline) 10 ml IVF PRN PRN PRN Reason: Saline Flush Last Admin: 02/10/19 06:39 Dose: 10 ml Spironolactone (Aldactone) 25 mg PO QAM-WM [facility] Last Admin: 02/12/19 08:32 Dose: Not Given Vital Signs & Weight: Vital Signs Temp Pulse Resp BP Pulse Ox 02/12/19 16:24 97.7 F 93 18 121/55 L 97 02/12/19 12:47 97.9 F 97 20 105/51 L 93 L 02/12/19 07:46 97.4 F L 97 18 101/51 L 95 02/12/19 07:45 95 02/12/19 07:32 93 L Admit Weight 209 lb 8 oz Weight 164 lb - Physical Exam General: alert & oriented x3 HEENT: mucus membranes moist, normocephaly Neck: supple neck, midline trachea Cardiac: regular rate and rhythm Lungs: clear to auscultation Neuro: grossly intact Abdomen: active bowel sounds, soft, non-tender Extremities: no edema Skin: clear Musculoskeletal: no pain - Labs Result Diagrams: 02/12/19 08:51 02/12/19 08:51 Troponin/CKMB CK-MB (CK-2) 3.6 ng/mL (0-6.6) 02/02/19 12:05 Troponin I 0.108 ng/mL (< 0.028) H 02/02/19 18:10 - Telemetry Sinus rhythms and dysrhythmias: sinus rhythm - Assessment/Plan Assessment/Plan: 1. Acute on chronic systolic heart failure. 2. Dilated CM EF at 30-35% 3. Hx. of bleeding esophageal varices. 4. Hx of cirrhosis. 5. CAD s/p PCI to RCA 2015 6. PVD, s/p Left CEA 7. Stage 3 CKD 8. Type 2 Dm 9. High degree AV block while sleeping likely sleep apnea. PLAN: - Will start PO lasix tomorrow morning. - Continue Dobutamine gtt at 5. - If kidney function remains stable will plan on doing LHC on Thursday. I spoke with him at length about risks and benefits and he agrees to proceed.
[2019-02-12] MEDS: Cyclobenzaprine 10 MG TAB PO PRN (23:07)
[2019-02-13 05:14] LABS: #Eosinphils 0.1 thou/uL (0.0-0.7); #Lymphocytes 0.7 thou/uL (1.20-3.40); #Monocytes 0.4 thou/uL (0.11-0.59); #Neutrophils 2.3 thou/uL (1.40-6.50); %Basophils 0.1 % (0.0-1.0); %Lymphocytes 20.8 % (21.0-51.0); %Monocytes 10.6 % (0.0-10.0); %Neutrophils 65.6 % (42.0-75.0); Hemoglobin 8.8 g/dL (14.0-18.0); Mean Corpuscular HGB CONC 30.3 g/dL (32.0-36.0); Mean Corpuscular Hemoglobin 25.3 pg (27.0-31.0); Mean Corpuscular Volume 83.3 fL (78.0-98.0); Mean Platelet Volume 8.8 fL (7.4-10.4); Platelet Count 122 thou/uL (130-400); RBC Distribution Width 17.3 % (11.5-14.5); Red Blood Cell (RBC) Count 3.48 mill/uL (4.70-6.10); White Blood Cell (WBC) Count 3.5 thou/uL (4.8-10.8)
[2019-02-13 05:38] LABS: ALT (SGPT) 10 U/L (8-55); AST (SGOT) 20 U/L (5-34); Albumin 3.2 g/dL (3.4-4.8); Alkaline Phosphatase 145 U/L (40-110); Anion Gap 12 mmol/L (10-20); BUN (Urea Nitrogen) 17 mg/dL (8.4-25.7); Bilirubin, Total 0.9 mg/dL (0.2-1.2); Calc. Creatinine Clearance 56 mL/min (70-130); Carbon Dioxide 31 mmol/L (23-31); Chloride 96 mmol/L (98-107); Estimated GFR-MDRD 50; Globulin 4.9 g/dL (2.4-3.5); Glucose 136 mg/dL (80-115); Potassium 3.9 mmol/L (3.5-5.1); Protein, Total 8.1 g/dL (5.8-8.1); Sodium 135 mmol/L (136-145)
[2019-02-13] MEDS: Carvedilol 3.125 MG TAB PO SCH ×2 (09:16→17:35)
[2019-02-13] MEDS: Alogliptin 25 MG TAB PO SCH (09:16)
[2019-02-13] MEDS: Enoxaparin Sodium 30 MG/0.3 ML SYRINGE SC SCH (09:16)
[2019-02-13] MEDS: Acetaminophen/Codeine 30-300mg Tablet PO PRN ×3 (09:16→22:33)
[2019-02-13] MEDS: Spironolactone 25 MG TAB PO SCH (09:26)
[2019-02-13] MEDS: DOBUTamine 500 mg/250 ml 250 ML IVPB SCH (09:26)
--- NOTE | 2019-02-13 10:53 | PDOC.HOSPP ---
- Subjective Encounter Date: 02/13/19 Encounter Time: 08:50 Subjective: 63 y/o male with cardiomyopathy with EF 30-35, CHF, cirrhosis, DM, CKD 3, COPD, PAD and others admitted with worsening edema and SOB. Treated with dobutamine and lasix with improvement. Developed hypotension necessitating NS bolus and discontinuation of lasix. [facility] is planned on 02/14/2019. No new problem. Feeling better and up in chair - Objective Vital Signs & Weight: Vital Signs (12 hours) Temp Pulse Resp BP BP Pulse Ox 02/13/19 08:02 97.7 F 92 18 123/62 94 L 02/13/19 07:28 94 L 02/13/19 04:00 97.5 F L 95 14 119/60 94 L Weight Admit Weight 209 lb 8 oz Weight 164 lb 1.6 oz I&O: 02/12/19 02/13/19 02/14/19 06:59 06:59 06:59 Intake Total 1594 1332 Output Total 3090 1950 Balance -5626 -688 Result Diagrams: 02/13/19 04:51 02/13/19 04:51 Additional Labs: Accuchecks 02/13/19 02/12/19 02/12/19 06:04 20:43 17:05 POC Glucose 153 H 174 H 125 H 02/12/19 10:41 POC Glucose 151 H Hospitalist ROS - Medication Medications: Active Medications Generic Name Dose Route Start Last Admin Trade Name Freq PRN Reason Stop Dose Admin Acetaminophen/Codeine Phosphate 1 tab 02/09/19 14:24 02/13/19 09:16 Tylenol #3 PO 1 tab Q6H PRN Administration Moderate to Severe Pain (6-10) Albuterol/Ipratropium 3 ml 02/03/19 00:44 02/06/19 13:54 Duoneb NEB 3 ml Q6H PRN Administration SOB &/or Wheezing Alogliptin Benzoate 25 mg 02/03/19 09:00 02/13/19 09:16 Alogliptin PO 25 mg DAILY YANNICK Administration Carvedilol 3.125 mg 02/03/19 17:00 02/13/19 09:16 Coreg PO 3.125 mg BID-WM YANNICK Administration Cyclobenzaprine HCl 10 mg 02/03/19 08:35 02/12/19 23:07 Flexeril PO 10 mg TID PRN Administration Muscle Spasm Diazepam 5 mg 02/05/19 07:30 02/12/19 23:07 Valium PO 5 mg TID PRN Administration Anxiety Enoxaparin Sodium 30 mg 02/03/19 09:00 02/13/19 09:16 Lovenox SC 30 mg 0900 YANNICK Administration Dobutamine HCl/Dextrose 250 mls @ 11.158 mls/hr 02/11/19 13:30 02/13/19 09:26 Dobutamine 500 Mg/250 Ml IVPB 250 mls INF YANNICK Administration Protocol 5 MCG/KG/MIN Ondansetron HCl 4 mg 02/03/19 17:00 02/04/19 15:46 Zofran Odt PO 4 mg Q6H PRN Administration Nausea/Vomiting Sacubitril/Valsartan 1 tab 02/04/19 21:00 02/13/19 09:30 Entresto 24 Mg-26 Mg Tablet PO Not Given BID YANNICK Sodium Chloride 10 ml 02/03/19 09:00 02/13/19 09:20 Flush - Normal Saline IVF Not Given Q12HR YANNICK Sodium Chloride 10 ml 02/03/19 08:52 02/10/19 06:39 Flush - Normal Saline IVF 10 ml PRN PRN Administration Saline Flush Spironolactone 25 mg 02/06/19 08:00 02/13/19 09:26 Aldactone PO Not Given QAM-WM YANNICK - Exam General Appearance: awake alert Eye: anicteric sclera ENT: normocephalic atraumatic Neck: supple, no JVD Heart: RRR Respiratory: no wheezes, no rales, no ronchi, normal chest expansion Gastrointestinal: soft, non-tender, non-distended, normal bowel sounds Extremities: 1+ LE edema Skin - other findings: mild erythrosis of left leg Neurological: cranial nerve grossly intact, no focal deficits Psychiatric: normal affect, A&O x 3 Hosp A/P (1) Acute on chronic combined systolic and diastolic CHF, NYHA class 3 Code(s): I50.43 - ACUTE ON CHRONIC COMBINED SYSTOLIC AND DIASTOLIC HRT FAIL Status: Acute (2) Hypomagnesemia Code(s): E83.42 - HYPOMAGNESEMIA Status: Acute (3) Alcoholic cirrhosis Code(s): K70.30 - ALCOHOLIC CIRRHOSIS OF LIVER WITHOUT ASCITES Status: Acute (4) AV block, 3rd degree Code(s): I44.2 - ATRIOVENTRICULAR BLOCK, COMPLETE Status: Acute (5) Hypokalemia Code(s): E87.6 - HYPOKALEMIA Status: Acute (6) CKD (chronic kidney disease) stage 3, GFR 30-59 ml/min Status: Chronic (7) COPD (chronic obstructive pulmonary disease) Status: Chronic Qualifiers: COPD type: unspecified COPD Qualified Code(s): J44.9 - Chronic obstructive pulmonary disease, unspecified (8) HTN (hypertension) Code(s): I10 - ESSENTIAL (PRIMARY) HYPERTENSION Status: Chronic Qualifiers: Hypertension type: essential hypertension Qualified Code(s): I10 - Essential (primary) hypertension (9) PVD (peripheral vascular disease) Code(s): I73.9 - PERIPHERAL VASCULAR DISEASE, UNSPECIFIED Status: Chronic - Plan Continue dobutamine and other CHF treatment as per cardiology Monitor electrolytes and replete as needed Monitor vitals and renal function. Continue other treatments. For [facility] tomorrow
[2019-02-13] MEDS ORDERED: Communication Order-Pharmacy FS SCH (18:30)
--- NOTE | 2019-02-13 18:30 | PDOC.CPN ---
- Subjective Date: 02/13/19 Time: 18:28 Interval history: He is doing well. No chest pain. Breathing back to normal. - Review of Systems General: denies: fever/chills, weight/appetite/sleep changes, night sweats, fatigue Respiratory: denies: cough, congestion, shortness of breath, exercise intolerance Cardiovascular: denies: chest pain, palpitation, edema, paroxysmal nocturnal dyspnea, orthopnea Gastrointestinal: denies: nausea, vomiting, diarrhea, constipation, abd pain, GI bleeding Musculoskeletal: denies: pain, tenderness, stiffness, swelling, arthritis/ arthralgias Neurological: denies: numbness, syncope, seizure, weakness - Objective Allergies/Adverse Reactions: Allergies Allergy/AdvReac Type Severity Reaction Status Date / Time Penicillins Allergy Severe Anaphylaxis Verified 01/15/19 22:27 Visit Medications: Current Medications Acetaminophen (Tylenol) 650 mg PO Q4H PRN PRN Reason: Headache/Fever/Mild Pain (1-3) Acetaminophen/Codeine Phosphate (Tylenol #3) 1 tab PO Q6H PRN PRN Reason: Moderate to Severe Pain (6-10) Last Admin: 02/13/19 17:35 Dose: 1 tab Albuterol/Ipratropium (Duoneb) 3 ml NEB Q6H PRN PRN Reason: SOB &/or Wheezing Last Admin: 02/06/19 13:54 Dose: 3 ml Alogliptin Benzoate (Alogliptin) 25 mg PO DAILY [facility] Last Admin: 02/13/19 09:16 Dose: 25 mg Carvedilol (Coreg) 3.125 mg PO BID-[facility] Last Admin: 02/13/19 17:35 Dose: 3.125 mg Cyclobenzaprine HCl (Flexeril) 10 mg PO TID PRN PRN Reason: Muscle Spasm Last Admin: 02/12/19 23:07 Dose: 10 mg Dextrose/Water (Dextrose 50%) 25 gm SLOW IVP PRN PRN PRN Reason: Hypoglycemia Diazepam (Valium) 5 mg PO TID PRN PRN Reason: Anxiety Last Admin: 02/12/19 23:07 Dose: 5 mg Enoxaparin Sodium (Lovenox) 30 mg SC 0900 [facility] Last Admin: 02/13/19 09:16 Dose: 30 mg Glucagon (Glucagon) 1 mg IM PRN PRN PRN Reason: Hypoglycemia Dextrose/Water (D5w) 1,000 mls @ 0 mls/hr IV .Q0M PRN PRN Reason: Hypoglycemia Dobutamine HCl/Dextrose (Dobutamine 500 Mg/250 Ml) 250 mls @ 11.158 mls/hr IVPB INF YANNICK; Protocol Last Admin: 02/13/19 09:26 Dose: 250 mls Insulin Human Lispro (Humalog) 0 units SC .MILD SLIDING SCALE PRN PRN Reason: Mild Correctional Scale Ondansetron HCl (Zofran Odt) 4 mg PO Q6H PRN PRN Reason: Nausea/Vomiting Last Admin: 02/04/19 15:46 Dose: 4 mg Ondansetron HCl (Zofran) 4 mg IVP Q6H PRN PRN Reason: Nausea/Vomiting Sacubitril/Valsartan (Entresto 24 Mg-26 Mg Tablet) 1 tab PO BID [facility] Last Admin: 02/13/19 09:30 Dose: Not Given Sodium Chloride (Flush - Normal Saline) 10 ml IVF Q12HR [facility] Last Admin: 02/13/19 09:20 Dose: Not Given Sodium Chloride (Flush - Normal Saline) 10 ml IVF PRN PRN PRN Reason: Saline Flush Last Admin: 02/10/19 06:39 Dose: 10 ml Spironolactone (Aldactone) 25 mg PO QAM-WM [facility] Last Admin: 02/13/19 09:26 Dose: Not Given Vital Signs & Weight: Vital Signs Temp Pulse Resp BP BP Pulse Ox 02/13/19 17:07 93 20 02/13/19 16:00 98.0 F 86 22 H 108/55 L 93 L 02/13/19 12:01 81 18 94 L 02/13/19 11:56 97.7 F 90 16 133/66 90 L 02/13/19 08:02 97.7 F 92 18 123/62 94 L 02/13/19 08:00 94 L 02/13/19 07:28 94 L Admit Weight 209 lb 8 oz Weight 164 lb 1.6 oz - Physical Exam General: alert & oriented x3 HEENT: mucus membranes moist Neck: supple neck Cardiac: regular rate and rhythm Lungs: clear to auscultation Neuro: grossly intact Abdomen: active bowel sounds, soft, non-tender Extremities: no edema Skin: clear Musculoskeletal: no pain - Labs Result Diagrams: 02/13/19 04:51 02/13/19 04:51 Troponin/CKMB CK-MB (CK-2) 3.6 ng/mL (0-6.6) 02/02/19 12:05 Troponin I 0.108 ng/mL (< 0.028) H 02/02/19 18:10 - Telemetry Sinus rhythms and dysrhythmias: sinus rhythm - Assessment/Plan Assessment/Plan: 1. Acute on chronic systolic heart failure. 2. Dilated CM EF at 30-35% 3. Hx. of bleeding esophageal varices. 4. Hx of cirrhosis. 5. CAD s/p PCI to RCA 2015 6. PVD, s/p Left CEA 7. Stage 3 CKD 8. Type 2 Dm 9. High degree AV block while sleeping likely sleep apnea. PLAN: - On PO lasix tomorrow morning. - Continue Dobutamine gtt at 5. - Kidney function remains stable. Will plan to proceed with [facility] Tomorrow. Right radial access. WANDA if needed.
[2019-02-13] MEDS: Diazepam 5 MG TAB PO PRN (22:34)
[2019-02-14] MEDS ORDERED: Sodium Chloride 0.9% 500 ML IV SCH (00:01)
[2019-02-14 05:47] LABS: Anion Gap 12 mmol/L (10-20); BUN (Urea Nitrogen) 22 mg/dL (8.4-25.7); Calc. Creatinine Clearance 60 mL/min (70-130); Calcium 8.4 mg/dL (7.8-10.44); Carbon Dioxide 28 mmol/L (23-31); Chloride 99 mmol/L (98-107); Estimated GFR-MDRD 54; Glucose 120 mg/dL (80-115); Potassium 3.8 mmol/L (3.5-5.1); Sodium 135 mmol/L (136-145)
[2019-02-14] MEDS: Carvedilol 3.125 MG TAB PO SCH ×2 (06:47→17:24)
[2019-02-14] MEDS ORDERED: Lidocaine 1% (PF) 30 ML VIAL ONE (07:30)
[2019-02-14] MEDS ORDERED: Heparin 10,000 UNITS/1 ML VIAL ONE (08:14)
[2019-02-14] MEDS ORDERED: Verapamil 5 MG/2 ML VIAL ONE (08:14)
[2019-02-14] MEDS ORDERED: Nitroglycerin 100MG/250ML BOT 250 ML ONE (08:15)
[2019-02-14] MEDS ORDERED: Fentanyl 100 MCG/2 ML VIAL ONE (08:23)
[2019-02-14] MEDS ORDERED: Midazolam HCl 2 mg/2 ml Vial ONE (08:23)
[2019-02-14] MEDS ORDERED: DOBUTamine 250 MG/20 ML VIAL ONE ×2 (08:52→08:54)
[2019-02-14] MEDS ORDERED: TICAGRELOR 90 MG TABLET ONE (09:09)
[2019-02-14] MEDS ORDERED: Sodium Chloride 0.9% 250 ML IV SCH (09:45)
[2019-02-14] MEDS: Alogliptin 25 MG TAB PO SCH (10:00)
[2019-02-14] MEDS: Spironolactone 25 MG TAB PO SCH (10:05)
[2019-02-14] MEDS ORDERED: Iopamidol 370 76% 100 ML VIAL ONE (11:26)
[2019-02-14] MEDS ORDERED: Iopamidol 370 76% 50 ML VIAL FS ONE (11:26)
--- NOTE | 2019-02-14 16:00 | PDOC.HOSPP ---
- Subjective Encounter Date: 02/14/19 Encounter Time: 12:59 Subjective: 63 y/o male with cardiomyopathy with EF 30-35, CHF, cirrhosis, DM, CKD 3, COPD, PAD and others admitted with worsening edema and SOB. Treated with dobutamine and lasix with improvement. S/p LHC earlier today 02/14/2019. No new problem. - Objective Vital Signs & Weight: Vital Signs (12 hours) Temp Pulse Resp BP BP BP BP 02/14/19 15:50 97.3 F L 86 16 106/58 L 02/14/19 14:52 85 20 02/14/19 11:30 98.1 F 82 17 113/61 02/14/19 10:17 02/14/19 09:57 97.7 F 87 16 120/64 02/14/19 09:39 83 16 118/56 L 02/14/19 04:00 97.7 F 96 14 125/77 Pulse Ox 02/14/19 15:50 94 L 02/14/19 14:52 100 02/14/19 11:30 100 02/14/19 10:17 97 02/14/19 09:57 97 02/14/19 09:39 02/14/19 04:00 97 Weight Admit Weight 209 lb 8 oz Weight 165 lb 3.2 oz I&O: 02/13/19 02/14/19 02/15/19 06:59 06:59 06:59 Intake Total 1332 995 Output Total 1950 1375 Balance -338 -899 Result Diagrams: 02/13/19 04:51 02/14/19 05:05 Additional Labs: Accuchecks 02/14/19 02/14/19 02/13/19 11:14 06:22 20:30 POC Glucose 132 H 158 H 174 H 02/13/19 16:40 POC Glucose 128 H Hospitalist ROS - Medication Medications: Active Medications Generic Name Dose Route Start Last Admin Trade Name Freq PRN Reason Stop Dose Admin Acetaminophen/Codeine Phosphate 1 tab 02/09/19 14:24 02/13/19 22:33 Tylenol #3 PO 1 tab Q6H PRN Administration Moderate to Severe Pain (6-10) Albuterol/Ipratropium 3 ml 02/03/19 00:44 02/14/19 14:52 Duoneb NEB 3 ml Q6H PRN Administration SOB &/or Wheezing Alogliptin Benzoate 25 mg 02/03/19 09:00 02/14/19 10:00 Alogliptin PO 25 mg DAILY YANNICK Administration Carvedilol 3.125 mg 02/03/19 17:00 02/14/19 06:47 Coreg PO 3.125 mg BID-WM YANNICK Administration Cyclobenzaprine HCl 10 mg 02/03/19 08:35 02/12/19 23:07 Flexeril PO 10 mg TID PRN Administration Muscle Spasm Diazepam 5 mg 02/05/19 07:30 02/13/19 22:34 Valium PO 5 mg TID PRN Administration Anxiety Dobutamine HCl/Dextrose 250 mls @ 11.158 mls/hr 02/11/19 13:30 02/13/19 09:26 Dobutamine 500 Mg/250 Ml IVPB 250 mls INF YANNICK Administration Protocol 5 MCG/KG/MIN Ondansetron HCl 4 mg 02/03/19 17:00 02/04/19 15:46 Zofran Odt PO 4 mg Q6H PRN Administration Nausea/Vomiting Sacubitril/Valsartan 1 tab 02/04/19 21:00 02/14/19 10:00 Entresto 24 Mg-26 Mg Tablet PO 1 tab BID YANNICK Administration Sodium Chloride 10 ml 02/03/19 09:00 02/14/19 10:01 Flush - Normal Saline IVF Not Given Q12HR YANNICK Sodium Chloride 10 ml 02/03/19 08:52 02/10/19 06:39 Flush - Normal Saline IVF 10 ml PRN PRN Administration Saline Flush - Exam General - other findings: sleeping Eye: anicteric sclera ENT: normocephalic atraumatic Neck: supple, symmetric, no JVD Heart: RRR Respiratory: no wheezes, no rales, no ronchi, normal chest expansion Gastrointestinal: soft, non-tender, non-distended, normal bowel sounds Extremities: no cyanosis, no edema Neurological: cranial nerve grossly intact, no focal deficits Neurological - other findings: sleeping but arousable Hosp A/P (1) Acute on chronic combined systolic and diastolic CHF, NYHA class 3 Code(s): I50.43 - ACUTE ON CHRONIC COMBINED SYSTOLIC AND DIASTOLIC HRT FAIL Status: Acute (2) Hypomagnesemia Code(s): E83.42 - HYPOMAGNESEMIA Status: Acute (3) Alcoholic cirrhosis Code(s): K70.30 - ALCOHOLIC CIRRHOSIS OF LIVER WITHOUT ASCITES Status: Acute (4) AV block, 3rd degree Code(s): I44.2 - ATRIOVENTRICULAR BLOCK, COMPLETE Status: Acute (5) Hypokalemia Code(s): E87.6 - HYPOKALEMIA Status: Acute (6) CKD (chronic kidney disease) stage 3, GFR 30-59 ml/min Status: Chronic (7) COPD (chronic obstructive pulmonary disease) Status: Chronic Qualifiers: COPD type: unspecified COPD Qualified Code(s): J44.9 - Chronic obstructive pulmonary disease, unspecified (8) HTN (hypertension) Code(s): I10 - ESSENTIAL (PRIMARY) HYPERTENSION Status: Chronic Qualifiers: Hypertension type: essential hypertension Qualified Code(s): I10 - Essential (primary) hypertension (9) PVD (peripheral vascular disease) Code(s): I73.9 - PERIPHERAL VASCULAR DISEASE, UNSPECIFIED Status: Chronic - Plan Continue dobutamine and other CHF treatment as per cardiology Continue IVF to prevent contrast induced nephropathy given [facility] Monitor electrolytes and replete as needed Monitor vitals and renal function. Continue other treatments.
[2019-02-14] MEDS: Cyclobenzaprine 10 MG TAB PO PRN (17:29)
[2019-02-14] MEDS: Atorvastatin Calcium 20 MG TAB PO SCH (20:00)
[2019-02-14] MEDS: TICAGRELOR 90 MG TABLET PO SCH (20:00)
[2019-02-14] MEDS: Acetaminophen/Codeine 30-300mg Tablet PO PRN (23:06)
[2019-02-14] MEDS: Diazepam 5 MG TAB PO PRN (23:06)
[2019-02-15 05:21] LABS: #Eosinphils 0.1 thou/uL (0.0-0.7); #Lymphocytes 0.6 thou/uL (1.20-3.40); #Monocytes 0.3 thou/uL (0.11-0.59); #Neutrophils 2.1 thou/uL (1.40-6.50); %Basophils 0.4 % (0.0-1.0); %Eosinophils 2.5 % (0.0-10.0); %Lymphocytes 18.2 % (21.0-51.0); %Monocytes 9.6 % (0.0-10.0); %Neutrophils 69.3 % (42.0-75.0); Hemoglobin 8.6 g/dL (14.0-18.0); Mean Corpuscular HGB CONC 30.9 g/dL (32.0-36.0); Mean Corpuscular Hemoglobin 25.8 pg (27.0-31.0); Mean Corpuscular Volume 83.4 fL (78.0-98.0); Mean Platelet Volume 8.7 fL (7.4-10.4); Platelet Count 133 thou/uL (130-400); RBC Distribution Width 17.8 % (11.5-14.5); Red Blood Cell (RBC) Count 3.33 mill/uL (4.70-6.10)
[2019-02-15 05:34] LABS: ALT (SGPT) 11 U/L (8-55); AST (SGOT) 22 U/L (5-34); Albumin 3.1 g/dL (3.4-4.8); Alkaline Phosphatase 155 U/L (40-110); Anion Gap 8 mmol/L (10-20); BUN (Urea Nitrogen) 15 mg/dL (8.4-25.7); Bilirubin, Total 0.8 mg/dL (0.2-1.2); Calc. Creatinine Clearance 64 mL/min (70-130); Calcium 8.2 mg/dL (7.8-10.44); Carbon Dioxide 27 mmol/L (23-31); Chloride 103 mmol/L (98-107); Estimated GFR-MDRD 59; Globulin 4.8 g/dL (2.4-3.5); Glucose 132 mg/dL (80-115); Magnesium 1.9 mg/dL (1.6-2.6); Potassium 3.4 mmol/L (3.5-5.1); Protein, Total 7.9 g/dL (5.8-8.1); Sodium 135 mmol/L (136-145)
[2019-02-15] MEDS: DOBUTamine 500 mg/250 ml 250 ML IVPB SCH (07:42)
[2019-02-15] MEDS ORDERED: Potassium Chloride 20 MEQ TAB PO SCH (08:30)
[2019-02-15] MEDS: Carvedilol 3.125 MG TAB PO SCH ×2 (09:04→16:53)
[2019-02-15] MEDS: Alogliptin 25 MG TAB PO SCH (10:15)
[2019-02-15] MEDS: Aspirin Chewable 81 MG TAB PO SCH (10:16)
[2019-02-15] MEDS: TICAGRELOR 90 MG TABLET PO SCH ×2 (10:16→21:59)
--- NOTE | 2019-02-15 14:33 | PDOC.HOSPP ---
- Subjective Encounter Date: 02/15/19 Encounter Time: 09:30 Subjective: 63 y/o male with cardiomyopathy with EF 30-35, CHF, cirrhosis, DM, CKD 3, COPD, PAD and others admitted with worsening edema and SOB. Treated with dobutamine and lasix with improvement. S/p LHC on 02/14/2019 with stent placement. No new problem. Desires to go home. - Objective Vital Signs & Weight: Vital Signs (12 hours) Temp Pulse Pulse Pulse Resp BP BP 02/15/19 11:00 98.3 F 91 16 02/15/19 09:39 84 16 101/62 02/15/19 09:12 97 104 H 85/57 L 02/15/19 07:36 97.7 F 87 16 02/15/19 04:00 98.6 F 91 14 BP BP Pulse Ox 02/15/19 11:00 99/54 L 100 02/15/19 09:39 02/15/19 09:12 95/51 L 02/15/19 07:36 89/52 L 97 02/15/19 04:00 101/54 L 98 Weight Admit Weight 209 lb 8 oz Weight 161 lb 8 oz I&O: 02/14/19 02/15/19 02/16/19 06:59 06:59 06:59 Intake Total 995 959 Output Total 1375 2340 Balance -380 -7898 Result Diagrams: 02/15/19 04:44 02/15/19 04:44 Additional Labs: Accuchecks 02/15/19 02/15/19 02/14/19 10:58 05:52 20:37 POC Glucose 120 H 128 H 131 H 02/14/19 17:14 POC Glucose 110 Hospitalist ROS - Medication Medications: Active Medications Generic Name Dose Route Start Last Admin Trade Name Freq PRN Reason Stop Dose Admin Acetaminophen/Codeine Phosphate 1 tab 02/09/19 14:24 02/14/19 23:06 Tylenol #3 PO 1 tab Q6H PRN Administration Moderate to Severe Pain (6-10) Albuterol/Ipratropium 3 ml 02/03/19 00:44 02/14/19 14:52 Duoneb NEB 3 ml Q6H PRN Administration SOB &/or Wheezing Alogliptin Benzoate 25 mg 02/03/19 09:00 02/15/19 10:15 Alogliptin PO 25 mg DAILY YANNICK Administration Aspirin 81 mg 02/15/19 09:00 02/15/19 10:16 Aspirin Chewable PO 81 mg DAILY YANNICK Administration Atorvastatin Calcium 20 mg 02/14/19 21:00 02/14/19 20:00 Lipitor PO 20 mg HS YANNICK Administration Carvedilol 3.125 mg 02/03/19 17:00 02/15/19 09:04 Coreg PO Not Given BID-WM YANNICK Cyclobenzaprine HCl 10 mg 02/03/19 08:35 02/14/19 17:29 Flexeril PO 10 mg TID PRN Administration Muscle Spasm Dobutamine HCl/Dextrose 250 mls @ 11.158 mls/hr 02/11/19 13:30 02/15/19 07:42 Dobutamine 500 Mg/250 Ml IVPB 250 mls INF YANNICK Administration Protocol 5 MCG/KG/MIN Ondansetron HCl 4 mg 02/03/19 17:00 02/04/19 15:46 Zofran Odt PO 4 mg Q6H PRN Administration Nausea/Vomiting Sacubitril/Valsartan 1 tab 02/04/19 21:00 02/15/19 10:16 Entresto 24 Mg-26 Mg Tablet PO Not Given BID YANNICK Sodium Chloride 10 ml 02/03/19 09:00 02/15/19 10:16 Flush - Normal Saline IVF Not Given Q12HR YANNICK Sodium Chloride 10 ml 02/03/19 08:52 02/10/19 06:39 Flush - Normal Saline IVF 10 ml PRN PRN Administration Saline Flush Ticagrelor 90 mg 02/14/19 21:00 02/15/19 10:16 Brilinta PO 90 mg BID YANNICK Administration - Exam General Appearance: awake alert Eye: anicteric sclera ENT: normocephalic atraumatic, moist mucosa Neck: supple, symmetric Heart: RRR Respiratory: no wheezes, no rales, no ronchi, normal chest expansion Gastrointestinal: soft, non-tender, non-distended, normal bowel sounds Extremities: no cyanosis, no edema Neurological: cranial nerve grossly intact, no focal deficits Psychiatric: A&O x 3 Hosp A/P (1) Acute on chronic combined systolic and diastolic CHF, NYHA class 3 Code(s): I50.43 - ACUTE ON CHRONIC COMBINED SYSTOLIC AND DIASTOLIC HRT FAIL Status: Acute (2) Hypomagnesemia Code(s): E83.42 - HYPOMAGNESEMIA Status: Acute (3) Alcoholic cirrhosis Code(s): K70.30 - ALCOHOLIC CIRRHOSIS OF LIVER WITHOUT ASCITES Status: Acute (4) AV block, 3rd degree Code(s): I44.2 - ATRIOVENTRICULAR BLOCK, COMPLETE Status: Acute (5) Hypokalemia Code(s): E87.6 - HYPOKALEMIA Status: Acute (6) CKD (chronic kidney disease) stage 3, GFR 30-59 ml/min Status: Chronic (7) COPD (chronic obstructive pulmonary disease) Status: Chronic Qualifiers: COPD type: unspecified COPD Qualified Code(s): J44.9 - Chronic obstructive pulmonary disease, unspecified (8) HTN (hypertension) Code(s): I10 - ESSENTIAL (PRIMARY) HYPERTENSION Status: Chronic Qualifiers: Hypertension type: essential hypertension Qualified Code(s): I10 - Essential (primary) hypertension (9) PVD (peripheral vascular disease) Code(s): I73.9 - PERIPHERAL VASCULAR DISEASE, UNSPECIFIED Status: Chronic (10) CAD (coronary artery disease) Code(s): I25.10 - ATHSCL HEART DISEASE OF [place] CORONARY ARTERY W/O ANG PCTRS Status: Chronic Qualifiers: Coronary Disease-Associated Artery/Lesion type: unspecified vessel or lesion type Associated angina: without angina - Plan Continue dobutamine and other CHF treatment as per cardiology replete serum potassium with 40 meq of KCL. Monitor electrolytes and replete as needed Monitor vitals and renal function. Continue other treatments. For discharge once cleared by cardiology.
--- NOTE | 2019-02-15 19:51 | PDOC.CPN ---
- Subjective Date: 02/15/19 Interval history: Doing much better. Seems euvolemic. Off Dobutamine holding his BP well. - Review of Systems General: denies: fever/chills, weight/appetite/sleep changes, night sweats, fatigue Respiratory: denies: cough, congestion, shortness of breath, exercise intolerance Cardiovascular: denies: chest pain, palpitation, edema, paroxysmal nocturnal dyspnea, orthopnea Gastrointestinal: denies: nausea, vomiting, diarrhea, constipation, abd pain, GI bleeding Musculoskeletal: denies: pain, tenderness, stiffness, swelling, arthritis/ arthralgias Neurological: denies: numbness, syncope, seizure, weakness - Objective Allergies/Adverse Reactions: Allergies Allergy/AdvReac Type Severity Reaction Status Date / Time Penicillins Allergy Severe Anaphylaxis Verified 01/15/19 22:27 Visit Medications: Current Medications Acetaminophen (Tylenol) 650 mg PO Q4H PRN PRN Reason: Headache/Fever/Mild Pain (1-3) Acetaminophen/Codeine Phosphate (Tylenol #3) 1 tab PO Q6H PRN PRN Reason: Moderate to Severe Pain (6-10) Last Admin: 02/14/19 23:06 Dose: 1 tab Albuterol/Ipratropium (Duoneb) 3 ml NEB Q6H PRN PRN Reason: SOB &/or Wheezing Last Admin: 02/14/19 14:52 Dose: 3 ml Alogliptin Benzoate (Alogliptin) 25 mg PO DAILY [facility] Last Admin: 02/15/19 10:15 Dose: 25 mg Aspirin (Aspirin Chewable) 81 mg PO DAILY [facility] Last Admin: 02/15/19 10:16 Dose: 81 mg Atorvastatin Calcium (Lipitor) 20 mg PO HS [facility] Last Admin: 02/14/19 20:00 Dose: 20 mg Carvedilol (Coreg) 3.125 mg PO BID-WM [facility] Last Admin: 02/15/19 16:53 Dose: 3.125 mg Cyclobenzaprine HCl (Flexeril) 10 mg PO TID PRN PRN Reason: Muscle Spasm Last Admin: 02/14/19 17:29 Dose: 10 mg Dextrose/Water (Dextrose 50%) 25 gm SLOW IVP PRN PRN PRN Reason: Hypoglycemia Glucagon (Glucagon) 1 mg IM PRN PRN PRN Reason: Hypoglycemia Dextrose/Water (D5w) 1,000 mls @ 0 mls/hr IV .Q0M PRN PRN Reason: Hypoglycemia Insulin Human Lispro (Humalog) 0 units SC .MILD SLIDING SCALE PRN PRN Reason: Mild Correctional Scale Ondansetron HCl (Zofran Odt) 4 mg PO Q6H PRN PRN Reason: Nausea/Vomiting Last Admin: 02/04/19 15:46 Dose: 4 mg Ondansetron HCl (Zofran) 4 mg IVP Q6H PRN PRN Reason: Nausea/Vomiting Sacubitril/Valsartan (Entresto 24 Mg-26 Mg Tablet) 1 tab PO BID [facility] Last Admin: 02/15/19 10:16 Dose: Not Given Sodium Chloride (Flush - Normal Saline) 10 ml IVF Q12HR [facility] Last Admin: 02/15/19 10:16 Dose: Not Given Sodium Chloride (Flush - Normal Saline) 10 ml IVF PRN PRN PRN Reason: Saline Flush Last Admin: 02/10/19 06:39 Dose: 10 ml Ticagrelor (Brilinta) 90 mg PO BID [facility] Last Admin: 02/15/19 10:16 Dose: 90 mg Vital Signs & Weight: Vital Signs Temp Pulse Pulse Pulse Resp BP BP 02/15/19 16:52 100 02/15/19 15:24 97.7 F 99 16 02/15/19 11:00 98.3 F 91 16 02/15/19 09:39 84 16 101/62 02/15/19 09:12 97 104 H 85/57 L BP BP BP BP Pulse Ox 02/15/19 16:52 108/62 02/15/19 15:24 93/54 L 100 02/15/19 11:00 99/54 L 100 02/15/19 09:39 02/15/19 09:12 95/51 L Admit Weight 209 lb 8 oz Weight 161 lb 8 oz - Physical Exam General: alert & oriented x3 HEENT: mucus membranes moist Neck: supple neck Cardiac: regular rate and rhythm Lungs: clear to auscultation Neuro: grossly intact Abdomen: active bowel sounds Extremities: no edema Skin: clear Musculoskeletal: no pain - Labs Result Diagrams: 02/15/19 04:44 02/15/19 04:44 Troponin/CKMB CK-MB (CK-2) 3.6 ng/mL (0-6.6) 02/02/19 12:05 Troponin I 0.108 ng/mL (< 0.028) H 02/02/19 18:10 - Telemetry Sinus rhythms and dysrhythmias: sinus rhythm - Assessment/Plan Assessment/Plan: 1. Acute on chronic systolic heart failure. 2. Dilated CM EF at 30-35% 3. Hx. of bleeding esophageal varices. 4. Hx of cirrhosis. 5. CAD s/p PCI to RCA 2015 6. PVD, s/p Left CEA 7. Stage 3 CKD 8. Type 2 Dm 9. High degree AV block while sleeping likely sleep apnea. PLAN: - On PO lasix. - Off Dobutamine. - S/P WANDA to RCA - May discharge home tomorrow. Will have to cut back significantly on his BP meds as he has not been tolerating them due to hypotension. Will stop Entresto and continue very low dose Coreg. - FOllow up in the office in 1 month for up titration of meds.
[2019-02-15] MEDS: Atorvastatin Calcium 20 MG TAB PO SCH (21:59)
[2019-02-16] MEDS: Acetaminophen/Codeine 30-300mg Tablet PO PRN (00:01)
[2019-02-16] MEDS: Cyclobenzaprine 10 MG TAB PO PRN (00:01)
[2019-02-16 07:06] LABS: Anion Gap 9 mmol/L (10-20); BUN (Urea Nitrogen) 18 mg/dL (8.4-25.7); Calc. Creatinine Clearance 63 mL/min (70-130); Calcium 8.8 mg/dL (7.8-10.44); Carbon Dioxide 25 mmol/L (23-31); Chloride 106 mmol/L (98-107); Estimated GFR-MDRD 59; Glucose 148 mg/dL (80-115); Potassium 3.9 mmol/L (3.5-5.1); Sodium 136 mmol/L (136-145)
[2019-02-16] MEDS ORDERED: Carvedilol 3.125 MG TAB PO SCH (08:00)
[2019-02-16 08:17] VITALS: TEMP 97.9
[2019-02-16] MEDS ORDERED: Clopidogrel Bisulfate 75 MG TAB PO SCH (09:00)
[2019-02-16] MEDS: Aspirin Chewable 81 MG TAB PO SCH (10:03)
[2019-02-16] MEDS: Alogliptin 25 MG TAB PO SCH (10:03)
[2019-02-16 13:51] VITALS: BP 119/68
--- NOTE | 2019-02-16 14:42 | DIS ---
DATE OF ADMISSION: 02/02/2019 DATE OF DISCHARGE: 02/16/2019 PRIMARY CARE PHYSICIAN: Pillo Tejeda MD. DISCHARGE DIAGNOSES: 1. Acute on chronic combined systolic and diastolic heart failure. 2. Third-degree AV block. 3. Acute kidney injury. 4. Chronic kidney disease stage 3. 5. Dilated cardiomyopathy with ejection fraction of 30% to 35%. 6. Suspected sleep apnea given high-degree AV block while asleep. 7. Non-ST elevation myocardial infarction present on admission. 8. Status post drug-eluting stent placement to right coronary artery. 9. Coronary artery disease status post previous PCI. 10. Peripheral vascular disease status post left carotid endarterectomy. 11. Type 2 diabetes mellitus. 12. History of alcoholic liver cirrhosis. 13. Prior history of bleeding esophageal varices. 14. Hypomagnesemia. 15. Hypokalemia. 16. Chronic obstructive pulmonary disease without acute exacerbation. 17. Hypertension. CONSULTS: Cardiology. HOSPITAL COURSE: A 63-year-old male patient with known history of dilated cardiomyopathy with ejection fraction of 30% to 35%, chronic CHF, liver cirrhosis, diabetes, CKD 3, COPD, peripheral artery disease and others, admitted with worsening edema and shortness of breath. Impression of acute on chronic combined systolic and diastolic heart failure was made, and the patient was treated with dobutamine and Lasix with improvement. The patient also had acute kidney injury on presentation which was felt to be cardiorenal and is improved with treatment with dobutamine and diuretics. The patient later had left heart catheterization on February 14 with drug-eluting stent placement to RCA. Post procedure, the patient remained stable and dobutamine was weaned off. Due to hypotension, carvedilol was decreased from 3.125 to half tablet of 1.565 b.i.d. Hospital course also was complicated by development of third-degree AV block, but this happened mostly at sleep, hence it was suspected the patient has obstructive sleep apnea. An outpatient sleep study is recommended. PHYSICAL EXAMINATION: VITAL SIGNS: Temperature 97.9, pulse 97, respiratory rate 16, SpO2 of 99% on room air, blood pressure is 114/66. GENERAL: Male patient, in no obvious distress. Afebrile. Anicteric. Acyanotic. HEENT: Normocephalic, atraumatic. Oral mucosa is moist. CARDIOVASCULAR: Regular rhythm and rate with normal heart sounds 1 and 2. Soft systolic murmur noted. RESPIRATORY: Good air entry bilaterally with no obvious crackle or rhonchi or use of accessory muscles. GI: Full, soft, nontender, nondistended with normal bowel sounds. EXTREMITIES: Grossly normal looking, atraumatic, with no edema or erythema. CERAMIC ARTIST: Conscious, alert, oriented x3 with appropriate mental status. Cranial nerves 2 through 12 are grossly intact. DISCHARGE CONDITION: Improved. DISCHARGE DISPOSITION: Home. DISCHARGE MEDICATIONS: 1. Cyclobenzaprine 5 mg p.o. b.i.d. p.r.n. for muscle spasm. 2. DuoNeb 3 mL nebulization q.6 p.r.n. for shortness of breath. 3. Protonix 40 mg p.o. daily. 4. Januvia 100 mg p.o. daily. 5. Tramadol 50 mg p.o. t.i.d. p.r.n. for pain. 6. Acetaminophen 650 mg q.4 p.r.n. for pain. 7. Aspirin 81 mg p.o. daily. 8. Lipitor 20 mg p.o. daily. 9. Carvedilol 1.5625 p.o. b.i.d. 10. Plavix 75 mg p.o. daily. 11. Furosemide 40 mg p.o. daily. 12. Magnesium 64 mg p.o. b.i.d. 13. Potassium chloride 20 mEq p.o. daily. DISCHARGE FOLLOWUPS: 1. With [facility] on March 24. 2. The patient is to follow up with [facility] in 1 to [address] Eloisa Segura on February 24 at 1:45 p.m. 4. With roof cement and paint maker, Dr. Elliott, in 3 to 4 weeks. TIME SPENT: This discharge took more than 37 minutes. Job ID: [id number]
--- NOTE | 2019-02-16 18:45 | EKG ---
Test Reason : POST STENT Blood Pressure : / mmHG Vent. Rate : 083 BPM Atrial Rate : 083 BPM P-R Int : 186 ms QRS Dur : 116 ms QT Int : 400 ms P-R-T Axes : 053 023 017 degrees QTc Int : 470 ms Normal sinus rhythm Cannot rule out Inferior infarct , age undetermined Abnormal ECG When compared with ECG of 02-FEB-2019 12:12, (Unconfirmed) QT has lengthened Confirmed by DR. Amado SHARMA ([id number]) on 02/16/2019 6:45:37 PM Referred By: KAR Confirmed By:DR. Amado SHARMA
== END 2019-02-16 13:52 | disposition home health service (06) | DRG 246 ==
LOC: ERS 11:21 → ERHOLD 13:55 → 2NO 20:53
PROVIDERS: ADMIT Internal Medicine; ATTEND Internal Medicine
PROC: 027035Z Dilation of Coronary Artery, One Artery with Two Drug-eluting Intraluminal Devices, Percutaneous Approach (ICD-10-PCS; principal; 2019-02-14)
PROC: 4A023N7 Measurement of Cardiac Sampling and Pressure, Left Heart, Percutaneous Approach (ICD-10-PCS; 2019-02-14)
PROC: B2151ZZ Fluoroscopy of Left Heart using Low Osmolar Contrast (ICD-10-PCS; 2019-02-14)
PROC: B2101ZZ Fluoroscopy of Single Coronary Artery using Low Osmolar Contrast (ICD-10-PCS; 2019-02-14)
DX: I13.0 Hypertensive heart and chronic kidney disease with heart failure and stage 1 through stage 4 chronic kidney disease, or unspecified chronic kidney disease (principal); J96.01 Acute respiratory failure with hypoxia; I50.43 Acute on chronic combined systolic (congestive) and diastolic (congestive) heart failure; I21.4 Non-ST elevation (NSTEMI) myocardial infarction; N17.9 Acute kidney failure, unspecified; I44.2 Atrioventricular block, complete; N18.3 Chronic kidney disease, stage 3 (moderate); D63.1 Anemia in chronic kidney disease; J44.9 Chronic obstructive pulmonary disease, unspecified; F41.9 Anxiety disorder, unspecified; I08.2 Rheumatic disorders of both aortic and tricuspid valves; I37.1 Nonrheumatic pulmonary valve insufficiency; G47.00 Insomnia, unspecified; B18.2 Chronic viral hepatitis C; I25.10 Atherosclerotic heart disease of native coronary artery without angina pectoris; E11.22 Type 2 diabetes mellitus with diabetic chronic kidney disease; E11.51 Type 2 diabetes mellitus with diabetic peripheral angiopathy without gangrene; K21.9 Gastro-esophageal reflux disease without esophagitis; E87.6 Hypokalemia; I42.0 Dilated cardiomyopathy; G47.30 Sleep apnea, unspecified; K70.31 Alcoholic cirrhosis of liver with ascites; F17.210 Nicotine dependence, cigarettes, uncomplicated; I95.9 Hypotension, unspecified; E83.42 Hypomagnesemia; Z88.0 Allergy status to penicillin; Z79.899 Other long term (current) drug therapy; Z79.84 Long term (current) use of oral hypoglycemic drugs; Z86.73 Personal history of transient ischemic attack (TIA), and cerebral infarction without residual deficits; Z95.5 Presence of coronary angioplasty implant and graft; Z79.51 Long term (current) use of inhaled steroids
CPT/HCPCS: 36415; 36416; 71045; 80048; 80053; 82140; 82550; 82553; 82805; 83690; 83735; 83880; 84484; 85025; 85347; 92928; 93005; 93010; 93454; 93798; 94640; 94644; 96374; 99152; 99153; C1725; C1769; C1874; C1887; C9600; J1250; J1644; J1650; J1940; J2001; J2250; J2270; J3010; J3475; J7050; J7611; J7620; Q0162; Q9967

== ENCOUNTER 2019-04-01 18:05 | Inpatient (IN) | payer MEDICARE ==
--- NOTE | 2019-04-01 18:23 | RAD ---
Portable frontal chest radiograph: 04/01/2019 COMPARISON: 02/02/2019 HISTORY: Shortness of breath, congestive heart failure FINDINGS: Stable enlargement of the cardiac silhouette. Pulmonary vascular congestion noted. No pneum othorax, focal consolidation, or alveolar edema. Mild perihilar and bibasilar interstitial prominence may signify mild interstitial edema. IMPRESSION: Prominent cardiac silhouette with pulmonary vascular congestion and possible mild interst itial edema.
[2019-04-01 18:40] LABS: #Eosinphils 0.1 thou/uL (0.0-0.7); #Lymphocytes 0.6 thou/uL (1.20-3.40); #Monocytes 0.3 thou/uL (0.11-0.59); #Neutrophils 3.2 thou/uL (1.40-6.50); %Basophils 0.5 % (0.0-1.0); %Eosinophils 2.1 % (0.0-10.0); %Lymphocytes 13.4 % (21.0-51.0); %Monocytes 6.4 % (0.0-10.0); %Neutrophils 77.7 % (42.0-75.0); Hemoglobin 6.7 g/dL (14.0-18.0); Mean Corpuscular HGB CONC 31.3 g/dL (32.0-36.0); Mean Corpuscular Volume 79.8 fL (78.0-98.0); Platelet Count 130 thou/uL (130-400); RBC Distribution Width 17.8 % (11.5-14.5); Red Blood Cell (RBC) Count 2.66 mill/uL (4.70-6.10); White Blood Cell (WBC) Count 4.2 thou/uL (4.8-10.8)
[2019-04-01 18:57] LABS: ALT (SGPT) 8 U/L (8-55); AST (SGOT) 15 U/L (5-34); Albumin 3.3 g/dL (3.4-4.8); Alkaline Phosphatase 143 U/L (40-110); Anion Gap 12 mmol/L (10-20); BUN (Urea Nitrogen) 14 mg/dL (8.4-25.7); Bilirubin, Total 1.2 mg/dL (0.2-1.2); Calc. Creatinine Clearance 0 mL/min (70-130); Calcium 8.6 mg/dL (7.8-10.44); Carbon Dioxide 26 mmol/L (23-31); Chloride 100 mmol/L (98-107); Estimated GFR-MDRD 53; Glucose 178 mg/dL (80-115); Potassium 3.1 mmol/L (3.5-5.1); Protein, Total 8.3 g/dL (5.8-8.1); Sodium 135 mmol/L (136-145)
[2019-04-01] MEDS ORDERED: Octreotide Acetate 50 MCG/ML AMP ONE (21:29)
[2019-04-01] MEDS ORDERED: cefTRIAXone\\ROCEPHIN 2 GM VIAL ONE (21:29)
[2019-04-01] MEDS ORDERED: Lorazepam 1 MG TAB ONE (21:29)
[2019-04-01] MEDS ORDERED: Sodium Chloride 0.9% 100 ML ONE ×2 (21:29→21:31)
[2019-04-01] MEDS ORDERED: Pantoprazole 40 MG VIAL ONE (21:29)
[2019-04-01] MEDS ORDERED: Pantoprazole 80 MG, Admixture Fee 1 EACH in Sodium Chloride 0.9% 100 ML IVPB SCH (21:45)
[2019-04-01] MEDS ORDERED: Octreotide Acetate 1,250 MCG in Sodium Chloride 0.9% 250 ML 250 ML IVPB SCH (21:45)
[2019-04-01] MEDS ORDERED: Furosemide 40 MG/4 ML VIAL ONE (21:55)
[2019-04-01] MEDS ORDERED: Cyclobenzaprine 10 MG TAB PO PRN (22:23)
[2019-04-01] MEDS ORDERED: Ondansetron PF 4 MG/2 ML Vial IVP PRN (22:23)
--- NOTE | 2019-04-01 22:29 | PDOC.HHP ---
Hospitalist HPI - History of Present Illness Shortness of breath History of Present Illness: Mr. Daniels is a 62 y/o man with PMH of systolic heart failure, HTN, CAD s/p recent stent placement, liver cirrhosis with history of esophageal varices, who presents with shortness of breath. He states that over the past 2 days he has noticed increased swelling in his lower extremities and weight gain. he states he has been drinking more water and eating some more salty foods in the past week. Of note, he had a stent placed in January with Dr. Elliott and had an echocardiogram which demonstrated 30% EF at that time. Additionally, in the ED Hb found to be 6.7 but he currently has no bleeding symptoms at this time. Denies cp, palpitations, headache, fever, chills, nausea, vomiting, or other associated symptoms. Hospitalist ROS - Review of Systems Constitutional: denies: fever, chills, sweats, weakness, malaise, other Eyes: denies: pain, vision change, conjunctivae inflammation, eyelid inflammation, redness, other ENT: denies: ear pain, ear discharge, nose pain, nose discharge, nose congestion , mouth pain, mouth swelling, throat pain, throat swelling, other Respiratory: reports: shortness of breath. denies: cough, dry, hemoptysis, SOB with excertion, pleuritic pain, sputum, wheezing, other Cardiovascular: denies: chest pain, palpitations, orthopnea, paroxysmal noc. dyspnea, edema, light headedness, other Gastrointestinal: denies: nausea, vomiting, abdominal pain, diarrhea, constipation, melena, hematochezia, other Genitourinary: denies: dysuria, frequency, incontinence, hematuria, retention, other Musculoskeletal: reports: back pain. denies: neck pain, shoulder pain, arm pain , hand pain, leg pain, foot pain, other Skin: denies: rash, lesions, lloyd, bruising, other Neurological: denies: weakness, numbness, incoordination, change in speech, confusion, seizures, other Hospitalist History - Past Medical History Source: patient Cardiac: reports: CAD, CHF, HTN Pulmonary: reports: COPD PEDIGREE TRACER: reports: no pertinent history Gastrointestinal: reports: no pertinent history, Other Heme/Onc: reports: no pertinent history Hepatobiliary: reports: Cirrhosis Psych: reports: no pertinent history Musculoskeletal: reports: no pertinent history Rheumatologic: reports: no pertinent history Infectious Disease: reports: no pertinent history ENT: reports: no pertinent history Renal/: reports: no pertinent history Endocrine: reports: no pertinent history Dermatology: reports: no pertinent history - Past Surgical History Past Surgical History: reports: Hernia Repair - Family History Family History: reports: hypertension - Social History Tobacco Type: cigarettes Living Situation: With Family Activity level: independent ambulation - Exam General Appearance: NAD, awake alert Eye: PERRL, anicteric sclera ENT: normocephalic atraumatic, no oropharyngeal lesions, moist mucosa Neck: supple, symmetric, no JVD, no thyromegaly, no lymphadenopathy, no carotid bruit Heart: RRR, no murmur, no gallops, no rubs, normal peripheral pulses Respiratory: CTAB, no wheezes, no ronchi, normal chest expansion, no tachypnea, normal percussion, rales Gastrointestinal: soft, non-tender, non-distended, normal bowel sounds, no palpable masses, no hepatomegaly, no splenomegaly, no bruit Extremities: no cyanosis, no clubbing, no edema Skin: normal turgor, no lesions, no rashes Neurological: cranial nerve grossly intact, normal sensation to touch, no weakness, no focal deficits, no new deficit Musculoskeletal: normal tone, normal strength, no muscle wasting Psychiatric: normal affect, normal behavior, A&O x 3 Hospitalist Results - Labs Result Diagrams: 04/01/19 18:28 04/01/19 18:28 Lab results: WBC 4.2 thou/uL (4.8-10.8) L 04/01/19 18:28 Hgb 6.7 g/dL (14.0-18.0) L 04/01/19 18:28 Hct 21.3 % (42.0-52.0) L 04/01/19 18:28 MCV 79.8 fL (78.0-98.0) 04/01/19 18:28 Plt Count 130 thou/uL (130-400) 04/01/19 18:28 Neutrophils % 77.7 % (42.0-75.0) H 04/01/19 18:28 Sodium 135 mmol/L (136-145) L 04/01/19 18:28 Potassium 3.1 mmol/L (3.5-5.1) L 04/01/19 18:28 Chloride 100 mmol/L (98-107) 04/01/19 18:28 Carbon Dioxide 26 mmol/L (23-31) 04/01/19 18:28 BUN 14 mg/dL (8.4-25.7) 04/01/19 18:28 Creatinine 1.37 mg/dL (0.7-1.3) H 04/01/19 18:28 Glucose 178 mg/dL (80-115) H 04/01/19 18:28 Calcium 8.6 mg/dL (7.8-10.44) 04/01/19 18:28 Total Bilirubin 1.2 mg/dL (0.2-1.2) 04/01/19 18:28 AST 15 U/L (5-34) 04/01/19 18:28 ALT 8 U/L (8-55) 04/01/19 18:28 Alkaline Phosphatase 143 U/L (40-110) H 04/01/19 18:28 B-Natriuretic Peptide 959.4 pg/mL (0-100) H 04/01/19 18:28 Serum Total Protein 8.3 g/dL (5.8-8.1) H 04/01/19 18:28 Albumin 3.3 g/dL (3.4-4.8) L 04/01/19 18:28 - EKG Interpretation EKG: normal sinus rhythm, Rate (beats per minute): 91, with occasional premature ventricular complexes, Conduction normal, ST segments normal, Hospitalist H&P A/P - Problem (1) Acute on chronic systolic CHF (congestive heart failure), NYHA class 2 Code(s): I50.23 - ACUTE ON CHRONIC SYSTOLIC (CONGESTIVE) HEART FAILURE Status : Acute (2) Anemia Code(s): D64.9 - ANEMIA, UNSPECIFIED Status: Acute (3) CAD (coronary artery disease) Code(s): I25.10 - ATHSCL HEART DISEASE OF [place] CORONARY ARTERY W/O ANG PCTRS Status: Chronic Qualifiers: Coronary Disease-Associated Artery/Lesion type: unspecified vessel or lesion type Associated angina: without angina Assessment and Plan: s/pt recent stent placement in January (4) COPD (chronic obstructive pulmonary disease) Status: Chronic Qualifiers: COPD type: unspecified COPD Qualified Code(s): J44.9 - Chronic obstructive pulmonary disease, unspecified (5) HTN (hypertension) Code(s): I10 - ESSENTIAL (PRIMARY) HYPERTENSION Status: Chronic Qualifiers: Hypertension type: essential hypertension Qualified Code(s): I10 - Essential (primary) hypertension (6) Cirrhosis Code(s): K74.60 - UNSPECIFIED CIRRHOSIS OF LIVER Status: Acute - Plan Plan: Admit to telemetry for diuresis. Lasix 40mg IV BID. Daily weight. Monitor intake and output. Fluid restriction of 1800ml Anemia normocytic, transfuse and monitor for signs of bleeding. Currently no bleeding sxs Resume home medications. Resume plavix and apirin given recent stent Prior echo reviewed (prior to stent placement), EF was 30% at that time. Repeat study, consult his porter sample case Dr. Elliott Continue other home medications DVT prophylaxis: SCDs Code status: Full code Disposition: Admit for diruesis. Evaluation of CHF. Coorection of anemia
[2019-04-02] MEDS ORDERED: Potassium Chloride 20 MEQ TAB ONE (00:27)
[2019-04-02 02:25] VITALS: BMI 27.5
[2019-04-02 05:23] LABS: #Eosinphils 0.1 thou/uL (0.0-0.7); #Lymphocytes 0.7 thou/uL (1.20-3.40); #Monocytes 0.3 thou/uL (0.11-0.59); #Neutrophils 3.1 thou/uL (1.40-6.50); %Basophils 0.5 % (0.0-1.0); %Eosinophils 2.2 % (0.0-10.0); %Lymphocytes 16.8 % (21.0-51.0); %Monocytes 6.5 % (0.0-10.0); %Neutrophils 74.1 % (42.0-75.0); Hemoglobin 7.2 g/dL (14.0-18.0); Mean Corpuscular HGB CONC 31.8 g/dL (32.0-36.0); Mean Corpuscular Hemoglobin 25.1 pg (27.0-31.0); Mean Corpuscular Volume 78.9 fL (78.0-98.0); Mean Platelet Volume 9.4 fL (7.4-10.4); Platelet Count 117 thou/uL (130-400); RBC Distribution Width 17.1 % (11.5-14.5); Red Blood Cell (RBC) Count 2.89 mill/uL (4.70-6.10); White Blood Cell (WBC) Count 4.2 thou/uL (4.8-10.8)
[2019-04-02 05:43] LABS: ALT (SGPT) 9 U/L (8-55); AST (SGOT) 14 U/L (5-34); Albumin 3.1 g/dL (3.4-4.8); Alkaline Phosphatase 131 U/L (40-110); Anion Gap 11 mmol/L (10-20); BUN (Urea Nitrogen) 15 mg/dL (8.4-25.7); Bilirubin, Total 1.4 mg/dL (0.2-1.2); Calc. Creatinine Clearance 69 mL/min (70-130); Calcium 8.4 mg/dL (7.8-10.44); Carbon Dioxide 27 mmol/L (23-31); Chloride 101 mmol/L (98-107); Estimated GFR-MDRD 58; Globulin 4.8 g/dL (2.4-3.5); Glucose 183 mg/dL (80-115); Potassium 3.3 mmol/L (3.5-5.1); Protein, Total 7.9 g/dL (5.8-8.1); Sodium 136 mmol/L (136-145)
[2019-04-02] MEDS: Furosemide 40 MG/4 ML VIAL SLOW IVP SCH ×2 (05:55→14:28)
--- NOTE | 2019-04-02 08:00 | RAD ---
EXAM: Single view of the chest HISTORY: Heart failure COMPARISON: 04/01/2019 FINDINGS: Single view of the chest shows an enlarged but stable cardiomediastinal silhouette. There i s no evidence of consolidation, mass, or pleural effusion. The bones are unremarkable. IMPRESSION: Stable cardiomegaly
[2019-04-02] MEDS: Clopidogrel Bisulfate 75 MG TAB PO SCH (08:20)
[2019-04-02] MEDS: Aspirin Chewable 81 MG TAB PO SCH (08:20)
[2019-04-02] MEDS: Magnesium Chloride 64 MG TAB PO SCH ×2 (08:20→22:09)
[2019-04-02] MEDS ORDERED: Dextrose 50% Abboject 50 ML SYRINGE SLOW IVP PRN (11:06)
[2019-04-02] MEDS ORDERED: Dextrose 5% in Water 1,000 ML IV PRN (11:06)
--- NOTE | 2019-04-02 11:38 | PDOC.HOSPP ---
- Subjective Encounter Date: 04/02/19 Encounter Time: 11:35 Subjective: Mr. Daniels was seen today in follow-up of CHF exacerbation. His main concern is medications for anxiety and back pain. He tells me he fell about a month ago, and since then he has pain in his bcak, and shoulders, and legs. He says it is off and on. He tells me he has already had imaging. He also says his primary care Provider refuses to prescribe any narcotics, and she wants to send him to [facility] to be prescribed medications for anxiety. He denies dyspnea, and lower extremity edema has improved. - Objective Vital Signs & Weight: Vital Signs (12 hours) Temp Pulse Pulse Resp BP BP Pulse Ox 04/02/19 08:20 98 04/02/19 08:19 98.1 F 104 H 20 138/64 98 04/02/19 06:20 101 H 16 04/02/19 03:45 99 F 98 20 131/67 99 04/02/19 02:14 97.9 F 94 16 128/72 98 04/02/19 01:05 98.0 F 95 16 130/75 99 Weight Weight 176 lb 12.8 oz I&O: 04/01/19 04/02/19 04/03/19 06:59 06:59 06:59 Intake Total 240 Output Total 550 Balance -310 Result Diagrams: 04/02/19 04:40 04/02/19 04:40 Hospitalist ROS - Medication Medications: Active Medications Generic Name Dose Route Start Last Admin Trade Name Freq PRN Reason Stop Dose Admin Albuterol/Ipratropium 3 ml 04/01/19 22:23 04/02/19 06:20 Duoneb NEB 3 ml [id number] PRN Administration Dyspnea/Wheezing/SOB Aspirin 81 mg 04/02/19 09:00 04/02/19 08:20 Aspirin Chewable PO 81 mg DAILY YANNICK Administration Clopidogrel Bisulfate 75 mg 04/02/19 09:00 04/02/19 08:20 Plavix PO 75 mg DAILY YANNICK Administration Furosemide 40 mg 04/02/19 06:00 04/02/19 05:55 Lasix SLOW IVP 40 mg 0600,1400 YANNICK Administration Magnesium Chloride 64 mg 04/02/19 09:00 04/02/19 08:20 Slow-Mag PO 64 mg BID YANNICK Administration Pantoprazole Sodium 40 mg 04/02/19 09:00 04/02/19 08:20 Protonix PO 40 mg QAM YANNICK Administration - Exam Eye: PERRL Heart: RRR, no murmur, no gallops, no rubs, normal peripheral pulses Respiratory: CTAB, no wheezes, no rales, no ronchi, normal chest expansion, no tachypnea, normal percussion Gastrointestinal: soft, non-tender, non-distended, normal bowel sounds, no palpable masses, no hepatomegaly Extremities: no cyanosis, no clubbing, 1+ LE edema Hosp A/P (1) Acute on chronic systolic CHF (congestive heart failure), NYHA class 2 Code(s): I50.23 - ACUTE ON CHRONIC SYSTOLIC (CONGESTIVE) HEART FAILURE Status : Acute (2) Cirrhosis Code(s): K74.60 - UNSPECIFIED CIRRHOSIS OF LIVER Status: Acute (3) CAD (coronary artery disease) Code(s): I25.10 - ATHSCL HEART DISEASE OF [place] CORONARY ARTERY W/O ANG PCTRS Status: Chronic Qualifiers: Coronary Disease-Associated Artery/Lesion type: unspecified vessel or lesion type Associated angina: without angina (4) HTN (hypertension) Code(s): I10 - ESSENTIAL (PRIMARY) HYPERTENSION Status: Chronic Qualifiers: Hypertension type: essential hypertension Qualified Code(s): I10 - Essential (primary) hypertension (5) Back pain at L4-L5 level Code(s): M54.5 - LOW BACK PAIN Status: Chronic (6) Anxiety Code(s): F41.9 - ANXIETY DISORDER, UNSPECIFIED Status: Chronic (7) Chronic anemia Code(s): D64.9 - ANEMIA, UNSPECIFIED Status: Chronic - Plan * Acute on chronic systolic heart failure- continue Lasix IV * Await Echo results and Cardiology input * Back Pain- he had a CT scan of the Lumbar spine in January of this year. At that time he had significant DJD * Will continue Tramadol for pain, and add Gabapentin, due to the chronic nature of the pain, continue Flexeril as needed * Anxiety- will place on a short course of Ativan * HTN- blood pressure is stable * Anemia- appears chronic after review of his records- ( most consistent with anemia of chronic disease) His H&H is better after transfusion
[2019-04-02] MEDS: Potassium Chloride 20 MEQ TAB PO SCH ×2 (11:45→11:54)
[2019-04-02] MEDS: Lorazepam 0.5 MG TAB PO PRN ×2 (11:46→17:45)
[2019-04-02 16:18] LABS: Iron 44 ug/dL (65-175); Iron Binding Capacity, Total 474 mcg/dL (261-462)
[2019-04-02] MEDS: metFORMIN 500 MG TAB PO SCH (16:30)
[2019-04-02] MEDS: HumaLOG 300 UNITS/3 ML VIAL SC PRN (17:45)
[2019-04-02] MEDS: Carvedilol 3.125 MG TAB PO SCH (21:10)
[2019-04-02] MEDS: Atorvastatin Calcium 20 MG TAB PO SCH (21:10)
[2019-04-02] MEDS: Gabapentin 100 MG CAP PO SCH (21:11)
[2019-04-02] MEDS: traMADol HCl 50 MG TAB PO PRN (21:12)
[2019-04-02] MEDS: traZODone HCl 50 MG TAB PO SCH (21:12)
--- NOTE | 2019-04-02 21:48 | CON ---
DATE OF CONSULTATION: 04/02/2019 [facility] [employer] SPECIALIST: Dr. Dainel Elliott. REASON FOR CONSULTATION: Congestive heart failure and shortness of breath. HISTORY OF PRESENT ILLNESS: Mr. Kenyon Daniels is a very pleasant 63-year-old gentleman with history of systolic congestive heart failure and coronary artery disease. The patient has a history of stent implantation in the right coronary artery and subsequent restenosis. The patient had a diagnosis of an in-stent restenosis and underwent cardiac catheterization and subsequently stent implantation. The date listed on the note is 02/14/2019. The patient had a 3.5 x 20 synergy drug-eluting stent and another 3.5 x 20 drug-eluting stents, both of these were Synergy drug-eluting stents. The patient did well prior to that. The patient was admitted to the hospital with increasing difficulty breathing last night. The patient was also found to be severely anemic and received 1 unit of packed red blood cells according to the patient. REVIEW OF SYSTEMS: CONSTITUTIONAL: Positive for some weakness and fatigue. ENT: Vision, no changes. Hearing, no changes. PULMONARY: Positive shortness of breath. CARDIAC: Positive shortness of breath. No chest pain. GASTROINTESTINAL: No nausea, vomiting, or diarrhea. No bloody stools. GENITOURINARY: No burning with urination. MUSCULOSKELETAL: No unusual joint pains. PAST MEDICAL HISTORY: 1. Coronary disease as outlined above. 2. Hypertension. 3. Congestive heart failure, systolic. PAST SURGICAL HISTORY: Hernia repair. FAMILY HISTORY: Hypertension. SOCIAL HISTORY: Positive for cigarette smoking. PHYSICAL EXAMINATION: GENERAL: This is a pleasant elderly gentleman. He is short of breath, but he just walked from the bathroom into a couch and he sat for few minutes, his breathing was back to normal. VITAL SIGNS: Blood pressure 124/58, pulse 90, it is regular. EYES: Sclerae nonicteric. MOUTH: Mucous membranes moist. NECK: Supple. No lymphadenopathy. LUNGS: Clear. CARDIAC: Normal S1, normal S2. There is no murmur, rub, or gallop. ABDOMEN: Soft and nontender. No hepatosplenomegaly. EXTREMITIES: Warm and dry. No clubbing or cyanosis. There is mild edema. SKIN: Warm and dry. PERTINENT LABORATORY DATA: Hemoglobin was 6.7 and 7.2 this morning. The patient tells me he received 1 unit of packed red blood cells. Hematocrit is 23.8. PERTINENT MEDICINES: He is receiving Coreg twice daily. He has also got potassium. He is receiving Lasix. ASSESSMENT: 1. Congestive heart failure, systolic. 2. [id number]. Some of the precipitation is likely due to the anemia. 3. Anemia, likely iron deficiency. Ferritin level in October was 43.57. 4. History of esophageal varices. 5. Recent stent implantation. PLAN: 1. Continue to monitor CBC, may need further packed red blood cells. 2. Check iron levels, may benefit from intravenous iron. 3. Continue diuretics. 4. Continue potassium. 5. We will follow with you. Job ID: [id number] MTDD
[2019-04-02] MEDS: Iron, Sodium Ferric Gluconate 250 MG in Sodium Chloride 0.9% 100 ML IVPB SCH (22:09)
[2019-04-03] MEDS: Lorazepam 0.5 MG TAB PO PRN ×4 (00:56→20:18)
[2019-04-03] MEDS: Furosemide 40 MG/4 ML VIAL SLOW IVP SCH ×2 (05:57→14:39)
[2019-04-03] MEDS ORDERED: Carvedilol 3.125 MG TAB PO SCH (08:00)
[2019-04-03] MEDS: Magnesium Chloride 64 MG TAB PO SCH ×2 (08:10→20:17)
[2019-04-03] MEDS: Carvedilol 3.125 MG TAB PO SCH ×2 (08:10→20:17)
[2019-04-03] MEDS: metFORMIN 500 MG TAB PO SCH ×2 (08:10→17:29)
[2019-04-03] MEDS: Clopidogrel Bisulfate 75 MG TAB PO SCH (08:11)
[2019-04-03] MEDS: Iron, Sodium Ferric Gluconate 250 MG in Sodium Chloride 0.9% 100 ML IVPB SCH (08:11)
[2019-04-03] MEDS: Alogliptin 25 MG TAB PO SCH (08:11)
[2019-04-03] MEDS: Gabapentin 100 MG CAP PO SCH ×2 (08:11→20:17)
[2019-04-03] MEDS: Aspirin Chewable 81 MG TAB PO SCH (08:11)
[2019-04-03 09:26] LABS: #Eosinphils 0.1 thou/uL (0.0-0.7); #Lymphocytes 0.7 thou/uL (1.20-3.40); #Monocytes 0.3 thou/uL (0.11-0.59); #Neutrophils 3.5 thou/uL (1.40-6.50); %Basophils 0.4 % (0.0-1.0); %Eosinophils 2.3 % (0.0-10.0); %Lymphocytes 15.1 % (21.0-51.0); %Monocytes 6.4 % (0.0-10.0); %Neutrophils 75.8 % (42.0-75.0); Anion Gap 13 mmol/L (10-20); BUN (Urea Nitrogen) 15 mg/dL (8.4-25.7); Calc. Creatinine Clearance 64 mL/min (70-130); Calcium 8.6 mg/dL (7.8-10.44); Carbon Dioxide 29 mmol/L (23-31); Chloride 98 mmol/L (98-107); Estimated GFR-MDRD 54; Glucose 170 mg/dL (80-115); Mean Corpuscular HGB CONC 31.1 g/dL (32.0-36.0); Mean Corpuscular Hemoglobin 24.8 pg (27.0-31.0); Mean Corpuscular Volume 79.6 fL (78.0-98.0); Mean Platelet Volume 9.4 fL (7.4-10.4); Platelet Count 119 thou/uL (130-400); Potassium 3.5 mmol/L (3.5-5.1); RBC Distribution Width 17.2 % (11.5-14.5); Red Blood Cell (RBC) Count 2.81 mill/uL (4.70-6.10); Sodium 136 mmol/L (136-145); White Blood Cell (WBC) Count 4.6 thou/uL (4.8-10.8)
[2019-04-03] MEDS: HumaLOG 300 UNITS/3 ML VIAL SC PRN (11:15)
--- NOTE | 2019-04-03 11:27 | PDOC.HOSPP ---
- Subjective Encounter Date: 04/03/19 Encounter Time: 11:25 Subjective: Mr. Daniels was seen today in follow-up of CHF exacerbation. He is laying flat in bed. He does not have any complaints. The back pain and anxiety have improved as well. - Objective Vital Signs & Weight: Vital Signs (12 hours) Temp Pulse Resp BP BP Pulse Ox 04/03/19 11:08 97.8 F 89 16 119/69 94 L 04/03/19 07:08 98.0 F 95 18 128/70 96 04/03/19 06:26 112 H 16 04/03/19 03:35 97.2 F L 101 H 18 143/70 H 95 04/02/19 23:30 92 118/56 L Weight Weight 172 lb 8 oz I&O: 04/02/19 04/03/19 04/04/19 06:59 06:59 06:59 Intake Total 240 1056 Output Total 550 3200 Balance -310 -8358 Result Diagrams: 04/03/19 08:42 04/03/19 08:42 Additional Labs: Accuchecks 04/03/19 04/03/19 04/02/19 10:46 05:38 20:25 POC Glucose 235 H 156 H 180 H 04/02/19 17:05 POC Glucose 224 H Hospitalist ROS - Medication Medications: Active Medications Generic Name Dose Route Start Last Admin Trade Name Freq PRN Reason Stop Dose Admin Albuterol/Ipratropium 3 ml 04/01/19 22:23 04/03/19 06:26 Duoneb NEB 3 ml [id number] PRN Administration Dyspnea/Wheezing/SOB Alogliptin Benzoate 25 mg 04/03/19 09:00 04/03/19 08:11 Alogliptin PO 25 mg DAILY YANNICK Administration Aspirin 81 mg 04/02/19 09:00 04/03/19 08:11 Aspirin Chewable PO 81 mg DAILY YANNICK Administration Atorvastatin Calcium 20 mg 04/02/19 21:00 04/02/19 21:10 Lipitor PO 20 mg HS YANNICK Administration Carvedilol 1.5625 mg 04/02/19 21:00 04/03/19 08:10 Coreg PO 1.5625 mg BID YANNICK Administration Clopidogrel Bisulfate 75 mg 04/02/19 09:00 04/03/19 08:11 Plavix PO 75 mg DAILY YANNICK Administration Furosemide 40 mg 04/02/19 06:00 04/03/19 05:57 Lasix SLOW IVP 40 mg 0600,1400 YANNICK Administration Gabapentin 100 mg 04/02/19 21:00 04/03/19 08:11 Neurontin PO 100 mg BID YANNICK Administration Insulin Human Lispro 0 units 04/02/19 11:06 04/03/19 11:15 Humalog SC 3 unit .MILD SLIDING SCALE PRN Administration Mild Correctional Scale Lorazepam 0.5 mg 04/02/19 11:34 04/03/19 08:11 Ativan PO 0.5 mg Q6H PRN Administration Anxiety Magnesium Chloride 64 mg 04/02/19 09:00 04/03/19 08:10 Slow-Mag PO 64 mg BID YANNICK Administration Metformin HCl 500 mg 04/02/19 17:00 04/03/19 08:10 Glucophage PO 500 mg BID-WM YANNICK Administration Ondansetron HCl 4 mg 04/01/19 22:23 04/02/19 17:49 Zofran IVP 4 mg Q6H PRN Administration Nausea/Vomiting Pantoprazole Sodium 40 mg 04/02/19 09:00 04/03/19 08:11 Protonix PO 40 mg QAM YANNICK Administration Tramadol HCl 50 mg 04/01/19 22:23 04/02/19 21:12 Ultram PO 50 mg TID PRN Administration Pain Trazodone HCl 50 mg 04/02/19 21:00 04/02/19 21:12 Desyrel PO Not Given HS YANNICK - Exam Eye: PERRL Heart: RRR, no gallops, no rubs, normal peripheral pulses, II/IV Respiratory: CTAB, no wheezes, no rales, no ronchi, normal chest expansion, no tachypnea, normal percussion Gastrointestinal: soft, non-tender, non-distended, normal bowel sounds Extremities: no cyanosis, 1+ LE edema Neurological: no focal deficits Hosp A/P (1) Acute on chronic systolic CHF (congestive heart failure), NYHA class 2 Code(s): I50.23 - ACUTE ON CHRONIC SYSTOLIC (CONGESTIVE) HEART FAILURE Status : Acute (2) Cirrhosis Code(s): K74.60 - UNSPECIFIED CIRRHOSIS OF LIVER Status: Acute (3) CAD (coronary artery disease) Code(s): I25.10 - ATHSCL HEART DISEASE OF [place] CORONARY ARTERY W/O ANG PCTRS Status: Chronic Qualifiers: Coronary Disease-Associated Artery/Lesion type: unspecified vessel or lesion type Associated angina: without angina (4) HTN (hypertension) Code(s): I10 - ESSENTIAL (PRIMARY) HYPERTENSION Status: Chronic Qualifiers: Hypertension type: essential hypertension Qualified Code(s): I10 - Essential (primary) hypertension (5) Back pain at L4-L5 level Code(s): M54.5 - LOW BACK PAIN Status: Chronic (6) Anxiety Code(s): F41.9 - ANXIETY DISORDER, UNSPECIFIED Status: Chronic (7) Chronic anemia Code(s): D64.9 - ANEMIA, UNSPECIFIED Status: Chronic - Plan * Acute on chronic systolic heart failure- continue Lasix IV * Echo results noted- his EF is around 30-35%- will await further recommendations from Cardiology * Back Pain- better control to day- continue Tramadol, and Gabapentin * Anxiety- stable * HTN- blood pressure is stable * Anemia- his HGB is only at 7.0 today- will transfuse another unit- check stool for occult blood
[2019-04-03] MEDS: Atorvastatin Calcium 20 MG TAB PO SCH (20:16)
[2019-04-03] MEDS: traZODone HCl 50 MG TAB PO SCH (20:18)
[2019-04-04] MEDS: Lorazepam 0.5 MG TAB PO PRN ×4 (02:15→20:34)
[2019-04-04 04:54] LABS: #Eosinphils 0.2 thou/uL (0.0-0.7); #Lymphocytes 0.8 thou/uL (1.20-3.40); #Monocytes 0.3 thou/uL (0.11-0.59); #Neutrophils 3.1 thou/uL (1.40-6.50); %Basophils 0.3 % (0.0-1.0); %Eosinophils 3.6 % (0.0-10.0); %Lymphocytes 17.4 % (21.0-51.0); %Monocytes 7.5 % (0.0-10.0); %Neutrophils 71.3 % (42.0-75.0); Hemoglobin 7.7 g/dL (14.0-18.0); Mean Corpuscular Hemoglobin 25.2 pg (27.0-31.0); Mean Corpuscular Volume 81.2 fL (78.0-98.0); Mean Platelet Volume 9.5 fL (7.4-10.4); Platelet Count 115 thou/uL (130-400); RBC Distribution Width 17.4 % (11.5-14.5); Red Blood Cell (RBC) Count 3.06 mill/uL (4.70-6.10); White Blood Cell (WBC) Count 4.4 thou/uL (4.8-10.8)
[2019-04-04] MEDS: Furosemide 40 MG/4 ML VIAL SLOW IVP SCH (05:40)
[2019-04-04] MEDS: Aspirin Chewable 81 MG TAB PO SCH (08:38)
[2019-04-04] MEDS: Alogliptin 25 MG TAB PO SCH (08:38)
[2019-04-04] MEDS: Gabapentin 100 MG CAP PO SCH ×2 (08:38→20:34)
[2019-04-04] MEDS: metFORMIN 500 MG TAB PO SCH ×2 (08:38→17:30)
[2019-04-04] MEDS: Clopidogrel Bisulfate 75 MG TAB PO SCH (08:38)
[2019-04-04] MEDS: Magnesium Chloride 64 MG TAB PO SCH ×2 (08:38→21:07)
[2019-04-04] MEDS: Carvedilol 3.125 MG TAB PO SCH ×2 (08:38→20:33)
--- NOTE | 2019-04-04 09:34 | PRG ---
DATE OF SERVICE: 04/04/2019 SUBJECTIVE: Mr. Daniels states he just feels tired and fatigued. He did receive one additional unit of packed red blood cells, apparently for a total of 2 units of packed red blood cells since he has been here. He has also received 2 doses of intravenous iron. OBJECTIVE: VITAL SIGNS: The patient's blood pressure 110/64 and pulse 90. LUNGS: Clear. CARDIAC: Normal S1 and normal S2. ABDOMEN: Soft and nontender. EXTREMITIES: Mild edema. LABORATORY DATA: Hemoglobin 7.7 and hematocrit 24.9. Potassium was 3.5 on the 29. ASSESSMENT: 1. Congestive heart failure. 2. Anemia, probably related to slow gastrointestinal blood loss, was iron deficient. 3. Coronary artery disease with stent implantation by Dr. Elliott 2 months ago. PLAN: 1. Continue dual anti-platelet therapy for now. At some point, may need to consider stopping either aspirin or Plavix. 2. Recheck blood counts tomorrow. 3. He is still on IV Lasix. Job ID: [id number]
--- NOTE | 2019-04-04 11:52 | PDOC.HOSPP ---
- Subjective Encounter Date: 04/04/19 Encounter Time: 11:50 Subjective: Mr. Daniels was seen today in follow-up of CHF exacerbation. He says he is breathing much better. He does not have any new complaints, and no mention of back pain or anxiety. - Objective Vital Signs & Weight: Vital Signs (12 hours) Temp Pulse Resp BP BP Pulse Ox 04/04/19 07:40 98.7 F 90 18 110/64 95 04/04/19 04:00 97.5 F L 88 16 114/56 L 97 Weight Weight 175 lb 14.4 oz I&O: 04/03/19 04/04/19 04/05/19 06:59 06:59 06:59 Intake Total 1056 2110 Output Total 5852 5568 Balance -0604 -0504 Result Diagrams: 04/04/19 04:22 04/03/19 08:42 Additional Labs: Accuchecks 04/04/19 04/04/19 04/03/19 10:48 05:53 20:17 POC Glucose 166 H 143 H 151 H 04/03/19 17:01 POC Glucose 137 H Hospitalist ROS - Medication Medications: Active Medications Generic Name Dose Route Start Last Admin Trade Name Freq PRN Reason Stop Dose Admin Albuterol/Ipratropium 3 ml 04/01/19 22:23 04/03/19 19:41 Duoneb NEB 3 ml [id number] PRN Administration Dyspnea/Wheezing/SOB Alogliptin Benzoate 25 mg 04/03/19 09:00 04/04/19 08:38 Alogliptin PO 25 mg DAILY YANNICK Administration Aspirin 81 mg 04/02/19 09:00 04/04/19 08:38 Aspirin Chewable PO 81 mg DAILY YANNICK Administration Atorvastatin Calcium 20 mg 04/02/19 21:00 04/03/19 20:16 Lipitor PO 20 mg HS YANNICK Administration Carvedilol 1.5625 mg 04/02/19 21:00 04/04/19 08:38 Coreg PO 1.5625 mg BID YANNICK Administration Clopidogrel Bisulfate 75 mg 04/02/19 09:00 04/04/19 08:38 Plavix PO 75 mg DAILY YANNICK Administration Furosemide 40 mg 04/02/19 06:00 04/04/19 05:40 Lasix SLOW IVP 40 mg 0600,1400 YANNICK Administration Gabapentin 100 mg 04/02/19 21:00 04/04/19 08:38 Neurontin PO 100 mg BID YANNICK Administration Insulin Human Lispro 0 units 04/02/19 11:06 04/03/19 11:15 Humalog SC 3 unit .MILD SLIDING SCALE PRN Administration Mild Correctional Scale Lorazepam 0.5 mg 04/02/19 11:34 04/04/19 08:38 Ativan PO 0.5 mg Q6H PRN Administration Anxiety Magnesium Chloride 64 mg 04/02/19 09:00 04/04/19 08:38 Slow-Mag PO 64 mg BID YANNICK Administration Metformin HCl 500 mg 04/02/19 17:00 04/04/19 08:38 Glucophage PO 500 mg BID-WM YANNICK Administration Ondansetron HCl 4 mg 04/01/19 22:23 04/02/19 17:49 Zofran IVP 4 mg Q6H PRN Administration Nausea/Vomiting Pantoprazole Sodium 40 mg 04/02/19 09:00 04/04/19 08:38 Protonix PO 40 mg QAM YANNICK Administration Tramadol HCl 50 mg 04/01/19 22:23 04/02/19 21:12 Ultram PO 50 mg TID PRN Administration Pain Trazodone HCl 50 mg 04/02/19 21:00 04/03/19 20:18 Desyrel PO Not Given HS YANNICK - Exam Eye: PERRL Heart: RRR, no murmur, no gallops, no rubs, normal peripheral pulses Respiratory: CTAB, no wheezes, no rales, no ronchi, normal chest expansion, no tachypnea, normal percussion Gastrointestinal: soft, non-tender, non-distended, normal bowel sounds, no palpable masses, no hepatomegaly Extremities: no cyanosis, no edema Hosp A/P (1) Acute on chronic systolic CHF (congestive heart failure), NYHA class 2 Code(s): I50.23 - ACUTE ON CHRONIC SYSTOLIC (CONGESTIVE) HEART FAILURE Status : Acute (2) Cirrhosis Code(s): K74.60 - UNSPECIFIED CIRRHOSIS OF LIVER Status: Acute (3) CAD (coronary artery disease) Code(s): I25.10 - ATHSCL HEART DISEASE OF [place] CORONARY ARTERY W/O ANG PCTRS Status: Chronic Qualifiers: Coronary Disease-Associated Artery/Lesion type: unspecified vessel or lesion type Associated angina: without angina (4) HTN (hypertension) Code(s): I10 - ESSENTIAL (PRIMARY) HYPERTENSION Status: Chronic Qualifiers: Hypertension type: essential hypertension Qualified Code(s): I10 - Essential (primary) hypertension (5) Back pain at L4-L5 level Code(s): M54.5 - LOW BACK PAIN Status: Chronic (6) Anxiety Code(s): F41.9 - ANXIETY DISORDER, UNSPECIFIED Status: Chronic (7) Chronic anemia Code(s): D64.9 - ANEMIA, UNSPECIFIED Status: Chronic - Plan * Acute on chronic systolic heart failure- he appears clinically compensated- will transition him back to oral Lasix * Echo results noted- his EF is around 30-35%- will await further recommendations from Cardiology * Back Pain- continue Tramadol, and Gabapentin * Anxiety- stable * HTN- blood pressure is stable * Anemia- post transfusion Hemoglobin is 7.7 today
[2019-04-04] MEDS: Iron Polysaccharides Complex 150 MG CAP PO SCH (12:27)
[2019-04-04] MEDS: Potassium Chloride 20 MEQ TAB PO SCH ×2 (12:27→12:37)
[2019-04-04] MEDS: Atorvastatin Calcium 20 MG TAB PO SCH (20:33)
[2019-04-04] MEDS: traMADol HCl 50 MG TAB PO PRN (20:34)
[2019-04-04] MEDS: traZODone HCl 50 MG TAB PO SCH (20:34)
[2019-04-05 07:51] LABS: Hemoglobin 8.9 g/dL (14.0-18.0); Mean Corpuscular HGB CONC 30.4 g/dL (32.0-36.0); Mean Corpuscular Hemoglobin 25.2 pg (27.0-31.0); Mean Corpuscular Volume 82.9 fL (78.0-98.0); Mean Platelet Volume 9.3 fL (7.4-10.4); Platelet Count 133 thou/uL (130-400); RBC Distribution Width 18.2 % (11.5-14.5); Red Blood Cell (RBC) Count 3.52 mill/uL (4.70-6.10); White Blood Cell (WBC) Count 5.4 thou/uL (4.8-10.8)
[2019-04-05 07:52] LABS: #Eosinphils 0.2 thou/uL (0.0-0.7); #Monocytes 0.4 thou/uL (0.11-0.59); #Neutrophils 3.9 thou/uL (1.40-6.50); %Basophils 0.1 % (0.0-1.0); %Lymphocytes 17.7 % (21.0-51.0); %Monocytes 6.6 % (0.0-10.0); %Neutrophils 71.6 % (42.0-75.0)
[2019-04-05] MEDS ORDERED: Iron Polysaccharides Complex 150 MG CAP PO SCH (08:00)
[2019-04-05 08:18] LABS: Anion Gap 12 mmol/L (10-20); BUN (Urea Nitrogen) 16 mg/dL (8.4-25.7); Calc. Creatinine Clearance 74 mL/min (70-130); Calcium 9.1 mg/dL (7.8-10.44); Carbon Dioxide 27 mmol/L (23-31); Chloride 101 mmol/L (98-107); Estimated GFR-MDRD 64; Glucose 115 mg/dL (80-115); Potassium 3.5 mmol/L (3.5-5.1); Sodium 136 mmol/L (136-145)
[2019-04-05 08:35] LABS: Hypochromia SLIGHT = 6-15 cells (100X) (0-5/hpf); MDiff Complete? YES; Platelet Morphology Comment Appears Adequate; Polychromasia MODERATE = 3-4 cells (100X) (0-2/hpf); Reflex for Review?? NO
[2019-04-05] MEDS: Alogliptin 25 MG TAB PO SCH (08:55)
[2019-04-05] MEDS: Furosemide 40 MG TAB PO SCH (08:55)
[2019-04-05] MEDS: Carvedilol 3.125 MG TAB PO SCH ×2 (08:55→21:06)
[2019-04-05] MEDS: Lorazepam 0.5 MG TAB PO PRN ×3 (08:55→23:17)
[2019-04-05] MEDS: metFORMIN 500 MG TAB PO SCH ×2 (08:55→17:01)
[2019-04-05] MEDS: Clopidogrel Bisulfate 75 MG TAB PO SCH (08:56)
[2019-04-05] MEDS: Magnesium Chloride 64 MG TAB PO SCH ×2 (08:56→21:06)
[2019-04-05] MEDS: Aspirin Chewable 81 MG TAB PO SCH (08:56)
[2019-04-05] MEDS: Gabapentin 100 MG CAP PO SCH ×2 (08:56→21:05)
[2019-04-05] MEDS: HumaLOG 300 UNITS/3 ML VIAL SC PRN (11:30)
[2019-04-05] MEDS: Iron Polysaccharides Complex 150 MG CAP PO SCH (11:30)
--- NOTE | 2019-04-05 11:56 | PDOC.HOSPP ---
- Subjective Encounter Date: 04/05/19 Encounter Time: 11:55 Subjective: Mr. Daniels was seen today in follow-up of CHF exacerbation. He does not have any new complaints. He is breathing better. - Objective Vital Signs & Weight: Vital Signs (12 hours) Temp Pulse Resp BP Pulse Ox 04/05/19 11:21 97.3 F L 84 16 113/67 96 04/05/19 08:50 97.6 F 87 18 128/59 L 96 04/05/19 06:56 87 16 94 L 04/05/19 03:44 98.0 F 95 18 132/60 94 L Weight Weight 174 lb 3.2 oz I&O: 04/04/19 04/05/19 04/06/19 06:59 06:59 06:59 Intake Total 2110 1590 Output Total 3375 1500 Balance -1265 90 Result Diagrams: 04/05/19 07:38 04/05/19 07:38 Additional Labs: Accuchecks 04/05/19 04/05/19 04/04/19 10:43 06:12 21:20 POC Glucose 217 H 125 H 132 H 04/04/19 16:48 POC Glucose 172 H Hospitalist ROS - Medication Medications: Active Medications Generic Name Dose Route Start Last Admin Trade Name Freq PRN Reason Stop Dose Admin Albuterol/Ipratropium 3 ml 04/04/19 19:00 04/05/19 06:56 Duoneb NEB 3 ml [id number] YANNICK Administration Alogliptin Benzoate 25 mg 04/03/19 09:00 04/05/19 08:55 Alogliptin PO 25 mg DAILY YANNICK Administration Aspirin 81 mg 04/02/19 09:00 04/05/19 08:56 Aspirin Chewable PO 81 mg DAILY YANNICK Administration Atorvastatin Calcium 20 mg 04/02/19 21:00 04/04/19 20:33 Lipitor PO 20 mg HS YANNICK Administration Carvedilol 1.5625 mg 04/02/19 21:00 04/05/19 08:55 Coreg PO 1.5625 mg BID YANNICK Administration Clopidogrel Bisulfate 75 mg 04/02/19 09:00 04/05/19 08:56 Plavix PO 75 mg DAILY YANNICK Administration Furosemide 40 mg 04/05/19 09:00 04/05/19 08:55 Lasix PO 40 mg DAILY YANNICK Administration Gabapentin 100 mg 04/02/19 21:00 04/05/19 08:56 Neurontin PO 100 mg BID YANNICK Administration Insulin Human Lispro 0 units 04/02/19 11:06 04/05/19 11:30 Humalog SC 3 unit .MILD SLIDING SCALE PRN Administration Mild Correctional Scale Lorazepam 0.5 mg 04/02/19 11:34 04/05/19 08:55 Ativan PO 0.5 mg Q6H PRN Administration Anxiety Magnesium Chloride 64 mg 04/02/19 09:00 04/05/19 08:56 Slow-Mag PO 64 mg BID YANNICK Administration Metformin HCl 500 mg 04/02/19 17:00 04/05/19 08:55 Glucophage PO 500 mg BID-WM YANNICK Administration Ondansetron HCl 4 mg 04/01/19 22:23 04/02/19 17:49 Zofran IVP 4 mg Q6H PRN Administration Nausea/Vomiting Pantoprazole Sodium 40 mg 04/02/19 09:00 04/05/19 08:56 Protonix PO 40 mg QAM YANNICK Administration Polysaccharide Iron Complex 150 mg 04/04/19 12:00 04/05/19 11:30 Niferex PO 150 mg 1200 YANNICK Administration Potassium Chloride 20 meq 04/05/19 09:00 04/05/19 08:55 Klor-Con PO 20 meq DAILY YANNICK Administration Sodium Chloride 10 ml 04/03/19 11:31 04/05/19 08:56 Flush - Normal Saline IVF 10 ml PRN PRN Administration Saline Flush Tramadol HCl 50 mg 04/01/19 22:23 04/04/19 20:34 Ultram PO 50 mg TID PRN Administration Pain Trazodone HCl 50 mg 04/02/19 21:00 04/04/19 20:34 Desyrel PO Not Given HS YANNICK - Exam Eye: PERRL Heart: RRR, no murmur, no gallops, no rubs, normal peripheral pulses Respiratory: CTAB, no wheezes, no rales, no ronchi, normal chest expansion, no tachypnea, normal percussion Gastrointestinal: soft, non-tender, non-distended, normal bowel sounds, no palpable masses, no hepatomegaly Extremities: no cyanosis, no clubbing, no edema Hosp A/P (1) Acute on chronic systolic CHF (congestive heart failure), NYHA class 2 Code(s): I50.23 - ACUTE ON CHRONIC SYSTOLIC (CONGESTIVE) HEART FAILURE Status : Acute (2) Cirrhosis Code(s): K74.60 - UNSPECIFIED CIRRHOSIS OF LIVER Status: Acute (3) CAD (coronary artery disease) Code(s): I25.10 - ATHSCL HEART DISEASE OF [place] CORONARY ARTERY W/O ANG PCTRS Status: Chronic Qualifiers: Coronary Disease-Associated Artery/Lesion type: unspecified vessel or lesion type Associated angina: without angina (4) HTN (hypertension) Code(s): I10 - ESSENTIAL (PRIMARY) HYPERTENSION Status: Chronic Qualifiers: Hypertension type: essential hypertension Qualified Code(s): I10 - Essential (primary) hypertension (5) Back pain at L4-L5 level Code(s): M54.5 - LOW BACK PAIN Status: Chronic (6) Anxiety Code(s): F41.9 - ANXIETY DISORDER, UNSPECIFIED Status: Chronic (7) Chronic anemia Code(s): D64.9 - ANEMIA, UNSPECIFIED Status: Chronic - Plan * Acute on chronic systolic heart failure-stable * Back Pain- continue Tramadol, and Gabapentin * Anxiety- stable * HTN- blood pressure is stable * Anemia- post transfusion Hemoglobin is 8.9 today * Home soon?
--- NOTE | 2019-04-05 15:59 | PDOC.CPN ---
- Subjective Date: 04/05/19 Time: 16:06 Interval history: The pt seen and examined. No overnight events. No cardiac complaints. - Objective Allergies/Adverse Reactions: Allergies Allergy/AdvReac Type Severity Reaction Status Date / Time Penicillins Allergy Severe Anaphylaxis Verified 04/02/19 07:47 Visit Medications: Current Medications Albuterol/Ipratropium (Duoneb) 3 ml NEB [id number] [facility] Last Admin: 04/05/19 13:24 Dose: Not Given Alogliptin Benzoate (Alogliptin) 25 mg PO DAILY [facility] Last Admin: 04/05/19 08:55 Dose: 25 mg Aspirin (Aspirin Chewable) 81 mg PO DAILY [facility] Last Admin: 04/05/19 08:56 Dose: 81 mg Atorvastatin Calcium (Lipitor) 20 mg PO HS [facility] Last Admin: 04/04/19 20:33 Dose: 20 mg Carvedilol (Coreg) 1.5625 mg PO BID [facility] Last Admin: 04/05/19 08:55 Dose: 1.5625 mg Clopidogrel Bisulfate (Plavix) 75 mg PO DAILY [facility] Last Admin: 04/05/19 08:56 Dose: 75 mg Cyclobenzaprine HCl (Flexeril) 5 mg PO BID PRN PRN Reason: Pain Dextrose/Water (Dextrose 50%) 25 gm SLOW IVP PRN PRN PRN Reason: Hypoglycemia Furosemide (Lasix) 40 mg PO DAILY [facility] Last Admin: 04/05/19 08:55 Dose: 40 mg Gabapentin (Neurontin) 100 mg PO BID [facility] Last Admin: 04/05/19 08:56 Dose: 100 mg Glucagon (Glucagon) 1 mg IM PRN PRN PRN Reason: Hypoglycemia Dextrose/Water (D5w) 1,000 mls @ 0 mls/hr IV .Q0M PRN PRN Reason: Hypoglycemia Insulin Human Lispro (Humalog) 0 units SC .MILD SLIDING SCALE PRN PRN Reason: Mild Correctional Scale Last Admin: 04/05/19 11:30 Dose: 3 unit Lorazepam (Ativan) 0.5 mg PO Q6H PRN PRN Reason: Anxiety Last Admin: 04/05/19 08:55 Dose: 0.5 mg Magnesium Chloride (Slow-Mag) 64 mg PO BID [facility] Last Admin: 04/05/19 08:56 Dose: 64 mg Metformin HCl (Glucophage) 500 mg PO BID-[facility] Last Admin: 04/05/19 08:55 Dose: 500 mg Ondansetron HCl (Zofran) 4 mg IVP Q6H PRN PRN Reason: Nausea/Vomiting Last Admin: 04/02/19 17:49 Dose: 4 mg Pantoprazole Sodium (Protonix) 40 mg PO QAM [facility] Last Admin: 04/05/19 08:56 Dose: 40 mg Polysaccharide Iron Complex (Niferex) 150 mg PO 1200 [facility] Last Admin: 04/05/19 11:30 Dose: 150 mg Potassium Chloride (Klor-Con) 20 meq PO DAILY [facility] Last Admin: 04/05/19 08:55 Dose: 20 meq Sodium Chloride (Flush - Normal Saline) 10 ml IVF PRN PRN PRN Reason: Saline Flush Last Admin: 04/05/19 08:56 Dose: 10 ml Tramadol HCl (Ultram) 50 mg PO TID PRN PRN Reason: Pain Last Admin: 04/04/19 20:34 Dose: 50 mg Trazodone HCl (Desyrel) 50 mg PO HS [facility] Last Admin: 04/04/19 20:34 Dose: Not Given Vital Signs & Weight: Vital Signs Temp Pulse Resp BP Pulse Ox 04/05/19 11:21 97.3 F L 84 16 113/67 96 04/05/19 08:50 97.6 F 87 18 128/59 L 96 04/05/19 06:56 87 16 94 L Weight 174 lb 3.2 oz - Physical Exam General: alert & oriented x3 HEENT: mucus membranes moist Neck: supple neck Cardiac: regular rate and rhythm Lungs: decreased breath sounds Neuro: cranial nerve 2-12 intact - Labs Result Diagrams: 04/05/19 07:38 04/05/19 07:38 - Telemetry Sinus rhythms and dysrhythmias: sinus rhythm - Assessment/Plan Assessment/Plan: 1. Ischemic CMY with EF 30-35% since 01/27/2019 - stable with RA; will order LifeVest at discharge 2. Acute on chronic systolic HF - On Lasix 40mg qd and Coreg 3.125mg 1/2 tab BID ; not on ZEENAT/ARB due to hypotension 3. CAD with hx of stent placement in RCA in 02/2019 - on bblocker, ASA, and Plavix 4. Anemia with s/p 2 units PRBC - stable 5. Cirrhosis MAR reviewed * Echo on 04/02/2019 with EF 30-35% (since01/27/2019), mild MR, mild with [id number], mod-severe TR, and severe PAP 62 mmHg Pt. seen and eval. by me. I agree with the A/P by the [employer].Chest clear. RRR. gjmays
[2019-04-05] MEDS: Atorvastatin Calcium 20 MG TAB PO SCH (21:06)
[2019-04-05] MEDS: traZODone HCl 50 MG TAB PO SCH (21:08)
[2019-04-06] MEDS: metFORMIN 500 MG TAB PO SCH ×2 (08:07→16:55)
[2019-04-06] MEDS: Magnesium Chloride 64 MG TAB PO SCH (08:07)
[2019-04-06] MEDS: Clopidogrel Bisulfate 75 MG TAB PO SCH (08:07)
[2019-04-06] MEDS: Alogliptin 25 MG TAB PO SCH (08:07)
[2019-04-06] MEDS: Carvedilol 3.125 MG TAB PO SCH (08:08)
[2019-04-06] MEDS: Aspirin Chewable 81 MG TAB PO SCH (08:08)
[2019-04-06] MEDS: Gabapentin 100 MG CAP PO SCH (08:08)
[2019-04-06] MEDS: Furosemide 40 MG TAB PO SCH (08:08)
[2019-04-06] MEDS: Lorazepam 0.5 MG TAB PO PRN (08:11)
--- NOTE | 2019-04-06 11:30 | PDOC.HOSPP ---
- Subjective Encounter Date: 04/06/19 Encounter Time: 11:28 Subjective: Mr. Daniels was seen today in follow-up of CHF exacerbation. He does not have any new complaints. - Objective Vital Signs & Weight: Vital Signs (12 hours) Temp Pulse Resp BP Pulse Ox 04/06/19 08:00 97.8 F 89 18 127/60 97 04/06/19 06:43 84 12 04/06/19 03:20 98 F 88 18 121/72 94 L 04/06/19 00:21 80 16 94 L Weight Weight 173 lb 14.4 oz I&O: 04/05/19 04/06/19 04/07/19 06:59 06:59 06:59 Intake Total 1590 1360 Output Total 1500 1925 Balance 90 -565 Result Diagrams: 04/05/19 07:38 04/05/19 07:38 Additional Labs: Accuchecks 04/06/19 04/06/19 04/05/19 10:24 05:48 19:57 POC Glucose 131 H 182 H 152 H 04/05/19 16:42 POC Glucose 119 H Hospitalist ROS - Medication Medications: Active Medications Generic Name Dose Route Start Last Admin Trade Name Freq PRN Reason Stop Dose Admin Albuterol/Ipratropium 3 ml 04/04/19 19:00 04/06/19 06:43 Duoneb NEB 3 ml [id number] YANNICK Administration Alogliptin Benzoate 25 mg 04/03/19 09:00 04/06/19 08:07 Alogliptin PO 25 mg DAILY YANNICK Administration Aspirin 81 mg 04/02/19 09:00 04/06/19 08:08 Aspirin Chewable PO 81 mg DAILY YANNICK Administration Atorvastatin Calcium 20 mg 04/02/19 21:00 04/05/19 21:06 Lipitor PO 20 mg HS YANNICK Administration Carvedilol 1.5625 mg 04/02/19 21:00 04/06/19 08:08 Coreg PO 1.5625 mg BID YANNICK Administration Clopidogrel Bisulfate 75 mg 04/02/19 09:00 04/06/19 08:07 Plavix PO 75 mg DAILY YANNICK Administration Furosemide 40 mg 04/05/19 09:00 04/06/19 08:08 Lasix PO 40 mg DAILY YANNICK Administration Gabapentin 100 mg 04/02/19 21:00 01/01/20 08:08 Neurontin PO 100 mg BID YANNICK Administration Insulin Human Lispro 0 units 04/02/19 11:06 04/05/19 11:30 Humalog SC 3 unit .MILD SLIDING SCALE PRN Administration Mild Correctional Scale Lorazepam 0.5 mg 04/02/19 11:34 04/06/19 08:11 Ativan PO 0.5 mg Q6H PRN Administration Anxiety Magnesium Chloride 64 mg 04/02/19 09:00 04/06/19 08:07 Slow-Mag PO 64 mg BID YANNICK Administration Metformin HCl 500 mg 04/02/19 17:00 04/06/19 08:07 Glucophage PO 500 mg BID-WM YANNICK Administration Ondansetron HCl 4 mg 04/01/19 22:23 04/02/19 17:49 Zofran IVP 4 mg Q6H PRN Administration Nausea/Vomiting Pantoprazole Sodium 40 mg 04/02/19 09:00 04/06/19 08:07 Protonix PO 40 mg QAM YANNICK Administration Polysaccharide Iron Complex 150 mg 04/04/19 12:00 04/05/19 11:30 Niferex PO 150 mg 1200 YANNICK Administration Potassium Chloride 20 meq 04/05/19 09:00 04/06/19 08:07 Klor-Con PO 20 meq DAILY YANNICK Administration Sodium Chloride 10 ml 04/03/19 11:31 04/05/19 08:56 Flush - Normal Saline IVF 10 ml PRN PRN Administration Saline Flush Tramadol HCl 50 mg 04/01/19 22:23 04/04/19 20:34 Ultram PO 50 mg TID PRN Administration Pain Trazodone HCl 50 mg 04/02/19 21:00 04/05/19 21:08 Desyrel PO Not Given HS YANNICK - Exam Eye: PERRL Heart: RRR, no murmur, no gallops, no rubs, normal peripheral pulses Respiratory: CTAB, no wheezes, no rales, no ronchi, normal chest expansion, no tachypnea, normal percussion Gastrointestinal: soft, non-tender, non-distended, normal bowel sounds, no palpable masses, no hepatomegaly Extremities: no cyanosis, no edema Hosp A/P (1) Acute on chronic systolic CHF (congestive heart failure), NYHA class 2 Code(s): I50.23 - ACUTE ON CHRONIC SYSTOLIC (CONGESTIVE) HEART FAILURE Status : Acute (2) Cirrhosis Code(s): K74.60 - UNSPECIFIED CIRRHOSIS OF LIVER Status: Acute (3) CAD (coronary artery disease) Code(s): I25.10 - ATHSCL HEART DISEASE OF [place] CORONARY ARTERY W/O ANG PCTRS Status: Chronic Qualifiers: Coronary Disease-Associated Artery/Lesion type: unspecified vessel or lesion type Associated angina: without angina (4) HTN (hypertension) Code(s): I10 - ESSENTIAL (PRIMARY) HYPERTENSION Status: Chronic Qualifiers: Hypertension type: essential hypertension Qualified Code(s): I10 - Essential (primary) hypertension (5) Back pain at L4-L5 level Code(s): M54.5 - LOW BACK PAIN Status: Chronic (6) Anxiety Code(s): F41.9 - ANXIETY DISORDER, UNSPECIFIED Status: Chronic (7) Chronic anemia Code(s): D64.9 - ANEMIA, UNSPECIFIED Status: Chronic - Plan * Acute on chronic systolic heart failure-stable * Patient was offered a life vest- he says he already has one, but refuses to wear it. He does not want one * Stable for discharge home
[2019-04-06] MEDS: Iron Polysaccharides Complex 150 MG CAP PO SCH (11:49)
[2019-04-06 11:54] VITALS: BP 132/66; TEMP 98
--- NOTE | 2019-04-06 17:31 | PDOC.CPN ---
- Subjective Date: 04/06/19 Time: 17:32 Interval history: The pt seen and examined. No overnight events. No cardiac complaints. - Objective Allergies/Adverse Reactions: Allergies Allergy/AdvReac Type Severity Reaction Status Date / Time Penicillins Allergy Severe Anaphylaxis Verified 04/02/19 07:47 Vital Signs & Weight: Vital Signs Temp Pulse Resp BP BP Pulse Ox 04/06/19 12:43 88 16 04/06/19 11:49 98 F 92 18 132/66 97 04/06/19 08:00 97.8 F 89 18 127/60 97 04/06/19 06:43 84 12 Weight 173 lb 14.4 oz - Physical Exam General: alert & oriented x3 HEENT: mucus membranes moist Neck: supple neck Cardiac: regular rate and rhythm, S1/S2 Lungs: decreased breath sounds Extremities: no edema - Labs Result Diagrams: 04/05/19 07:38 04/05/19 07:38 - Telemetry Sinus rhythms and dysrhythmias: sinus rhythm - Assessment/Plan Assessment/Plan: 1. Ischemic CMY with EF 30-35% since 01/27/2019 - stable with RA; The pt refused LifeVest at discharge today 2. Acute on chronic systolic HF - On Lasix 40mg qd and Coreg 3.125mg 1/2 tab BID ; not on ZEENAT/ARB due to hypotension 3. CAD with hx of stent placement in RCA in 02/2019 - on bblocker, ASA, and Plavix 4. Anemia with s/p 2 units PRBC - stable 5. Cirrhosis MAR reviewed * Echo on 04/02/2019 with EF 30-35% (since01/27/2019), mild MR, mild with [id number], mod-severe TR, and severe PAP 62 mmHg * Dr Elliott's pt. The pt refused LifeVest at discharge; Strongly recommend to f /u with Dr Elliott within 2 wks. He voiced understanding
--- NOTE | 2019-04-07 02:30 | DIS ---
DATE OF ADMISSION: 04/01/2019 DATE OF DISCHARGE: 04/06/2019 DISCHARGE DISPOSITION: Home. DISCHARGE DIAGNOSES: 1. Acute on chronic systolic heart failure. 2. Acute on chronic respiratory failure with hypoxemia secondary to acute on chronic systolic heart failure. 3. Chronic pain. 4. Coronary artery disease. 5. Hypertension. 6. Chronic obstructive pulmonary disease. 7. Generalized anxiety. DISCHARGE MEDICATIONS: Include; 1. K-Dur 20 mEq daily. 2. Slow-Mag 64 mg twice daily. 3. Lasix 40 mg daily. 4. Plavix 75 mg daily. 5. Lipitor 20 mg at bedtime. 6. Aspirin 81 mg daily. 7. Trazodone 50 mg at bedtime. 8. Januvia 100 mg daily. 9. Protonix 40 mg daily. 10. Omeprazole 20 mg daily. 11. Metformin 500 mg twice a day. 12. Flexeril 5 mg twice daily as needed. 13. Clindamycin 600 mg q.8 hours. 14. Carvedilol 1.5625 mg p.o. twice daily. IMAGING DONE DURING THE HOSPITAL STAY: The patient had an echocardiogram, which revealed an ejection fraction estimated at 30% to 35%. Left atrium was enlarged. There was mild mitral regurgitation as well as aortic stenosis with a peak gradient of 28 mmHg and severely elevated PA pressure estimated at 62 mmHg. CODE STATUS: Full code. ALLERGIES: TO PENICILLIN. HOSPITAL COURSE: Mr. Daniels is a pleasant 63-year-old gentleman, who was admitted to the hospital after experiencing shortness of breath. He has a known history of heart failure. He was found to be volume overloaded and was admitted for an acute on chronic systolic heart failure exacerbation. It was unclear what his most recent ejection fraction was and for this reason, an echocardiogram was obtained. It was found that he has an EF of 30% to 35%, which was similar to January of the same year. He was seen by Cardiology and a LifeVest was recommended. However, the patient says he "already has one." Apparently Dr. Elliott had set this up previously. He says he refuses to wear it and makes him feel claustrophobic and he does not like it. He understands the risks involved and he says he refused to wear it. Since he already has the LifeVest at home, we will not set this up on this occasion. I explained to him to discuss this further with Dr. Elliott, but he is fairly determined to not use it. He says in fact, he is going to look at the label on the LifeVest, find the company, and plans to send it back. He also will be discharged home on a short course of Ativan due to severe anxiety. The patient was very agitated during his hospital stay, occasionally yelling out with explicative's and occasionally being aggressive toward staff. He feels that it is unfair that he has to go to [facility] in order to get a prescription for medication, which he says he had been stable on in the past. I explained to him I will write for just a short course of the medication and he will need to talk with his primary care doctor about continued treatment for anxiety. He also was asking for medication for pain. He was given tramadol during his hospital stay, which seemed to alleviate his symptoms fairly well. The patient, therefore, is clinically stable for discharge and will be done so today. Job ID: [id number]
== END 2019-04-06 17:16 | disposition home or self-care (01) | DRG 291 ==
LOC: ERS 18:05 → ERHOLD 21:55 → 2NO 04-02 01:05
PROVIDERS: ADMIT Internal Medicine; ATTEND Internal Medicine
PROC: 30233N1 Transfusion of Nonautologous Red Blood Cells into Peripheral Vein, Percutaneous Approach (ICD-10-PCS; principal; 2019-04-01)
DX: I13.0 Hypertensive heart and chronic kidney disease with heart failure and stage 1 through stage 4 chronic kidney disease, or unspecified chronic kidney disease (principal); J96.21 Acute and chronic respiratory failure with hypoxia; I50.23 Acute on chronic systolic (congestive) heart failure; I85.00 Esophageal varices without bleeding; D50.9 Iron deficiency anemia, unspecified; I25.10 Atherosclerotic heart disease of native coronary artery without angina pectoris; J44.9 Chronic obstructive pulmonary disease, unspecified; F17.210 Nicotine dependence, cigarettes, uncomplicated; K74.60 Unspecified cirrhosis of liver; M54.5 Low back pain; G89.29 Other chronic pain; F41.9 Anxiety disorder, unspecified; I25.5 Ischemic cardiomyopathy; N18.9 Chronic kidney disease, unspecified
CPT/HCPCS: 36415; 36416; 36430; 71045; 80048; 80053; 82274; 82728; 83540; 83550; 83880; 85025; 86850; 86900; 86901; 93005; 93306; 93798; 94640; 96365; 96366; 96368; 96374; C9113; J0696; J1940; J2354; J2405; J2916; J3490; J7050; J7620; P9016

== ENCOUNTER 2020-02-12 17:27 | Inpatient (IN) | payer MEDICARE ==
[~2020-02-12 17:27] MED LIST: Iopamidol-370 76% 500 ML 1 ML ONE
[2020-02-12 17:59] LABS: #Eosinphils 0.1 thou/uL (0.0-0.7); #Lymphocytes 0.6 thou/uL (1.20-3.40); #Monocytes 0.4 thou/uL (0.11-0.59); #Neutrophils 3.8 thou/uL (1.40-6.50); %Basophils 0.4 % (0.0-1.0); %Eosinophils 2.1 % (0.0-10.0); %Lymphocytes 12.8 % (21.0-51.0); %Neutrophils 77.6 % (42.0-75.0); Hemoglobin 8.8 g/dL (14.0-18.0); Mean Corpuscular HGB CONC 32.8 g/dL (32.0-36.0); Mean Corpuscular Volume 91.5 fL (78.0-98.0); Mean Platelet Volume 8.8 fL (7.4-10.4); Platelet Count 149 thou/uL (130-400); RBC Distribution Width 14.5 % (11.5-14.5); Red Blood Cell (RBC) Count 2.93 mill/uL (4.70-6.10); White Blood Cell (WBC) Count 4.9 thou/uL (4.8-10.8)
[2020-02-12 18:02] LABS: INR-International Normal Ratio 1.2; Prothrombin Time 15.4 sec (12.0-14.7)
[2020-02-12 18:18] LABS: ALT (SGPT) 11 U/L (8-55); AST (SGOT) 18 U/L (5-34); Albumin 3.1 g/dL (3.4-4.8); Alkaline Phosphatase 129 U/L (40-110); Anion Gap 11 mmol/L (10-20); BUN (Urea Nitrogen) 14 mg/dL (8.4-25.7); Bilirubin, Total 1.2 mg/dL (0.2-1.2); Calc. Creatinine Clearance 0 mL/min (70-130); Calcium 8.2 mg/dL (7.8-10.44); Carbon Dioxide 31 mmol/L (23-31); Chloride 96 mmol/L (98-107); Estimated GFR-MDRD 51; Globulin 4.4 g/dL (2.4-3.5); Glucose 280 mg/dL (80-115); Protein, Total 7.5 g/dL (5.8-8.1); Sodium 135 mmol/L (136-145)
[2020-02-12 18:21] LABS: Potassium 2.8 mmol/L (3.5-5.1)
--- NOTE | 2020-02-12 19:03 | RAD ---
RADIOGRAPH CHEST 1 VIEW: Date: 02-12-2020 Time: 6:14 p.m. HISTORY: 64-year-old male status post syncope. Concern for aspiration. COMPARISON: 04-02-19 FINDINGS: Again noted is cardiomegaly. There is a new finding of moderate sized region of ill-defined increased attenuation at the right medial lung zone. There is diffuse pulmonary vascular prominence. No pneumothorax. IMPRESSION: 1. New opacity in the right lung could represent neoplastic tumor mass or pneumonia. 2. Cardiomegaly. 3. Recommend follow up. ALEM [] POS: JIN
[2020-02-12] MEDS ORDERED: Potassium Chloride 20 MEQ TAB ONE (19:31)
--- NOTE | 2020-02-12 21:29 | CT ---
CT CHEST WITH IV CONTRAST: Date: 02/12/2020 HISTORY: Chest pain, coronary artery disease, hypertension, COPD, abnormal chest radiograph from same date. FINDINGS: There is mediastinal lymphadenopathy with a right paratracheal lymph node measuring 15.0 mm and AP wi ndow lymph node measuring 24.0 mm. No axillary or hilar lymphadenopathy is seen. No pleural or perica rdial effusions are identified. There are vascular calcifications without evidence of aneurysmal dila tation of the thoracic aorta. There is a 3.3 x 2.3 x 3.2 cm irregular solid mass in the right middle lobe. There is a 2.0 mm periph eral nodule in the left lower lobe. Upper abdominal tomograms demonstrate cirrhosis of the liver, calcified granulomas in the liver and s pleen, splenomegaly measuring about 13.7 cm in AP dimension, and ascites and small hiatal hernia. There are degenerative changes in the spine. No osteolytic or osteoblastic lesions are seen. IMPRESSION: 1. 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 2. Cirrhosis of the liver, splenomegaly, ascites, and small hiatal hernia. CODE T. CODE LN. POS: [facility]
[2020-02-12] MEDS ORDERED: cefTRIAXone\\ROCEPHIN 1 GM VIAL ONE (21:50)
[2020-02-12] MEDS ORDERED: Dextrose 5% in Water 1,000 ML IV PRN (22:24)
[2020-02-12] MEDS ORDERED: Dextrose 50% Abboject 50 ML SYRINGE SLOW IVP PRN (22:24)
[2020-02-12] MEDS ORDERED: Potassium Chloride 20 MEQ TAB PO SCH (22:45)
[2020-02-12] MEDS: Diazepam 2 MG TAB PO PRN (23:55)
--- NOTE | 2020-02-13 01:18 | HP ---
REASON FOR ADMISSION: Shortness of breath. HISTORY OF PRESENT ILLNESS: This is a 64-year-old male patient who is presenting to the ER reporting being short of breath, worse with exertion. Also reporting lightheadedness and questionable episode of syncope during which he was incontinent of urine. He also mentions that his stools have been dark, but denies coffee-ground emesis or black stools per se. He does have history of GERD, for which he takes omeprazole. I did review his records. The patient was admitted to our hospital in April of this year. At that time, he was diagnosed with acute on chronic systolic heart failure. An echocardiogram was done that showed an EF of 30% to 35%. He was seen by Cardiology and a LifeVest was recommended. The patient already had one. Today, the patient tells me that he has not been wearing it because it is very uncomfortable to him. He did exhibit aggressive behavior while hospitalized. Since his discharge, he has been following up with his primary care physician. PAST MEDICAL HISTORY: 1. High blood pressure. 2. Coronary artery disease, status post stenting. 3. Liver cirrhosis with history of esophageal varices. 4. CHF with EF of 30%. 5. Diabetes. 6. ?COPD. 7. Post hernia repair. 8. Colonic polyp. 9. GERD. 10. Anemia. SOCIAL HISTORY: He used to be an alcoholic. He continues to smoke. . ALLERGIES: TO PENICILLIN. REVIEW OF SYSTEMS: All systems reviewed except the above mentioned, found to be negative. PHYSICAL EXAMINATION: GENERAL: He is awake, alert, oriented, does not appear in distress. Appears to be short of breath. VITAL SIGNS: His blood pressure is 100/59, heart rate of 101, respiratory rate 24, saturating 96% on room air. HEENT: Head is nontraumatic, normocephalic. Pupils equal, reactive. Extraocular movements are intact. Nonicteric sclerae. Well injected conjunctivae. Oral mucosa normal. Nasal mucosa normal. NECK: Supple. No adenopathy. No murmur. Thyroid is not palpable. Trachea is midline. No supraclavicular adenopathy. S1, S2 regular. No murmur. LUNGS: Decreased air entry bilaterally. Diffuse expiratory wheezes, rhonchi. Bowel sounds are positive. ABDOMEN: Distended with shifting dullness, 1+ pitting edema in bilateral lower extremities. NEUROLOGIC: Cranial nerves 2 through 12 within normal limits. Normal motor function. Normal sensory function. Normal reflexes. LABORATORY DATA: Blood work shows WBC of 4.9, hemoglobin of 8.8, platelets of 149. INR 1.2. Sodium 135, potassium 3.8, bicarb of 31, creatinine of 1.41. Previous creatinine 1.25, glucose 280, alkaline phosphatase 129. CT of the chest shows suspicious for right middle lobe malignancy and mediastinal lymph ashlyn metastases. Cirrhosis of the liver, splenomegaly, ascites, and small hiatal hernia. EKG shows frequent PVC, normal sinus rhythm per my read. ASSESSMENT AND PLAN: This is a 64-year-old male patient, who is presenting with multiple complaints of shortness of breath, possible syncopal episode and maybe dark stools, he is in COPD exacerbation. Also, he has a new lung mass seen on CT of the chest. He does have ascites and he is anemic, but not very far from his baseline. 1. Cardiac: The patient has history of congestive heart failure with an EF of 30%. He was suggested to be on LifeVest, but he is noncompliant. We will have him on IV Lasix and this should help with his fluid retention and ascites. I believe that his shortness of breath is most likely due to COPD exacerbation, his blood pressure is on the low side. I would be holding his blood pressure medications for now. 2. Gastroenterology: The patient did report black stools, maybe he has a gastrointestinal bleed in the setting of ascites, cirrhosis and esophageal varices, we will keep him n.p.o. for now and we will continue cycling his H and H. We will ask GI to see him. He will be on a Protonix drip and we will have him on IV Rocephin. 3. Pulmonary: The patient does have COPD exacerbation. We will start him on neb treatments and since he does have a newly diagnosed lung mass, we will ask Pulmonary to see him in consultation. 4. The patient is very anxious. We will have him on Valium on an as needed basis. 5. For DVT prophylaxis, he will be on SCDs. 6. For his diabetes, he will be on insulin sliding scale. 7. He was advised on smoking cessation. 8. I did discuss with him his code status. He wishes to be a full code. Job ID: [id number]
[2020-02-13] MEDS ORDERED: Ondansetron PF 4 MG/2 ML Vial ONE (04:18)
[2020-02-13] MEDS: Pantoprazole 80 MG, Admixture Fee 1 EACH in Sodium Chloride 0.9% 100 ML IVPB SCH ×2 (04:41→16:13)
[2020-02-13 07:18] LABS: #Eosinphils 0.1 thou/uL (0.0-0.7); #Lymphocytes 0.8 thou/uL (1.20-3.40); #Monocytes 0.4 thou/uL (0.11-0.59); #Neutrophils 3.5 thou/uL (1.40-6.50); %Basophils 0.3 % (0.0-1.0); %Eosinophils 2.5 % (0.0-10.0); %Lymphocytes 16.1 % (21.0-51.0); %Monocytes 8.7 % (0.0-10.0); %Neutrophils 72.4 % (42.0-75.0); Hemoglobin 8.3 g/dL (14.0-18.0); Mean Corpuscular HGB CONC 31.7 g/dL (32.0-36.0); Mean Corpuscular Hemoglobin 29.1 pg (27.0-31.0); Mean Corpuscular Volume 91.7 fL (78.0-98.0); Mean Platelet Volume 8.5 fL (7.4-10.4); Platelet Count 130 thou/uL (130-400); RBC Distribution Width 14.7 % (11.5-14.5); Red Blood Cell (RBC) Count 2.84 mill/uL (4.70-6.10); White Blood Cell (WBC) Count 4.9 thou/uL (4.8-10.8)
[2020-02-13 07:33] LABS: Anion Gap 13 mmol/L (10-20); BUN (Urea Nitrogen) 13 mg/dL (8.4-25.7); Calc. Creatinine Clearance 74 mL/min (70-130); Calcium 8.1 mg/dL (7.8-10.44); Carbon Dioxide 30 mmol/L (23-31); Chloride 99 mmol/L (98-107); Estimated GFR-MDRD 57; Glucose 187 mg/dL (80-115); Sodium 139 mmol/L (136-145)
[2020-02-13 07:41] LABS: Potassium 2.9 mmol/L (3.5-5.1)
--- NOTE | 2020-02-13 07:43 | PDOC.HOSPP ---
- Subjective Encounter Date: 02/13/20 Encounter Time: 10:00 Subjective: Patient without complaints besides edema of abdomen and DAHL. - Objective Vital Signs & Weight: Vital Signs (12 hours) Temp Pulse Resp BP Pulse Ox 02/13/20 06:55 100 20 98 02/13/20 06:05 98.2 F 104 H 22 H 151/73 H 96 02/13/20 00:17 99 16 Weight Weight 194 lb 8 oz Result Diagrams: 02/13/20 07:04 02/13/20 12:19 Hospitalist ROS - Review of Systems Constitutional: denies: fever, chills Respiratory: reports: shortness of breath, SOB with excertion. denies: cough Cardiovascular: denies: chest pain, palpitations Gastrointestinal: reports: melena (some dark stools (though not acually black) a couple weeks ago, none since then). denies: nausea, vomiting, abdominal pain, diarrhea, constipation - Medication Medications: Active Medications Generic Name Dose Route Start Last Admin Trade Name Freq PRN Reason Stop Dose Admin Albuterol/Ipratropium 3 ml 02/13/20 01:00 02/13/20 06:55 Ipratropium/Albuterol Sulfate 3 Ml Neb NEB 3 ml [id number] YANNICK Administration Diazepam 2 mg 02/12/20 22:25 02/12/20 23:55 Diazepam 2 Mg Tab PO 2 mg BIDPRN PRN Administration Anxiety Pantoprazole Sodium 80 mg/ 100 mls @ 10 mls/hr 02/12/20 18:00 02/13/20 04:41 Miscellaneous Medication 1 IVPB 100 mls each/ Sodium Chloride INF YANNICK Administration - Exam General Appearance: NAD, awake alert ENT: moist mucosa Heart: RRR, no murmur, no gallops, no rubs Respiratory: CTAB, no wheezes, no rales, no ronchi Gastrointestinal: soft, non-tender, normal bowel sounds, distended Extremities: 1+ LE edema Psychiatric: normal affect, normal behavior, A&O x 3 Hosp A/P (1) Acute on chronic combined systolic and diastolic CHF, NYHA class 3 Code(s): I50.43 - ACUTE ON CHRONIC COMBINED SYSTOLIC AND DIASTOLIC HRT FAIL Status: Acute (2) COPD with exacerbation Code(s): J44.1 - CHRONIC OBSTRUCTIVE PULMONARY DISEASE W (ACUTE) EXACERBATION Status: Acute (3) Alcoholic cirrhosis Code(s): K70.30 - ALCOHOLIC CIRRHOSIS OF LIVER WITHOUT ASCITES Status: Chronic Qualifiers: Ascites presence: with ascites Qualified Code(s): K70.31 - Alcoholic cirrhosis of liver with ascites (4) Anemia Code(s): D64.9 - ANEMIA, UNSPECIFIED Status: Chronic (5) CAD (coronary artery disease) Code(s): I25.10 - ATHSCL HEART DISEASE OF [place] CORONARY ARTERY W/O ANG PCTRS Status: Chronic (6) HTN (hypertension) Code(s): I10 - ESSENTIAL (PRIMARY) HYPERTENSION Status: Chronic Qualifiers: (7) PVD (peripheral vascular disease) Code(s): I73.9 - PERIPHERAL VASCULAR DISEASE, UNSPECIFIED Status: Chronic (8) Right middle lobe pulmonary nodule Code(s): R91.1 - SOLITARY PULMONARY NODULE Status: Acute - Plan SOB likely due to CHF and COPD exacerbation. Treating with Lasix and breathing treatments. Pulmonology consult. 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 Will need CHF controlled for any procedures. Will consult cardiology for assistance. Patient with H/H relatively stable with baseline. Is hemoccult positive with previous hx of GI bleed but no evidence significant GI bleed currently. Holding blood thinners for now while awaiting GI consult. If no active bleeding will try to reintroduce ASA and Plavix. GI Proph- Protonix.
[2020-02-13] MEDS ORDERED: Potassium Chloride 20 MEQ TAB PO SCH (08:30)
--- NOTE | 2020-02-13 10:30 | CON ---
DATE OF CONSULTATION: 02/13/2020 CONSULTING PHYSICIAN: Hospitalist. REASON FOR CONSULTATION: The patient has a lung mass. HISTORY OF PRESENT ILLNESS: Mr. Daniels is a 64-year-old white male, who was admitted to this facility yesterday with complaints of shortness of breath and peripheral edema. He tells me that he is in congestive heart failure, in the past has been showing that he has EF of 30% to 35%. He apparently has been prescribed a LifeVest in the past, but does not wear it. He has no known history of cancer in the past. He has been a pack-a-day smoker since he was a teenager. PAST MEDICAL HISTORY: 1. Hypertension. 2. Coronary artery disease requiring coronary stent placement. 3. Cirrhosis of the liver with esophageal varices. 4. Cardiomyopathy. 5. Diabetes mellitus. 6. History of colon polyp. 7. History of hernia repair. 8. Gastroesophageal reflux. 9. Anemia. ALLERGIES: PENICILLIN. SOCIAL HISTORY: Smoking history as outlined above. He formerly drank heavily. REVIEW OF SYSTEMS: Denies any weight loss, hemoptysis, fever, chills, nausea, vomiting, hematemesis, melena, hematochezia, or COVID exposure. PHYSICAL EXAMINATION: VITAL SIGNS: Temperature 98.1, pulse 104, respirations 20, O2 saturation 95% on room air, and blood pressure 107/62. GENERAL: He has alopecia. HEAD AND NECK: Otherwise unremarkable. Neck, no adenopathy or JVD. LUNGS: Coarse rhonchi bilaterally, worse at the bases with crackles. CARDIAC: S1 and S2, regular. ABDOMEN: Soft, nontender to palpation. EXTREMITIES: No clubbing or cyanosis. He has 2+ edema. LABORATORY DATA: White blood cell count 4.9, hematocrit 26, platelet count 130. INR 1.2. Sodium 139, potassium 2.9, chloride 99, CO2 of 30, BUN 13, creatinine 1.2, glucose 187. He has a CT, shows a 3 cm mass in his right middle lobe region. He also has mediastinal adenopathy and the aortic pulmonary window and a right paratracheal lymph node. ASSESSMENT: 1. Lung mass, suspicious for bronchogenic lung cancer. 2. Congestive heart failure with decompensation. RECOMMENDATION: First, the patient needs a negative COVID test before pursuing any procedures. Next, his congestive heart failure needs to be tuned up, so that he can tolerate procedure. He is currently on Coreg and furosemide for that. Further disposition to follow after the COVID test results. Dr. Khalil has seen the patient in the past. I will inform him of the patient's admission. Job ID: [id number]
[2020-02-13] MEDS: Carvedilol 3.125 MG TAB PO SCH ×2 (12:20→20:59)
[2020-02-13] MEDS: HumaLOG 300 UNITS/3 ML VIAL SC PRN ×2 (12:23→18:20)
[2020-02-13] MEDS: Furosemide 40 MG/4 ML VIAL SLOW IVP SCH ×2 (12:24→20:59)
[2020-02-13 12:50] LABS: Anion Gap 13 mmol/L (10-20); BUN (Urea Nitrogen) 14 mg/dL (8.4-25.7); Calc. Creatinine Clearance 71 mL/min (70-130); Calcium 8.3 mg/dL (7.8-10.44); Carbon Dioxide 29 mmol/L (23-31); Chloride 98 mmol/L (98-107); Estimated GFR-MDRD 54; Glucose 300 mg/dL (80-115); Potassium 3.3 mmol/L (3.5-5.1); Sodium 137 mmol/L (136-145)
[2020-02-13 12:50] LABS: SARS-CoV-2 MS2 Positive; SARS-CoV-2 N Gene Negative; SARS-CoV-2 S Gene Negative; SARS-CoV-2 by NAA Not Detected (NotDetected); SARS-CoV-2 orf1ab Negative
[2020-02-13] MEDS: Diazepam 2 MG TAB PO PRN (18:20)
[2020-02-13] MEDS: Atorvastatin Calcium 20 MG TAB PO SCH (20:58)
[2020-02-13] MEDS: cefTRIAXone\\ROCEPHIN 1 GM in Sodium Chloride 0.9% 100 ML IVPB SCH (21:00)
--- NOTE | 2020-02-13 21:42 | CON ---
DATE OF CONSULTATION: 02/13/2020 INDICATION FOR CONSULTATION: A 64-year-old with known coronary artery disease, who is status post angioplasty and stent placement, who presented with increasing shortness of breath and also history of congestive heart failure. HISTORY OF PRESENT ILLNESS: This very unfortunate 64-year-old gentleman, who has history of coronary artery disease, underwent angioplasty and stent placement x2 to the right coronary artery in February 2019. He had a previous stent placed, had in-stent restenosis and two more stents were placed and left circumflex was 100% occluded, but fills by collaterals. I am uncertain about the LAD, it was not mentioned in the report. He has been doing relatively well. At the time of the last cardiac catheterization, he was found to have severe decrease in left ventricular function and a LifeVest was recommended. Apparently, he did not continue to wear this because he said it was uncomfortable. He is somewhat irritable patient and is not agreeable to many things and is very belligerent during our conversation today. He does have a history of COPD. Apparently, he has smoked half a pack to a pack a day since he was a teenager and he had a chest x-ray and CT scan, which showed a possible right middle lobe malignancy for lung cancer. He also was found to have liver cirrhosis. He has a history of esophageal varices in the past. He has history of anemia. He has had iron treatments. He has had multiple medical problems. At this time, he was admitted due to increasing shortness of breath. He says he is unable sleep. He wakes up all during the night, just sleeps for a few minutes and wakes up since he became brief. He does not have any history that he is aware of sleep apnea. I am not sure he has been evaluated for this. I do not see that he has had any cardiac enzymes drawn. We will try to re- evaluate. I believe he has had no cardiac enzymes since 2019. We will ask to have the repeat cardiac enzymes. Most likely his shortness of breath is due to diastolic dysfunction and his COPD as well as some ongoing anemia. PAST MEDICAL HISTORY: Significant for the coronary artery disease, angioplasty and stent placement, history of hypertension. He has cirrhosis. He has had esophageal varices, history of cardiomyopathy with ejection fraction of 30% to 35%, diabetes type 2, history of probable COPD, history of gastroesophageal reflux disease, chronic anemia. He has had history of colon polyps. He occasionally has some blood in the stools. He has had hernia repairs in the past. SOCIAL HISTORY: He continues to smoke. He no longer drinks, but apparently drinks alcohol significantly in the past. ALLERGIES: ALLERGIC TO PENICILLIN. PRESENT MEDICATIONS: He is on; 1. Ceftriaxone. 2. Protonix. 3. 81 mg of aspirin. 4. Lipitor 20 mg at bedtime. 6. Plavix 75 mg a day. 7. Lasix 40 mg IV b.i.d. 8. He is on albuterol nebulizer treatments. 9. Potassium as needed, he was hyponatremic when he arrived. 10. He is on other p.r.n. medications. REVIEW OF SYSTEMS: He mainly complained of what is mentioned in the history of present illness. Otherwise, 12-point review of systems unremarkable. PHYSICAL EXAMINATION: GENERAL: Reveals an elderly gentleman, who is actually in no acute distress at this time, but appears to be very agitated and irritable. VITAL SIGNS: His blood pressure is 111/55, heart rate is 96 and regular. He is afebrile. Respiratory rate is 20. HEENT: Shows the head to be normocephalic and atraumatic. Carotid pulses are present. I cannot hear any bruits. CHEST: Actually is relatively clear. I did not hear any rales, rhonchi, or wheezing. CARDIOVASCULAR: Reveals a regular rate and rhythm with normal S1 and S2. I cannot hear an S3 nor an S4. ABDOMEN: Shows obesity of the abdomen. Positive bowel sounds are present. No tenderness is noted. EXTREMITIES: 1 to 2+ lower extremity edema. Pedal pulses are present. NEUROLOGIC: There are no gross focal motor deficits. LABORATORY DATA: Shows a WBC of 4.9, hemoglobin is 8.3, and platelet count 130,000. Sodium is 137, potassium was 2.8, is now increased up to 3.3 after replacements. BUN was 14 with a creatinine of 1.3. Blood sugar was 300. Hemoglobin was 8.3 and platelet count was 130,000. CT scan shows a possible right middle lobe malignancy with mediastinal metastasis with lymph nodes. Also on the CT scan was noted to be cirrhosis, ascites, and splenomegaly. EKG shows a normal sinus rhythm with nonspecific ST-segment changes and occasional PVCs and there was one couplet noted. IMPRESSION AND PLAN: 1. Congestive heart failure and chronic obstructive pulmonary disease exacerbation. We will continue to diurese the patient. He has no lower extremity edema. Once he becomes more diuresed, he is able to lie down comfortably without having dyspnea, then most likely he will need to undergo an evaluation by Pulmonology for possible biopsy of his right middle lobe malignancy or possible malignancy is a mass. 2. Coronary artery disease. This appears to be stable at this time. He has undergone recent stent placement. He did say he did not have any chest pain previously, but was short of breath in the past, but there was no EKG changes to indicate that he has any ongoing ischemia. 3. Diabetes. This be dealt with by the Primary Care Service. He tells me today this is the first time he has known about diabetes, but I believe he has had this diagnosis in the past. 4. Cirrhosis and history of esophageal varices, also his blood pressure needs to be controlled. He is being treated by medical management. 5. History of anemia. We will need to monitor this. If the hemoglobin is less than 8 due to his history of coronary artery disease, I would suggest we can transfuse this patient to least keep his hemoglobin above 8 and actually 10 would be better. At this time, we will continue the diuretics. I would agree with the present medications. I have reviewed his medications and I have seen the patient and discussed these issues with him. We are more than happy to continue to follow the patient with you. Job ID: [id number]
--- NOTE | 2020-02-13 22:23 | CON ---
DATE OF CONSULTATION: 02/13/2020 REASON FOR CONSULTATION: Worsening ascites with history of cirrhosis, possible GI bleeding. CONSULTING PROVIDER: Dr. Dennis Brandt. HISTORY OF PRESENT ILLNESS: The patient is a 64-year-old male with past medical history of GERD; anemia; COPD; diabetes; stroke x2; congestive heart failure with an ejection fraction of 30% to 35%; coronary artery disease, status post stent placement; hypertension; and cirrhosis, complicated by esophageal varices, status post band ligation and ascites, presenting with complaints of lightheadedness and mild shortness of breath. He states that he was in his usual state of health until approximately 2 weeks ago when he began having increasing lightheadedness that he described more as feeling dizzy as opposed to vertiginous in nature. This was associated with increased coughing fits that would ultimately result in a syncopal type episode where the patient would lose bladder or bowel control. He also noticed that around the same time, he started having dark brown stools that were solid in consistency, but not easily to clean requiring multiple wipes in order to facilitate cleaning of the area. He also noticed increased abdominal distention and weight gain of approximately 10 pounds over the last week as well. On talking with the patient, he stated that he had previously been seen for anemia and given iron supplementation, but is no longer taking that. His current diet at home consisted of eating hamburger helper, ham and cheese, turkey and cheese sandwich, canned soups, and prepackaged dinners. Otherwise, the patient denied any nausea, vomiting, fevers, chills, hematochezia, hematemesis, dysphagia, odynophagia, or weight loss. With the worsening of his lightheadedness that then prompted him to seek healthcare assistance at the [facility] ER and the patient was ultimately admitted to the hospital for further evaluation. On initial evaluation, the patient was noted to have a significant anemia, but relatively unchanged when compared to his baseline and he has not had any further episodes of these darker colored stools over the last week. REVIEW OF SYSTEMS: A 10-category review of systems was obtained with all responses negative except for the pertinent positives as listed in HPI. PAST MEDICAL HISTORY: As per HPI. PAST SURGICAL HISTORY: Hernia repair, colonoscopy with polyp resection. FAMILY HISTORY: Denies any GI malignancies. SOCIAL HISTORY: Continues to smoke approximately 1/2 to 1 pack per day. He used to drink more heavily in the past, but denies any current alcohol use. He does continue to smoke marijuana approximately 3 to 4 times per week for chronic pain. OUTPATIENT MEDICATIONS: Reviewed. ALLERGIES: PENICILLIN. PHYSICAL EXAMINATION: VITAL SIGNS: Temperature 97.5, pulse 96, blood pressure 111/55, respiratory rate 20, saturating 97% on room air. GENERAL: The patient was lying in bed, in no acute distress. Alert and oriented x4. HEENT: Normocephalic and atraumatic. NECK: Supple. No scleral icterus noted. CARDIOVASCULAR: Regular rate and rhythm with no discernible murmurs, gallops, or rubs. RESPIRATORY: Expiratory wheezing auscultated in all lung alba with increased coughing. ABDOMEN: Normoactive bowel sounds. Soft, nontender. [id number] abdominal distention with positive shifting dullness. EXTREMITIES: 1+/2+ bilateral lower extremity edema extending to mid ugarte. LABORATORY DATA: CBC with a white blood cell count of 4.9, hemoglobin 8.3, hematocrit 26, platelets 130. Chemistry with a sodium of 139, potassium 2.9, chloride 99, CO2 of 30, BUN 13, creatinine 1.27, glucose 187. AST 18, ALT 11, alkaline phosphatase 129, total bilirubin 1.2. INR 1.2. Iron 34, ferritin 77, TIBC 426. IMAGING DATA: EGD was performed on November 16, 2018, which showed mild portal hypertensive gastropathy along with grade 2 esophageal varices without any high-risk stigmata of bleeding, but underwent band ligation at that time. Colonoscopy also performed on November 16, 2018, showed the presence of two 4 to 6 mm sigmoid colon polyps that were both hyperplastic polyps in addition to [id number] sigmoid diverticulosis. CT of the chest was obtained on February 12, 2020, which showed increased mediastinal lymphadenopathy along with a 3.3 x 2.3 x 3.2 cm irregular solid mass within the right middle lobe strongly concerning for the presence of malignancy. Cirrhotic morphology in addition to splenomegaly, ascites, and a small hiatal hernia were noted as well. ASSESSMENT AND PLAN: The patient is a 64-year-old male with past medical history of gastroesophageal reflux disease; anemia; chronic obstructive pulmonary disease; diabetes; CVA x2; congestive heart failure with an ejection fraction of 30% to 35%; coronary artery disease, status post stent placement; hypertension; and cirrhosis, complicated by esophageal varices and ascites, presenting with worsening ascites and stable anemia. 1. Anemia: The patient is presenting with a decreased H and H, but when compared to his baseline, hemoglobin and hematocrit relatively unchanged. He did have an episode of darker colored stools approximately 2 weeks ago, but the patient described them as dark brown in color and solid in consistency making melena a much less likely diagnosis at this time. He does have a positive FOBT on admission, but given its relatively high false positive rate, especially in its poor sensitivity and specificity for determination of GI bleeding (approximately 10% to 30%), the likelihood of active GI bleeding is unlikely at this time. However, the patient does have now a concurrent diagnosis of a right middle lobe lung lesion concerning for malignant type process which could further contribute to an anemia or iron-deficiency anemia. Recommendations: a. Would continue to trend his H and H and transfuse as necessary to maintain an H and H of 7/21. b. Continue to monitor clinically for signs of active GI bleeding. c. Agree with consultation of the Pulmonary Service for further evaluation of this lung mass. d. No upper endoscopy is indicated at this time given stable H and H and no overt evidence of gastrointestinal bleeding. 2. Ascites: The patient is presenting with a history of presumably alcoholic versus hepatitis C cirrhosis that is complicated by esophageal varices and ascites. Over the last 1 to 2 weeks, the patient has had worsening abdominal distention in addition to a 10-pound weight gain over the same time consistent with worsening ascites. However, upon review of the patient's diet, he is currently not adhering to a low-sodium diet with the majority of his diet actually very high in sodium that could further contribute to his worsening ascites and weight gain as a result. He also does have concurrent lower extremity edema, again raising concerns for either congestive heart failure exacerbation versus sequelae of his cirrhosis or combination of the 2. He does not currently have any significant abdominal pain making the likelihood of spontaneous bacterial peritonitis less likely, but with this worsening ascites and especially with a possible lung malignancy, it is concerning for possible peritoneal carcinomatosis as well. Recommendations: a. Would perform diagnostic and therapeutic paracentesis for further evaluation of the ascites fluid (for evaluation of SBP versus malignant type process). b. Would add spironolactone 50 mg daily in addition to his furosemide 40 mg b.i.d. as part of diuretic management of his worsening ascites and lower extremity edema. c. Would adhere to a low-sodium diet with intake of no more than 2000 mg in a 24-hour period. d. Would continue to monitor renal function during this admission for possible over-diuresis, especially in light of congestive heart failure. We will continue to follow. Please call with any questions. Job ID: [id number]
[2020-02-13] MEDS: Guaifenesin DM 100-10/5 ML UDCUP PO PRN (23:20)
[2020-02-14 05:03] LABS: #Eosinphils 0.2 thou/uL (0.0-0.7); #Lymphocytes 0.8 thou/uL (1.20-3.40); #Monocytes 0.5 thou/uL (0.11-0.59); #Neutrophils 4.5 thou/uL (1.40-6.50); %Basophils 0.5 % (0.0-1.0); %Eosinophils 3.2 % (0.0-10.0); %Lymphocytes 13.9 % (21.0-51.0); %Monocytes 7.8 % (0.0-10.0); %Neutrophils 74.7 % (42.0-75.0); Hemoglobin 8.5 g/dL (14.0-18.0); Mean Corpuscular HGB CONC 32.1 g/dL (32.0-36.0); Mean Corpuscular Hemoglobin 29.2 pg (27.0-31.0); Mean Corpuscular Volume 90.8 fL (78.0-98.0); Mean Platelet Volume 8.9 fL (7.4-10.4); Platelet Count 152 thou/uL (130-400); RBC Distribution Width 14.6 % (11.5-14.5); Red Blood Cell (RBC) Count 2.92 mill/uL (4.70-6.10)
[2020-02-14 05:25] LABS: Anion Gap 14 mmol/L (10-20); BUN (Urea Nitrogen) 16 mg/dL (8.4-25.7); Calc. Creatinine Clearance 68 mL/min (70-130); Calcium 8.2 mg/dL (7.8-10.44); Carbon Dioxide 26 mmol/L (23-31); Chloride 98 mmol/L (98-107); Estimated GFR-MDRD 52; Glucose 187 mg/dL (80-115); Magnesium 1.6 mg/dL (1.6-2.6); Potassium 3.5 mmol/L (3.5-5.1); Sodium 134 mmol/L (136-145)
[2020-02-14] MEDS: HumaLOG 300 UNITS/3 ML VIAL SC PRN ×4 (05:38→22:15)
[2020-02-14] MEDS: Spironolactone 25 MG TAB PO SCH (08:42)
[2020-02-14] MEDS: Carvedilol 3.125 MG TAB PO SCH ×2 (08:43→21:05)
[2020-02-14] MEDS: Furosemide 40 MG/4 ML VIAL SLOW IVP SCH ×2 (08:43→21:05)
[2020-02-14] MEDS: Pantoprazole 40 MG VIAL IVP SCH (08:43)
[2020-02-14] MEDS ORDERED: FLU VACC QS2020-21(6MOS UP)/PF 60 MCG/0.5 ML SYRINGE IM ONE (09:00)
[2020-02-14] MEDS ORDERED: Prevnar 13-Val Conj/PF 0.5 ML SYRINGE IM ONE (09:00)
--- NOTE | 2020-02-14 11:00 | PRG ---
DATE OF SERVICE: 02/14/2020 SUBJECTIVE: Mr. Daniels remain short of breath, feels better when sitting up, but cannot really lie flat. Abdominal distention is bothersome to him, but no significant pain. No nausea or vomiting. He is set to go down for diagnostic/therapeutic paracentesis later this morning. OBJECTIVE: VITAL SIGNS: Temperature 97.9, pulse 97, blood pressure 118/79, 92% oxygen saturation on room air. GENERAL: Sitting up on the edge of the bed, leaning forward in mild respiratory distress, occasionally coughing. HEART: Regular rate and rhythm. LUNGS: Bibasilar crackles, end-expiratory wheezing, mild tachypnea. ABDOMEN: Distended with ascites. Dull to percussion, soft, but nontender to palpation. EXTREMITIES: No peripheral edema. LABORATORY STUDIES: Hemoglobin stable at 8.5, WBC 6.0, platelets 152. INR 1.2. Sodium 134, potassium 3.5, BUN 16, creatinine 1.38, glucose 178, magnesium 1.6. COVID PCR is negative. ASSESSMENT/PLAN: 1. Anemia, chronic, stable. Agree with Dr. Quintana. There does not appear to be any significant gastrointestinal hemorrhage here. 2. Ascites. This is in the context of known cirrhosis, but also progressive severe heart failure. Echocardiogram showing ejection fraction 15% to 20% with diastolic dysfunction. Cardiology following along. The patient is being diuresed with IV Lasix. Dr. Quintana added spironolactone 50 mg daily yesterday. This dose can be titrated up as renal function tolerates. Importantly, the patient was not really adhering to a low-sodium diet before. This is going to be of paramount importance going forward. The patient is going to get diagnostic/therapeutic paracentesis later today. Followup those fluid studies. 3. Congestive heart failure, severe, with ejection fraction 15% of 20% and diastolic dysfunction. 4. Chronic obstructive pulmonary disease. 5. Lung mass. The patient has a suspicious lung mass on CT chest. Pulmonary team tentatively planning for bronchoscopy with biopsy once congestive heart failure is tuned up. Note, COVID test is negative. GI can continue to follow. Please call anytime with questions or concerns. Job ID: [id number]
[2020-02-14] MEDS ORDERED: Lidocaine 1% PF 5 ML VIAL ONE (11:36)
[2020-02-14] MEDS ORDERED: Sodium Bicarbonate 2.5 MEQ/5 ML VIAL ONE (11:36)
--- NOTE | 2020-02-14 12:15 | ULT ---
Exam: Ultrasound guided paracentesis HISTORY: Ascites COMPARISON: None FINDINGS: Successful ultrasound-guided paracentesis. Total of 10 cc of yellow color ascites was aspir ated. TECHNIQUE: Consent obtained reformatory ultrasound-guided paracentesis. Right lower quadrant was deem ed appropriate. Skin was prepped and draped in a sterile fashion. 1% lidocaine, buffered with sodium bicarbonate was used for local anesthesia. Under ultrasound guidance, a 25-gauge spinal needle is advanced in the peritoneal space. A total of 10 cc of yellow color ascites was aspirated. No immediate or postprocedural complications IMPRESSION: Successful ultrasound-guided paracentesis.
--- NOTE | 2020-02-14 12:26 | PDOC.HOSPP ---
- Subjective Encounter Date: 02/14/20 Encounter Time: 10:30 Subjective: pt up in bed asleep but arousable - Objective Vital Signs & Weight: Vital Signs (12 hours) Temp Pulse Resp BP BP Pulse Ox 02/14/20 08:00 97.9 F 97 19 118/79 92 L 02/14/20 07:00 93 20 100 02/14/20 05:39 97.8 F 99 18 128/85 95 02/14/20 01:27 97.4 F L 96 18 150/80 H 98 Weight Weight 194 lb 8 oz I&O: 02/13/20 02/14/20 02/15/20 06:59 06:59 06:59 Intake Total 1652 237 Output Total 475 300 Balance 1177 -63 Result Diagrams: 02/14/20 04:36 02/14/20 04:36 Additional Labs: Accuchecks 02/14/20 02/14/20 02/13/20 10:40 05:33 21:52 POC Glucose 202 H 178 H 236 H 02/13/20 18:16 POC Glucose 215 H Hospitalist ROS - Review of Systems Respiratory: denies: cough, dry, shortness of breath, hemoptysis, SOB with excertion, pleuritic pain, sputum, wheezing, other Cardiovascular: denies: chest pain, palpitations, orthopnea, paroxysmal noc. dyspnea, edema, light headedness, other Gastrointestinal: denies: nausea, vomiting, abdominal pain, diarrhea, constipation, melena, hematochezia, other - Medication Medications: Active Medications Generic Name Dose Route Start Last Admin Trade Name Freq PRN Reason Stop Dose Admin Albuterol/Ipratropium 3 ml 02/13/20 01:00 02/14/20 07:00 Ipratropium/Albuterol Sulfate 3 Ml Neb NEB 3 ml [id number] YANNICK Administration Atorvastatin Calcium 20 mg 02/13/20 21:00 02/13/20 20:58 Atorvastatin Calcium 20 Mg Tab PO 20 mg HS YANNICK Administration Carvedilol 1.5625 mg 02/13/20 09:00 02/14/20 08:43 Carvedilol 3.125 Mg Tab PO 1.5625 mg BID YANNICK Administration Diazepam 2 mg 02/12/20 22:25 02/13/20 18:20 Diazepam 2 Mg Tab PO 2 mg BIDPRN PRN Administration Anxiety Furosemide 40 mg 02/13/20 09:00 02/14/20 08:43 Furosemide 40 Mg/4 Ml Vial SLOW IVP 40 mg BID YANNICK Administration Guaifenesin/Dextromethorphan 15 ml 02/13/20 23:04 02/13/20 23:20 Guaifenesin Dm 100-10/5 Ml Udcup PO 15 ml Q4H PRN Administration Cough Ceftriaxone Sodium 1 gm/ 100 mls @ 200 mls/hr 02/13/20 22:00 02/13/20 21:00 Sodium Chloride IVPB 100 mls 2200 YANNICK Administration Insulin Human Lispro 0 units 02/12/20 22:24 02/14/20 05:38 Humalog 300 Units/3 Ml Vial SC 2 unit .MODERATE SLIDING SC PRN Administration Moderate Correctional Scale Pantoprazole Sodium 40 mg 02/14/20 09:00 02/14/20 08:43 Pantoprazole 40 Mg Vial IVP 40 mg DAILY YANNICK Administration Sodium Chloride 10 ml 02/13/20 09:00 02/14/20 08:53 Flush - Normal Saline 10 Ml Syringe IVF 10 ml Q12HR YANNICK Administration Spironolactone 50 mg 02/14/20 08:00 02/14/20 08:42 Spironolactone 25 Mg Tab PO 50 mg QAM-WM YANNICK Administration - Exam Neck: negative: supple, symmetric, no JVD, no thyromegaly, no lymphadenopathy, n o carotid bruit, JVD Heart: negative: RRR, no murmur, no gallops, no rubs, normal peripheral pulses, irregular, diminshed peripheral pulses, murmur present, II/IV, III/IV Respiratory: negative: CTAB, no wheezes, no rales, no ronchi, normal chest expa nsion, no tachypnea, normal percussion, rales, rhonchi, tachypneic, wheezes Gastrointestinal: soft, normal bowel sounds Hosp A/P (1) COPD with exacerbation Code(s): J44.1 - CHRONIC OBSTRUCTIVE PULMONARY DISEASE W (ACUTE) EXACERBATION Status: Acute (2) Right middle lobe pulmonary nodule Code(s): R91.1 - SOLITARY PULMONARY NODULE Status: Acute (3) Ascites Code(s): R18.8 - OTHER ASCITES Status: Acute (4) Cirrhosis Code(s): K74.60 - UNSPECIFIED CIRRHOSIS OF LIVER Status: Acute (5) Acute on chronic combined systolic and diastolic CHF, NYHA class 3 Code(s): I50.43 - ACUTE ON CHRONIC COMBINED SYSTOLIC AND DIASTOLIC HRT FAIL Status: Acute (6) CKD (chronic kidney disease) stage 3, GFR 30-59 ml/min Status: Chronic (7) HTN (hypertension) Code(s): I10 - ESSENTIAL (PRIMARY) HYPERTENSION Status: Chronic Qualifiers: - Plan Status post paracentesis will need 10 mL removed. We will continue to diurese the patient. Pulmonary's note patient has to be Covid negative and medically stable for further testing of the right middle lobe lung lesion. Patient currently being treated for heart failure. With a EF of 15 to 20%. Patient was educated on low-sodium diet.
[2020-02-14] MEDS: Aspirin Chewable 81 MG TAB PO SCH (12:59)
[2020-02-14] MEDS: Clopidogrel Bisulfate 75 MG TAB PO SCH (12:59)
[2020-02-14 13:46] LABS: RBC Count-Automated (BF) 535 /cu.mm; WBC/Nucleated-Auto (BF) 390 uL
[2020-02-14 14:14] LABS: BF Color Yellow; Body Fluid Source Ascites Body Fluid; Clarity Hazy (Clear); Tube # EDTA
[2020-02-14 14:17] LABS: BF Segmented Neutrophils 34 %; Cell Count Non Hematic 47 %; Lymphocytes 18 %
[2020-02-14] MEDS: Diazepam 2 MG TAB PO PRN (14:47)
[2020-02-14] MEDS ORDERED: Iron Sucrose Complex 200 MG in Sodium Chloride 0.9% 100 ML IVPB SCH ×2 (15:00→16:30)
[2020-02-14] MEDS ORDERED: Iron, Sodium Ferric Gluconate 250 MG in Sodium Chloride 0.9% 100 ML IVPB SCH (15:30)
[2020-02-14] MEDS: Atorvastatin Calcium 20 MG TAB PO SCH (21:05)
[2020-02-14] MEDS: cefTRIAXone\\ROCEPHIN 1 GM in Sodium Chloride 0.9% 100 ML IVPB SCH (21:05)
[2020-02-15 06:02] LABS: Anion Gap 10 mmol/L (10-20); BUN (Urea Nitrogen) 20 mg/dL (8.4-25.7); Calc. Creatinine Clearance 65 mL/min (70-130); Calcium 8.7 mg/dL (7.8-10.44); Carbon Dioxide 31 mmol/L (23-31); Chloride 97 mmol/L (98-107); Estimated GFR-MDRD 48; Glucose 216 mg/dL (80-115); Potassium 3.4 mmol/L (3.5-5.1); Sodium 135 mmol/L (136-145)
[2020-02-15] MEDS: HumaLOG 300 UNITS/3 ML VIAL SC PRN ×3 (06:08→17:28)
[2020-02-15] MEDS: Spironolactone 25 MG TAB PO SCH (07:51)
[2020-02-15] MEDS: Clopidogrel Bisulfate 75 MG TAB PO SCH (07:51)
[2020-02-15] MEDS: Carvedilol 3.125 MG TAB PO SCH ×2 (07:51→21:17)
[2020-02-15] MEDS: Furosemide 40 MG/4 ML VIAL SLOW IVP SCH ×2 (07:52→21:17)
[2020-02-15] MEDS: Pantoprazole 40 MG VIAL IVP SCH (07:52)
[2020-02-15] MEDS: Aspirin Chewable 81 MG TAB PO SCH (07:52)
[2020-02-15] MEDS ORDERED: Iron Sucrose Complex 200 MG in Sodium Chloride 0.9% 100 ML IVPB SCH (09:00)
[2020-02-15] MEDS ORDERED: Prevnar 13-Val Conj/PF 0.5 ML SYRINGE IM ONE (09:00)
[2020-02-15] MEDS ORDERED: Iron, Sodium Ferric Gluconate 250 MG in Sodium Chloride 0.9% 100 ML IVPB SCH (09:00)
[2020-02-15] MEDS: Diazepam 2 MG TAB PO PRN ×2 (11:11→21:17)
[2020-02-15] MEDS ORDERED: Loratadine 10 MG TAB PO PRN (16:25)
[2020-02-15] MEDS ORDERED: Potassium Chloride 20 MEQ TAB PO SCH (16:30)
--- NOTE | 2020-02-15 16:35 | PDOC.HOSPP ---
- Subjective Subjective: Patient was seen examined at bedside. No acute events overnight. - Objective Vital Signs & Weight: Vital Signs (12 hours) Temp Pulse Resp BP BP Pulse Ox 02/15/20 15:40 97.3 F L 93 20 107/55 L 94 L 02/15/20 11:22 97.7 F 88 20 104/61 91 L 02/15/20 08:00 93 L 02/15/20 07:43 98 F 94 20 110/69 93 L Weight Weight 197 lb 12.8 oz I&O: 02/14/20 02/15/20 02/16/20 06:59 06:59 06:59 Intake Total 1652 1730 545 Output Total 475 1395 605 Balance 1177 335 -60 Result Diagrams: 02/14/20 04:36 02/15/20 04:56 Additional Labs: Accuchecks 02/15/20 02/15/20 02/14/20 12:02 05:57 21:35 POC Glucose 181 H 197 H 205 H 02/14/20 16:35 POC Glucose 168 H Radiology Reviewed by me: Yes EKG Reviewed by me: Yes Hospitalist ROS - Medication Medications: Active Medications Generic Name Dose Route Start Last Admin Trade Name Freq PRN Reason Stop Dose Admin Albuterol/Ipratropium 3 ml 02/13/20 01:00 02/15/20 12:07 Ipratropium/Albuterol Sulfate 3 Ml Neb NEB 3 ml [id number] YANNICK Administration Aspirin 81 mg 02/14/20 09:00 02/15/20 07:52 Aspirin Chewable 81 Mg Tab PO 81 mg DAILY YANNICK Administration Atorvastatin Calcium 20 mg 02/13/20 21:00 02/14/20 21:05 Atorvastatin Calcium 20 Mg Tab PO 20 mg HS YANNICK Administration Carvedilol 1.5625 mg 02/13/20 09:00 02/15/20 07:51 Carvedilol 3.125 Mg Tab PO 1.5625 mg BID YANNICK Administration Clopidogrel Bisulfate 75 mg 02/14/20 09:00 02/15/20 07:51 Clopidogrel Bisulfate 75 Mg Tab PO 75 mg DAILY YANNICK Administration Diazepam 2 mg 02/12/20 22:25 02/15/20 11:11 Diazepam 2 Mg Tab PO 2 mg BIDPRN PRN Administration Anxiety Furosemide 40 mg 02/13/20 09:00 02/15/20 07:52 Furosemide 40 Mg/4 Ml Vial SLOW IVP 40 mg BID YANNICK Administration Guaifenesin/Dextromethorphan 15 ml 02/13/20 23:04 02/13/20 23:20 Guaifenesin Dm 100-10/5 Ml Udcup PO 15 ml Q4H PRN Administration Cough Ceftriaxone Sodium 1 gm/ 100 mls @ 200 mls/hr 02/13/20 22:00 02/14/20 21:05 Sodium Chloride IVPB 100 mls 2200 YANNICK Administration Insulin Human Lispro 0 units 02/12/20 22:24 02/15/20 12:16 Humalog 300 Units/3 Ml Vial SC 2 unit .MODERATE SLIDING SC PRN Administration Moderate Correctional Scale Insulin Human Lispro 0 units 02/14/20 03:00 02/14/20 22:15 Humalog 300 Units/3 Ml Vial SC 2 unit .BEDTIME SLIDING SC PRN Administration BEDTIME SLIDING SCALE Protocol Pantoprazole Sodium 40 mg 02/14/20 09:00 02/15/20 07:52 Pantoprazole 40 Mg Vial IVP 40 mg DAILY YANNICK Administration Sodium Chloride 10 ml 02/13/20 09:00 02/15/20 07:52 Flush - Normal Saline 10 Ml Syringe IVF 10 ml Q12HR YANNICK Administration Spironolactone 50 mg 02/14/20 08:00 02/15/20 07:51 Spironolactone 25 Mg Tab PO 50 mg QAM-WM YANNICK Administration - Exam General Appearance: NAD Eye: PERRL Neck: supple Heart: RRR Respiratory: CTAB Gastrointestinal: soft Extremities: 1+ LE edema Skin: normal turgor Neurological: cranial nerve grossly intact Psychiatric: normal affect, normal behavior, A&O x 3 Hosp A/P - Plan Patient is a 64 years ago gentleman who has significant past medical history of chronic anemia, COPD, diabetes type 2, GERD, congestive heart failure with a EF of 15-20%, CAD with status post stents placement, hypertension, liver cirrhosis complicated with esophageal varices and ascites, who presented to ED with worsening ascites and short of breath. Acute on chronic systolic heart failure with EF 15-20% --Continue IV diuresis, and guideline directed therapy for heart failure --Monitor his I&O, follow renal function, replete lytes COPD with exac --cont nebs. appreciate Pul input --hold off on systemic steroid for now. Right middle lobe mass --Suspicious for possible malignancy, pulmonology has been consulted. Appreciate input, pending further work-up Chronic anemia --Status post Venofer, no active bleeding. Monitor H&H. Appreciate GI input Liver cirrhosis complicated with ascites --Status post paracentesis, 10 mL removed. Continue empiric IV antibiotic, follow culture --Continue low-salt diet CKD stage III --Creatinine stable, monitor follow BMP Diabetes type 2 --Hold Metformin due to renal function --Add low-dose basal insulin, insulin sliding scale CAD, status post PCI --Continue antiplatelet therapy, and other cardiac medications. Appreciate cardiology input
[2020-02-15] MEDS: Fluticasone Propionate Nasal Spray 16 gm Bottle NASAL SCH (17:26)
--- NOTE | 2020-02-15 19:27 | PRG ---
DATE OF SERVICE: 02/15/2020 SUBJECTIVE: Mr. Daniels's primary complaint is shortness of breath. He cannot sleep due to this. He has had no nausea or vomiting. No abdominal pain. OBJECTIVE: VITAL SIGNS: Temperature 97.3, pulse 93, blood pressure 107/55, and oxygen saturations 94% on room air. GENERAL: He is in no acute distress. LUNGS: Clear to auscultation bilaterally. HEART: Regular rate and rhythm without murmur. ABDOMEN: Soft, nontender, mildly distended. Bowel sounds are present. EXTREMITIES: Trace lower extremity edema. LABORATORY DATA: White blood cell count 6.0, hemoglobin 8.5, and platelets 152. Creatinine 1.47. IMPRESSION: 1. Anemia. The patient reports that [facility] with improvement in his blood counts following that. 2. Ascites. He had a diagnostic paracentesis yesterday with 10 mL of ascitic fluid removed. The fluid studies are negative for spontaneous bacterial peritonitis. 3. Congestive heart failure and chronic obstructive pulmonary disease. His fluid status is being managed with diuretics. His primary complaint is shortness of breath. He has a concerning lung mass by CT scan. RECOMMENDATIONS: 1. Low-salt diet. 2. He is on furosemide and spironolactone. 3. He last underwent EGD and colonoscopy in November of 2018. He has had banding of esophageal varices previously. There is no overt bleeding now or indication for GI endoscopy currently. 4. He does have chronic renal insufficiency, but his creatinine appears fairly stable overall now. 5. We will follow the trend of his creatinine. Job ID: [id number]
[2020-02-15] MEDS: Atorvastatin Calcium 20 MG TAB PO SCH (21:17)
[2020-02-15] MEDS: Insulin Glargine 15 UNITS in Pre-Filled Syringe 1 EACH SC SCH (21:18)
[2020-02-15] MEDS: cefTRIAXone\\ROCEPHIN 1 GM in Sodium Chloride 0.9% 100 ML IVPB SCH (21:19)
[2020-02-16 05:18] LABS: #Eosinphils 0.1 thou/uL (0.0-0.7); #Lymphocytes 0.8 thou/uL (1.20-3.40); #Monocytes 0.4 thou/uL (0.11-0.59); #Neutrophils 3.8 thou/uL (1.40-6.50); %Basophils 0.1 % (0.0-1.0); %Eosinophils 2.6 % (0.0-10.0); %Monocytes 7.3 % (0.0-10.0); Hemoglobin 8.1 g/dL (14.0-18.0); Mean Corpuscular HGB CONC 31.8 g/dL (32.0-36.0); Mean Corpuscular Hemoglobin 29.4 pg (27.0-31.0); Mean Corpuscular Volume 92.4 fL (78.0-98.0); Mean Platelet Volume 9.2 fL (7.4-10.4); Platelet Count 145 thou/uL (130-400); RBC Distribution Width 14.7 % (11.5-14.5); Red Blood Cell (RBC) Count 2.76 mill/uL (4.70-6.10)
[2020-02-16 05:24] LABS: Hemoglobin A1c 8.2 % (4.0-6.0)
[2020-02-16 05:39] LABS: Anion Gap 12 mmol/L (10-20); BUN (Urea Nitrogen) 20 mg/dL (8.4-25.7); Calc. Creatinine Clearance 62 mL/min (70-130); Calcium 8.5 mg/dL (7.8-10.44); Carbon Dioxide 28 mmol/L (23-31); Chloride 98 mmol/L (98-107); Estimated GFR-MDRD 46; Glucose 245 mg/dL (80-115); Magnesium 1.6 mg/dL (1.6-2.6); Potassium 3.2 mmol/L (3.5-5.1); Sodium 135 mmol/L (136-145)
[2020-02-16] MEDS: Spironolactone 25 MG TAB PO SCH (09:10)
[2020-02-16] MEDS: Aspirin Chewable 81 MG TAB PO SCH (09:10)
[2020-02-16] MEDS: Carvedilol 3.125 MG TAB PO SCH ×2 (09:11→20:28)
[2020-02-16] MEDS: Clopidogrel Bisulfate 75 MG TAB PO SCH (09:11)
[2020-02-16] MEDS: Fluticasone Propionate Nasal Spray 16 gm Bottle NASAL SCH ×2 (09:13→20:29)
[2020-02-16] MEDS: Furosemide 40 MG/4 ML VIAL SLOW IVP SCH ×2 (09:13→20:29)
[2020-02-16] MEDS: Diazepam 2 MG TAB PO PRN (09:13)
[2020-02-16] MEDS: Pantoprazole 40 MG VIAL IVP SCH (09:14)
[2020-02-16] MEDS ORDERED: Benzonatate 100 MG CAP PO SCH (10:30)
[2020-02-16] MEDS: Benzonatate 100 MG CAP PO SCH ×2 (14:43→20:28)
--- NOTE | 2020-02-16 15:00 | PDOC.HOSPP ---
- Subjective Subjective: Patient was seen examined at bedside. Patient stated his breathing is better. He still have some cough. He refused potassium supplement - Objective Vital Signs & Weight: Vital Signs (12 hours) Temp Pulse Resp BP BP Pulse Ox 02/16/20 10:54 97.3 F L 99 20 103/60 99 02/16/20 07:58 98.6 F 100 20 116/77 95 02/16/20 07:41 90 16 02/16/20 04:00 97.6 F 96 20 126/59 L 94 L Weight Weight 195 lb 9.6 oz I&O: 02/15/20 02/16/20 02/17/20 06:59 06:59 06:59 Intake Total 1730 1437 720 Output Total 1395 1485 925 Balance 044 -01 -998 Result Diagrams: 02/16/20 04:37 02/16/20 04:37 Additional Labs: Accuchecks 02/16/20 02/16/20 02/15/20 10:50 05:50 21:15 POC Glucose 124 H 192 H 220 H 02/15/20 16:29 POC Glucose 179 H Radiology Reviewed by me: Yes EKG Reviewed by me: Yes Hospitalist ROS - Medication Medications: Active Medications Generic Name Dose Route Start Last Admin Trade Name Freq PRN Reason Stop Dose Admin Albuterol/Ipratropium 3 ml 02/13/20 01:00 02/16/20 07:41 Ipratropium/Albuterol Sulfate 3 Ml Neb NEB 3 ml [id number] YANNICK Administration Aspirin 81 mg 02/14/20 09:00 02/16/20 09:10 Aspirin Chewable 81 Mg Tab PO 81 mg DAILY YANNICK Administration Atorvastatin Calcium 20 mg 02/13/20 21:00 02/15/20 21:17 Atorvastatin Calcium 20 Mg Tab PO 20 mg HS YANNICK Administration Benzonatate 100 mg 02/16/20 15:00 02/16/20 14:43 Benzonatate 100 Mg Cap PO 100 mg TID YANNICK Administration Carvedilol 1.5625 mg 02/13/20 09:00 02/16/20 09:11 Carvedilol 3.125 Mg Tab PO 1.5625 mg BID YANNICK Administration Clopidogrel Bisulfate 75 mg 02/14/20 09:00 02/16/20 09:11 Clopidogrel Bisulfate 75 Mg Tab PO 75 mg DAILY YANNICK Administration Diazepam 2 mg 02/12/20 22:25 02/16/20 09:13 Diazepam 2 Mg Tab PO 2 mg BIDPRN PRN Administration Anxiety Fluticasone Propionate 0 gm 02/15/20 21:00 02/16/20 09:13 Fluticasone Propionate Nasal [place] 16 Gm Bottle NASAL 1 spr BID YANNICK Administration Furosemide 40 mg 02/13/20 09:00 02/16/20 09:13 Furosemide 40 Mg/4 Ml Vial SLOW IVP 40 mg BID YANNICK Administration Guaifenesin/Dextromethorphan 15 ml 02/13/20 23:04 02/13/20 23:20 Guaifenesin Dm 100-10/5 Ml Udcup PO 15 ml Q4H PRN Administration Cough Ceftriaxone Sodium 1 gm/ 100 mls @ 200 mls/hr 02/13/20 22:00 02/15/20 21:19 Sodium Chloride IVPB 100 mls 2200 YANNICK Administration Insulin Glargine 15 units/ 0.15 mls @ 0 mls/hr 02/15/20 21:00 02/15/20 21:18 Miscellaneous Medication SC 0.15 mls HS YANNICK Administration Insulin Human Lispro 0 units 02/12/20 22:24 02/15/20 17:28 Humalog 300 Units/3 Ml Vial SC 2 unit .MODERATE SLIDING SC PRN Administration Moderate Correctional Scale Insulin Human Lispro 0 units 02/14/20 03:00 02/14/20 22:15 Humalog 300 Units/3 Ml Vial SC 2 unit .BEDTIME SLIDING SC PRN Administration BEDTIME SLIDING SCALE Protocol Loratadine 10 mg 02/15/20 16:25 02/15/20 21:17 Loratadine 10 Mg Tab PO 10 mg DAILYPRN PRN Administration Allergies Pantoprazole Sodium 40 mg 02/14/20 09:00 02/16/20 09:14 Pantoprazole 40 Mg Vial IVP 40 mg DAILY YANNICK Administration Sodium Chloride 10 ml 02/13/20 09:00 02/16/20 09:54 Flush - Normal Saline 10 Ml Syringe IVF 10 ml Q12HR YANNICK Administration Spironolactone 50 mg 02/14/20 08:00 02/16/20 09:10 Spironolactone 25 Mg Tab PO 50 mg QAM-WM YANNICK Administration - Exam General Appearance: NAD Eye: PERRL ENT: normocephalic atraumatic Neck: supple Heart: RRR Respiratory: rhonchi Gastrointestinal: soft, non-tender Extremities: no cyanosis Skin: normal turgor Neurological: cranial nerve grossly intact Musculoskeletal: normal tone Psychiatric: normal affect, normal behavior, A&O x 3 Hosp A/P - Plan Patient is a 64 years ago gentleman who has significant past medical history of chronic anemia, COPD, diabetes type 2, GERD, congestive heart failure with a EF of 15-20%, CAD with status post stents placement, hypertension, liver cirrhosis complicated with esophageal varices and ascites, who presented to ED with worsening ascites and short of breath. Acute on chronic systolic heart failure with EF 15-20% --Continue IV diuresis, and guideline directed therapy for heart failure --Monitor his I&O, follow renal function, replete lytes. COPD with exac --cont nebs. appreciate Pul input --hold off on systemic steroid for now. Right middle lobe mass --Suspicious for possible malignancy, pulmonology has been consulted. Appr eciate input, pending further work-up Chronic anemia --Status post Venofer, no active bleeding. Monitor H&H. Appreciate GI input Liver cirrhosis complicated with ascites --Status post paracentesis, 10 mL removed. Continue empiric IV antibiotic, follow culture --Continue low-salt diet. Pt is on Rocephin for SBP prophylaxis CKD stage III --Creatinine stable, monitor follow BMP Diabetes type 2 --Hold Metformin due to renal function --Add low-dose basal insulin, insulin sliding scale CAD, status post PCI --Continue antiplatelet therapy, and other cardiac medications. Appreciate cardiology input
[2020-02-16] MEDS ORDERED: Potassium Chloride 40 MEQ in Sodium Chloride 0.9% 250 ML 250 ML IVPB SCH (15:15)
[2020-02-16] MEDS ORDERED: Magnesium Sulfate 4 GM in Sodium Chloride 0.9% 250 ML 250 ML IVPB SCH (15:15)
[2020-02-16] MEDS ORDERED: MILRINONE IVPB SCH (17:15)
[2020-02-16] MEDS ORDERED: SODIUM CHLORIDE 0.9% IVPB SCH (17:15)
[2020-02-16] MEDS: Guaifenesin DM 100-10/5 ML UDCUP PO PRN (17:53)
[2020-02-16] MEDS: Milrinone Lactate/D5W 20 MG in Premix Bag 1 BAG IV SCH (19:00)
--- NOTE | 2020-02-16 19:09 | PRG ---
DATE OF SERVICE: 02/16/2020 SUBJECTIVE: Kenyon Daniels was evaluated. Events have been reviewed. OBJECTIVE: VITAL SIGNS: He is afebrile. Heart rate is 99, respiratory rate is 20, oximetry is 94% on room air, blood pressure 135/58. LUNGS: Distant and clear. HEART: Regular rhythm. ABDOMEN: Soft. EXTREMITIES: Without asymmetry. He still has some pedal edema. LABORATORY DATA: White count 5, hemoglobin 8.1 platelets 145. Sodium 135, potassium 3.2, chloride 98, bicarb 28, BUN 20, creatinine 1.55, albumin is 3.1. INR is 1.2. Protime of 15. IMPRESSION: 1. Cirrhosis. 2. Progressively worse cardiomyopathy. 3. Noncompliance with wearing a LifeVest. 4. Lung mass. 5. History of coronary stenting. 6. History of hypertension. 7. Continues to smoke. 8. He is not having any bronchospasm. 9. He is at increased risk for bleeding complications with any type of lung biopsy with his cardiomyopathy and cirrhosis in my opinion. I would prefer that he have an outpatient PET imaging. He will not be a candidate for a lobectomy given his cardiomyopathy and his cirrhosis, so the only option that is probably reasonable would be stereotactic radiation if we identify malignancy. Compliance with his cardiac issues appears to be a problem. Hopefully, he will be compliant with followup with me. I have given him my office number to call so we can set up for PET imaging and I will see him a few days after the PET imaging. I have explained to him and his family that it is imperative that he make a phone call. I will not track him down to force him to come back to see me. He says he understands. Job ID: [id number]
[2020-02-16] MEDS ORDERED: Aluminum & Magnesium Hydroxide 60 ML, diphenhydrAMINE 150 MG, Lidocaine 2% Viscous Solu... SSW PRN (19:50)
[2020-02-16] MEDS: Atorvastatin Calcium 20 MG TAB PO SCH (20:28)
[2020-02-16] MEDS: Temazepam 15 MG CAP PO SCH (20:29)
[2020-02-16] MEDS: Insulin Glargine 15 UNITS in Pre-Filled Syringe 1 EACH SC SCH (20:45)
--- NOTE | 2020-02-16 22:42 | PRG ---
DATE OF SERVICE: 02/16/2020 REASON FOR CONSULTATION: Cirrhosis with ascites, anemia. SUBJECTIVE: Overnight, the patient has some difficulty sleeping due to the increased shortness of breath that he has been experiencing throughout this hospitalization thus far. Otherwise, the patient states that he is doing well with no difficulty eating and drinking during this hospitalization. Currently, he denies any nausea, vomiting, fevers, chills, hematemesis, melena, or hematochezia. OBJECTIVE: VITAL SIGNS: Temperature 97.8, pulse 93, blood pressure 145/86, respiratory rate 21, saturating 96% on room air. GENERAL: The patient was sitting at bedside, in bed, in no acute distress. Alert and oriented x4. CARDIOVASCULAR: Regular rate and rhythm. RESPIRATORY: Increased resistance to air flow auscultated in all lung alba, but no evidence of wheezing. ABDOMEN: Normoactive bowel sounds. Soft, nontender. [id number] abdominal distention with positive shifting dullness. EXTREMITIES: 1+/2+ bilateral lower extremity edema extending to mid ugarte. LABORATORY DATA: CBC with a white blood cell count of 5.0, hemoglobin 8.1, hematocrit 25.5, platelets 145. Chemistry with a sodium of 135, potassium 3.2, chloride 98, CO2 of 28, BUN 20, creatinine 1.55, glucose 245. IMAGING DATA: No current GI imaging is available for review. ASSESSMENT AND PLAN: The patient is a 64-year-old male with past medical history of gastroesophageal reflux disease, anemia, chronic obstructive pulmonary disease, diabetes, cerebrovascular accident x2, congestive heart failure with an ejection fraction of 30% to 35%, coronary artery disease status post stent placement, hypertension and cirrhosis, complicated by esophageal varices and ascites, presenting with worsening ascites and stable anemia. Anemia. The patient initially presented with a decreased hemoglobin and hematocrit, but over the course of this hospitalization has had no change since then with no evidence of overt gastrointestinal bleeding. At this time, the likelihood of an active gastrointestinal bleed is low. However, he does have the concurrent diagnosis of a right middle lobe lung lesion concerning for a malignant type process, which could further contribute to an anemia. RECOMMENDATIONS: 1. Continue to trend his H and H and transfuse as necessary to maintain an H and H of 7/21. 2. Continue to monitor clinically for signs of active GI bleeding. 3. No upper endoscopy is indicated at this time given stable H and H and no evidence of GI bleed. 4. Ascites. 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 Prior to the admission, the patient had been having worsening abdominal distention as well as a 10-pound weight gain over the same time period concerning for worsening ascites. He subsequently underwent paracentesis on February 14, 2020, with no evidence of SBP and fluid analysis consistent with portal hypertension. However, only 10 mL of fluid were removed at the time of paracentesis. At this time, the patient continues to have significant abdominal distention and while he is urinating some as part of diuretic management of his ascites, repeat paracentesis and a therapeutic tap may clinically benefit the patient in terms of his shortness of breath. PLAN: 1. We would repeat paracentesis with therapeutic purpose in mind and drawing off as much fluid as possible. 2. Continue diuretic management with furosemide 40 mg b.i.d. in addition to spironolactone 50 mg daily. We will continue to monitor creatinine during this time. 3. Continue to adhere to low-sodium diet. 4. We will continue to follow. Please call with any questions. Job ID: [id number]
[2020-02-16] MEDS: cefTRIAXone\\ROCEPHIN 1 GM in Sodium Chloride 0.9% 100 ML IVPB SCH (23:34)
[2020-02-17 05:03] LABS: #Eosinphils 0.2 thou/uL (0.0-0.7); #Lymphocytes 0.6 thou/uL (1.20-3.40); #Monocytes 0.4 thou/uL (0.11-0.59); #Neutrophils 3.4 thou/uL (1.40-6.50); %Basophils 0.3 % (0.0-1.0); %Eosinophils 3.6 % (0.0-10.0); %Lymphocytes 12.7 % (21.0-51.0); %Monocytes 9.1 % (0.0-10.0); %Neutrophils 74.3 % (42.0-75.0); Hemoglobin 7.3 g/dL (14.0-18.0); Mean Corpuscular HGB CONC 32.5 g/dL (32.0-36.0); Mean Corpuscular Hemoglobin 29.8 pg (27.0-31.0); Mean Corpuscular Volume 91.6 fL (78.0-98.0); Platelet Count 121 thou/uL (130-400); RBC Distribution Width 15.5 % (11.5-14.5); Red Blood Cell (RBC) Count 2.46 mill/uL (4.70-6.10); White Blood Cell (WBC) Count 4.6 thou/uL (4.8-10.8)
[2020-02-17 05:32] LABS: Anion Gap 10 mmol/L (10-20); BUN (Urea Nitrogen) 22 mg/dL (8.4-25.7); Calc. Creatinine Clearance 62 mL/min (70-130); Calcium 8.1 mg/dL (7.8-10.44); Carbon Dioxide 30 mmol/L (23-31); Chloride 100 mmol/L (98-107); Estimated GFR-MDRD 47; Glucose 244 mg/dL (80-115); Magnesium 2.4 mg/dL (1.6-2.6); Potassium 3.4 mmol/L (3.5-5.1); Sodium 137 mmol/L (136-145)
[2020-02-17] MEDS: HumaLOG 300 UNITS/3 ML VIAL SC PRN ×3 (06:42→18:01)
[2020-02-17] MEDS: Milrinone Lactate/D5W 20 MG in Premix Bag 1 BAG IV SCH ×3 (08:35→19:03)
[2020-02-17] MEDS: Pantoprazole 40 MG VIAL IVP SCH (09:24)
[2020-02-17] MEDS: Furosemide 40 MG/4 ML VIAL SLOW IVP SCH ×2 (09:24→20:48)
[2020-02-17] MEDS: Fluticasone Propionate Nasal Spray 16 gm Bottle NASAL SCH ×2 (09:27→20:51)
[2020-02-17] MEDS: Spironolactone 25 MG TAB PO SCH (09:28)
[2020-02-17] MEDS: Benzonatate 100 MG CAP PO SCH ×3 (09:29→20:47)
[2020-02-17] MEDS: Clopidogrel Bisulfate 75 MG TAB PO SCH (09:29)
[2020-02-17] MEDS: Carvedilol 3.125 MG TAB PO SCH ×2 (09:29→20:48)
[2020-02-17] MEDS: Aspirin Chewable 81 MG TAB PO SCH (09:29)
--- NOTE | 2020-02-17 11:32 | ULT ---
EXAM: US Abdomen Limited CLINICAL HISTORY: Evaluate for ascites. COMPARISON: 02/14/2020 FINDINGS: Targeted sonographic imaging of all 4 quadrants demonstrates only a small amount of ascites. The amou nt of fluid does not warrant a ultrasound-guided paracentesis at this time. IMPRESSION: Minimal ascites, not warranting paracentesis at this time.
[2020-02-17] MEDS: Diazepam 2 MG TAB PO PRN (13:03)
--- NOTE | 2020-02-17 14:47 | PDOC.HOSPP ---
- Subjective Subjective: Patient was seen examined at bedside. Patient stated his breathing is better same. His urine output is marginal. Patient was started on milrinone drip yesterday by cardiology. Renal function stable. Attempted for repeat paracentesis today, but no significant ascites to warrant paracentesis. No fever. - Objective Vital Signs & Weight: Vital Signs (12 hours) Temp Pulse Resp BP BP BP Pulse Ox 02/17/20 12:44 104 H 20 02/17/20 11:38 97.7 F 95 20 111/56 L 95 02/17/20 11:37 97.7 F 95 20 111/56 L 95 02/17/20 07:50 94 L 02/17/20 07:45 98.0 F 97 18 111/58 L 94 L 02/17/20 07:38 98.0 F 97 18 111/58 L 94 L 02/17/20 06:32 93 20 02/17/20 05:45 97 113/55 L 02/17/20 04:00 98.1 F 94 22 H 96/53 L 92 L Weight Weight 194 lb 8 oz I&O: 02/16/20 02/17/20 02/18/20 06:59 06:59 06:59 Intake Total 1437 1926.2 600 Output Total 1485 1950 500 Balance -48 -23.8 100 Result Diagrams: 02/17/20 04:20 02/17/20 04:20 Additional Labs: Accuchecks 02/17/20 02/17/20 02/16/20 10:38 06:03 20:45 POC Glucose 195 H 202 H 238 H 02/16/20 16:56 POC Glucose 175 H Radiology Reviewed by me: Yes EKG Reviewed by me: Yes Hospitalist ROS - Medication Medications: Active Medications Generic Name Dose Route Start Last Admin Trade Name Freq PRN Reason Stop Dose Admin Albuterol/Ipratropium 3 ml 02/13/20 01:00 02/17/20 12:44 Ipratropium/Albuterol Sulfate 3 Ml Neb NEB 3 ml [id number] YANNICK Administration Aspirin 81 mg 02/14/20 09:00 02/17/20 09:29 Aspirin Chewable 81 Mg Tab PO 81 mg DAILY YANNICK Administration Atorvastatin Calcium 20 mg 02/13/20 21:00 02/16/20 20:28 Atorvastatin Calcium 20 Mg Tab PO 20 mg HS YANNICK Administration Benzonatate 100 mg 02/16/20 15:00 02/17/20 09:29 Benzonatate 100 Mg Cap PO 100 mg TID YANNICK Administration Carvedilol 1.5625 mg 02/13/20 09:00 02/17/20 09:29 Carvedilol 3.125 Mg Tab PO 1.5625 mg BID YANNICK Administration Clopidogrel Bisulfate 75 mg 02/14/20 09:00 02/17/20 09:29 Clopidogrel Bisulfate 75 Mg Tab PO 75 mg DAILY YANNICK Administration Diazepam 2 mg 02/12/20 22:25 02/17/20 13:03 Diazepam 2 Mg Tab PO 2 mg BIDPRN PRN Administration Anxiety Fluticasone Propionate 0 gm 02/15/20 21:00 02/17/20 09:27 Fluticasone Propionate Nasal [place] 16 Gm Bottle NASAL 1 spr BID YANNICK Administration Furosemide 40 mg 02/13/20 09:00 02/17/20 09:24 Furosemide 40 Mg/4 Ml Vial SLOW IVP 40 mg BID YANNICK Administration Guaifenesin/Dextromethorphan 15 ml 02/13/20 23:04 02/16/20 17:53 Guaifenesin Dm 100-10/5 Ml Udcup PO 15 ml Q4H PRN Administration Cough Ceftriaxone Sodium 1 gm/ 100 mls @ 200 mls/hr 02/13/20 22:00 02/16/20 23:34 Sodium Chloride IVPB 100 mls 2200 YANNICK Administration Insulin Glargine 15 units/ 0.15 mls @ 0 mls/hr 02/15/20 21:00 02/16/20 20:45 Miscellaneous Medication SC 0.15 mls HS YANNICK Administration Milrinone Lactate/Dextrose 20 100 mls @ 9.981 mls/hr 02/17/20 08:58 02/17/20 09:21 mg/ Device IV 100 mls INF YANNICK Administration Protocol 0.375 MCG/KG/MIN Insulin Human Lispro 0 units 02/12/20 22:24 02/17/20 10:48 Humalog 300 Units/3 Ml Vial SC 2 unit .MODERATE SLIDING SC PRN Administration Moderate Correctional Scale Insulin Human Lispro 0 units 02/14/20 03:00 02/14/20 22:15 Humalog 300 Units/3 Ml Vial SC 2 unit .BEDTIME SLIDING SC PRN Administration BEDTIME SLIDING SCALE Protocol Loratadine 10 mg 02/15/20 16:25 02/15/20 21:17 Loratadine 10 Mg Tab PO 10 mg DAILYPRN PRN Administration Allergies Pantoprazole Sodium 40 mg 02/14/20 09:00 02/17/20 09:24 Pantoprazole 40 Mg Vial IVP 40 mg DAILY YANNICK Administration Sodium Chloride 10 ml 02/13/20 09:00 02/17/20 09:28 Flush - Normal Saline 10 Ml Syringe IVF 10 ml Q12HR YANNICK Administration Spironolactone 50 mg 02/14/20 08:00 02/17/20 09:28 Spironolactone 25 Mg Tab PO 50 mg QAM-WM YANNICK Administration Temazepam 15 mg 02/16/20 21:00 02/16/20 20:29 Temazepam 15 Mg Cap PO 15 mg HS YANNICK Administration - Exam General Appearance: NAD Eye: PERRL ENT: normocephalic atraumatic Neck: supple Heart: RRR Respiratory: rales Gastrointestinal: soft, non-tender Extremities: 1+ LE edema Skin: normal turgor Neurological: cranial nerve grossly intact Musculoskeletal: normal tone Psychiatric: normal affect, normal behavior, A&O x 3 Hosp A/P - Plan Patient is a 64 years ago gentleman who has significant past medical history of chronic anemia, COPD, diabetes type 2, GERD, congestive heart failure with a EF of 15-20%, CAD with status post stents placement, hypertension, liver cirrhosis complicated with esophageal varices and ascites, who presented to ED with worsening ascites and short of breath. Acute on chronic systolic heart failure with EF 15-20% --Continue IV diuresis and Milrinone gtt. Cont guideline directed therapy for heart failure --Monitor his I&O, follow renal function, replete lytes. --Urine output still marginal, wt is trending down. COPD with exac --cont nebs. appreciate Pul input --hold off on systemic steroid for now. Right middle lobe mass --Suspicious for possible malignancy --Pul consulted, pt was encouraged to follow up with Dr. Khalil, for outpt PET and further outpatient workup Chronic anemia --Status post Venofer, no active bleeding. Monitor H&H. Appreciate GI input Liver cirrhosis complicated with ascites --Status post paracentesis, 10 mL removed. Continue empiric IV antibiotic, follow culture --Continue low-salt diet. Pt is on Rocephin for SBP prophylaxis --attempted rpt paracentesis 02/16, not enough fluid CKD stage III --Creatinine stable, monitor follow BMP Diabetes type 2 --Hold Metformin due to renal function --Add low-dose basal insulin, insulin sliding scale CAD, status post PCI --Continue antiplatelet therapy, and other cardiac medications. Appreciate cardiology input
[2020-02-17 17:56] LABS: Hemoglobin 7.3 g/dL (14.0-18.0)
[2020-02-17] MEDS: Atorvastatin Calcium 20 MG TAB PO SCH (20:47)
[2020-02-17] MEDS: Temazepam 15 MG CAP PO SCH (20:47)
[2020-02-17] MEDS: cefTRIAXone\\ROCEPHIN 1 GM in Sodium Chloride 0.9% 100 ML IVPB SCH (20:48)
[2020-02-17] MEDS: Insulin Glargine 15 UNITS in Pre-Filled Syringe 1 EACH SC SCH (20:49)
--- NOTE | 2020-02-17 21:32 | PRG ---
DATE OF SERVICE: 02/17/2020 REASON FOR CONSULTATION: Cirrhosis with ascites, anemia. SUBJECTIVE: Today, the patient states that he did well with no acute events or problems. He continues to have some mild shortness of breath, but is otherwise unchanged. He did have an abdominal ultrasound today as part of possible paracentesis, but not enough fluid was able to be found adequate for drainage. Otherwise, he denies any nausea, vomiting, fevers, chills, or GI bleeding. OBJECTIVE: VITAL SIGNS: Temperature 98.3, pulse 92, blood pressure 103/56, respiratory rate 16, saturating 96% on room air. GENERAL: The patient was sitting in a chair at bedside, in no acute distress. Alert and oriented x4. CARDIOVASCULAR: Regular rate and rhythm. RESPIRATORY: Increased resistance to air flow auscultated in all lung alba. ABDOMEN: Normoactive bowel sounds. Soft, nontender. Mild to moderate abdominal distention with questionable shifting dullness. EXTREMITIES: 1+/2+ bilateral lower extremity edema extending to mid ugarte. LABORATORY DATA: CBC with a white blood cell count of 4.6, hemoglobin 7.3, hematocrit 22.5, platelets 121. Chemistry with a sodium of 137, potassium 3.4, chloride 100, CO2 of 30, BUN 22, creatinine 1.52, glucose 244. IMAGING DATA: No current GI imaging is available for review. ASSESSMENT AND PLAN: The patient is a 64-year-old male with past medical history of gastroesophageal reflux disease, chronic anemia, chronic obstructive pulmonary disease, cerebrovascular accident x2, congestive heart failure with an ejection fraction of 30% to 35%, coronary artery disease status post stent placement, hypertension, and cirrhosis complicated by esophageal varices and ascites, presenting with worsening ascites and stable anemia. Anemia. The patient initially presented with a mildly decreased hemoglobin and hematocrit, but over the course of this hospitalization had no change until today. He continues to have no evidence of overt GI bleeding with likelihood of an active GI bleed low. However, repeat evaluation of his hemoglobin continued to show a drop over the last 24 hours concerning for possible bleeding source. At this time with his history of esophageal varices, it is a potential source of bleeding although bleeding esophageal varices would tend to carry with it abdominal discomfort, hematemesis, or melenic type stools. He also does have a right middle lobe lung lesion concerning for a malignant type process, which could further contribute to an anemia. RECOMMENDATIONS: 1. Would continue to trend his H and H and transfuse as necessary to maintain an H and H of 7/. 2. Continue to monitor clinically for signs of active GI bleeding. 3. If the patient continues to have decreasing H and H with no evidence of GI bleeding, I would consider obtaining a tagged red cell scan for further localization of whether this would be in the chest or the abdomen. 4. No upper endoscopy is indicated at this time, although if tagged red cell scan shows localization in the abdomen, I would recommend an upper endoscopy. Cirrhosis with ascites. 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 During the course of this admission, the patient has been placed on both furosemide and spironolactone with adequate diuresis. Thus far, paracentesis yielded only approximately 10 mL of fluid with repeat attempted paracentesis today, unable to find a large enough pocket for fluid removal. At this time, the patient continues to have significant abdominal distention but may be more due to abdominal fat rather than ascites. PLAN: 1. Would continue with current diuretic management with furosemide 40 mg b.i.d., with spironolactone 50 mg daily. I would continue to monitor his creatinine during this time and if increasing, we would discontinue the spironolactone in favor of the furosemide. 2. Continue low-sodium diet. 3. We will continue to follow. Please call with any questions. Job ID: [id number]
[2020-02-18 05:32] LABS: Anion Gap 11 mmol/L (10-20); BUN (Urea Nitrogen) 17 mg/dL (8.4-25.7); Calc. Creatinine Clearance 69 mL/min (70-130); Calcium 7.8 mg/dL (7.8-10.44); Carbon Dioxide 28 mmol/L (23-31); Chloride 101 mmol/L (98-107); Estimated GFR-MDRD 53; Glucose 250 mg/dL (80-115); Potassium 3.2 mmol/L (3.5-5.1); Sodium 137 mmol/L (136-145)
[2020-02-18] MEDS: Milrinone Lactate/D5W 20 MG in Premix Bag 1 BAG IV SCH ×2 (05:51→16:41)
[2020-02-18] MEDS: HumaLOG 300 UNITS/3 ML VIAL SC PRN ×3 (05:53→16:41)
[2020-02-18] MEDS: Fluticasone Propionate Nasal Spray 16 gm Bottle NASAL SCH ×2 (09:29→20:42)
[2020-02-18] MEDS: Aspirin Chewable 81 MG TAB PO SCH (09:30)
[2020-02-18] MEDS: Spironolactone 25 MG TAB PO SCH (09:30)
[2020-02-18] MEDS: Pantoprazole 40 MG VIAL IVP SCH (09:30)
[2020-02-18] MEDS: Furosemide 40 MG/4 ML VIAL SLOW IVP SCH ×2 (09:30→20:42)
[2020-02-18] MEDS: Clopidogrel Bisulfate 75 MG TAB PO SCH (09:30)
[2020-02-18] MEDS: Carvedilol 3.125 MG TAB PO SCH ×2 (09:30→20:42)
[2020-02-18] MEDS: Benzonatate 100 MG CAP PO SCH ×3 (09:30→20:42)
[2020-02-18 10:12] LABS: Hemoglobin 7.6 g/dL (14.0-18.0)
--- NOTE | 2020-02-18 12:03 | PDOC.HOSPP ---
- Subjective Encounter Date: 02/18/20 Encounter Time: 09:50 Subjective: Patient sitting in the chair he just had a stroke work-up. Feels better. He is somewhat tachycardic. Normotensive. Satting 94% in the room air. He is still on positive fluid balance with the 169 mL. Lasix IV diuresis. Lost about 4 pounds, Since admission. - Objective Vital Signs & Weight: Vital Signs (12 hours) Temp Pulse Resp BP Pulse Ox 02/18/20 08:00 98.0 F 105 H 22 H 119/52 L 94 L 02/18/20 06:44 104 H 16 02/18/20 03:54 98.9 F 102 H 16 119/58 L 93 L 02/18/20 00:53 99 16 96 Weight Weight 193 lb 11.2 oz I&O: 02/17/20 02/18/20 02/19/20 06:59 06:59 06:59 Intake Total 1926.2 1720 Output Total 1950 1551 Balance -23.8 169 Result Diagrams: 02/18/20 09:25 02/18/20 05:02 Additional Labs: Accuchecks 02/18/20 02/18/20 02/17/20 11:02 05:33 20:46 POC Glucose 209 H 252 H 165 H 02/17/20 17:57 POC Glucose 212 H Hospitalist ROS - Medication Medications: Active Medications Generic Name Dose Route Start Last Admin Trade Name Freq PRN Reason Stop Dose Admin Albuterol/Ipratropium 3 ml 02/13/20 01:00 02/18/20 06:44 Ipratropium/Albuterol Sulfate 3 Ml Neb NEB 3 ml [id number] YANNICK Administration Aspirin 81 mg 02/14/20 09:00 02/18/20 09:30 Aspirin Chewable 81 Mg Tab PO 81 mg DAILY YANNICK Administration Atorvastatin Calcium 20 mg 02/13/20 21:00 02/17/20 20:47 Atorvastatin Calcium 20 Mg Tab PO 20 mg HS YANNICK Administration Benzonatate 100 mg 02/16/20 15:00 02/18/20 09:30 Benzonatate 100 Mg Cap PO 100 mg TID YANNICK Administration Carvedilol 1.5625 mg 02/13/20 09:00 02/18/20 09:30 Carvedilol 3.125 Mg Tab PO 1.5625 mg BID YANNICK Administration Clopidogrel Bisulfate 75 mg 02/14/20 09:00 02/18/20 09:30 Clopidogrel Bisulfate 75 Mg Tab PO 75 mg DAILY YANNICK Administration Diazepam 2 mg 02/12/20 22:25 02/17/20 13:03 Diazepam 2 Mg Tab PO 2 mg BIDPRN PRN Administration Anxiety Fluticasone Propionate 0 gm 02/15/20 21:00 02/18/20 09:29 Fluticasone Propionate Nasal [place] 16 Gm Bottle NASAL 1 spr BID YANNICK Administration Furosemide 40 mg 02/13/20 09:00 02/18/20 09:30 Furosemide 40 Mg/4 Ml Vial SLOW IVP 40 mg BID YANNICK Administration Guaifenesin/Dextromethorphan 15 ml 02/13/20 23:04 02/16/20 17:53 Guaifenesin Dm 100-10/5 Ml Udcup PO 15 ml Q4H PRN Administration Cough Ceftriaxone Sodium 1 gm/ 100 mls @ 200 mls/hr 02/13/20 22:00 02/17/20 20:48 Sodium Chloride IVPB 100 mls 2200 YANNICK Administration Insulin Glargine 15 units/ 0.15 mls @ 0 mls/hr 02/15/20 21:00 02/17/20 20:49 Miscellaneous Medication SC 0.15 mls HS YANNICK Administration Milrinone Lactate/Dextrose 20 100 mls @ 9.981 mls/hr 02/17/20 08:58 02/18/20 05:51 mg/ Device IV 100 mls INF YANNICK Administration Protocol 0.375 MCG/KG/MIN Insulin Human Lispro 0 units 02/12/20 22:24 02/18/20 05:53 Humalog 300 Units/3 Ml Vial SC 6 unit .MODERATE SLIDING SC PRN Administration Moderate Correctional Scale Insulin Human Lispro 0 units 02/14/20 03:00 02/14/20 22:15 Humalog 300 Units/3 Ml Vial SC 2 unit .BEDTIME SLIDING SC PRN Administration BEDTIME SLIDING SCALE Protocol Loratadine 10 mg 02/15/20 16:25 02/15/20 21:17 Loratadine 10 Mg Tab PO 10 mg DAILYPRN PRN Administration Allergies Pantoprazole Sodium 40 mg 02/14/20 09:00 02/18/20 09:30 Pantoprazole 40 Mg Vial IVP 40 mg DAILY YANNICK Administration Sodium Chloride 10 ml 02/13/20 09:00 02/18/20 09:30 Flush - Normal Saline 10 Ml Syringe IVF 10 ml Q12HR YANNICK Administration Spironolactone 50 mg 02/14/20 08:00 02/18/20 09:30 Spironolactone 25 Mg Tab PO 50 mg QAM-WM YANNICK Administration Temazepam 15 mg 02/16/20 21:00 02/17/20 20:47 Temazepam 15 Mg Cap PO 15 mg HS YANINCK Administration - Exam General Appearance: NAD, awake alert Eye: PERRL ENT: normocephalic atraumatic Neck: supple Heart: RRR Respiratory: CTAB Gastrointestinal: normal bowel sounds, distended Extremities: 1+ LE edema Neurological: no focal deficits Psychiatric: A&O x 3 Hosp A/P - Plan Acute on chronic systolic heart failure with EF 15-20% --Continue IV diuresis and Milrinone gtt. --Monitor his I&O, follow renal function, replete lytes. ---still on positive fluid balance with the 169 mL. Lasix IV diuresis. Lost about 4 pounds, Since admission. -No ZEENAT inhibitor currently. COPD with exac --cont nebs. appreciate Pul input --hold off on systemic steroid for now. 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 Khalil, for outpt PET Chronic anemia --Status post Venofer, no active bleeding. -GI followed. Liver cirrhosis complicated with ascites --Status post paracentesis, 10 mL removed. Continue empiric IV antibiotic, follow culture --Continue low-salt diet. Pt is on Rocephin for SBP prophylaxis --attempted rpt paracentesis 02/16, not enough fluid CKD stage III --Creatinine stable Diabetes type 2 --Hold Metformin due to renal function --low-dose basal insulin, insulin sliding scale CAD, status post PCI --On Coreg aspirin Plavix and statin -appreciate cardiology input Covid negative.
--- NOTE | 2020-02-18 12:17 | PRG ---
DATE OF SERVICE: 02/18/2020 REASON FOR CONSULTATION: Cirrhosis with ascites, anemia. SUBJECTIVE: Today, the patient states that he is doing great with no acute events or problems overnight. He has been able to urinate some, but it seems that his inputs and outputs have been relatively net zero looking at his stats over the last 2 days. He does continue to have some mild to moderate lower extremity edema, but paracentesis yesterday did not reveal any significant amount of fluid enough to do paracentesis. Otherwise, he denies any nausea, vomiting, fevers, chills, or GI bleeding. He did have a bowel movement this morning that was solid and brown in coloration (was personally visualized by myself). OBJECTIVE: VITAL SIGNS: Temperature 98, pulse 105, blood pressure 119/52, respiratory rate 22, saturating 94% on room air. GENERAL: The patient was sitting in a chair at bedside, in no acute distress. Alert and oriented x4. CARDIOVASCULAR: Regular rate and rhythm. RESPIRATORY: Increased resistance to air flow auscultated in all lung alba. ABDOMEN: Normoactive bowel sounds. Soft, nontender. Mild to moderate abdominal distention with questionable shifting dullness. EXTREMITIES: 1+/2+ bilateral lower extremity edema extending to mid ugarte. LABORATORY DATA: Chemistry with a hemoglobin of 7.6, hematocrit 23.4. Chemistry with a sodium of 137, potassium 3.2, chloride 101, CO2 of 28, BUN 17, creatinine 1.36, glucose 250. IMAGING DATA: No current GI imaging is available for review. ASSESSMENT AND PLAN: The patient is a 64-year-old male with past medical history of gastroesophageal reflux disease, chronic anemia, chronic obstructive pulmonary disease, cerebrovascular accident x2, congestive heart failure with an ejection fraction of 30% to 35%; coronary artery disease status post placement, hypertension, and cirrhosis complicated by esophageal varices and ascites, presenting with worsening abdominal distention and anemia. Anemia. The patient initially presented with a mildly decreased H and H. His hemoglobin and hematocrit when compared to previous, but over the course of this hospitalization has had no overt evidence of GI bleeding to include hematemesis, melena, or hematochezia. He did have a drop in his H and H yesterday, but seems to be stable over the last 12 hours with no discernible bleeding source at this time. Although he does have a history of esophageal varices, they do not appear to be bleeding based on his stooling habits and current clinical picture. He does have a right middle lobe lung lesion concerning for malignant type process, which could potentially contribute to further anemia. RECOMMENDATIONS: 1. We would continue to trend his H and H and transfuse as necessary to maintain an H and H of 7/21. 2. Continue to monitor clinically for signs of active GI bleeding. 3. If the patient continues to have a decreasing H and H with no evidence of GI bleeding, I would recommend a tagged red cell scan for further localization. 4. Again, no upper endoscopy is indicated at this time unless the tagged cell scan shows localization in the abdomen. 5. Cirrhosis with ascites. 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 Currently, doing well with both furosemide and spironolactone with no significant derangement in his creatinine to suggest prerenal azotemia. However, upon review of the last few days, the patient seems to be relatively net zero when it comes to the intake and output, which may be why he continues to have lower extremity edema. This could be due to a combination of his cirrhosis versus congestive heart failure versus a combination of the two. However, at this time with the recent paracentesis showing no large pocket of available fluid for drainage, his abdominal distention is likely more to abdominal fat rather than ascites. PLAN: 1. We will continue with current diuretic management with furosemide 40 mg b.i.d. with spironolactone 50 mg daily. However, I would defer to the Cardiology Service for up titration of this regimen based on his current urine output. 2. Continue low-sodium diet. 3. We would continue to trend his INR daily for signs of worsening hepatic function. 4. We will continue to follow. Please call with any questions. Job ID: [id number]
--- NOTE | 2020-02-18 14:16 | PDOC.CPN ---
- Subjective Date: 02/18/20 Time: 12:40 Interval history: No overnight events. No new complaints. Continues slow diuresis. - Review of Systems Respiratory: reports: shortness of breath Cardiovascular: reports: edema Gastrointestinal: denies: nausea, vomiting, diarrhea, constipation, abd pain, GI bleeding Musculoskeletal: denies: pain, tenderness, stiffness, swelling, arthritis/ar thralgias Neurological: denies: numbness, syncope, seizure, weakness - Objective Allergies/Adverse Reactions: Allergies Allergy/AdvReac Type Severity Reaction Status Date / Time Penicillins Allergy Severe Anaphylaxis Verified 06/27/19 19:34 Visit Medications: Current Medications Albuterol/Ipratropium (Ipratropium/Albuterol Sulfate 3 Ml Neb) 3 ml NEB Q2H PRN PRN Reason: SOB &/or Wheezing Albuterol/Ipratropium (Ipratropium/Albuterol Sulfate 3 Ml Neb) 3 ml NEB [id number] [facility] Last Admin: 02/18/20 13:51 Dose: 3 ml Documented by: Aspirin (Aspirin Chewable 81 Mg Tab) 81 mg PO DAILY [facility] Last Admin: 02/18/20 09:30 Dose: 81 mg Documented by: Atorvastatin Calcium (Atorvastatin Calcium 20 Mg Tab) 20 mg PO HS [facility] Last Admin: 02/17/20 20:47 Dose: 20 mg Documented by: Benzonatate (Benzonatate 100 Mg Cap) 100 mg PO TID [facility] Last Admin: 02/18/20 09:30 Dose: 100 mg Documented by: Carvedilol (Carvedilol 3.125 Mg Tab) 1.5625 mg PO BID [facility] Last Admin: 02/18/20 09:30 Dose: 1.5625 mg Documented by: Clopidogrel Bisulfate (Clopidogrel Bisulfate 75 Mg Tab) 75 mg PO DAILY [facility] Last Admin: 02/18/20 09:30 Dose: 75 mg Documented by: Al Hydroxide/Mg Hydroxide 60 ml/ Diphenhydramine HCl 150 mg / Lidocaine HCl 60 ml/Nystatin 6,000,000 units 0 ml SSW ACHS PRN PRN Reason: Mouth Irritation Dextrose/Water (Dextrose 50% Abboject 50 Ml Syringe) 25 gm SLOW IVP PRN PRN PRN Reason: Hypoglycemia Diazepam (Diazepam 2 Mg Tab) 2 mg PO BIDPRN PRN PRN Reason: Anxiety Last Admin: 02/17/20 13:03 Dose: 2 mg Documented by: Fluticasone Propionate (Fluticasone Propionate Nasal [place] 16 Gm Bottle) 0 gm NASAL BID [facility] Last Admin: 02/18/20 09:29 Dose: 1 spr Documented by: Furosemide (Furosemide 40 Mg/4 Ml Vial) 40 mg SLOW IVP BID [facility] Last Admin: 02/18/20 09:30 Dose: 40 mg Documented by: Glucagon (Glucagon 1 Mg/Ml Vial) 1 mg IM PRN PRN PRN Reason: Hypoglycemia Guaifenesin/Dextromethorphan (Guaifenesin Dm 100-10/5 Ml Udcup) 15 ml PO Q4H PRN PRN Reason: Cough Last Admin: 02/16/20 17:53 Dose: 15 ml Documented by: Dextrose/Water (D5w) 1,000 mls @ 0 mls/hr IV .Q0M PRN PRN Reason: Hypoglycemia Ceftriaxone Sodium 1 gm/ (Sodium Chloride) 100 mls @ 200 mls/hr IVPB 2200 [facility] Last Admin: 02/17/20 20:48 Dose: 100 mls Documented by: Insulin Glargine 15 units/ (Miscellaneous Medication) 0.15 mls @ 0 mls/hr SC HS [facility] Last Admin: 02/17/20 20:49 Dose: 0.15 mls Documented by: Milrinone Lactate/Dextrose 20 (mg/ Device) 100 mls @ 9.981 mls/hr IV INF YANNICK; Protocol Last Admin: 02/18/20 05:51 Dose: 100 mls Documented by: Insulin Human Lispro (Humalog 300 Units/3 Ml Vial) 0 units SC .MODERATE SLIDING SC PRN PRN Reason: Moderate Correctional Scale Last Admin: 02/18/20 12:57 Dose: 4 unit Documented by: Insulin Human Lispro (Humalog 300 Units/3 Ml Vial) 0 units SC .BEDTIME SLIDING SC PRN; Protocol PRN Reason: BEDTIME SLIDING SCALE Last Admin: 02/14/20 22:15 Dose: 2 unit Documented by: Loratadine (Loratadine 10 Mg Tab) 10 mg PO DAILYPRN PRN PRN Reason: Allergies Last Admin: 02/15/20 21:17 Dose: 10 mg Documented by: Pantoprazole Sodium (Pantoprazole 40 Mg Vial) 40 mg IVP DAILY [facility] Last Admin: 11/14/20 09:30 Dose: 40 mg Documented by: Sodium Chloride (Flush - Normal Saline 10 Ml Syringe) 10 ml IVF Q12HR YANNICK Last Admin: 02/18/20 09:30 Dose: 10 ml Documented by: Sodium Chloride (Flush - Normal Saline 10 Ml Syringe) 10 ml IVF PRN PRN PRN Reason: Saline Flush Spironolactone (Spironolactone 25 Mg Tab) 50 mg PO QAM-WM [facility] Last Admin: 02/18/20 09:30 Dose: 50 mg Documented by: Temazepam (Temazepam 15 Mg Cap) 15 mg PO HS [facility] Last Admin: 02/17/20 20:47 Dose: 15 mg Documented by: Vital Signs & Weight: Vital Signs Temp Pulse Resp BP BP Pulse Ox 02/18/20 12:22 97.6 F 103 H 20 103/56 L 92 L 02/18/20 08:00 98.0 F 105 H 22 H 119/52 L 94 L 02/18/20 06:44 104 H 16 02/18/20 03:54 98.9 F 102 H 16 119/58 L 93 L Weight 193 lb 11.2 oz - Physical Exam General: appears well, no apparent distress HEENT: mucus membranes moist Neck: supple neck, JVD/HJR Cardiac: other (regular) Lungs: normal breath sounds Neuro: grossly intact Abdomen: soft, distended, ascites Extremities: 1+ LE edema Musculoskeletal: no pain - Labs Result Diagrams: 02/18/20 09:25 02/19/20 07:57 - Assessment/Plan Assessment/Plan: 1. Cirrhosis with ascitis and varices s/p paracentesis 2. Acute on chronic systolic CHF 3. Cardiomyopathy 4. CKD 5. CAD 6. Anemia Continue milrinone and diuresis. Patient has refused LifeVest in the past. On low-dose bblocker, sprironolactone. No ZEENAT/ARB with CKD. 02/18/2020 RG agree with the above. Pt seen and examined. Diffiuclt to treat given all comorbidites contiue diuretics and milrinone over the [id number]
[2020-02-18] MEDS: Atorvastatin Calcium 20 MG TAB PO SCH (20:42)
[2020-02-18] MEDS: Insulin Glargine 15 UNITS in Pre-Filled Syringe 1 EACH SC SCH (20:42)
[2020-02-18] MEDS: Temazepam 15 MG CAP PO SCH (20:42)
[2020-02-18] MEDS: Diazepam 2 MG TAB PO PRN (20:47)
[2020-02-18] MEDS: cefTRIAXone\\ROCEPHIN 1 GM in Sodium Chloride 0.9% 100 ML IVPB SCH (20:52)
[2020-02-19] MEDS: Milrinone Lactate/D5W 20 MG in Premix Bag 1 BAG IV SCH ×2 (03:05→14:40)
[2020-02-19] MEDS: HumaLOG 300 UNITS/3 ML VIAL SC PRN ×3 (07:09→17:57)
[2020-02-19 08:21] LABS: Anion Gap 11 mmol/L (10-20); BUN (Urea Nitrogen) 15 mg/dL (8.4-25.7); Calc. Creatinine Clearance 67 mL/min (70-130); Carbon Dioxide 30 mmol/L (23-31); Chloride 100 mmol/L (98-107); Estimated GFR-MDRD 49; Glucose 266 mg/dL (80-115); Potassium 3.6 mmol/L (3.5-5.1); Sodium 137 mmol/L (136-145)
[2020-02-19 08:35] LABS: INR-International Normal Ratio 1.2; PTT 36.1 sec (22.9-36.1); Prothrombin Time 15.6 sec (12.0-14.7)
[2020-02-19 08:51] LABS: Anion Gap 12 mmol/L (10-20); BUN (Urea Nitrogen) 15 mg/dL (8.4-25.7); Calc. Creatinine Clearance 70 mL/min (70-130); Calcium 8.1 mg/dL (7.8-10.44); Carbon Dioxide 30 mmol/L (23-31); Chloride 100 mmol/L (98-107); Estimated GFR-MDRD 52; Glucose 258 mg/dL (80-115); Potassium 3.6 mmol/L (3.5-5.1); Sodium 138 mmol/L (136-145)
[2020-02-19] MEDS: Aspirin Chewable 81 MG TAB PO SCH (09:25)
[2020-02-19] MEDS: Clopidogrel Bisulfate 75 MG TAB PO SCH (09:25)
[2020-02-19] MEDS: Fluticasone Propionate Nasal Spray 16 gm Bottle NASAL SCH ×2 (09:25→20:29)
[2020-02-19] MEDS: Spironolactone 25 MG TAB PO SCH (09:25)
[2020-02-19] MEDS: Carvedilol 3.125 MG TAB PO SCH ×2 (09:26→20:30)
[2020-02-19] MEDS: Benzonatate 100 MG CAP PO SCH ×3 (09:31→20:30)
[2020-02-19] MEDS: Furosemide 40 MG/4 ML VIAL SLOW IVP SCH ×3 (11:01→20:30)
[2020-02-19] MEDS: Pantoprazole 40 MG VIAL IVP SCH (11:01)
[2020-02-19 11:14] LABS: Hemoglobin 7.7 g/dL (14.0-18.0)
--- NOTE | 2020-02-19 13:02 | PDOC.HOSPP ---
- Subjective Encounter Date: 02/19/20 Encounter Time: 11:00 Subjective: Patient is sitting in the chair. He he does not sleep well. Orthopnea. IV diuresis is not helping much he still has a significant edema as well as abdominal distention. Milrinone drip maintaining his blood pressure. Some mild his weight seems to be increased will recheck that it is unlikely he got 7 pounds since yesterday. However clinically he does look quite volume overloaded. - Objective Vital Signs & Weight: Vital Signs (12 hours) Temp Pulse Resp BP Pulse Ox 02/19/20 11:54 97.3 F L 94 20 108/62 95 02/19/20 08:00 96 02/19/20 07:44 98.1 F 99 22 H 138/65 96 02/19/20 06:29 98 20 02/19/20 04:00 97.8 F 100 18 104/56 L 95 Weight Weight 200 lb 8 oz I&O: 02/18/20 02/19/20 02/20/20 06:59 06:59 06:59 Intake Total 1720 1622.2 237 Output Total 1551 2660 760 Balance 169 -1037.8 -523 Result Diagrams: 02/19/20 11:01 02/19/20 07:57 Additional Labs: Accuchecks 02/19/20 02/19/20 02/18/20 10:39 06:19 23:29 POC Glucose 182 H 212 H 179 H 02/18/20 16:10 POC Glucose 168 H Hospitalist ROS - Medication Medications: Active Medications Generic Name Dose Route Start Last Admin Trade Name Freq PRN Reason Stop Dose Admin Albuterol/Ipratropium 3 ml 02/13/20 01:00 02/19/20 06:29 Ipratropium/Albuterol Sulfate 3 Ml Neb NEB 3 ml [id number] YANNICK Administration Aspirin 81 mg 02/14/20 09:00 02/19/20 09:25 Aspirin Chewable 81 Mg Tab PO 81 mg DAILY YANNICK Administration Atorvastatin Calcium 20 mg 02/13/20 21:00 02/18/20 20:42 Atorvastatin Calcium 20 Mg Tab PO 20 mg HS YANNICK Administration Benzonatate 100 mg 02/16/20 15:00 02/19/20 09:31 Benzonatate 100 Mg Cap PO 100 mg TID YANNICK Administration Carvedilol 1.5625 mg 02/13/20 09:00 02/19/20 09:26 Carvedilol 3.125 Mg Tab PO 1.5625 mg BID YANNICK Administration Clopidogrel Bisulfate 75 mg 02/14/20 09:00 02/19/20 09:25 Clopidogrel Bisulfate 75 Mg Tab PO 75 mg DAILY YANNICK Administration Diazepam 2 mg 02/12/20 22:25 02/18/20 20:47 Diazepam 2 Mg Tab PO 2 mg BIDPRN PRN Administration Anxiety Fluticasone Propionate 0 gm 02/15/20 21:00 02/19/20 09:25 Fluticasone Propionate Nasal [place] 16 Gm Bottle NASAL 1 spr BID YANNICK Administration Furosemide 40 mg 02/13/20 09:00 02/19/20 11:01 Furosemide 40 Mg/4 Ml Vial SLOW IVP 40 mg BID YANNICK Administration Guaifenesin/Dextromethorphan 15 ml 02/13/20 23:04 02/16/20 17:53 Guaifenesin Dm 100-10/5 Ml Udcup PO 15 ml Q4H PRN Administration Cough Ceftriaxone Sodium 1 gm/ 100 mls @ 200 mls/hr 02/13/20 22:00 02/18/20 20:52 Sodium Chloride IVPB 100 mls 2200 YANNICK Administration Insulin Glargine 15 units/ 0.15 mls @ 0 mls/hr 02/15/20 21:00 02/18/20 20:42 Miscellaneous Medication SC 0.15 mls HS YANNICK Administration Milrinone Lactate/Dextrose 20 100 mls @ 9.981 mls/hr 02/17/20 08:58 02/19/20 03:05 mg/ Device IV 100 mls INF YANNICK Administration Protocol 0.375 MCG/KG/MIN Insulin Human Lispro 0 units 02/12/20 22:24 02/19/20 11:14 Humalog 300 Units/3 Ml Vial SC 2 unit .MODERATE SLIDING SC PRN Administration Moderate Correctional Scale Insulin Human Lispro 0 units 02/14/20 03:00 02/14/20 22:15 Humalog 300 Units/3 Ml Vial SC 2 unit .BEDTIME SLIDING SC PRN Administration BEDTIME SLIDING SCALE Protocol Loratadine 10 mg 02/15/20 16:25 02/15/20 21:17 Loratadine 10 Mg Tab PO 10 mg DAILYPRN PRN Administration Allergies Pantoprazole Sodium 40 mg 02/14/20 09:00 02/19/20 11:01 Pantoprazole 40 Mg Vial IVP 40 mg DAILY YANNICK Administration Sodium Chloride 10 ml 02/13/20 09:00 02/19/20 09:26 Flush - Normal Saline 10 Ml Syringe IVF 10 ml Q12HR YANNICK Administration Spironolactone 50 mg 02/14/20 08:00 02/19/20 09:25 Spironolactone 25 Mg Tab PO 50 mg QAM-WM YANNICK Administration Temazepam 15 mg 02/16/20 21:00 02/18/20 20:42 Temazepam 15 Mg Cap PO 15 mg HS YANNICK Administration - Exam General Appearance: NAD, awake alert General - other findings: Anasarca Eye: PERRL ENT: normocephalic atraumatic Neck: supple Heart: RRR Respiratory: normal chest expansion Gastrointestinal: distended Extremities: 2+ LE edema Extremities - other findings: Both legs quite swollen- chronic edema Neurological: no focal deficits Psychiatric: A&O x 3 Hosp A/P - Plan Acute on chronic systolic heart failure with EF 15-20% --Continue IV diuresis and Milrinone gtt. --Monitor his I&O, follow renal function, replete lytes. ---still on positive fluid balance with the 169 mL. Lasix IV diuresis. Lost about 4 pounds, Since admission. -No ZEENAT inhibitor currently. COPD with exac --cont nebs. appreciate Pul input --hold off on systemic steroid for now. 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 Khalil, for outpt PET Chronic anemia --Status post Venofer, no active bleeding. -GI followed. Liver cirrhosis complicated with ascites --Status post paracentesis, 10 mL removed. Continue empiric IV antibiotic, follow culture --Continue low-salt diet. Pt is on Rocephin for SBP prophylaxis --attempted rpt paracentesis 02/16, not enough fluid CKD stage III --Creatinine stable Diabetes type 2--A1c of 8.2//uncontrolled --Hold Metformin due to renal function --low-dose basal insulin, insulin sliding scale CAD, status post PCI --On Coreg aspirin Plavix and statin -appreciate cardiology input Covid negative. 15th Milrinone drip maintaining his blood pressure. his weight seems to be increased will recheck that it is unlikely he got 7 pounds since yesterday. He got negative balance of 1 L; creatinine is stable. yes, he dose clinically he does look quite volume overloaded. I have increased the Lasix to 3 times a day IV, as long as the blood pressure allows. Not much difference between running IV Lasix drip versus scheduled. Will defer that to the applications engineering manager.
--- NOTE | 2020-02-19 18:41 | PRG ---
DATE OF SERVICE: 02/19/2020 REASON FOR CONSULTATION: Cirrhosis with ascites, anemia. SUBJECTIVE: The patient states that he has been attempting to curb the amount of fluid that he has been taking both by water and by sodas over the last 24 hours and has had a significant amount of increased urination during that same time. He does continue to have [id number] lower extremity edema, but is otherwise ambulating well. He did have a bowel movement this morning that was solid and brown in coloration. Otherwise, he denies any nausea, vomiting, fevers, chills, or GI bleeding. OBJECTIVE: VITAL SIGNS: Temperature 97.4, pulse 109, blood pressure 162/92, respiratory rate 17, saturating 94% on room air. GENERAL: The patient was sitting at bedside, in no acute distress. Alert and oriented x4. CARDIOVASCULAR: Regular rate and rhythm. RESPIRATORY: Increased resistance to air flow auscultated in all lung alba. ABDOMEN: Normoactive bowel sounds. Soft, nontender. [id number] abdominal distention. EXTREMITIES: 1+/2+ bilateral lower extremity edema extending to mid ugarte. LABORATORY DATA: Hemoglobin was 7.7 and hematocrit 24.9. Chemistry with a sodium of 138, potassium 3.6, chloride 100, CO2 of 30, BUN 15, creatinine 1.39, glucose 258. IMAGING DATA: No current GI imaging is available for review. ASSESSMENT AND PLAN: The patient is a 64-year-old male with past medical history of gastroesophageal reflux disease; chronic anemia; chronic obstructive pulmonary disease; cerebrovascular accident x2; congestive heart failure with an ejection fraction of 30% to 35%; coronary artery disease, status post stent placement; hypertension; cirrhosis, complicated by esophageal varices and ascites, presenting with worsening abdominal distention, lower extremity edema, and anemia. 1. Anemia: The patient initially presented with a mildly decreased H and H when compared to his baseline, but over the course of this hospitalization, he has had no overt evidence of gastrointestinal bleeding despite a small drop in his H and H. This has since stabilized over the last 24 to 48 hours with an unclear etiology at this time. However, a gastrointestinal bleeding source is less likely with the right middle lobe lesion concerning for a malignant type process, which could potentially contribute to his further anemia. Recommendations. a. We would continue to trend his H and H and transfuse as necessary to maintain an H and H of 7/. b. Continue to monitor clinically for signs of active gastrointestinal bleeding. c. We would only continue to monitor for now with no endoscopy plan. 2. Cirrhosis with ascites. The patient is presenting with a history of alcoholic cirrhosis versus chronic hepatitis C contributing to cirrhosis with minimal amount of ascites on most recent abdominal ultrasound and attempted paracentesis. Currently, doing well on both furosemide and spironolactone, but has had minimal weight loss over the course of this admission I think due to increased oral intake of fluids. At this time, it could be a combination of his cirrhosis versus congestive heart failure. Plan. a. Continue with current diuretic management. b. Continue low-sodium diet. We have no further recommendations. We will sign off at this time. Please call with any questions. Job ID: [id number]
[2020-02-19] MEDS: Temazepam 15 MG CAP PO SCH (20:29)
[2020-02-19] MEDS: Insulin Glargine 15 UNITS in Pre-Filled Syringe 1 EACH SC SCH (20:29)
[2020-02-19] MEDS: Atorvastatin Calcium 20 MG TAB PO SCH (20:30)
[2020-02-19] MEDS: cefTRIAXone\\ROCEPHIN 1 GM in Sodium Chloride 0.9% 100 ML IVPB SCH (20:38)
[2020-02-20 04:43] LABS: INR-International Normal Ratio 1.2; Prothrombin Time 15.2 sec (12.0-14.7)
[2020-02-20 04:55] LABS: Anion Gap 10 mmol/L (10-20); BUN (Urea Nitrogen) 19 mg/dL (8.4-25.7); Calc. Creatinine Clearance 61 mL/min (70-130); Calcium 8.3 mg/dL (7.8-10.44); Carbon Dioxide 31 mmol/L (23-31); Chloride 100 mmol/L (98-107); Estimated GFR-MDRD 45; Glucose 247 mg/dL (80-115); Potassium 3.8 mmol/L (3.5-5.1); Sodium 137 mmol/L (136-145)
[2020-02-20] MEDS: HumaLOG 300 UNITS/3 ML VIAL SC PRN ×3 (06:27→17:42)
[2020-02-20] MEDS: Spironolactone 25 MG TAB PO SCH (09:04)
[2020-02-20] MEDS: Benzonatate 100 MG CAP PO SCH ×3 (09:04→21:34)
[2020-02-20] MEDS: Carvedilol 3.125 MG TAB PO SCH ×2 (09:04→21:34)
[2020-02-20] MEDS: Aspirin Chewable 81 MG TAB PO SCH (09:05)
[2020-02-20] MEDS: Clopidogrel Bisulfate 75 MG TAB PO SCH (09:05)
[2020-02-20] MEDS: Fluticasone Propionate Nasal Spray 16 gm Bottle NASAL SCH ×2 (09:06→21:37)
[2020-02-20] MEDS: Pantoprazole 40 MG VIAL IVP SCH (09:06)
[2020-02-20] MEDS: Furosemide 40 MG/4 ML VIAL SLOW IVP SCH ×3 (09:06→21:35)
[2020-02-20] MEDS: Diazepam 2 MG TAB PO PRN ×2 (09:38→21:44)
--- NOTE | 2020-02-20 12:12 | PDOC.HOSPP ---
- Subjective Encounter Date: 02/20/20 Encounter Time: 09:30 Subjective: Patient was seen and examined sitting in the chair. He did not sleep well. IV diuresis is not helping much he still has a significant edema 3+ in both legs as well as abdominal distention. Milrinone drip maintaining his blood pressure. He has lost 1.4kg since yesterday. Patient reports shooting pain ranging from his feet up to his knee in both legs. Patient also reports he has significant anxiety stemming from his medical conditions. - Objective Vital Signs & Weight: Vital Signs (12 hours) Temp Pulse Resp BP BP Pulse Ox 02/20/20 11:04 98.3 F 101 H 23 H 116/58 L 96 02/20/20 07:39 101 H 20 100 02/20/20 07:18 98.6 F 100 13 111/59 L 100 02/20/20 04:00 98.0 F 103 H 18 127/76 Weight Weight 197 lb 5 oz I&O: 02/19/20 02/20/20 02/21/20 06:59 06:59 06:59 Intake Total 1622.2 1096 Output Total 2660 3010 Balance -1037.8 -1914 Result Diagrams: 02/19/20 11:01 02/20/20 04:27 Additional Labs: Accuchecks 02/20/20 02/20/20 02/19/20 11:12 06:24 20:28 POC Glucose 224 H 251 H 205 H 02/19/20 17:29 POC Glucose 193 H Hospitalist ROS - Review of Systems Respiratory: reports: shortness of breath, SOB with excertion. denies: cough, dry, hemoptysis, pleuritic pain, sputum, wheezing Cardiovascular: reports: orthopnea, paroxysmal noc. dyspnea, edema. denies: ch est pain, palpitations, light headedness Gastrointestinal: denies: nausea, vomiting, abdominal pain, diarrhea, constipation - Medication Medications: Active Medications Generic Name Dose Route Start Last Admin Trade Name Freq PRN Reason Stop Dose Admin Albuterol/Ipratropium 3 ml 02/13/20 01:00 02/20/20 07:39 Ipratropium/Albuterol Sulfate 3 Ml Neb NEB 3 ml [id number] YANNICK Administration Aspirin 81 mg 02/14/20 09:00 02/20/20 09:05 Aspirin Chewable 81 Mg Tab PO 81 mg DAILY YANNICK Administration Atorvastatin Calcium 20 mg 02/13/20 21:00 02/19/20 20:30 Atorvastatin Calcium 20 Mg Tab PO 20 mg HS YANNICK Administration Benzonatate 100 mg 02/16/20 15:00 02/20/20 09:04 Benzonatate 100 Mg Cap PO 100 mg TID YANNICK Administration Carvedilol 1.5625 mg 02/13/20 09:00 02/20/20 09:04 Carvedilol 3.125 Mg Tab PO 1.5625 mg BID YANNICK Administration Clopidogrel Bisulfate 75 mg 02/14/20 09:00 02/20/20 09:05 Clopidogrel Bisulfate 75 Mg Tab PO 75 mg DAILY YANNICK Administration Diazepam 2 mg 02/12/20 22:25 02/20/20 09:38 Diazepam 2 Mg Tab PO 2 mg BIDPRN PRN Administration Anxiety Fluticasone Propionate 0 gm 02/15/20 21:00 02/20/20 09:06 Fluticasone Propionate Nasal [place] 16 Gm Bottle NASAL 1 spr BID YANNICK Administration Furosemide 40 mg 02/19/20 15:00 02/20/20 09:06 Furosemide 40 Mg/4 Ml Vial SLOW IVP 40 mg TID YANNICK Administration Guaifenesin/Dextromethorphan 15 ml 02/13/20 23:04 02/16/20 17:53 Guaifenesin Dm 100-10/5 Ml Udcup PO 15 ml Q4H PRN Administration Cough Ceftriaxone Sodium 1 gm/ 100 mls @ 200 mls/hr 02/13/20 22:00 02/19/20 20:38 Sodium Chloride IVPB 100 mls 2200 YANNICK Administration Insulin Glargine 15 units/ 0.15 mls @ 0 mls/hr 02/15/20 21:00 02/19/20 20:29 Miscellaneous Medication SC 0.15 mls HS YANNICK Administration Milrinone Lactate/Dextrose 20 100 mls @ 9.981 mls/hr 02/17/20 08:58 02/19/20 14:40 mg/ Device IV 100 mls INF YANNICK Administration Protocol 0.375 MCG/KG/MIN Insulin Human Lispro 0 units 02/12/20 22:24 02/20/20 06:27 Humalog 300 Units/3 Ml Vial SC 6 unit .MODERATE SLIDING SC PRN Administration Moderate Correctional Scale Insulin Human Lispro 0 units 02/14/20 03:00 02/14/20 22:15 Humalog 300 Units/3 Ml Vial SC 2 unit .BEDTIME SLIDING SC PRN Administration BEDTIME SLIDING SCALE Protocol Loratadine 10 mg 02/15/20 16:25 02/15/20 21:17 Loratadine 10 Mg Tab PO 10 mg DAILYPRN PRN Administration Allergies Pantoprazole Sodium 40 mg 02/14/20 09:00 02/20/20 09:06 Pantoprazole 40 Mg Vial IVP 40 mg DAILY YANNICK Administration Sodium Chloride 10 ml 02/13/20 09:00 02/20/20 09:06 Flush - Normal Saline 10 Ml Syringe IVF 10 ml Q12HR YANNICK Administration Spironolactone 50 mg 02/14/20 08:00 02/20/20 09:04 Spironolactone 25 Mg Tab PO 50 mg QAM-WM YANNICK Administration Temazepam 15 mg 02/16/20 21:00 02/19/20 20:29 Temazepam 15 Mg Cap PO 15 mg HS YANNICK Administration - Exam ENT: normocephalic atraumatic, no oropharyngeal lesions, moist mucosa Neck: no lymphadenopathy, no carotid bruit Heart: RRR, no murmur, no gallops, no rubs, normal peripheral pulses Respiratory: CTAB, no wheezes, no rales, no ronchi, normal chest expansion, no tachypnea Gastrointestinal: soft, non-tender, non-distended, normal bowel sounds, no palpable masses, no hepatomegaly, no splenomegaly, no bruit, no guarding, no rigidity Extremities: 2+ LE edema Extremities - other findings: [place] Hosp A/P - Plan Acute on chronic systolic heart failure with EF 15-20% --Continue IV diuresis and Milrinone gtt. --Monitor his I&O, follow renal function, replete lytes. -No ZEENAT inhibitor currently. COPD with exac --cont nebs. appreciate Pul input --hold off on systemic steroid for now. 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 Khalil, for outpt PET Chronic anemia --Status post Venofer, no active bleeding. -GI followed. Liver cirrhosis complicated with ascites --Status post paracentesis, 10 mL removed. Continue empiric IV antibiotic, follow culture --Continue low-salt diet. Pt is on Rocephin for SBP prophylaxis --attempted rpt paracentesis 02/16, not enough fluid CKD stage III --Creatinine stable Diabetes type 2--A1c of 8.2//uncontrolled --Hold Metformin due to renal function --low-dose basal insulin, insulin sliding scale CAD, status post PCI --On Coreg aspirin Plavix and statin -appreciate cardiology input Covid negative. 15 Milrinone drip maintaining his blood pressure. His weight seems to be increased, has increased in about 3 pounds since yesterday, He got negative balance of 2 L; creatinine is stable. yes, he dose clinically he does look quite volume overloaded. I have increased the Lasix to 3 times a day IV, as long as the blood pressure allows. Not much difference between running IV Lasix drip versus scheduled. Will defer that to the unemployment insurance hearing officer. ---is on negative fluid balance today with -1914 mL. Lasix IV diuresis is to 3 times daily dose. His blood pressure is still holding well. Though we cannot see any change clinically in his anasarca status? Hyperglycemia A1c of 8.2//uncontrolled -Lantus dose increased to 15 units twice a day.
[2020-02-20] MEDS: Milrinone Lactate/D5W 20 MG in Premix Bag 1 BAG IV SCH (21:32)
[2020-02-20] MEDS: Atorvastatin Calcium 20 MG TAB PO SCH (21:34)
[2020-02-20] MEDS: Temazepam 15 MG CAP PO SCH (21:34)
[2020-02-20] MEDS: Insulin Glargine 15 UNITS in Pre-Filled Syringe 1 EACH SC SCH (21:36)
[2020-02-20] MEDS: cefTRIAXone\\ROCEPHIN 1 GM in Sodium Chloride 0.9% 100 ML IVPB SCH (21:36)
[2020-02-20 23:31] LABS: Anion Gap 11 mmol/L (10-20); BUN (Urea Nitrogen) 18 mg/dL (8.4-25.7); Calc. Creatinine Clearance 66 mL/min (70-130); Calcium 8.4 mg/dL (7.8-10.44); Carbon Dioxide 32 mmol/L (23-31); Chloride 97 mmol/L (98-107); Estimated GFR-MDRD 49; Glucose 226 mg/dL (80-115); Magnesium 1.7 mg/dL (1.6-2.6); Potassium 3.6 mmol/L (3.5-5.1); Sodium 136 mmol/L (136-145)
[2020-02-21] MEDS ORDERED: Magnesium 2 GM/50 ML 2 GM in Premix Bag 1 BAG IVPB SCH (00:15)
[2020-02-21 05:03] LABS: PTT 38.4 sec (22.9-36.1)
[2020-02-21 05:04] LABS: INR-International Normal Ratio 1.2
[2020-02-21 05:19] LABS: Anion Gap 13 mmol/L (10-20); BUN (Urea Nitrogen) 17 mg/dL (8.4-25.7); Calc. Creatinine Clearance 71 mL/min (70-130); Calcium 8.6 mg/dL (7.8-10.44); Carbon Dioxide 33 mmol/L (23-31); Chloride 97 mmol/L (98-107); Estimated GFR-MDRD 53; Glucose 157 mg/dL (80-115); Potassium 3.6 mmol/L (3.5-5.1); Sodium 139 mmol/L (136-145)
[2020-02-21] MEDS: Milrinone Lactate/D5W 20 MG in Premix Bag 1 BAG IV SCH ×2 (05:28→21:03)
[2020-02-21] MEDS: Spironolactone 25 MG TAB PO SCH (09:30)
[2020-02-21] MEDS: Aspirin Chewable 81 MG TAB PO SCH (09:31)
[2020-02-21] MEDS: Benzonatate 100 MG CAP PO SCH ×3 (09:31→21:05)
[2020-02-21] MEDS: Carvedilol 3.125 MG TAB PO SCH ×2 (09:31→23:28)
[2020-02-21] MEDS: Furosemide 40 MG/4 ML VIAL SLOW IVP SCH ×3 (09:32→21:05)
[2020-02-21] MEDS: Clopidogrel Bisulfate 75 MG TAB PO SCH (09:32)
[2020-02-21] MEDS: Pantoprazole 40 MG VIAL IVP SCH (09:33)
[2020-02-21] MEDS: Fluticasone Propionate Nasal Spray 16 gm Bottle NASAL SCH ×2 (09:33→21:05)
[2020-02-21] MEDS: Insulin Glargine 15 UNITS in Pre-Filled Syringe 1 EACH SC SCH ×2 (09:33→21:04)
[2020-02-21] MEDS: HumaLOG 300 UNITS/3 ML VIAL SC PRN ×2 (12:10→17:40)
--- NOTE | 2020-02-21 12:47 | PDOC.HOSPP ---
- Subjective Encounter Date: 02/21/20 Encounter Time: 10:30 Subjective: Patient was seen and examined at the bedside. Patient is diuresing well. He has pulled of 10 pounds since yesterday and his edema has decreased. Some pitting edema is noted in both of his legs. Patient no complaints otherwise and is feeling much better compared to yesterday. - Objective Vital Signs & Weight: Vital Signs (12 hours) Temp Pulse Resp BP Pulse Ox 02/21/20 11:02 98.7 F 104 H 20 113/65 95 02/21/20 08:36 104 H 20 94 L 02/21/20 07:20 97.8 F 104 H 20 117/58 L 92 L 02/21/20 03:56 97.5 F L 95 111/59 L 96 Weight Weight 187 lb 3.2 oz I&O: 02/20/20 02/21/20 02/22/20 06:59 06:59 06:59 Intake Total 1096 2070 Output Total 3013 7975 Balance -3522 -588 Result Diagrams: 02/19/20 11:01 02/21/20 04:15 Additional Labs: Accuchecks 02/21/20 02/21/20 02/20/20 10:27 06:04 20:31 POC Glucose 181 H 153 H 246 H 02/20/20 16:49 POC Glucose 195 H Hospitalist ROS - Review of Systems Respiratory: reports: shortness of breath, SOB with excertion. denies: cough, dry, hemoptysis, pleuritic pain, sputum, wheezing Cardiovascular: reports: edema. denies: chest pain, palpitations, orthopnea, paroxysmal noc. dyspnea, light headedness Gastrointestinal: denies: nausea, vomiting, abdominal pain, diarrhea, constipation - Medication Medications: Active Medications Generic Name Dose Route Start Last Admin Trade Name Freq PRN Reason Stop Dose Admin Albuterol/Ipratropium 3 ml 02/13/20 01:00 02/21/20 08:36 Ipratropium/Albuterol Sulfate 3 Ml Neb NEB 3 ml [id number] YANNICK Administration Aspirin 81 mg 02/14/20 09:00 02/21/20 09:31 Aspirin Chewable 81 Mg Tab PO 81 mg DAILY YANNICK Administration Atorvastatin Calcium 20 mg 02/13/20 21:00 02/20/20 21:34 Atorvastatin Calcium 20 Mg Tab PO 20 mg HS YANNICK Administration Benzonatate 100 mg 02/16/20 15:00 02/21/20 09:31 Benzonatate 100 Mg Cap PO 100 mg TID YANNICK Administration Carvedilol 1.5625 mg 02/13/20 09:00 02/21/20 09:31 Carvedilol 3.125 Mg Tab PO 1.5625 mg BID YANNICK Administration Clopidogrel Bisulfate 75 mg 02/14/20 09:00 02/21/20 09:32 Clopidogrel Bisulfate 75 Mg Tab PO 75 mg DAILY YANNICK Administration Diazepam 2 mg 02/12/20 22:25 02/20/20 21:44 Diazepam 2 Mg Tab PO 2 mg BIDPRN PRN Administration Anxiety Fluticasone Propionate 0 gm 02/15/20 21:00 02/21/20 09:33 Fluticasone Propionate Nasal [place] 16 Gm Bottle NASAL 1 spr BID YANNICK Administration Furosemide 40 mg 02/19/20 15:00 02/21/20 09:32 Furosemide 40 Mg/4 Ml Vial SLOW IVP 40 mg TID YANNICK Administration Guaifenesin/Dextromethorphan 15 ml 02/13/20 23:04 02/16/20 17:53 Guaifenesin Dm 100-10/5 Ml Udcup PO 15 ml Q4H PRN Administration Cough Ceftriaxone Sodium 1 gm/ 100 mls @ 200 mls/hr 02/13/20 22:00 02/20/20 21:36 Sodium Chloride IVPB 100 mls 2200 YANNICK Administration Insulin Glargine 15 units/ 0.15 mls @ 0 mls/hr 02/20/20 21:00 02/21/20 09:33 Miscellaneous Medication SC 0.15 mls BID YANNICK Administration Milrinone Lactate/Dextrose 20 100 mls @ 13.308 mls/hr 02/20/20 15:44 02/21/20 05:28 mg/ Device IV 100 mls INF YANNICK Administration 0.5 MCG/KG/MIN Insulin Human Lispro 0 units 02/12/20 22:24 02/21/20 12:10 Humalog 300 Units/3 Ml Vial SC 2 unit .MODERATE SLIDING SC PRN Administration Moderate Correctional Scale Insulin Human Lispro 0 units 02/14/20 03:00 02/14/20 22:15 Humalog 300 Units/3 Ml Vial SC 2 unit .BEDTIME SLIDING SC PRN Administration BEDTIME SLIDING SCALE Protocol Loratadine 10 mg 02/15/20 16:25 02/15/20 21:17 Loratadine 10 Mg Tab PO 10 mg DAILYPRN PRN Administration Allergies Pantoprazole Sodium 40 mg 02/14/20 09:00 02/21/20 09:33 Pantoprazole 40 Mg Vial IVP 40 mg DAILY YANNICK Administration Sodium Chloride 10 ml 02/13/20 09:00 02/21/20 09:37 Flush - Normal Saline 10 Ml Syringe IVF 10 ml Q12HR YANNICK Administration Spironolactone 50 mg 02/14/20 08:00 02/21/20 09:30 Spironolactone 25 Mg Tab PO 50 mg QAM-WM YANNICK Administration Temazepam 15 mg 02/16/20 21:00 02/20/20 21:34 Temazepam 15 Mg Cap PO 15 mg HS YANNICK Administration - Exam General Appearance: awake alert Neck: no lymphadenopathy Heart: RRR, no murmur, no gallops, no rubs, normal peripheral pulses Respiratory: CTAB, no wheezes, no rales, no ronchi, normal chest expansion, no tachypnea, normal percussion Gastrointestinal: soft, non-tender, non-distended, normal bowel sounds, no palpable masses, no hepatomegaly, no splenomegaly, no bruit, no guarding, no rigidity Extremities: 2+ LE edema Hosp A/P - Plan Acute on chronic systolic heart failure with EF 15-20% --Continue IV diuresis and Milrinone gtt. --Monitor his I&O, follow renal function, replete lytes. -No ZEENAT inhibitor currently. COPD with exac --cont nebs. appreciate Pul input --hold off on systemic steroid for now. 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 Khalil, for outpt PET Chronic anemia --Status post Venofer, no active bleeding. -GI followed. Liver cirrhosis complicated with ascites --Status post paracentesis, 10 mL removed. Continue empiric IV antibiotic, follow culture --Continue low-salt diet. Pt is on Rocephin for SBP prophylaxis --attempted rpt paracentesis 02/16, not enough fluid CKD stage III --Creatinine stable Diabetes type 2--A1c of 8.2//uncontrolled --Hold Metformin due to renal function --low-dose basal insulin, insulin sliding scale CAD, status post PCI --On Coreg aspirin Plavix and statin -appreciate cardiology input Covid negative. 15th Milrinone drip maintaining his blood pressure. His weight seems to be increased, has increased in about 3 pounds since yesterday, He got negative balance of 2 L; creatinine is stable. yes, he dose clinically he does look quite volume overloaded. I have increased the Lasix to 3 times a day IV, as long as the blood pressure allows. Not much difference between running IV Lasix drip versus scheduled. Will defer that to the acting teacher. 16th ---is on negative fluid balance today with -1914 mL. Lasix IV diuresis is to 3 times daily dose. His blood pressure is still holding well. Though we cannot see any change clinically in his anasarca status? Hyperglycemia A1c of 8.2//uncontrolled -Lantus dose increased to 15 units twice a day. 17th Milrinone drip is maintaining his blood pressure. He has lost about 10 pounds since yesterday and had a negative balance of 905 mL. Clinically, he does still appear to be volume overloaded. Will continue on lasix and monitor Is and Os and blood pressures daily. Patient needs few more days of diuresis as he is becoming more assistance for even IV diuretics and milrinone dose adjustment per acting teacher. Blood glucose seems to be better controlled after Lantus dose increased. Physical therapy consult placed.
[2020-02-21] MEDS: Diazepam 2 MG TAB PO PRN (14:21)
[2020-02-21] MEDS: Atorvastatin Calcium 20 MG TAB PO SCH (21:04)
[2020-02-21] MEDS: Temazepam 15 MG CAP PO SCH (21:05)
[2020-02-21] MEDS: cefTRIAXone\\ROCEPHIN 1 GM in Sodium Chloride 0.9% 100 ML IVPB SCH (21:05)
[2020-02-22 04:37] LABS: INR-International Normal Ratio 1.1; PTT 37.2 sec (22.9-36.1); Prothrombin Time 14.6 sec (12.0-14.7)
[2020-02-22 04:50] LABS: Anion Gap 13 mmol/L (10-20); BUN (Urea Nitrogen) 19 mg/dL (8.4-25.7); Calc. Creatinine Clearance 71 mL/min (70-130); Calcium 8.8 mg/dL (7.8-10.44); Carbon Dioxide 30 mmol/L (23-31); Chloride 97 mmol/L (98-107); Estimated GFR-MDRD 57; Glucose 143 mg/dL (80-115); Potassium 3.9 mmol/L (3.5-5.1); Sodium 136 mmol/L (136-145)
[2020-02-22] MEDS: Milrinone Lactate/D5W 20 MG in Premix Bag 1 BAG IV SCH ×2 (05:04→23:22)
[2020-02-22] MEDS: HumaLOG 300 UNITS/3 ML VIAL SC PRN ×3 (06:20→16:55)
[2020-02-22] MEDS ORDERED: Metolazone 5 MG TAB PO SCH (08:30)
[2020-02-22] MEDS: Aspirin Chewable 81 MG TAB PO SCH (09:25)
[2020-02-22] MEDS: Benzonatate 100 MG CAP PO SCH ×3 (09:25→20:49)
[2020-02-22] MEDS: Carvedilol 3.125 MG TAB PO SCH ×2 (09:25→20:46)
[2020-02-22] MEDS: Pantoprazole 40 MG VIAL IVP SCH (09:26)
[2020-02-22] MEDS: Clopidogrel Bisulfate 75 MG TAB PO SCH (09:26)
[2020-02-22] MEDS: Fluticasone Propionate Nasal Spray 16 gm Bottle NASAL SCH ×2 (09:27→20:46)
[2020-02-22] MEDS: Insulin Glargine 15 UNITS in Pre-Filled Syringe 1 EACH SC SCH ×2 (09:27→20:47)
[2020-02-22] MEDS: Furosemide 40 MG/4 ML VIAL SLOW IVP SCH ×2 (09:27→16:48)
[2020-02-22] MEDS: Spironolactone 25 MG TAB PO SCH (09:32)
--- NOTE | 2020-02-22 11:32 | PDOC.HOSPP ---
- Subjective Encounter Date: 02/22/20 Encounter Time: 10:50 Subjective: Patient was seen and examined at the beside. Patient is doing much better compared to yesterday. He has lost 14.7 pounds since admission. Patient is diuresing well. Some pitting edema is still noted in both legs. - Objective Vital Signs & Weight: Vital Signs (12 hours) Temp Pulse Resp BP BP Pulse Ox 02/22/20 11:15 98.1 F 115 H 18 127/58 L 92 L 02/22/20 08:00 92 L 02/22/20 07:34 104 H 20 92 L 02/22/20 07:21 97.9 F 104 H 17 92/53 L 93 L 02/22/20 04:00 97.8 F 104 H 18 97/64 93 L Weight Weight 179 lb 12.8 oz I&O: 02/21/20 02/22/20 02/23/20 06:59 06:59 06:59 Intake Total 2070 1719.6 Output Total 2975 3950 Balance -905 -2230.4 Result Diagrams: 02/19/20 11:01 02/22/20 04:13 Additional Labs: Accuchecks 02/22/20 02/22/20 02/21/20 10:43 06:10 20:08 POC Glucose 227 H 253 H 187 H 02/21/20 16:48 POC Glucose 250 H Hospitalist ROS - Review of Systems Constitutional: denies: fever Respiratory: reports: shortness of breath, SOB with excertion. denies: cough, dry, hemoptysis, pleuritic pain, sputum, wheezing Cardiovascular: reports: edema. denies: chest pain, palpitations, orthopnea, paroxysmal noc. dyspnea, light headedness Gastrointestinal: denies: nausea, vomiting, abdominal pain, diarrhea, constipation - Medication Medications: Active Medications Generic Name Dose Route Start Last Admin Trade Name Freq PRN Reason Stop Dose Admin Albuterol/Ipratropium 3 ml 02/13/20 01:00 02/22/20 07:34 Ipratropium/Albuterol Sulfate 3 Ml Neb NEB 3 ml [id number] YANNICK Administration Aspirin 81 mg 02/14/20 09:00 02/22/20 09:25 Aspirin Chewable 81 Mg Tab PO 81 mg DAILY YANNICK Administration Atorvastatin Calcium 20 mg 02/13/20 21:00 02/21/20 21:04 Atorvastatin Calcium 20 Mg Tab PO 20 mg HS YANNICK Administration Benzonatate 100 mg 02/16/20 15:00 02/22/20 09:25 Benzonatate 100 Mg Cap PO 100 mg TID YANNICK Administration Carvedilol 1.5625 mg 02/13/20 09:00 02/22/20 09:25 Carvedilol 3.125 Mg Tab PO 1.5625 mg BID YANNICK Administration Clopidogrel Bisulfate 75 mg 02/14/20 09:00 02/22/20 09:26 Clopidogrel Bisulfate 75 Mg Tab PO 75 mg DAILY YANNICK Administration Diazepam 2 mg 02/12/20 22:25 02/21/20 14:21 Diazepam 2 Mg Tab PO 2 mg BIDPRN PRN Administration Anxiety Fluticasone Propionate 0 gm 02/15/20 21:00 02/22/20 09:27 Fluticasone Propionate Nasal [place] 16 Gm Bottle NASAL 1 spr BID YANNICK Administration Furosemide 40 mg 02/19/20 15:00 02/22/20 09:27 Furosemide 40 Mg/4 Ml Vial SLOW IVP Not Given TID YANNICK Guaifenesin/Dextromethorphan 15 ml 02/13/20 23:04 02/16/20 17:53 Guaifenesin Dm 100-10/5 Ml Udcup PO 15 ml Q4H PRN Administration Cough Ceftriaxone Sodium 1 gm/ 100 mls @ 200 mls/hr 02/13/20 22:00 02/21/20 21:05 Sodium Chloride IVPB 100 mls 2200 YANNCIK Administration Insulin Glargine 15 units/ 0.15 mls @ 0 mls/hr 02/20/20 21:00 02/22/20 09:27 Miscellaneous Medication SC 0.15 mls BID YANNICK Administration Milrinone Lactate/Dextrose 20 100 mls @ 13.308 mls/hr 02/20/20 15:44 02/22/20 05:04 mg/ Device IV 100 mls INF YANNICK Administration 0.5 MCG/KG/MIN Insulin Human Lispro 0 units 02/12/20 22:24 02/22/20 06:20 Humalog 300 Units/3 Ml Vial SC 6 unit .MODERATE SLIDING SC PRN Administration Moderate Correctional Scale Insulin Human Lispro 0 units 02/14/20 03:00 02/14/20 22:15 Humalog 300 Units/3 Ml Vial SC 2 unit .BEDTIME SLIDING SC PRN Administration BEDTIME SLIDING SCALE Protocol Loratadine 10 mg 02/15/20 16:25 02/15/20 21:17 Loratadine 10 Mg Tab PO 10 mg DAILYPRN PRN Administration Allergies Metolazone 5 mg 02/22/20 08:30 02/22/20 09:25 Metolazone 5 Mg Tab PO 5 mg 0830 YANNICK Administration Pantoprazole Sodium 40 mg 02/14/20 09:00 02/22/20 09:26 Pantoprazole 40 Mg Vial IVP 40 mg DAILY YANNICK Administration Sodium Chloride 10 ml 02/13/20 09:00 02/22/20 09:33 Flush - Normal Saline 10 Ml Syringe IVF 10 ml Q12HR YANNICK Administration Spironolactone 50 mg 02/14/20 08:00 02/22/20 09:32 Spironolactone 25 Mg Tab PO Not Given QAM-WM YANNICK Temazepam 15 mg 02/16/20 21:00 02/21/20 21:05 Temazepam 15 Mg Cap PO 15 mg HS YANNICK Administration - Exam General Appearance: awake alert Heart: RRR, no murmur, no gallops, no rubs, normal peripheral pulses Respiratory: CTAB, no wheezes, no rales, no ronchi, normal chest expansion, no tachypnea, normal percussion Gastrointestinal: soft, non-tender, non-distended, normal bowel sounds, no palpable masses, no hepatomegaly, no splenomegaly, no bruit, no guarding, no rigidity Extremities: 1+ LE edema Hosp A/P - Plan Acute on chronic systolic heart failure with EF 15-20% --Continue IV diuresis and Milrinone gtt. --Monitor his I&O, follow renal function, replete lytes. -No ZEENAT inhibitor currently. COPD with exac --cont nebs. appreciate Pul input --hold off on systemic steroid for now. 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 Khalil, for outpt PET Chronic anemia --Status post Venofer, no active bleeding. -GI followed. Liver cirrhosis complicated with ascites --Status post paracentesis, 10 mL removed. Continue empiric IV antibiotic, follow culture --Continue low-salt diet. Pt is on Rocephin for SBP prophylaxis --attempted rpt paracentesis 02/16, not enough fluid CKD stage III --Creatinine stable Diabetes type 2--A1c of 8.2//uncontrolled --Hold Metformin due to renal function --low-dose basal insulin, insulin sliding scale CAD, status post PCI --On Coreg aspirin Plavix and statin -appreciate cardiology input Covid negative. 15th Milrinone drip maintaining his blood pressure. His weight seems to be increased, has increased in about 3 pounds since yesterday, He got negative balance of 2 L; creatinine is stable. yes, he dose clinically he does look quite volume overloaded. I have increased the Lasix to 3 times a day IV, as long as the blood pressure allows. Not much difference between running IV Lasix drip versus scheduled. Will defer that to the entry level installation technician. 16 ---is on negative fluid balance today with -1914 mL. Lasix IV diuresis is to 3 times daily dose. His blood pressure is still holding well. Though we cannot see any change clinically in his anasarca status? Hyperglycemia A1c of 8.2//uncontrolled -Lantus dose increased to 15 units twice a day. 17th Milrinone drip is maintaining his blood pressure. He has lost about 10 pounds since yesterday and had a negative balance of 905 mL. Clinically, he does still appear to be volume overloaded. Will continue on lasix and monitor Is and Os and blood pressures daily. Patient needs few more days of diuresis as he is becoming more assistance for even IV diuretics and milrinone dose adjustment per entry level installation technician. Blood glucose seems to be better controlled after Lantus dose increased. Physical therapy consult placed. 18th Milrinone drip is maintaining his blood pressure. He has lost about 14 pounds since admission and had a negative balance of 2230 mL today. Clinically, he does still appear to be volume overloaded but this has been improving. Will continue on lasix and monitor Is and Os and blood pressures daily. Patient needs one more day of diuresis as he is reaching a stable level in terms of cardiovascular function. We will transition his IV Lasix to p.o. today He needs cardiac rehab. Plan for discharge to rehab in 1 to 2 days, After cardiology clearance. I talked to the staff regarding cardiology visit.
[2020-02-22] MEDS: Atorvastatin Calcium 20 MG TAB PO SCH (20:46)
[2020-02-22] MEDS: Temazepam 15 MG CAP PO SCH (20:46)
--- NOTE | 2020-02-22 22:26 | CON ---
DATE OF CONSULTATION: 02/22/2020 SERVICE: Advanced Heart Failure Transplant Cardiology Consult Service. REASON FOR CONSULT: Management of acute on chronic heart failure. HISTORY OF PRESENT ILLNESS: Mr. Kenyon Daniels, 64-year-old gentleman, with known heart failure with reduced ejection fraction, cirrhosis, and right lung mass, presented with increasing shortness of breath and weakness. Mr. Daniels says that his cardiac problems started with past myocardial infarction. He had a stent to the right coronary artery done in 2015. At that time, this was a new onset heart failure. He did well for a while. However within the last year, there had been multiple admissions for heart failure. At this time, he said he started accumulating fluid, feeling progressively weaker and progressed more short of breath since late January. He notes that he is gaining of fluid of the abdomen and also around the legs. He then began to have PND. He will go to sleep at night and will wake up gasping for air. Now, he has great difficulty going to sleep. Eventually this combination caused him to seek care. He was found to have a large amount of ascites during admission. A paracentesis was done. He also has lower extremity edema. The echocardiogram showed biventricular failure with new onset right ventricular failure. Milrinone was started and titrated up. Milrinone assisted in pulling fluid off while improving renal function. Now, he said he is feeling better. He does have a right lung mass. Due to his liver dysfunction and varices, it is believed it is dangerous to even attempt a biopsy. His lung mass is reported to be followed by on outpatient basis with a PET scan. PAST MEDICAL HISTORY: 1. Right lung mass. 2. Coronary artery disease. Last cath done in 2015 with closure of left circumflex artery and stent to the right coronary artery. 3. History of congestive heart failure with the combined systolic and diastolic dysfunction. 4. Hypertension. 5. Peripheral vascular disease. 6. COPD. 7. Cirrhosis with esophageal varices. 8. Anemia. 9. History of GI bleed. 10. Type 2 diabetes with peripheral neuropathy. SOCIAL HISTORY: 1. He has been smoking over 30 years and he still smokes today. 2. He used to abuse alcohol, likely to have alcohol dependence to cause cirrhosis, however, he said he has not drank alcohol for some time now. 3. He admitted to using marijuana. FAMILY HISTORY: His father of myocardial infarction at 63. His mother is alive at age 78, doing well. She is a breast cancer survivor. He is the only child. CURRENT MEDICATIONS: His current inpatient medications include; 1. Albuterol ipratropium nebs q.6 hours. 2. Aspirin 81 mg daily. 3. Atorvastatin 20 mg at bedtime. 4. Tessalon Perles 100 mg t.i.d. 5. Carvedilol 6.25 mg b.i.d. 6. Clopidogrel 75 mg daily. 7. Diazepam 2 mg p.o. b.i.d. p.r.n. for anxiety. 8. Fluticasone nasal spray b.i.d. 9. Furosemide 40 mg p.o. b.i.d. 10. Metolazone 5 mg p.o. daily. 11. Milrinone 0.375 mcg/kg/minute. 12. Protonix 40 mg daily. 13. Spironolactone 50 mg daily, however, is not given. 14. Temazepam 15 mg p.o. at bedtime. Of note, Lasix was 40 mg IV t.i.d. that was changed to Lasix 40 mg p.o. daily. His telemetry was reviewed. It is mainly sinus tachycardia. On February 19, there is about 80 beats per minute ventricular tachycardia. Since then, there has occasional 3 to 4 beats of wide-complex tachycardia. PHYSICAL EXAMINATION: VITAL SIGNS: His latest vitals are heart rate 106, blood pressure 107/60, and he is saturating at about 92% to 94% on room air. GENERAL: He is alert and conversational. He is able to sleep nearly flat in bed, not being short of breath. HEENT: Show EOMI, oropharynx with poor dentition. NECK: His JVP is elevated about 14 cm next to his earlobe. PULMONARY: There is surprisingly good air movement. There are no crackles. CARDIAC: Tachycardia, normal S1, S2, there is 2/6 diastolic murmur at the right sternal border. There is 2/6 holosystolic murmur at the apex with radiation to the left axilla. ABDOMEN: Distended, soft, with positive fluid wave, so he still has ascites. EXTREMITIES: He has about 0.5 pitting edema, left foot to about 2/[address] towards the knees. LABORATORY VALUES: Sodium 136, potassium 3.9, chloride 97, bicarb is 30, BUN 19, and creatinine 1.28. His echocardiogram from February 13, 2020, was reviewed. 1. He has a dilated left ventricle with LVEF about 20%. 2. There is [id number] aortic regurgitation. 3. There is at least moderate mitral regurgitation. 4. There is probable diastolic dysfunction. 5. There is [id number] dilated right ventricle with reduced right ventricle function. He also has RV failure. His CT scan was also reviewed. There is a mass in the right middle lobe of lung. ASSESSMENT: This is a very unfortunate 64-year-old gentleman, who has a very poor prognosis due to multiple severe potential life ending diseases. The right lung mass by its appearance has history of smoking, likely to be active lung cancer. Such active lung cancer would preclude him to any consideration for advanced heart failure therapy. From his past behavior and also the presence of lung mass which also strongly argues against implantation of a defibrillator. He has heart failure with reduced ejection fraction with combined systolic and diastolic dysfunction. It is ischemic cardiomyopathy. He also has right ventricular failure plus this combined biventricular failure make this very difficult. Since he is a smoker and his comorbidities, he is not a candidate for any type of advanced heart failure therapy. At best, we can support him with inotropic therapy to make him comfortable. He also has cirrhosis, likely due to the past alcohol abuse. He also has esophageal varices to make him likely to bleed. He also has poorly controlled diabetes and neuropathy. The combination of severe heart failure, probable cancer, and existence of his cirrhosis with esophageal varices points to palliative care with probable transition to hospice is the most viable option to provide the best quality of life for his remaining time. For now that we can try to optimize his medications. Please see the following for my recommendations. RECOMMENDATIONS 1. Continue milrinone at 0.375 mcg/kg/per minute, it is actually helping him. 2. Lasix 40 mg p.o. b.i.d., may not be well absorbed. This is a too big of decrease from Lasix 40 mg IV t.i.d., can convert to Bumex 2 mg p.o. b.i.d. 3. Restart spironolactone 25 mg daily. 4. Increase carvedilol to 3.125 mg b.i.d. 5. Consider Palliative Care consult to begin conversation. 6. He is not a candidate for AICD or LifeVest. 7. He is also not a candidate for referral for advanced heart failure therapy due to his multiple comorbidities and still ongoing smoking status. It has been a pleasure taking care of Mr. Kenyon Daniels. If you have any questions, please give me a call. This consult took 75 minutes. This includes personally performing history and physical, counseling, explaining the situation to the patient, his mother, coordinating care with other member of the medical staff, reading echocardiogram. Job ID: [id number] [facility] C[facility]ERSange[facility]
[2020-02-22] MEDS ORDERED: Magnesium 2 GM/50 ML 2 GM in Premix Bag 1 BAG IVPB SCH (23:45)
[2020-02-23 04:33] LABS: Anion Gap 12 mmol/L (10-20); BUN (Urea Nitrogen) 19 mg/dL (8.4-25.7); Calc. Creatinine Clearance 65 mL/min (70-130); Calcium 9.3 mg/dL (7.8-10.44); Carbon Dioxide 29 mmol/L (23-31); Chloride 97 mmol/L (98-107); Estimated GFR-MDRD 55; Glucose 170 mg/dL (80-115); Magnesium 2.4 mg/dL (1.6-2.6); Potassium 4.2 mmol/L (3.5-5.1); Sodium 134 mmol/L (136-145)
[2020-02-23] MEDS: HumaLOG 300 UNITS/3 ML VIAL SC PRN ×3 (06:19→17:42)
[2020-02-23] MEDS: Aspirin Chewable 81 MG TAB PO SCH (08:15)
[2020-02-23] MEDS: Benzonatate 100 MG CAP PO SCH ×3 (08:15→20:39)
[2020-02-23] MEDS: Clopidogrel Bisulfate 75 MG TAB PO SCH (08:16)
[2020-02-23] MEDS: Fluticasone Propionate Nasal Spray 16 gm Bottle NASAL SCH ×2 (08:16→20:38)
[2020-02-23] MEDS: Bumetanide 1 MG TAB PO SCH ×3 (08:47→20:38)
[2020-02-23] MEDS: Spironolactone 25 MG TAB PO SCH ×2 (08:47→11:40)
[2020-02-23] MEDS ORDERED: Furosemide 40 MG TAB PO SCH (09:00)
[2020-02-23] MEDS: Carvedilol 3.125 MG TAB PO SCH ×2 (09:48→20:43)
[2020-02-23] MEDS: Milrinone Lactate/D5W 20 MG in Premix Bag 1 BAG IV SCH ×2 (09:48→20:37)
--- NOTE | 2020-02-23 11:36 | PDOC.HOSPP ---
- Subjective Encounter Date: 02/23/20 Encounter Time: 10:00 Subjective: Patient was seen and examined at the bedside. Patient reports that he did not sleep well last night. He has no other complaints. Patient had mild edema noted in both legs and is progressing well. - Objective Vital Signs & Weight: Vital Signs (12 hours) Temp Pulse Resp BP BP Pulse Ox 02/23/20 08:00 98.3 F 100 14 97/56 L 97 02/23/20 07:24 98 20 98 02/23/20 03:26 97.6 F 103 H 18 109/53 L 94 L Weight Admit Weight 194 lb 8 oz Weight 176 lb 12.8 oz I&O: 02/22/20 02/23/20 02/24/20 06:59 06:59 06:59 Intake Total 1719.6 1884.8 Output Total 3950 2570 Balance -2230.4 -685.2 Result Diagrams: 02/19/20 11:01 02/23/20 03:38 Additional Labs: Accuchecks 02/23/20 02/22/20 02/22/20 05:44 20:38 16:44 POC Glucose 287 H 221 H 224 H Hospitalist ROS - Review of Systems Respiratory: reports: shortness of breath, SOB with excertion. denies: cough, dry, hemoptysis, pleuritic pain, sputum, wheezing Cardiovascular: reports: edema. denies: chest pain, palpitations, orthopnea, paroxysmal noc. dyspnea Gastrointestinal: denies: nausea, vomiting, abdominal pain, diarrhea, constipation - Medication Medications: Active Medications Generic Name Dose Route Start Last Admin Trade Name Freq PRN Reason Stop Dose Admin Albuterol/Ipratropium 3 ml 02/13/20 01:00 02/23/20 07:24 Ipratropium/Albuterol Sulfate 3 Ml Neb NEB 3 ml [id number] YANNICK Administration Aspirin 81 mg 02/14/20 09:00 02/23/20 08:15 Aspirin Chewable 81 Mg Tab PO 81 mg DAILY YANNICK Administration Atorvastatin Calcium 20 mg 02/13/20 21:00 02/22/20 20:46 Atorvastatin Calcium 20 Mg Tab PO 20 mg HS YANNICK Administration Benzonatate 100 mg 02/16/20 15:00 02/23/20 08:15 Benzonatate 100 Mg Cap PO Not Given TID YANNICK Bumetanide 2 mg 02/23/20 09:00 02/23/20 08:47 Bumetanide 1 Mg Tab PO Not Given BID YANNICK Carvedilol 1.5625 mg 02/13/20 09:00 02/23/20 09:48 Carvedilol 3.125 Mg Tab PO 1.5625 mg BID YANNICK Administration Clopidogrel Bisulfate 75 mg 02/14/20 09:00 02/23/20 08:16 Clopidogrel Bisulfate 75 Mg Tab PO 75 mg DAILY YANNICK Administration Fluticasone Propionate 0 gm 02/15/20 21:00 02/23/20 08:16 Fluticasone Propionate Nasal [place] 16 Gm Bottle NASAL 1 spr BID YANNICK Administration Guaifenesin/Dextromethorphan 15 ml 02/13/20 23:04 02/16/20 17:53 Guaifenesin Dm 100-10/5 Ml Udcup PO 15 ml Q4H PRN Administration Cough Insulin Glargine 15 units/ 0.15 mls @ 0 mls/hr 02/20/20 21:00 02/22/20 20:47 Miscellaneous Medication SC 0.15 mls BID YANNICK Administration Milrinone Lactate/Dextrose 20 100 mls @ 9.981 mls/hr 02/20/20 15:44 02/23/20 09:48 mg/ Device IV 100 mls INF YANNICK Administration 0.375 MCG/KG/MIN Insulin Human Lispro 0 units 02/12/20 22:24 02/23/20 06:19 Humalog 300 Units/3 Ml Vial SC 6 unit .MODERATE SLIDING SC PRN Administration Moderate Correctional Scale Insulin Human Lispro 0 units 02/14/20 03:00 02/14/20 22:15 Humalog 300 Units/3 Ml Vial SC 2 unit .BEDTIME SLIDING SC PRN Administration BEDTIME SLIDING SCALE Protocol Loratadine 10 mg 02/15/20 16:25 02/15/20 21:17 Loratadine 10 Mg Tab PO 10 mg DAILYPRN PRN Administration Allergies Pantoprazole Sodium 40 mg 02/23/20 09:00 02/23/20 08:17 Pantoprazole 40 Mg Tab PO 40 mg DAILY YANNICK Administration Sodium Chloride 10 ml 02/13/20 09:00 02/23/20 08:17 Flush - Normal Saline 10 Ml Syringe IVF 10 ml Q12HR YANNICK Administration Spironolactone 25 mg 02/23/20 08:00 02/23/20 08:47 Spironolactone 25 Mg Tab PO Not Given QAM-WM YANNICK Temazepam 15 mg 02/16/20 21:00 02/22/20 20:46 Temazepam 15 Mg Cap PO 15 mg HS YANNICK Administration - Exam General Appearance: awake alert Heart: RRR, no murmur, no gallops, no rubs, normal peripheral pulses Respiratory: CTAB, no wheezes, no rales, no ronchi, normal chest expansion, no tachypnea, normal percussion Gastrointestinal: soft, non-tender, non-distended, normal bowel sounds, no palpable masses, no hepatomegaly, no splenomegaly, no bruit, no guarding, no rigidity Extremities: 1+ LE edema Hosp A/P - Plan Acute on chronic systolic heart failure with EF 15-20% --Continue IV diuresis and Milrinone gtt. --Monitor his I&O, follow renal function, replete lytes. -No ZEENAT inhibitor currently. COPD with exac --cont nebs. appreciate Pul input --hold off on systemic steroid for now. 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 Khalil, for outpt PET Chronic anemia --Status post Venofer, no active bleeding. -GI followed. Liver cirrhosis complicated with ascites --Status post paracentesis, 10 mL removed. Continue empiric IV antibiotic, follow culture --Continue low-salt diet. Pt is on Rocephin for SBP prophylaxis --attempted rpt paracentesis 02/16, not enough fluid CKD stage III --Creatinine stable Diabetes type 2--A1c of 8.2//uncontrolled --Hold Metformin due to renal function --low-dose basal insulin, insulin sliding scale CAD, status post PCI --On Coreg aspirin Plavix and statin -appreciate cardiology input Covid negative. 15th Milrinone drip maintaining his blood pressure. His weight seems to be increased, has increased in about 3 pounds since yesterday, He got negative balance of 2 L; creatinine is stable. yes, he dose clinically he does look quite volume overloaded. I have increased the Lasix to 3 times a day IV, as long as the blood pressure allows. Not much difference between running IV Lasix drip versus scheduled. Will defer that to the cash application representative. 16th ---is on negative fluid balance today with -1914 mL. Lasix IV diuresis is to 3 times daily dose. His blood pressure is still holding well. Though we cannot see any change clinically in his anasarca status? Hyperglycemia A1c of 8.2//uncontrolled -Lantus dose increased to 15 units twice a day. 17th Milrinone drip is maintaining his blood pressure. He has lost about 10 pounds since yesterday and had a negative balance of 905 mL. Clinically, he does still appear to be volume overloaded. Will continue on lasix and monitor Is and Os and blood pressures daily. Patient needs few more days of diuresis as he is becoming more assistance for even IV diuretics and milrinone dose adjustment per cash application representative. Blood glucose seems to be better controlled after Lantus dose increased. Physical therapy consult placed. 18th Milrinone drip is maintaining his blood pressure. He has lost about 14 pounds since admission and had a negative balance of 2230 mL today. Clinically, he does still appear to be volume overloaded but this has been improving. Will continue on lasix and monitor Is and Os and blood pressures daily. Patient needs one more day of diuresis as he is reaching a stable level in terms of cardiovascular function. We will transition his IV Lasix to p.o. today He needs cardiac rehab. Plan for discharge to rehab in 1 to 2 days, After cardiology clearance. I talked to the staff regarding cardiology visit. 19th Milrinone drip is maintaining his blood pressure. He has lost about 17 pounds since admission. Patient had a negative balance of 685ml for urine output. Patient was assessed by cardiology and they found patient not to be a candidate for AICD or LifeVest because of multiple comorbidities. So Lasix has been discontinued and we switched him to Bumex for better absorption. Suboptimally controlled hyperglycemia with the context of uncontrolled diabetes at baseline. -Lantus dose increased to 18 units twice a day along with sliding scale insulin. We are considering palliative care at the moment. Palliative consult placed given his several cardiac comorbidities and the potential for declining. His lung mass will be managed outpatient.
[2020-02-23] MEDS: Insulin Glargine 15 UNITS in Pre-Filled Syringe 1 EACH SC SCH (11:41)
--- NOTE | 2020-02-23 18:48 | PRG ---
DATE OF SERVICE: 02/23/2020 SERVICE: Advanced Heart Failure Transplant Cardiology Consult Service. SUBJECTIVE: Mr. Kenyon Daniels had a good day. He was able to sleep a bit. In the morning, he was able to walk all the way down the [place] and come back. This is the best he ever done in a long time. He felt good with it. He was supported by milrinone 0.375 mcg/kg/minute. Without milrinone, he will not be able to walk the distance. REVIEW OF SYSTEMS: GENERAL: There is no fever, chills, or productive cough. HEENT: There is no change in vision, hearing, or swallowing. PULMONARY: He is breathing well. CARDIAC: There is no chest pain, palpitations, or syncope. GASTROINTESTINAL: There is no nausea, vomiting, or diarrhea. GENITOURINARY: He is able to urinate on his own. MUSCULOSKELETAL: He is not complaining of any muscle or joint pains today. INTEGUMENT: There is no new skin breakdown. NEUROLOGIC: There are no new focal deficits or weaknesses. MEDICATIONS: His active medications include, 1. Albuterol and ipratropium nebs q.6 hours. 2. Aspirin 81 mg daily. 3. Atorvastatin 20 mg at bedtime. 4. Bumex now 2 mg b.i.d. 5. Carvedilol 1.562 b.i.d. 6. Plavix 75 mg daily. 7. Fluticasone nasal spray twice a day. 8. Insulin glargine 18 units daily. 9. Insulin Lispro. 10. Milrinone currently at 0.375 mcg/kg/minute. 11. Protonix 40 mg p.o. daily. 12. Spironolactone 25 mg p.o. daily. 13. Temazepam 15 mg p.o. at bedtime. OBJECTIVE: TELEMETRY: Reviewed. This generally is in sinus tachycardia with PVCs. There are 3 beats of wide-complex tachycardia. VITAL SIGNS: His heart rate is 95 and blood pressure is 120/60. GENERAL: He is alert, conversational, and kind of emotional, but is not short of breath. HEENT: Show EOMI. Oropharynx is benign with moist mucosa, but poor dentition. NECK: The JVP is still elevated about 12 cm with positive hepatojugular reflux. PULMONARY: There is good air movement bilaterally. CARDIAC: Tachycardic. Normal S1 and S2. There is 2/6 diastolic murmur at the right sternal border. There is also 2/6 holosystolic murmur at the apex with radiation to the left axilla. ABDOMEN: Still distended. Positive bowel sounds. It felt like ascites. EXTREMITIES: Lower extremities, there is some mild edema about 0.5 cm pitting from both feet to slightly above the ankles. LABORATORY DATA: His labs today are sodium 134, potassium 4.2, BUN 55, creatinine is steady at 1.31. He has 1885 in and 2570 out. ASSESSMENT: 64-year-old gentleman is compensated currently on milrinone 0.375 mcg/kg/minute for heart failure with reduced ejection fraction. He has both systolic and diastolic dysfunction. It is ischemic cardiomyopathy. He also has a right ventricular failure. The right ventricular failure is giving him the ascites. He has likely lung cancer in the right lung. He also has cirrhosis with esophageal varices. Thus, his overall prognosis is very poor. It is proven now that he will need milrinone to sustain quality of the life. It is related to us that he will undergo a PET scan as outpatient. Thus, he wants to be able to get to outpatient in best shape possible. Unfortunately, this will require chronic milrinone therapy. A long discussion took place about his eventual goals. Mr. Kenyon Daniels wants to live. He wanted to live in all possible cost. This was also discussed with Dr. Tavarez. At this point, we will pursue the possibility of chronic milrinone therapy, so he can be outpatient and has PET scan done. We will initiate the process. RECOMMENDATIONS: 1. Continue milrinone at 0.375 mcg/kg/minute. 2. Continue with a trial of Bumex 2 mg b.i.d. 3. Continue with trial of spironolactone 25 mg daily. 4. Please consider increasing carvedilol to 3.125 mg b.i.d. 5. We will need to see how this goes. If it goes well, then it becomes a good outpatient regimen. 6. I will contact [employer] to look explore the possibility of using chronic milrinone. It has been a pleasure taking care of Mr. Kenyon Daniels. If you have any questions, please give me a call. The total time spent on this case is 45 minutes. Job ID: [id number] MTDD
[2020-02-23] MEDS: Temazepam 15 MG CAP PO SCH (20:38)
[2020-02-23] MEDS: Atorvastatin Calcium 20 MG TAB PO SCH (20:38)
[2020-02-23] MEDS: Insulin Glargine 18 UNITS in Pre-Filled Syringe SC SCH (20:38)
[2020-02-24] MEDS ORDERED: Diazepam 2 MG TAB PO SCH (01:30)
[2020-02-24] MEDS: Milrinone Lactate/D5W 20 MG in Premix Bag 1 BAG IV SCH ×2 (08:00→19:26)
[2020-02-24] MEDS: Clopidogrel Bisulfate 75 MG TAB PO SCH (08:02)
[2020-02-24] MEDS: Bumetanide 1 MG TAB PO SCH (08:02)
[2020-02-24] MEDS: Benzonatate 100 MG CAP PO SCH ×3 (08:05→20:37)
[2020-02-24] MEDS: Aspirin Chewable 81 MG TAB PO SCH (08:05)
[2020-02-24] MEDS: Carvedilol 3.125 MG TAB PO SCH ×2 (08:05→10:22)
[2020-02-24] MEDS: Spironolactone 25 MG TAB PO SCH (08:06)
[2020-02-24] MEDS: Fluticasone Propionate Nasal Spray 16 gm Bottle NASAL SCH ×2 (08:08→20:34)
[2020-02-24] MEDS: Insulin Glargine 18 UNITS in Pre-Filled Syringe SC SCH ×2 (09:49→23:51)
[2020-02-24] MEDS ORDERED: Metoprolol Tartrate 5 MG/5 ML VIAL ONE (10:22)
[2020-02-24] MEDS ORDERED: Metoprolol Tartrate 5 MG/5 ML VIAL IVP SCH (11:00)
--- NOTE | 2020-02-24 11:32 | PDOC.HOSPP ---
- Subjective Encounter Date: 02/24/20 Encounter Time: 10:15 Subjective: Patient was seen and examined at the bedside today. Patient says he did not sleep well last night. No overnight events. He was tachycardic with a pulse in the 180 range. I gave him a 2 mg IV Lopressor which brought his heart rate to 113 range. Patient is asymptomatic the whole time. Some mild cramps. No chest pain. - Objective Vital Signs & Weight: Vital Signs (12 hours) Temp Pulse Resp BP Pulse Ox 02/24/20 04:00 97.9 F 101 H 17 105/57 L 98 Weight Admit Weight 194 lb 8 oz Weight 165 lb 14.4 oz I&O: 02/23/20 02/24/20 02/25/20 06:59 06:59 06:59 Intake Total 1884.8 1638.8 Output Total 2570 5075 Balance -685.2 -3436.2 Result Diagrams: 02/24/20 11:26 02/24/20 11:26 Additional Labs: Accuchecks 02/24/20 02/24/20 02/23/20 10:42 06:04 20:18 POC Glucose 174 H 171 H 230 H 02/23/20 02/23/20 16:58 11:36 POC Glucose 186 H 176 H Hospitalist ROS - Review of Systems Constitutional: denies: fever, chills Respiratory: denies: cough, dry, shortness of breath, hemoptysis, SOB with excertion, pleuritic pain, sputum, wheezing Cardiovascular: reports: edema. denies: chest pain, palpitations, orthopnea, pa roxysmal noc. dyspnea, light headedness Gastrointestinal: denies: nausea, vomiting, abdominal pain, diarrhea, constipation - Medication Medications: Active Medications Generic Name Dose Route Start Last Admin Trade Name Freq PRN Reason Stop Dose Admin Albuterol/Ipratropium 3 ml 02/13/20 01:00 02/24/20 07:03 Ipratropium/Albuterol Sulfate 3 Ml Neb NEB Not Given [id number] YANNICK Aspirin 81 mg 02/14/20 09:00 02/24/20 08:05 Aspirin Chewable 81 Mg Tab PO 81 mg DAILY YANNICK Administration Atorvastatin Calcium 20 mg 02/13/20 21:00 02/23/20 20:38 Atorvastatin Calcium 20 Mg Tab PO 20 mg HS YANNICK Administration Benzonatate 100 mg 02/16/20 15:00 02/24/20 08:05 Benzonatate 100 Mg Cap PO Not Given TID YANNICK Bumetanide 2 mg 02/23/20 09:00 02/24/20 08:02 Bumetanide 1 Mg Tab PO 2 mg BID YANNICK Administration Carvedilol 1.5625 mg 02/13/20 09:00 02/24/20 10:22 Carvedilol 3.125 Mg Tab PO 1.5625 mg BID YANNICK Administration Clopidogrel Bisulfate 75 mg 02/14/20 09:00 02/24/20 08:02 Clopidogrel Bisulfate 75 Mg Tab PO 75 mg DAILY YANNICK Administration Fluticasone Propionate 0 gm 02/15/20 21:00 02/24/20 08:08 Fluticasone Propionate Nasal [place] 16 Gm Bottle NASAL 1 spr BID YANNICK Administration Guaifenesin/Dextromethorphan 15 ml 02/13/20 23:04 02/16/20 17:53 Guaifenesin Dm 100-10/5 Ml Udcup PO 15 ml Q4H PRN Administration Cough Milrinone Lactate/Dextrose 20 100 mls @ 9.981 mls/hr 02/20/20 15:44 02/24/20 08:00 mg/ Device IV 100 mls INF YANNICK Administration 0.375 MCG/KG/MIN Insulin Glargine 18 units/ 0.18 mls @ 0 mls/hr 02/23/20 21:00 02/24/20 09:49 Miscellaneous Medication SC 0.18 mls BID YANNICK Administration Insulin Human Lispro 0 units 02/12/20 22:24 02/23/20 17:42 Humalog 300 Units/3 Ml Vial SC 2 unit .MODERATE SLIDING SC PRN Administration Moderate Correctional Scale Insulin Human Lispro 0 units 02/14/20 03:00 02/14/20 22:15 Humalog 300 Units/3 Ml Vial SC 2 unit .BEDTIME SLIDING SC PRN Administration BEDTIME SLIDING SCALE Protocol Loratadine 10 mg 02/15/20 16:25 02/15/20 21:17 Loratadine 10 Mg Tab PO 10 mg DAILYPRN PRN Administration Allergies Pantoprazole Sodium 40 mg 02/23/20 09:00 02/24/20 08:02 Pantoprazole 40 Mg Tab PO 40 mg DAILY YANNICK Administration Sodium Chloride 10 ml 02/13/20 09:00 02/24/20 08:09 Flush - Normal Saline 10 Ml Syringe IVF 10 ml Q12HR YANNICK Administration Spironolactone 25 mg 02/23/20 08:00 02/24/20 08:06 Spironolactone 25 Mg Tab PO 25 mg QAM-WM YANNICK Administration Temazepam 15 mg 02/16/20 21:00 02/23/20 20:38 Temazepam 15 Mg Cap PO 15 mg HS YANNICK Administration - Exam General Appearance: awake alert Eye: PERRL ENT: normocephalic atraumatic Neck: supple Heart: RRR, no murmur, no gallops, no rubs, normal peripheral pulses Respiratory: CTAB, no wheezes, no rales, no ronchi, normal chest expansion, no tachypnea, normal percussion Gastrointestinal: soft, non-tender, non-distended, normal bowel sounds, no palpable masses, no hepatomegaly, no splenomegaly, no bruit, no guarding Extremities: 1+ LE edema Neurological: no focal deficits Musculoskeletal: generalized weakness Psychiatric: A&O x 3 Hosp A/P - Plan Acute on chronic systolic heart failure with EF 15-20% --Continue IV diuresis and Milrinone gtt. --Monitor his I&O, follow renal function, replete lytes. -No ZEENAT inhibitor currently. COPD with exac --cont nebs. appreciate Pul input --hold off on systemic steroid for now. 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 Khalil, for outpt PET Chronic anemia --Status post Venofer, no active bleeding. -GI followed. Liver cirrhosis complicated with ascites --Status post paracentesis, 10 mL removed. Continue empiric IV antibiotic, follow culture --Continue low-salt diet. Pt is on Rocephin for SBP prophylaxis --attempted rpt paracentesis 02/16, not enough fluid CKD stage III --Creatinine stable Diabetes type 2--A1c of 8.2//uncontrolled --Hold Metformin due to renal function -Lantus dose increased to 18 units twice a day along with sliding scale insulin. CAD, status post PCI --On Coreg aspirin Plavix and statin -appreciate cardiology input Milrinone drip is maintaining his blood pressure. He has lost about 35 pounds since admission. Patient had a negative balance of -3436 ml for urine output. Patient was assessed by cardiology and they found patient not to be a candidate for AICD or LifeVest because of multiple comorbidities. So Lasix has been discontinued and we switched him to Bumex for better absorption. We are considering palliative care at the moment. Palliative consult placed given his several cardiac comorbidities and the potential for declining. His lung mass will be managed outpatient. Dr. Tavarez and Dr. Tobin following with us. Covid negative. full code
[2020-02-24 11:40] LABS: #Eosinphils 0.1 thou/uL (0.0-0.7); #Lymphocytes 0.9 thou/uL (1.20-3.40); #Monocytes 0.5 thou/uL (0.11-0.59); %Basophils 0.6 % (0.0-1.0); %Eosinophils 2.5 % (0.0-10.0); %Lymphocytes 16.3 % (21.0-51.0); %Monocytes 8.4 % (0.0-10.0); %Neutrophils 72.2 % (42.0-75.0); Hemoglobin 10.7 g/dL (14.0-18.0); Mean Corpuscular HGB CONC 31.3 g/dL (32.0-36.0); Mean Corpuscular Hemoglobin 28.6 pg (27.0-31.0); Mean Corpuscular Volume 91.4 fL (78.0-98.0); Mean Platelet Volume 8.4 fL (7.4-10.4); Platelet Count 156 thou/uL (130-400); RBC Distribution Width 16.5 % (11.5-14.5); Red Blood Cell (RBC) Count 3.72 mill/uL (4.70-6.10); White Blood Cell (WBC) Count 5.5 thou/uL (4.8-10.8)
[2020-02-24 12:00] LABS: Anion Gap 16 mmol/L (10-20); BUN (Urea Nitrogen) 32 mg/dL (8.4-25.7); Calc. Creatinine Clearance 44 mL/min (70-130); Calcium 9.4 mg/dL (7.8-10.44); Carbon Dioxide 28 mmol/L (23-31); Chloride 92 mmol/L (98-107); Estimated GFR-MDRD 38; Glucose 170 mg/dL (80-115); Magnesium 1.9 mg/dL (1.6-2.6); Potassium 3.9 mmol/L (3.5-5.1); Sodium 132 mmol/L (136-145)
[2020-02-24] MEDS ORDERED: Bumetanide 1 MG TAB PO SCH ×2 (13:15→21:00)
--- NOTE | 2020-02-24 15:05 | PDOC.FMACP ---
Advance Care Planning - Problem (1) Palliative care encounter Status: Acute Code(s): Z51.5 - ENCOUNTER FOR PALLIATIVE CARE (2) COPD with exacerbation Status: Acute Code(s): J44.1 - CHRONIC OBSTRUCTIVE PULMONARY DISEASE W (ACUTE) EXACERBATION (3) Right middle lobe pulmonary nodule Status: Acute Code(s): R91.1 - SOLITARY PULMONARY NODULE (4) Acute on chronic systolic CHF (congestive heart failure), NYHA class 2 Status: Acute Code(s): I50.23 - ACUTE ON CHRONIC SYSTOLIC (CONGESTIVE) HEART FAILURE (5) Anemia Status: Acute Code(s): D64.9 - ANEMIA, UNSPECIFIED (6) Alcoholic cirrhosis Status: Chronic Code(s): K70.30 - ALCOHOLIC CIRRHOSIS OF LIVER WITHOUT ASCITES Qualifiers: Ascites presence: with ascites Qualified Code(s): K70.31 - Alcoholic cirrhosis of liver with ascites (7) CKD (chronic kidney disease) stage 3, GFR 30-59 ml/min Status: Chronic - Note Participants: patient, palliative care Summary: Palliative care introduced Advanced Care Planning. The diagnosis, prognosis and goals of care were discussed. Appropriate forms and documentation to accomplish the goals of care were discussed. All questions were answered. Mr Daniels elected to complete a MPOA and Directive to Physician. Both documents were completed with assistance of our registrar. Origional and copy given to the patient, copy placed on chart for medical records. Confirmed full resuscitation status. Palliative care will follow up to continue to discuss Goal of Care paired with multiple morbidities. Please also refer to Palliative Care notes in note section Time Spent (mins): 15
[2020-02-24] MEDS ORDERED: Sodium Chloride 0.9% 250 ML IV SCH (16:45)
[2020-02-24] MEDS ORDERED: Magnesium 2 GM/50 ML 2 GM in Premix Bag 1 BAG IVPB SCH (16:45)
[2020-02-24] MEDS: HumaLOG 300 UNITS/3 ML VIAL SC PRN (19:03)
[2020-02-24] MEDS: Atorvastatin Calcium 20 MG TAB PO SCH (20:34)
[2020-02-24] MEDS: Temazepam 15 MG CAP PO SCH ×2 (20:34→20:39)
[2020-02-24] MEDS ORDERED: Melatonin 3 MG TAB PO PRN (22:04)
[2020-02-24] MEDS ORDERED: Lorazepam 1 MG TAB PO SCH (22:15)
[2020-02-25 05:01] LABS: #Eosinphils 0.1 thou/uL (0.0-0.7); #Lymphocytes 0.8 thou/uL (1.20-3.40); #Monocytes 0.5 thou/uL (0.11-0.59); #Neutrophils 3.8 thou/uL (1.40-6.50); %Basophils 0.8 % (0.0-1.0); %Eosinophils 2.7 % (0.0-10.0); %Lymphocytes 14.8 % (21.0-51.0); %Monocytes 8.7 % (0.0-10.0); %Neutrophils 73.1 % (42.0-75.0); Hemoglobin 9.6 g/dL (14.0-18.0); Mean Corpuscular HGB CONC 31.7 g/dL (32.0-36.0); Mean Corpuscular Hemoglobin 28.6 pg (27.0-31.0); Mean Corpuscular Volume 90.3 fL (78.0-98.0); Mean Platelet Volume 8.8 fL (7.4-10.4); Platelet Count 148 thou/uL (130-400); RBC Distribution Width 16.1 % (11.5-14.5); Red Blood Cell (RBC) Count 3.36 mill/uL (4.70-6.10); White Blood Cell (WBC) Count 5.2 thou/uL (4.8-10.8)
[2020-02-25 05:22] LABS: Anion Gap 15 mmol/L (10-20); BUN (Urea Nitrogen) 36 mg/dL (8.4-25.7); Calc. Creatinine Clearance 51 mL/min (70-130); Carbon Dioxide 26 mmol/L (23-31); Chloride 94 mmol/L (98-107); Estimated GFR-MDRD 45; Glucose 209 mg/dL (80-115); Magnesium 2.2 mg/dL (1.6-2.6); Potassium 4.1 mmol/L (3.5-5.1); Sodium 131 mmol/L (136-145)
[2020-02-25] MEDS ORDERED: traMADol HCl 50 MG TAB PO SCH (05:30)
[2020-02-25] MEDS: Milrinone Lactate/D5W 20 MG in Premix Bag 1 BAG IV SCH ×2 (06:41→16:30)
--- NOTE | 2020-02-25 07:27 | PRG ---
DATE OF SERVICE: 02/24/2020 SERVICE: Advanced Heart Failure and Transplant Cardiology Consult Service. SUBJECTIVE: Mr. Kenyon Daniels had a variable day. He has large amount of diuresis with a combination of Bumex orally, also spironolactone. However, due to labs not ordered this morning, we did not know the results of his kidney function, electrolytes, so this will have to be ordered stat about noontime. Sometime in the morning, he had a bout of sustained supraventricular tachycardia, he felt not well. A Rapid was called. Metoprolol IV was given. The metoprolol IV converted him back into sinus rhythm. After that, he has been fairly asymptomatic. He actually feels well and breathing easily, able to eat well. Currently he feels good right now. The supraventricular tachycardia event lasted about an hour. Currently, he is asymptomatic and doing well. REVIEW OF SYSTEMS: GENERAL: There is no fever, chills, or productive cough. Actually feeling well. HEENT: There is no change in vision, hearing, or swallowing. PULMONARY: There is no shortness of breath or cough. CARDIAC: Please see HPI. GI: There is no nausea, vomiting, or diarrhea. : He is urinating well. He says he has continued urinating quite a bit. MUSCULOSKELETAL: There are no complaints of muscle or joint pains. INTEGUMENT: There is no new skin breakdown. NEUROLOGIC: There are no new focal deficits or weaknesses. MEDICATIONS: 1. Albuterol/ipratropium nebs every 6 hours. 2. Aspirin 81 mg daily. 3. Atorvastatin 20 mg at bedtime. 4. Bumex currently at 1 mg b.i.d. 5. Carvedilol 1.5625 mg b.i.d. 6. Plavix 75 mg daily. 7. Fluticasone b.i.d. 8. Insulin glargine 18 units. 9. Loratadine 10 mg daily as needed. 10. Milrinone currently at 0.375 mcg/kg/minute. 11. Protonix 40 mg daily. 12. Spironolactone 25 mg daily. 13. Temazepam 50 mg at bedtime. PHYSICAL EXAMINATION: VITAL SIGNS: Telemetry was reviewed, it shows supraventricular tachycardia lasts for one hour, between 10 and 11 a.m. today. Currently he is in sinus rhythm, but tachycardia about 107. Current blood pressure is 110/62. GENERAL: He is alert and conversational, surprisingly energetic. HEENT: EOMI. Oropharynx is benign with moist mucosa. NECK: His JVP is way down today. It is probably about 9 with positive hepatojugular reflux. PULMONARY: Lungs are clear to auscultation with good air movement bilaterally. This is about the best I have heard yet. ABDOMEN: Less distended, soft. Positive bowel sounds today. EXTREMITIES: Lower extremity without edema today. This is the best I have seen yet. LABORATORY VALUES: This came back consist of sodium 132, potassium 3.9, chloride 92 this is decreased from yesterday, BUN is 32, creatinine 1.83 this is increased, and his magnesium is 1.9. This case with supraventricular tachycardia was discussed with Dr. Carlton Bermudez. He recommended Toprol-XL. His CT scan of the chest also reviewed. There is a mass in the right lung. If that mass actually extends vascular to the left atrium, so this could be a source of his supraventricular tachycardia. ASSESSMENT: This 64-year-old male has multiple severe diseases, that are life-limiting. He has a right lung mass that needs to be diagnosed. With his smoking history and appearance on CT, it is likely to be lung cancer. He has ascites with varices. He has heart failure with reduced ejection fraction with combined systolic and diastolic dysfunction due to ischemic cardiomyopathy. He is currently dependent on milrinone to survive and have a good quality of life. Now, he has supraventricular tachycardia. He has demonstrated he needs the milrinone to be able to get outpatient and get to the PET scan to identify potential cancer and get treated for his cancer, so the milrinone become a necessary step. Please see the following for my recommendations. RECOMMENDATIONS: 1. Continue milrinone 0.375 mcg/kg/minute. 2. Discontinue carvedilol. 3. Give Toprol-XL 12.5 mg p.o. every 12 hours. 4. Please give magnesium sulfate 2 g IV one dose now. 5. He is volume depleted today. He has 1639 in and 5075 out, net negative of 3436 mL. This is too much. That is the reason why his BUN and creatinine have gone up and sodium and chloride have gone down. So, we need to give him some fluid back and give him a bit of diuretics holiday, thus please replenish his magnesium by giving 2 g of magnesium sulfate IV one dose now and please give normal saline 250 mL one dose now and hold his evening dose and morning dose of Bumex and let him to re-equilibrate for at least one day. 6. Continue to work with case mgr and home health and also infusion [employer] to set up outpatient milrinone. I suspect this will not be completed until Thursday or Thursday next week. It has been a pleasure taking care of Mr. Daniels. If any questions, please give me a call. Time for this visit is 40 minutes. This includes personally performing H and P, coordinating care with staff, reviewing telemetry, explaining and counseling and performing workup and plan with the patient. Job ID: [id number] MTDD
--- NOTE | 2020-02-25 09:05 | CON ---
DATE OF CONSULTATION: 02/24/2020 HISTORY OF PRESENT ILLNESS: I am seeing Mr. Daniels at our [facility] telemetry floor for electrophysiology consultation. His problems are; 1. Narrow complex SVT noted on telemetry today with heart rate up to 186 beats per minute. 2. Chronic systolic congestive heart failure with ischemic cardiomyopathy: a. Prior history of RCA stenting. b. Reduced LVEF on 02/13/2020 echo at 15% to 20%, moderate left atrial enlargement, mild MR, moderate AI, mild to moderate TR. c. Left heart catheterization in August 2015, showed 80% mid RCA lesion, status post bare-metal stent placement. 3. GI bleed, possibly due to bleeding esophageal varices. 4. Right lung mass, possible malignancy. 5. History of COPD. 6. History of peripheral vascular disease. 7. History of liver cirrhosis and related esophageal varices and anemia. 8. Type 2 diabetes. ALLERGIES: PENICILLINS. MEDICATIONS: At home included; 1. Potassium chloride. 2. Metformin. 3. Lipitor. 4. Lisinopril. 5. Coreg. 6. Omeprazole. 7. Lasix. 8. Aspirin. 9. Plavix. SUBJECTIVE: Mr. Daniels is here with increased dyspnea and IV diuresis was started. He also noted to have significant ascites and status post paracentesis. He underwent cardiac evaluation by Dr. Tavarez and Dr. Tobin and he is receiving milrinone therapy. While on the milrinone therapy, he developed a rapid narrow complex tachycardia, which eventually terminated with IV diltiazem. Currently, he is feeling well. No chest pains. No dyspnea at this time. No fever, chills, or cough. No PND or orthopnea. Rest of 12-point review of system otherwise unremarkable. Past history, as above. I have seen the gentleman back in July 2017 for episodic bradycardia, which occurred while he was feeling choking like sensations. 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 Since then, he has had fluctuating LVEF measurements. He did decline LifeVest in the past. Most recent ejection fraction this admission shows severely reduced LV function. He was also evaluated by GI service due to esophageal varices. He has no further bleeding at this point. He was found to have right lung mass with connection to the mediastinum, retroperitoneal space. While on telemetry, he was found to develop repeat SVT with rate 186 beats per minute. He also received IV diltiazem and eventually vagal maneuvers started and terminated the arrhythmia. Currently, he is asymptomatic. REVIEW OF SYSTEMS: The rest of 12-point review of systems otherwise unremarkable. PAST HISTORY: As above. History of recently found right lung mass, coronary artery disease with closure of the circumflex artery and RCA stent in 2016, history of systolic-diastolic dysfunction, hypertension, peripheral vascular disease, COPD, cirrhosis with esophageal varices, anemia, GI bleed, type 2 diabetes. SOCIAL HISTORY: The patient is an ongoing current smoker, used to drink heavily, but more recently just mild, denies drug use apart from marijuana. FAMILY HISTORY: Not contributory. OBJECTIVE DATA: VITAL SIGNS: Blood pressure is 95/61, heart rate 106, respirations 16. The patient is afebrile. GENERAL: Reveals alert and oriented man, in no apparent distress. NECK: Supple. Jugular vein is not distended. CHEST: Coarse without crackles. HEART: Sounds are regular to rate and rhythm. No murmur or gallop. ABDOMEN: Benign. Bowel sounds positive. EXTREMITIES: Lower extremities without edema, clubbing, or cyanosis. DATABASE: EKG is reviewed, revealing sinus rhythm, no significant ST-T changes on baseline. Subsequent EKG with tachycardia, reveals narrow complex tachycardia with short PA interval, at a rate of 186 beats per minute. Telemetry strips also consistent with atrial tachycardia with variable AV conduction, settling into 1:1 AV conduction. LABORATORY DATA: White cell count is 5.5, hemoglobin 10.7, platelet count is 156. Sodium 133, potassium 3.9, BUN is 32, creatinine 1.83. BNP is 282. ASSESSMENT AND PLAN: Mr. Daniels is a pleasant 64-year-old man with history of congestive heart failure and ischemic cardiomyopathy, fluctuating left ventricular ejection fraction measurements seen in the past, now again in the severely reduced left ventricular ejection fraction range. He also has additional chronic issues including bleeding esophageal varices, cirrhosis and ascites, chronic renal insufficiency. We discussed these findings. The narrow complex SVT likely represents atrial tachycardia based on the telemetry measurements. One occasional variable AV conduction of the atrial tachycardia is seen, but mostly 1:1 conduction is achieved. At this point, he is not on adequate heart failure regimen and adding beta- tahir therapy if tolerated would beor alternatively diltiazem could be considered. These efforts will help us to suppress his narrow complex tachyarrhythmias. If this fails, EP study could be considered, although with this chronically sick gentleman with multiple comorbidities, it has been a difficult proposition. We discussed the potential for future ventricular arrhythmias. On the other hand, at this point, no sustained episodes demonstrated seen on telemetry. With his comorbidities are potential limitation of his life span due to the possible locally spreading lung cancer, this may be a difficult proposition. In the past, he declined LifeVest. Lung cancer, as per hospital cleaning specialist. Heart failure, managed by Dr. Tobin and currently on milrinone renetta. Job ID: [id number] [facility] CENTERSangeeta
[2020-02-25] MEDS: Aspirin Chewable 81 MG TAB PO SCH (10:45)
[2020-02-25] MEDS: Spironolactone 25 MG TAB PO SCH (10:46)
[2020-02-25] MEDS: Clopidogrel Bisulfate 75 MG TAB PO SCH (10:46)
[2020-02-25] MEDS: Fluticasone Propionate Nasal Spray 16 gm Bottle NASAL SCH ×2 (10:47→20:33)
[2020-02-25] MEDS: Benzonatate 100 MG CAP PO SCH ×3 (10:47→20:31)
[2020-02-25] MEDS: Insulin Glargine 18 UNITS in Pre-Filled Syringe SC SCH ×2 (11:29→20:34)
--- NOTE | 2020-02-25 16:22 | ULT ---
Abdominal ultrasound Limited: HISTORY: Abdominal distention, evaluate for ascites COMPARISON: 02/17/2020 FINDINGS: Coarse liver echogenicity. Evidence for splenomegaly. No evidence for ascites. IMPRESSION: No evidence for significant ascites.
--- NOTE | 2020-02-25 17:02 | EKG ---
Test Reason : Blood Pressure : / mmHG Vent. Rate : 107 BPM Atrial Rate : 107 BPM P-R Int : 166 ms QRS Dur : 104 ms QT Int : 366 ms P-R-T Axes : 066 033 196 degrees QTc Int : 488 ms Sinus tachycardia with occasional , and consecutive Premature ventricular complexes Nonspecific ST and T wave abnormality Abnormal ECG Confirmed by SB ROSS DO ([id number]), continuity editor COMFORT KANG ([id number]) on 02/25/2020 5:02:17 PM Referred By: Confirmed By:SB ROSS DO
--- NOTE | 2020-02-25 17:13 | PRG ---
DATE OF SERVICE: SERVICE: Advanced Heart Failure and Transplant Cardiology Consult Service. SUBJECTIVE: Mr. Kenyon Daniels had a good day. He was over diuresed at first day. The diuretic was stopped yesterday afternoon. Normal saline 250 mL was given. He seemed to be improved with that. Due to his SVT, Toprol-XL 12.5 mg p.o. q.12 hours was started. He tolerated it that without any difficulty. He feels good with it. Today, he feels energetic, breathing easy and he feels well. REVIEW OF SYSTEMS: GENERAL: There is no fever, chills, productive cough. HEENT: There is no change in vision, hearing, or swallowing. PULMONARY: There is no shortness of breath or cough. CARDIAC: There is no chest pain, palpitations, or syncope. GI: There is no nausea, vomiting, diarrhea. : He is urinating well on his own. MUSCULOSKELETAL: There is no muscle or joint pains. INTEGUMENT: There is no new skin breakdown. NEUROLOGIC: There is no focal deficits or weaknesses. CURRENT MEDICATIONS: 1. Albuterol ipratropium nebs q.6 hours. 2. Aspirin 81 mg daily. 3. Atorvastatin 20 mg at bedtime. 4. Clopidogrel 75 mg daily. 5. Fluticasone b.i.d. 6. Glargine insulin 80 units daily. 7. Toprol-XL 12.5 mg p.o. q.12 hours. 8. Milrinone 0.375 mcg/kg/minute. 9. Protonix 40 mg daily. 10. Spironolactone 25 mg daily. 11. Temazepam 50 mg p.o. at bedtime. PHYSICAL EXAMINATION: VITAL SIGNS: His telemetry is reviewed. He is in sinus rhythm. There is occasional PVC, but there is no SVT or any other concerning arrhythmia. Heart rate 89, blood pressure 107/62. GENERAL: He is alert and conversational, reclining comfortably in bed without any distress, he is relaxed. HEENT: EOMI. Oropharynx benign. Poor dentition. NECK: His JVP is bit more elevated today about 11 cm. LUNGS: Clear to auscultation bilaterally. There is good air movement bilaterally. CARDIAC: Regular rate and rhythm with normal S1, S2. There is 2/6 diastolic murmur at the right sternal border. There is also 2/6 holosystolic murmur at apex with radiation to the left axilla. GASTROINTESTINAL: His abdomen is less full, soft, nontender. Positive bowel sounds. EXTREMITIES: His lower extremities are without edema. Positive dorsalis pedis pulses bilaterally. LABORATORY VALUES: Today, white cell count 5.2, hemoglobin 9.6, and platelets 148. His chemistries show sodium 131, chloride 94, BUN 36, creatinine has improved to 1.57. His magnesium is 2.2. ASSESSMENT: 64-year-old gentleman is holding steady at well compensated state of heart failure with reduced ejection fraction. This is achieved by augmentation with milrinone and rate control and rhythm control with Toprol- XL. He has ischemic cardiomyopathy. It is combined systolic and diastolic dysfunction heart failure with reduced ejection fraction. However, he also has probable lung cancer. He also has cirrhosis with esophageal varices. His overall prognosis is poor. He wants to live as long as possible. Overall plan is getting well enough to be discharged, so he can go to have a PET scan done as outpatient and start chemo and radiation therapy for his lung cancer. I have contacted the infusion company. They did an insurance clearance and apparently Mr. Kenyon Daniels's insurance will pay for outpatient Milrinone. Now it is just a matter of time to find a home health care agency that will handle this case. Mr. Kenyon Daniels wants go home if this will work well. Rehab will not handle Milrinone drip, so he has to be going home. Please see the following for my recommendations: RECOMMENDATIONS: 1. Increase milrinone to 0.425 mcg/kg/minute. 2. Restart diuretics, add Bumex 1 mg p.o. b.i.d. 3. Please consult General Surgery for placement of a port. This port will be needed for chronic milrinone infusion and also for his expected chemotherapies for lung cancer. It has been a pleasure taking care of Mr. Kenyon Daniels. If you have any questions, please give me a call. Total time spent was 30 minutes. Job ID: [id number] [facility]
[2020-02-25] MEDS: HumaLOG 300 UNITS/3 ML VIAL SC PRN ×2 (18:03→20:34)
[2020-02-25] MEDS: Atorvastatin Calcium 20 MG TAB PO SCH (20:31)
[2020-02-25] MEDS: Magnesium Oxide 400 MG TAB PO SCH (20:31)
[2020-02-25] MEDS: Temazepam 15 MG CAP PO SCH (20:32)
--- NOTE | 2020-02-25 21:13 | PDOC.HOSPP ---
- Subjective Encounter Date: 02/25/20 Encounter Time: 15:00 Subjective: F/u: heart failure The patient reports his SOB could be better, otherwise has no complaints. He denies abdominal pain. Per Dr. Tobin, plan to send home on outpatient milrinone so requesting port placement - Objective Vital Signs & Weight: Vital Signs (12 hours) Temp Pulse Resp BP Pulse Ox 02/25/20 18:59 95 02/25/20 15:49 97.7 F 97 17 104/69 96 02/25/20 12:35 97.6 F 84 20 104/64 91 L 02/25/20 10:50 95 Weight Admit Weight 194 lb 8 oz Weight 167 lb 4.8 oz I&O: 02/24/20 02/25/20 02/26/20 06:59 06:59 06:59 Intake Total 1638.8 1360 840 Output Total 5075 2100 900 Balance -3436.2 -740 -60 Result Diagrams: 02/25/20 04:21 02/25/20 04:21 Additional Labs: Accuchecks 02/25/20 02/25/20 02/25/20 20:30 17:42 17:07 POC Glucose 244 H 211 H 237 H 02/25/20 02/24/20 06:34 23:24 POC Glucose 193 H 235 H Hospitalist ROS - Review of Systems Constitutional: denies: fever, chills - Medication Medications: Active Medications Generic Name Dose Route Start Last Admin Trade Name Freq PRN Reason Stop Dose Admin Albuterol/Ipratropium 3 ml 02/13/20 01:00 02/25/20 18:59 Ipratropium/Albuterol Sulfate 3 Ml Neb NEB 3 ml [id number] YANNICK Administration Aspirin 81 mg 02/14/20 09:00 02/25/20 10:45 Aspirin Chewable 81 Mg Tab PO 81 mg DAILY YANNICK Administration Atorvastatin Calcium 20 mg 02/13/20 21:00 02/25/20 20:31 Atorvastatin Calcium 20 Mg Tab PO 20 mg HS YANNICK Administration Benzonatate 100 mg 02/16/20 15:00 02/25/20 20:31 Benzonatate 100 Mg Cap PO Not Given TID YANNICK Clopidogrel Bisulfate 75 mg 02/14/20 09:00 02/25/20 10:46 Clopidogrel Bisulfate 75 Mg Tab PO 75 mg DAILY YANNICK Administration Fluticasone Propionate 0 gm 02/15/20 21:00 02/25/20 20:33 Fluticasone Propionate Nasal [place] 16 Gm Bottle NASAL 2 spr BID YANNICK Administration Guaifenesin/Dextromethorphan 15 ml 02/13/20 23:04 02/16/20 17:53 Guaifenesin Dm 100-10/5 Ml Udcup PO 15 ml Q4H PRN Administration Cough Milrinone Lactate/Dextrose 20 100 mls @ 11.312 mls/hr 02/20/20 15:44 02/25/20 16:30 mg/ Device IV 100 mls INF YANNICK Administration 0.425 MCG/KG/MIN Insulin Glargine 18 units/ 0.18 mls @ 0 mls/hr 02/23/20 21:00 02/25/20 20:34 Miscellaneous Medication SC 0.18 mls BID YANNICK Administration Insulin Human Lispro 0 units 02/12/20 22:24 02/25/20 18:03 Humalog 300 Units/3 Ml Vial SC 4 unit .MODERATE SLIDING SC PRN Administration Moderate Correctional Scale Insulin Human Lispro 0 units 02/14/20 03:00 02/25/20 20:34 Humalog 300 Units/3 Ml Vial SC 2 unit .BEDTIME SLIDING SC PRN Administration BEDTIME SLIDING SCALE Protocol Loratadine 10 mg 02/15/20 16:25 02/15/20 21:17 Loratadine 10 Mg Tab PO 10 mg DAILYPRN PRN Administration Allergies Magnesium Oxide 400 mg 02/25/20 21:00 02/25/20 20:31 Magnesium Oxide 400 Mg Tab PO 400 mg BID YANNICK Administration Melatonin 3 mg 02/24/20 22:04 02/24/20 22:58 Melatonin 3 Mg Tab PO 3 mg HSPRN PRN Administration Insomnia Metoprolol Succinate 12.5 mg 02/24/20 21:00 02/25/20 20:32 Metoprolol Succinate Xl 25 Mg Tab PO 12.5 mg Q12HR YANNICK Administration Pantoprazole Sodium 40 mg 02/23/20 09:00 02/25/20 10:45 Pantoprazole 40 Mg Tab PO 40 mg DAILY YANNICK Administration Sodium Chloride 10 ml 02/13/20 09:00 02/25/20 20:42 Flush - Normal Saline 10 Ml Syringe IVF Not Given Q12HR YANNICK Spironolactone 25 mg 02/23/20 08:00 02/25/20 10:46 Spironolactone 25 Mg Tab PO 25 mg QAM-WM YANNICK Administration Temazepam 15 mg 02/16/20 21:00 02/25/20 20:32 Temazepam 15 Mg Cap PO Not Given HS YANNICK - Exam General Appearance: NAD, awake alert Eye: PERRL, anicteric sclera ENT: normocephalic atraumatic, no oropharyngeal lesions Neck: no JVD Heart: RRR, no murmur, no gallops, no rubs Respiratory: no wheezes, no rales, no ronchi Respiratory - other findings: slightly diminished Gastrointestinal: soft, non-tender, normal bowel sounds Gastrointestinal - other findings: abdomen distended Extremities: no cyanosis, no clubbing, no edema Skin: normal turgor, no lesions, no rashes Skin - other findings: mild skin abrasions in legs Hosp A/P - Plan CT chest: possible right middle lobe malignancy and mediastinal LN metastases. Cirrhosis, splenomegaly, ascites This is a 64 year old male who presented with shortness of breath, possible syncope, black stools , found to be in acute heart failure Acute on chronic systolic heart failure with EF 15-20% vs lung cancer? -he is currently on milrinone which will be continued - hold diuretics for today due to worsening kidney function two days prior with bumex. Will place consult for port placement for outpatient milrinone - pulmonary consulted for right middle lobe mass, will get bronchoscopy as an outpatient on discharge Right middle lobe mass with metastases - pulmonary consulted, will need outpatient PET and bronchoscopy Liver cirrhosis complicated with ascites --Status post paracentesis, 10 mL removed. Repeat abd US 02/24 showed no ascites Continue empiric IV antibiotic, follow culture - he is s/p ceftriaxone for SBP prophylaxis from 02/12 to 02/20 Chronic anemia --Status post Venofer, no active bleeding. -GI followed, did not recommend furthe rwork CKD stage III --Creatinine stable at 1.57 Diabetes type 2--A1c of 8.2//uncontrolled --Hold Metformin due to renal function. Continue lantus 18 units bid CAD, status post PCI --On Coreg aspirin Plavix and statin Dispo: surgery consult for port placement
[2020-02-26] MEDS: Milrinone Lactate/D5W 20 MG in Premix Bag 1 BAG IV SCH (01:28)
[2020-02-26 04:27] LABS: Anion Gap 13 mmol/L (10-20); BUN (Urea Nitrogen) 32 mg/dL (8.4-25.7); Calc. Creatinine Clearance 55 mL/min (70-130); Calcium 8.7 mg/dL (7.8-10.44); Carbon Dioxide 24 mmol/L (23-31); Chloride 96 mmol/L (98-107); Estimated GFR-MDRD 48; Glucose 339 mg/dL (80-115); Magnesium 1.9 mg/dL (1.6-2.6); Potassium 4.3 mmol/L (3.5-5.1); Sodium 129 mmol/L (136-145)
[2020-02-26] MEDS: HumaLOG 300 UNITS/3 ML VIAL SC PRN (06:04)
[2020-02-26] MEDS: Benzonatate 100 MG CAP PO SCH ×3 (08:06→21:17)
[2020-02-26] MEDS: Magnesium Oxide 400 MG TAB PO SCH ×2 (08:06→21:17)
[2020-02-26] MEDS: Spironolactone 25 MG TAB PO SCH (08:06)
[2020-02-26] MEDS: Bumetanide 1 MG TAB PO SCH (08:06)
[2020-02-26] MEDS: Clopidogrel Bisulfate 75 MG TAB PO SCH (08:06)
[2020-02-26] MEDS: Aspirin Chewable 81 MG TAB PO SCH (08:06)
[2020-02-26] MEDS: Fluticasone Propionate Nasal Spray 16 gm Bottle NASAL SCH ×2 (08:08→21:21)
[2020-02-26] MEDS: Insulin Glargine 18 UNITS in Pre-Filled Syringe SC SCH (08:10)
--- NOTE | 2020-02-26 11:04 | PRG ---
DATE OF SERVICE: 02/26/2020 SUBJECTIVE: Mr. Kenyon Daniels had an excellent day. He is breathing easy, had a good night of sleep, able to eat well. He was energetic. He was able to take his shower this morning, is looking forward to his son. He understands that today is his scheduled procedure for his placement of a port in the chest. He wants to get this done too, so he can have the chronic milrinone and potential chemotherapy for lung cancer. REVIEW OF SYSTEMS: GENERAL: There is no fever, chills, or productive cough. HEENT: There is no change in vision, hearing, or swallowing. PULMONARY: There are no complaints. CARDIAC: There is no chest pain, palpitations, or syncope. GI: There is no nausea, vomiting, or diarrhea. He is eating well. : He is urinating well on his own. MUSCULOSKELETAL: There are no muscle or joint pain. INTEGUMENT: There is no new skin breakdown. NEUROLOGIC: There is no focal deficits or weaknesses. CURRENT MEDICATIONS: Include: 1. Albuterol/ipratropium nebs q.6 hours. 2. Aspirin 81 mg daily. 3. Atorvastatin 20 mg daily. 4. Bumex now 1 mg daily. 5. Plavix 75 mg daily. 6. Fluticasone twice per day. 7. Glargine insulin 18 units daily. 8. Magnesium oxide 400 mg p.o. b.i.d. 9. Toprol-XL 12.5 mg p.o. q.12 hours. 10. Milrinone, it is now at 0.425 mcg/kg per minute. 11. Protonix 40 mg p.o. daily. 12. Spironolactone 25 mg p.o. daily. Telemetry is reviewed, he is in sinus rhythm with some PVC. PHYSICAL EXAMINATION: VITAL SIGNS: Heart rate is 98, blood pressure 114/56. GENERAL: He is alert, conversational, sitting comfortably in chair. HEENT: EOMI. Oropharynx is benign with moist mucosa. NECK: His JVP is about 9 cm with negative hepatojugular reflux. PULMONARY: There is good air movement bilateral, clear to auscultation bilaterally. HEART: Regular rate and rhythm with normal S1, S2. There is 2/6 diastolic murmur at the right sternal border. There is 2/6 holosystolic murmur at the apex with radiation to the left axilla. ABDOMEN: Mildly distended, soft, nontender. Positive bowel sounds. EXTREMITIES: Lower extremity without edema with dorsalis pedis pulses bilaterally. LABORATORY DATA: His chemistry shows sodium 139, potassium 4.3, chloride 96, bicarb 24, BUN 32, which is improvement, and creatinine is 1.49, which is not an improvement. His glucose 339, magnesium 1.9. ASSESSMENT: 64-year-old gentleman is doing remarkably well from ischemic cardiomyopathy causing heart failure with reduced ejection fraction. It is combined systolic and diastolic dysfunction. Currently, milrinone AT 0.425 mcg/kg per minute is providing sufficient cardiac output. Combination of not having diuretics and having milrinone temporarily paused due to the bag running out and high glucose count contributed to his hyponatremia this morning. Restarting the diuretic, the milrinone running at 0.425 mcg/kg per minute, will help correct the situation. He has probable lung cancer. He also has cirrhosis with esophageal varices. He is likely to be discharged on chronic milrinone at 0.425 mcg/kg per minute along with diuretics and electrolyte supplements and after that he can see Dr. Khalil for the PET scan and have the lung cancer treated. Please see the following for my recommendations: RECOMMENDATIONS 1. Continue milrinone at 0.425 mcg/kg per minute. 2. Continue Toprol-XL 12.5 mg p.o. q.12 hours. This is providing an excellent rate control and rhythm control. If it needs to be, it can be increased to 25 mg p.o. q.12 hours. If he is not having any symptoms, he is tolerating this well. 3. Continue with spironolactone 25 mg p.o. daily. 4. Currently Bumex 1 mg daily seemed to be enough. If not, we can increase to 1 mg twice a day. In the past, Bumex 2 mg p.o. b.i.d. has caused excessive amount of diuresis. 5. His potassium needs to be at least 4 and his magnesium needs to be 2. Consequently, he will need to have potassium and magnesium supplements. 6. The [facility] has determined that he has sufficient insurance for outpatient milrinone. It will take several days for the entire step to arrange for home health care to take care of him. Once the home health is set, then he is ready to go. It has been a pleasure of taking care of Mr. Kenyon Daniels. If any question, please feel free to give me a call. Today is my last day on the service. I will be signing off now. The visitation time is 40 minutes. Job ID: [id number] [facility]
--- NOTE | 2020-02-26 15:41 | PDOC.HOSPP ---
- Subjective Encounter Date: 02/26/20 Encounter Time: 11:00 Subjective: F/u: CHF The patient denies significant shortness of breath. The patient is doing well. He was adamant that he wanted to eat lunch today and do the port tomorrow, but eventually agreed to doing the port today. I explained there were 6 people ahead of him and was told it wouldn't happen until the late afternoon - Objective Vital Signs & Weight: Vital Signs (12 hours) Temp Pulse Resp BP Pulse Ox 02/26/20 15:09 97.5 F L 91 20 94/53 L 97 02/26/20 12:56 95 16 02/26/20 12:00 97.7 F 93 17 96/52 L 97 02/26/20 07:17 97.6 F 97 18 92/51 L 97 Weight Admit Weight 194 lb 8 oz Weight 169 lb 8 oz I&O: 02/25/20 02/26/20 02/27/20 06:59 06:59 06:59 Intake Total 1360 1440 Output Total 2100 1675 Balance -740 -235 Result Diagrams: 02/25/20 04:21 02/26/20 03:42 Additional Labs: Accuchecks 02/26/20 02/26/20 02/25/20 10:34 06:00 20:30 POC Glucose 150 H 317 H 244 H 02/25/20 02/25/20 17:42 17:07 POC Glucose 211 H 237 H Hospitalist ROS - Medication Medications: Active Medications Generic Name Dose Route Start Last Admin Trade Name Freq PRN Reason Stop Dose Admin Albuterol/Ipratropium 3 ml 02/13/20 01:00 02/26/20 12:56 Ipratropium/Albuterol Sulfate 3 Ml Neb NEB 3 ml [id number] YANNICK Administration Aspirin 81 mg 02/14/20 09:00 02/26/20 08:06 Aspirin Chewable 81 Mg Tab PO 81 mg DAILY YANNICK Administration Atorvastatin Calcium 20 mg 02/13/20 21:00 02/25/20 20:31 Atorvastatin Calcium 20 Mg Tab PO 20 mg HS YANNICK Administration Benzonatate 100 mg 02/16/20 15:00 02/26/20 13:55 Benzonatate 100 Mg Cap PO Not Given TID YANNICK Bumetanide 1 mg 02/26/20 09:00 02/26/20 08:06 Bumetanide 1 Mg Tab PO 1 mg DAILY YANNICK Administration Clopidogrel Bisulfate 75 mg 02/14/20 09:00 02/26/20 08:06 Clopidogrel Bisulfate 75 Mg Tab PO 75 mg DAILY YANNICK Administration Fluticasone Propionate 0 gm 02/15/20 21:00 02/26/20 08:08 Fluticasone Propionate Nasal [place] 16 Gm Bottle NASAL 1 spr BID YANNICK Administration Guaifenesin/Dextromethorphan 15 ml 02/13/20 23:04 02/16/20 17:53 Guaifenesin Dm 100-10/5 Ml Udcup PO 15 ml Q4H PRN Administration Cough Milrinone Lactate/Dextrose 20 100 mls @ 11.312 mls/hr 02/20/20 15:44 02/26/20 01:28 mg/ Device IV 100 mls INF YANNICK Administration 0.425 MCG/KG/MIN Insulin Glargine 18 units/ 0.18 mls @ 0 mls/hr 02/23/20 21:00 02/26/20 08:10 Miscellaneous Medication SC 0.18 mls BID YANNICK Administration Insulin Human Lispro 0 units 02/12/20 22:24 02/26/20 06:04 Humalog 300 Units/3 Ml Vial SC 8 unit .MODERATE SLIDING SC PRN Administration Moderate Correctional Scale Insulin Human Lispro 0 units 02/14/20 03:00 02/25/20 20:34 Humalog 300 Units/3 Ml Vial SC 2 unit .BEDTIME SLIDING SC PRN Administration BEDTIME SLIDING SCALE Protocol Loratadine 10 mg 02/15/20 16:25 02/15/20 21:17 Loratadine 10 Mg Tab PO 10 mg DAILYPRN PRN Administration Allergies Magnesium Oxide 400 mg 02/25/20 21:00 02/26/20 08:06 Magnesium Oxide 400 Mg Tab PO 400 mg BID YANNICK Administration Melatonin 3 mg 02/24/20 22:04 02/24/20 22:58 Melatonin 3 Mg Tab PO 3 mg HSPRN PRN Administration Insomnia Metoprolol Succinate 12.5 mg 02/24/20 21:00 02/26/20 08:06 Metoprolol Succinate Xl 25 Mg Tab PO 12.5 mg Q12HR YANNICK Administration Pantoprazole Sodium 40 mg 02/23/20 09:00 02/26/20 08:08 Pantoprazole 40 Mg Tab PO 40 mg DAILY YANNICK Administration Sodium Chloride 10 ml 02/13/20 09:00 02/26/20 08:08 Flush - Normal Saline 10 Ml Syringe IVF 10 ml Q12HR YANNICK Administration Spironolactone 25 mg 02/23/20 08:00 02/26/20 08:06 Spironolactone 25 Mg Tab PO 25 mg QAM-WM YANNICK Administration Temazepam 15 mg 02/16/20 21:00 02/25/20 20:32 Temazepam 15 Mg Cap PO Not Given HS YANNICK - Exam General Appearance: NAD, awake alert Eye: PERRL, anicteric sclera ENT: normocephalic atraumatic, no oropharyngeal lesions Neck: no JVD Heart: RRR, no murmur, no gallops, no rubs Respiratory: CTAB, no wheezes, no rales, no ronchi Gastrointestinal: soft, non-tender, distended Gastrointestinal - other findings: nontender, no ascites on palpation Extremities: no edema Skin: normal turgor, no lesions, no rashes Neurological: cranial nerve grossly intact, normal sensation to touch, no weakness Hosp A/P - Plan CT chest: possible right middle lobe malignancy and mediastinal LN metastases. Cirrhosis, splenomegaly, ascites This is a 64 year old male who presented with shortness of breath, possible syncope, black stools , found to be in acute heart failure Acute on chronic systolic heart failure with EF 15-20% vs lung cancer? -he is currently on milrinone which will be continued. Port will be placed today so patient can get outpatient milrinone - bumex restarted at 1 mg daily - outpatient workup for possible lung cancer for mass on CT chest Right middle lobe mass with metastases - pulmonary consulted, will need outpatient PET and bronchoscopy Hyponatremia- likely from hyperglycemia and CHF - sodium 129, blood sugar > 300. Will repeat BMP in morning - bumex was restarted Diabetes type 2--A1c of 8.2//uncontrolled -continue lantus 18 units qam - will increase evening dose to 22 units qhs since blood sugar > 300 this morning Liver cirrhosis complicated with ascites --Status post paracentesis, 10 mL removed. Repeat abd US 02/24 showed no asci roosevelt Continue empiric IV antibiotic, follow culture - he is s/p ceftriaxone for SBP prophylaxis from 02/12 to 02/20 Chronic anemia --Status post Venofer, no active bleeding. -GI followed, did not recommend further workup CKD stage III --Creatinine stable at 1.49 CAD, status post PCI --On Coreg aspirin Plavix and statin Dispo: surgery consult for port placement
[2020-02-26] MEDS ORDERED: Fentanyl 100 MCG/2 ML VIAL ONE (18:14)
[2020-02-26] MEDS ORDERED: Sodium Chloride 0.9% 20 ML ONE (18:25)
[2020-02-26] MEDS ORDERED: Lidocaine 1% w/Epinephrine 1:100K 20 ML VIAL ONE (18:25)
[2020-02-26] MEDS ORDERED: Bupivacaine 0.25% HCL 30 ML VIAL ONE (18:25)
[2020-02-26] MEDS ORDERED: Ketamine 50 MG/ML (10ML VIAL) ONE (18:49)
--- NOTE | 2020-02-26 20:43 | CON ---
DATE OF CONSULTATION: 02/26/2020 REQUESTING PHYSICIAN: Suha Hurd MD. HISTORY OF PRESENT ILLNESS: Mr. Daniels is a 64-year-old man, with a history of severe congestive cardiomyopathy with low ejection fraction, previous ventricular arrhythmias, recently diagnosed lung cancer as well as chronic liver disease with cirrhosis and abdominal ascites. I have been asked to evaluate the patient for placement of a Port-A-Cath in anticipation of home continuous amiodarone infusion. At the time of my evaluation, patient is awake. He is a bit restless, unable to lay down without coughing violently. In fact, he is almost continuously coughing in my presence. PAST MEDICAL HISTORY: Significant for coronary artery disease, status post coronary angiography with stenting. Other medical history includes liver cirrhosis with history of esophageal varices and abdominal ascites, essential hypertension, chronic congestive heart failure with recent ejection fraction noted at 30%, type 2 diabetes mellitus, COPD, recently diagnosed lung cancer, gastroesophageal reflux disease, and chronic anemia. PAST SURGICAL HISTORY: Pertinent for coronary angiography with stenting, upper endoscopy for treatment of esophageal varices, colonoscopy with polypectomy as well as repair of hernia. SOCIAL HISTORY: He is a greater than 40 pack years cigarette smoker, he used to drink heavily, he denies any other illicit drug abuse. FAMILY HISTORY: Noncontributory for this patient's age. CURRENT MEDICATION: Includes 1. Aspirin 81 mg p.o. daily and clopidogrel 75 mg p.o. daily, both of which he has been on since 02/14/2020. 2. Additionally, he is on Tessalon Perles p.r.n. cough; Lantus insulin 18 units b.i.d.; metoprolol 12.5 mg p.o. q.12 hours; amiodarone by continuous infusion, titrated by Heart Failure Cardiology, Protonix 40 mg p.o. daily; spironolactone 25 mg p.o. q.a.m.; and bronchodilator therapy p.r.n. ALLERGIES: TO PENICILLIN. REVIEW OF SYSTEMS: As stated in past medical history and chief complaint. PHYSICAL EXAMINATION: GENERAL: This reveals a 64-year-old normally developed man, who is otherwise coherent, interactive, and appears stated age. He appears to be in no acute distress at time of my evaluation. VITAL SIGNS: Include blood pressure 94/53, pulse is 91, respiratory rate is 20, temperature 97.5 degrees Fahrenheit, and oxygen saturation 97% on room air. HEENT: Pupils equal, round, and reactive to light bilaterally. NECK: He has jugular venous distention noted. HEART: Reveals irregular rate and rhythm. ABDOMEN: Soft and distended with percussion, which is suggestive of ascites. Liver and spleen otherwise nonpalpable below costal margin. NEUROLOGIC: Reveals no focal deficits present. LABORATORY FINDINGS: Today include a CBC with 5200 white blood cells, hemoglobin and hematocrit 9.6 and 30.4 respectively. Platelet count is 148,000. Metabolic profile; sodium 129, potassium 4.3, chloride is 96, bicarb is 24, BUN 32, creatinine is 1.49, glucose is 339, magnesium 1.9, and phos . IMPRESSION: 1. History of chronic congestive cardiomyopathy. 2. Recently diagnosed lung cancer. 3. History of liver cirrhosis with esophageal varices and abdominal ascites. 4. History of gastroesophageal reflux disease. 5. Type 2 diabetes mellitus. RECOMMENDATIONS: Due to this patient's significant severe comorbidities and the need to continue on antiplatelet therapy, at this time, there is a relative contraindication for placement of a Port-A-Cath, which is fraught with potential problems for operative site hemorrhage. I am also concerned with regard to this patient's history of recent ventricular arrhythmia, guidewire placement might potentiate recurrent arrhythmia in this patient. It is my understanding that this patient has declined LifeVest in the past. He is unlikely to lay on his back and hold still for the procedure which will be performed under fluoroscopy. Therefore, if a central venous catheter is definitely warranted for chronic therapeutic interventions, I recommend peripherally inserted central venous catheter as an alternative. It might be prudent to evaluate from oncology standpoint this patient's expected life span given his significant comorbidities. Thank you again, Dr. Hurd, for allowing me the opportunity to participate in the care of this patient. I recommend if it is decided that a Port-A-Cath is definitely warranted, you may consider a second surgical opinion. Job ID: [id number]
[2020-02-26] MEDS: Atorvastatin Calcium 20 MG TAB PO SCH (21:17)
[2020-02-26] MEDS: Temazepam 15 MG CAP PO SCH (21:19)
[2020-02-26] MEDS: Insulin Glargine 22 UNITS in Pre-Filled Syringe 1 EACH SC SCH (21:20)
[2020-02-27] MEDS ORDERED: Cyclobenzaprine 10 MG TAB PO SCH (03:30)
[2020-02-27] MEDS: Milrinone Lactate/D5W 20 MG in Premix Bag 1 BAG IV SCH ×2 (04:18→23:16)
[2020-02-27] MEDS: Spironolactone 25 MG TAB PO SCH (09:12)
[2020-02-27] MEDS: Bumetanide 1 MG TAB PO SCH (09:12)
[2020-02-27] MEDS: Benzonatate 100 MG CAP PO SCH ×3 (09:12→20:46)
[2020-02-27] MEDS: Aspirin Chewable 81 MG TAB PO SCH (09:12)
[2020-02-27] MEDS: Magnesium Oxide 400 MG TAB PO SCH ×2 (09:12→20:47)
[2020-02-27] MEDS: Clopidogrel Bisulfate 75 MG TAB PO SCH (09:13)
[2020-02-27] MEDS: Fluticasone Propionate Nasal Spray 16 gm Bottle NASAL SCH ×2 (09:13→20:47)
[2020-02-27] MEDS: Insulin Glargine 18 UNITS in Pre-Filled Syringe 1 EACH SC SCH (09:18)
--- NOTE | 2020-02-27 14:57 | PDOC.EP ---
- Subjective Date: 02/27/20 Time: 14:54 Interval History: No New events or decline in condition. No heart racing/palpitations. - Objective Allergies/Adverse Reactions: Allergies Allergy/AdvReac Type Severity Reaction Status Date / Time Penicillins Allergy Severe Anaphylaxis Verified 06/27/19 19:34 Current Medications Albuterol/Ipratropium (Ipratropium/Albuterol Sulfate 3 Ml Neb) 3 ml NEB Q2H PRN PRN Reason: SOB &/or Wheezing Albuterol/Ipratropium (Ipratropium/Albuterol Sulfate 3 Ml Neb) 3 ml NEB [id number] [facility] Last Admin: 02/27/20 13:46 Dose: Not Given Documented by: Aspirin (Aspirin Chewable 81 Mg Tab) 81 mg PO DAILY [facility] Last Admin: 02/27/20 09:12 Dose: 81 mg Documented by: Atorvastatin Calcium (Atorvastatin Calcium 20 Mg Tab) 20 mg PO HS [facility] Last Admin: 02/26/20 21:17 Dose: 20 mg Documented by: Benzonatate (Benzonatate 100 Mg Cap) 100 mg PO TID [facility] Last Admin: 02/27/20 09:12 Dose: 100 mg Documented by: Bumetanide (Bumetanide 1 Mg Tab) 1 mg PO DAILY [facility] Last Admin: 02/27/20 09:12 Dose: 1 mg Documented by: Clopidogrel Bisulfate (Clopidogrel Bisulfate 75 Mg Tab) 75 mg PO DAILY [facility] Last Admin: 02/27/20 09:13 Dose: Not Given Documented by: Al Hydroxide/Mg Hydroxide 60 ml/ Diphenhydramine HCl 150 mg / Lidocaine HCl 60 ml/Nystatin 6,000,000 units 0 ml SSW ACHS PRN PRN Reason: Mouth Irritation Dextrose/Water (Dextrose 50% Abboject 50 Ml Syringe) 25 gm SLOW IVP PRN PRN PRN Reason: Hypoglycemia Fluticasone Propionate (Fluticasone Propionate Nasal [place] 16 Gm Bottle) 0 gm NASAL BID [facility] Last Admin: 02/27/20 09:13 Dose: Not Given Documented by: Glucagon (Glucagon 1 Mg/Ml Vial) 1 mg IM PRN PRN PRN Reason: Hypoglycemia Guaifenesin/Dextromethorphan (Guaifenesin Dm 100-10/5 Ml Udcup) 15 ml PO Q4H PRN PRN Reason: Cough Last Admin: 02/16/20 17:53 Dose: 15 ml Documented by: Dextrose/Water (D5w) 1,000 mls @ 0 mls/hr IV .Q0M PRN PRN Reason: Hypoglycemia Milrinone Lactate/Dextrose 20 (mg/ Device) 100 mls @ 11.312 mls/hr IV INF [facility] Last Admin: 02/27/20 04:18 Dose: 100 mls Documented by: Insulin Glargine 18 units/ (Miscellaneous Medication) 0.18 mls @ 0 mls/hr SC QAM [facility] Last Admin: 02/27/20 09:18 Dose: 0.18 mls Documented by: Insulin Glargine 22 units/ (Miscellaneous Medication) 0.22 mls @ 0 mls/hr SC HS [facility] Last Admin: 02/26/20 21:20 Dose: 0.22 mls Documented by: Levofloxacin 500 mg/ Device 100 mls @ 100 mls/hr IVPB ONCALL-OR YANNICK Levofloxacin 500 mg/ Device 100 mls @ 100 mls/hr IVPB ONCALL-OR YANNICK Insulin Human Lispro (Humalog 300 Units/3 Ml Vial) 0 units SC .MODERATE SLIDING SC PRN PRN Reason: Moderate Correctional Scale Last Admin: 02/26/20 06:04 Dose: 8 unit Documented by: Insulin Human Lispro (Humalog 300 Units/3 Ml Vial) 0 units SC .BEDTIME SLIDING SC PRN; Protocol PRN Reason: BEDTIME SLIDING SCALE Last Admin: 02/25/20 20:34 Dose: 2 unit Documented by: Loratadine (Loratadine 10 Mg Tab) 10 mg PO DAILYPRN PRN PRN Reason: Allergies Last Admin: 02/15/20 21:17 Dose: 10 mg Documented by: Magnesium Oxide (Magnesium Oxide 400 Mg Tab) 400 mg PO BID [facility] Last Admin: 02/27/20 09:12 Dose: 400 mg Documented by: Melatonin (Melatonin 3 Mg Tab) 3 mg PO HSPRN PRN PRN Reason: Insomnia Last Admin: 02/24/20 22:58 Dose: 3 mg Documented by: Metoprolol Succinate (Metoprolol Succinate Xl 25 Mg Tab) 12.5 mg PO Q12HR [facility] Last Admin: 02/27/20 09:12 Dose: 12.5 mg Documented by: Pantoprazole Sodium (Pantoprazole 40 Mg Tab) 40 mg PO DAILY [facility] Last Admin: 02/27/20 09:12 Dose: 40 mg Documented by: Sodium Chloride (Flush - Normal Saline 10 Ml Syringe) 10 ml IVF Q12HR [facility] Last Admin: 02/27/20 09:14 Dose: 10 ml Documented by: Sodium Chloride (Flush - Normal Saline 10 Ml Syringe) 10 ml IVF PRN PRN PRN Reason: Saline Flush Spironolactone (Spironolactone 25 Mg Tab) 25 mg PO QAM-WM [facility] Last Admin: 02/27/20 09:12 Dose: 25 mg Documented by: Vital Signs & Weight: Vital Signs Temp Pulse Pulse Pulse Resp BP BP 02/27/20 11:17 98.6 F 94 15 02/27/20 09:15 105 H 97 125/60 124/63 02/27/20 07:36 88 18 02/27/20 04:11 97.7 F 87 16 BP Pulse Ox Pulse Ox Pulse Ox 02/27/20 11:17 93/51 L 02/27/20 09:15 96 97 02/27/20 07:36 100 02/27/20 04:11 107/51 L 93 L Admit Weight 194 lb 8 oz Weight 168 lb 3.2 oz I/O: I/O 02/26/20 02/27/20 02/28/20 06:59 06:59 06:59 Intake Total 1440 390 360 Output Total 1675 1025 850 Balance -235 -311 -156 - Physical Exam General: alert & oriented x3, no apparent distress, speech clear. negative: appears well, affect appropriate HEENT: negative: mucus membranes moist, normocephaly, EOMI Neck: negative: supple neck, midline trachea, no JVD/HJR Cardiology: negative: regular rate and rhythm, no murmur, PMI nondisplaced Lungs: decreased breath sounds. negative: clear to auscultation, no wheeze, rales, rhonchi - Labs Result Diagrams: 02/25/20 04:21 02/26/20 03:42 - EKG Interpretation EKG Method: Telemetry EKG shows: Sinus rhythm - Assessment/Plan Assessment/Plan: 1. Narrow complex SVT, likely PAT, noted on telemetry today with heart rate up to 186 beats per minute. 2. Chronic systolic congestive heart failure with ischemic cardiomyopathy: a. Prior history of RCA stenting. b. Reduced LVEF on 02/13/2020 echo at 15% to 20%, moderate left atrial enlargement, mild MR, moderate AI, mild to moderate TR. c. Left heart catheterization in August 2015, showed 80% mid RCA lesion, status post bare-metal stent placement. 3. GI bleed, possibly due to bleeding esophageal varices. 4. Right lung mass, possible malignancy. 5. History of COPD. 6. History of peripheral vascular disease. 7. History of liver cirrhosis with esophageal varices and anemia. 8. Type 2 diabetes. PAT seen on tele last week. Beta tahir therapy started and rhythm has responded nicely. Rhythm stable. Cardiomyopathy, previously declined lifevest. EP signing off.
--- NOTE | 2020-02-27 17:35 | PDOC.HOSPP ---
- Subjective Encounter Date: 02/27/20 Encounter Time: 11:00 Subjective: F/u: CHF The patient was not a surgical candidate for port yesterday. There was plan for Mtz catheter today, however patient was listed as an add on and did not want to wait all day to be NPO and wants to get it done tomorrow He denies shortness of breath or chest pain - Objective Vital Signs & Weight: Vital Signs (12 hours) Temp Pulse Pulse Pulse Resp BP BP 02/27/20 16:21 97.7 F 90 02/27/20 11:17 98.6 F 94 15 02/27/20 09:15 105 H 97 125/60 124/63 02/27/20 07:36 88 18 BP BP Pulse Ox Pulse Ox Pulse Ox 02/27/20 16:21 101/57 L 02/27/20 11:17 93/51 L 02/27/20 09:15 96 97 02/27/20 07:36 100 Weight Admit Weight 194 lb 8 oz Weight 168 lb 3.2 oz I&O: 02/26/20 02/27/20 02/28/20 06:59 06:59 06:59 Intake Total 1440 390 360 Output Total 1675 1027 850 Balance -235 -635 -490 Result Diagrams: 02/25/20 04:21 02/26/20 03:42 Additional Labs: Accuchecks 02/27/20 02/27/20 02/27/20 16:22 10:34 06:31 POC Glucose 227 H 230 H 126 H 02/26/20 20:43 POC Glucose 187 H Hospitalist ROS - Review of Systems Constitutional: denies: fever, chills - Medication Medications: Active Medications Generic Name Dose Route Start Last Admin Trade Name Freq PRN Reason Stop Dose Admin Albuterol/Ipratropium 3 ml 02/13/20 01:00 02/27/20 13:46 Ipratropium/Albuterol Sulfate 3 Ml Neb NEB Not Given [id number] YANNICK Aspirin 81 mg 02/14/20 09:00 02/27/20 09:12 Aspirin Chewable 81 Mg Tab PO 81 mg DAILY YANNICK Administration Atorvastatin Calcium 20 mg 02/13/20 21:00 02/26/20 21:17 Atorvastatin Calcium 20 Mg Tab PO 20 mg HS YANNICK Administration Benzonatate 100 mg 02/16/20 15:00 02/27/20 09:12 Benzonatate 100 Mg Cap PO 100 mg TID YANNICK Administration Bumetanide 1 mg 02/26/20 09:00 02/27/20 09:12 Bumetanide 1 Mg Tab PO 1 mg DAILY YANNICK Administration Clopidogrel Bisulfate 75 mg 02/14/20 09:00 02/27/20 09:13 Clopidogrel Bisulfate 75 Mg Tab PO Not Given DAILY YANNICK Fluticasone Propionate 0 gm 02/15/20 21:00 02/27/20 09:13 Fluticasone Propionate Nasal [place] 16 Gm Bottle NASAL Not Given BID YANNICK Guaifenesin/Dextromethorphan 15 ml 02/13/20 23:04 02/16/20 17:53 Guaifenesin Dm 100-10/5 Ml Udcup PO 15 ml Q4H PRN Administration Cough Milrinone Lactate/Dextrose 20 100 mls @ 11.312 mls/hr 02/20/20 15:44 02/27/20 04:18 mg/ Device IV 100 mls INF YANNICK Administration 0.425 MCG/KG/MIN Insulin Glargine 18 units/ 0.18 mls @ 0 mls/hr 02/27/20 09:00 02/27/20 09:18 Miscellaneous Medication SC 0.18 mls QAM YANNICK Administration Insulin Glargine 22 units/ 0.22 mls @ 0 mls/hr 02/26/20 21:00 02/26/20 21:20 Miscellaneous Medication SC 0.22 mls HS YANNICK Administration Insulin Human Lispro 0 units 02/12/20 22:24 02/26/20 06:04 Humalog 300 Units/3 Ml Vial SC 8 unit .MODERATE SLIDING SC PRN Administration Moderate Correctional Scale Insulin Human Lispro 0 units 02/14/20 03:00 02/25/20 20:34 Humalog 300 Units/3 Ml Vial SC 2 unit .BEDTIME SLIDING SC PRN Administration BEDTIME SLIDING SCALE Protocol Loratadine 10 mg 02/15/20 16:25 02/15/20 21:17 Loratadine 10 Mg Tab PO 10 mg DAILYPRN PRN Administration Allergies Magnesium Oxide 400 mg 02/25/20 21:00 02/27/20 09:12 Magnesium Oxide 400 Mg Tab PO 400 mg BID YANNICK Administration Melatonin 3 mg 02/24/20 22:04 02/24/20 22:58 Melatonin 3 Mg Tab PO 3 mg HSPRN PRN Administration Insomnia Metoprolol Succinate 12.5 mg 02/24/20 21:00 02/27/20 09:12 Metoprolol Succinate Xl 25 Mg Tab PO 12.5 mg Q12HR YANNICK Administration Pantoprazole Sodium 40 mg 02/23/20 09:00 02/27/20 09:12 Pantoprazole 40 Mg Tab PO 40 mg DAILY YANNICK Administration Sodium Chloride 10 ml 02/13/20 09:00 02/27/20 09:14 Flush - Normal Saline 10 Ml Syringe IVF 10 ml Q12HR YANNICK Administration Spironolactone 25 mg 02/23/20 08:00 02/27/20 09:12 Spironolactone 25 Mg Tab PO 25 mg QAM-WM YANNICK Administration - Exam General Appearance: NAD, awake alert Eye: PERRL ENT: normocephalic atraumatic, no oropharyngeal lesions Neck: no JVD Heart: RRR, no murmur, no gallops, no rubs Respiratory: CTAB, no wheezes, no rales, no ronchi Gastrointestinal: soft, non-tender, non-distended, normal bowel sounds Extremities: no cyanosis, no clubbing, no edema Skin: no rashes Hosp A/P - Plan CT chest: possible right middle lobe malignancy and mediastinal LN metastases. Cirrhosis, splenomegaly, ascites This is a 64 year old male who presented with shortness of breath, possible syncope, black stools , found to be in acute heart failure Acute on chronic systolic heart failure with EF 15-20% vs lung cancer? -he is currently on milrinone which will be continued. Not surgical candidate for port. Dr. Gupta will place Mtz Catheter tomorrow - continue bumex 1 mg daily. Repeat labs today - outpatient workup for possible lung cancer for mass on CT chest Right middle lobe mass with metastases - pulmonary consulted, will need outpatient PET and bronchoscopy Hyponatremia- likely from hyperglycemia and CHF - sodium 129, blood sugar > 300. Will repeat BMP today to see if this has improved - bumex was restarted Diabetes type 2--controlled -blood sugar 135 to 180. Continue lantus 18 units qam and 22 units qhs Liver cirrhosis complicated with ascites --Status post paracentesis, 10 mL removed. Repeat abd US 02/24 showed no ascites Continue empiric IV antibiotic, follow culture - he is s/p ceftriaxone for SBP prophylaxis from 02/12 to 02/20 Chronic anemia --Status post Venofer, no active bleeding. -GI followed, did not recommend further workup CKD stage III --Creatinine stable at 1.49 CAD, status post PCI --On Coreg aspirin Plavix and statin Dispo: discharge hopefully after Mtz catheter is placed tomorrow
[2020-02-27] MEDS: HumaLOG 300 UNITS/3 ML VIAL SC PRN (18:00)
[2020-02-27 18:35] LABS: Anion Gap 14 mmol/L (10-20); BUN (Urea Nitrogen) 29 mg/dL (8.4-25.7); Calc. Creatinine Clearance 52 mL/min (70-130); Calcium 8.7 mg/dL (7.8-10.44); Carbon Dioxide 26 mmol/L (23-31); Chloride 97 mmol/L (98-107); Estimated GFR-MDRD 45; Glucose 219 mg/dL (80-115); Potassium 4.2 mmol/L (3.5-5.1); Sodium 133 mmol/L (136-145)
--- NOTE | 2020-02-27 18:45 | CON ---
DATE OF CONSULTATION: HISTORY OF PRESENT ILLNESS: Kenyon Daniels is a 64-year-old male patient, with cardiomyopathy, 10% to % EF, seen by Dr. Deondre Tobin this hospitalization. He has a history of coronary artery disease with multiple stents, hypertension, cirrhosis, varices, diabetes, COPD, and GERD. Patient needs IV access for milrinone. He has been discovered to have a left lung mass, may need chemotherapy access. Discussion has been held regarding consideration for placement of Mtz versus a MediPort. I would recommend a Mtz due to the need for constant infusion. This can be used for chemotherapy access too in the future. He is COVID negative. Patient insists on eating this morning and the surgery schedule for Mtz was canceled today. He is rescheduled for tomorrow morning at 8 or 9 o'clock. Patient is difficult to deal with as far as the eating and specific times. I have explained to him that we cannot give him a guarantee specific time due to the OR scheduling, variations emergencies. Tentative time is 8 to 9 o'clock Thursday morning. ALLERGIES: PENICILLIN. TOBACCO: One-half pack or more a day. ALCOHOL: Socially. MEDICATIONS: At home: 1. Omeprazole. 2. Zestril. 3. K-Dur. 4. Metformin. 5. Lipitor. 6. Coreg. 7. Lasix. 8. Aspirin. 9. Plavix. PAST MEDICAL HISTORY: Echocardiogram 02/13/2020 demonstrates 15% to 20% ejection fraction, diastolic dysfunction, [id number] tricuspid regurgitation, moderate pulmonic regurgitation, moderate aortic regurgitation, moderately enlarged right atrium, moderately enlarged right ventricle. Patient had ischemic cardiomyopathy. He has a left lung mass, thought to be malignant. PAST SURGICAL HISTORY: Bilateral inguinal hernia repairs. Multiple endoscopies, Dr. Quintana and Dr. Montanez. Bilateral inguinal hernia repairs in 2014, October of 2018. Dr. Quintana performed EGD with band ligation of varices. 11/16/2018, Dr. Montanez performed band ligation of esophageal varices. PHYSICAL EXAMINATION: VITAL SIGNS: Height 5 feet 7, 168 pounds, and 26 BMI. 98.6, 94, and 93/51. LUNGS: Clear to auscultation. CARDIAC: Regular rate and rhythm without murmur or gallop. ABDOMEN: Soft, slightly protuberant. LABORATORY: Creatinine 1.49 to 1.8 and hemoglobin A1c 8.2. White count 5, hemoglobin 9.6, and platelet count 148,000. ASSESSMENT/PLAN: Cardiomyopathy, probably ischemic. We would recommend Mtz catheter. We will plan this under IV sedation and local tomorrow. breakfast this morning at 8 and his surgery was canceled. Hopefully, he can hold off eating in the morning to allow this short procedure sedation local. He understands risks and benefits, consents. Job ID: [id number]
[2020-02-27] MEDS: Atorvastatin Calcium 20 MG TAB PO SCH (20:47)
[2020-02-27] MEDS: Insulin Glargine 22 UNITS in Pre-Filled Syringe 1 EACH SC SCH (20:56)
[2020-02-28 04:34] LABS: Anion Gap 14 mmol/L (10-20); BUN (Urea Nitrogen) 29 mg/dL (8.4-25.7); Calc. Creatinine Clearance 56 mL/min (70-130); Calcium 8.6 mg/dL (7.8-10.44); Carbon Dioxide 23 mmol/L (23-31); Chloride 101 mmol/L (98-107); Estimated GFR-MDRD 49; Glucose 254 mg/dL (80-115); Magnesium 1.9 mg/dL (1.6-2.6); Potassium 4.1 mmol/L (3.5-5.1); Sodium 134 mmol/L (136-145)
[2020-02-28] MEDS: Spironolactone 25 MG TAB PO SCH (08:34)
[2020-02-28] MEDS: Benzonatate 100 MG CAP PO SCH ×3 (08:34→21:55)
[2020-02-28] MEDS: Bumetanide 1 MG TAB PO SCH (08:34)
[2020-02-28] MEDS: Magnesium Oxide 400 MG TAB PO SCH ×2 (08:34→21:55)
[2020-02-28] MEDS: Clopidogrel Bisulfate 75 MG TAB PO SCH (08:34)
[2020-02-28] MEDS: Aspirin Chewable 81 MG TAB PO SCH (08:34)
[2020-02-28] MEDS: Fluticasone Propionate Nasal Spray 16 gm Bottle NASAL SCH ×2 (08:35→22:08)
[2020-02-28] MEDS: Insulin Glargine 18 UNITS in Pre-Filled Syringe 1 EACH SC SCH (08:36)
[2020-02-28] MEDS: Milrinone Lactate/D5W 20 MG in Premix Bag 1 BAG IV SCH ×2 (09:07→19:29)
[2020-02-28] MEDS ORDERED: Glycopyrrolate 0.2 MG/ML 5 ML SYRINGE ONE (09:26)
[2020-02-28] MEDS ORDERED: Levofloxacin 500 mg/D5W 100 ml Premix Bag ONE (11:54)
[2020-02-28] MEDS ORDERED: Lidocaine 1% w/Epinephrine 1:100K 20 ML VIAL ONE (11:59)
[2020-02-28] MEDS ORDERED: Sodium Chloride 0.9% 20 ML ONE (11:59)
[2020-02-28] MEDS ORDERED: Bupivacaine PF 0.5% 30 ML VIAL ONE (11:59)
[2020-02-28] MEDS ORDERED: Ketamine 50 MG/ML (10ML VIAL) ONE (12:30)
[2020-02-28] MEDS ORDERED: Midazolam HCl 2 mg/2 ml Vial ONE (12:30)
[2020-02-28] MEDS ORDERED: Ondansetron HCl/PF 4 MG/2 ML Vial IVP PRN (13:15)
[2020-02-28] MEDS ORDERED: Promethazine HCl 25 MG/ML VIAL SLOW IVP PRN (13:15)
[2020-02-28] MEDS ORDERED: Promethazine HCl 25 MG/ML VIAL IM PRN (13:15)
--- NOTE | 2020-02-28 13:29 | RAD ---
EXAM: Single view of the chest HISTORY: Central line placement COMPARISON: 02/12/2020 FINDINGS: Single view of the chest shows an enlarged but stable cardiomediastinal silhouette. There is a right subclavian central line with its tip in the region of the superior vena cava. No pneumothorax is seen. A calcified granuloma projects over the right lateral chest. No pleural effusi on is seen. Degenerative changes are seen in the spine. Surgical clips are seen in the left neck. IMPRESSION: Status post central line placement without evidence of complication.
--- NOTE | 2020-02-28 15:20 | OP ---
DATE OF PROCEDURE: 02/28/2020 PREOPERATIVE DIAGNOSES: Cardiomyopathy, 10% to 15% ejection fraction, needs milrinone drip, IV access. Left lung cancer, needs chemotherapy access. PROCEDURE PERFORMED: Right subclavian vein dual-lumen Mtz catheter, cuffed tunneled catheter. ANESTHESIA: TIVA, local of 0.5% Marcaine 30 mL mixed with 1% Xylocaine with epinephrine 20 mL. Fluoroscopy not used due to lack of availability. Digital x-ray use for placement. DESCRIPTION OF PROCEDURE: The patient was taken to the operating room, where under intravenous sedation, neck and chest prepared with ChloraPrep and draped in routine fashion. Fluoroscopy was not available, had been removed from the room just as we did it. Local anesthetic was infiltrated in the skin and subcutaneous tissue about the operative site. Infraclavicular right subclavian vein approach used to cannulate the right subclavian vein, threading the J-wire, removing the trocar catheter, making a stab incision and then the dilator and Peel-Away sheath placed over the J-wire into the subclavian vein. J-wire and dilator were removed. Catheter tailored to length, placed through the Peel-Away sheath, fabric cuff just beneath the skin exit site and Peel-Away sheath removed. Each port aspirated blood, flushed with saline solution and heparinized saline solution. The patient tolerated the procedure well. Final fluoroscopic images revealed good line placement. Catheter was secured with two interrupted suture of 3-0 nylon. Sterile dressing applied. Job ID: [id number]
--- NOTE | 2020-02-28 17:37 | PDOC.HOSPP ---
- Subjective Encounter Date: 02/28/20 Encounter Time: 09:00 Subjective: F/u: Heart failure Patient denies cough, shortness of breath, abdominal distention, leg swelling. Patient had his Mtz catheter placed today. Case management is working on insurance approval for outpatient milrinone. - Objective Vital Signs & Weight: Vital Signs (12 hours) Temp Pulse Resp BP BP Pulse Ox 02/28/20 15:15 98.6 F 93 20 115/58 L 98 02/28/20 11:05 98.2 F 91 18 119/67 96 02/28/20 08:30 97.8 F 87 18 109/65 96 Weight Admit Weight 194 lb 8 oz Weight 168 lb 9.6 oz I&O: 02/27/20 02/28/20 02/29/20 06:59 06:59 06:59 Intake Total 390 1315 Output Total 1025 2300 Balance -488 -986 Result Diagrams: 02/25/20 04:21 02/28/20 03:40 Additional Labs: Accuchecks 02/28/20 02/28/20 02/28/20 16:27 11:01 06:31 POC Glucose 175 H 148 H 169 H 02/27/20 20:55 POC Glucose 170 H Hospitalist ROS - Review of Systems Constitutional: denies: fever, chills - Medication Medications: Active Medications Generic Name Dose Route Start Last Admin Trade Name Freq PRN Reason Stop Dose Admin Albuterol/Ipratropium 3 ml 02/13/20 01:00 02/28/20 12:27 Ipratropium/Albuterol Sulfate 3 Ml Neb NEB Not Given [id number] YANNICK Aspirin 81 mg 02/14/20 09:00 02/28/20 08:34 Aspirin Chewable 81 Mg Tab PO 81 mg DAILY YANNICK Administration Atorvastatin Calcium 20 mg 02/13/20 21:00 02/27/20 20:47 Atorvastatin Calcium 20 Mg Tab PO 20 mg HS YANNICK Administration Benzonatate 100 mg 02/16/20 15:00 02/28/20 15:18 Benzonatate 100 Mg Cap PO 100 mg TID YANNICK Administration Bumetanide 1 mg 02/26/20 09:00 02/28/20 08:34 Bumetanide 1 Mg Tab PO 1 mg DAILY YANNICK Administration Clopidogrel Bisulfate 75 mg 02/14/20 09:00 02/28/20 08:34 Clopidogrel Bisulfate 75 Mg Tab PO 75 mg DAILY YANNICK Administration Fluticasone Propionate 0 gm 02/15/20 21:00 02/28/20 08:35 Fluticasone Propionate Nasal [place] 16 Gm Bottle NASAL 1 spr BID YANNICK Administration Guaifenesin/Dextromethorphan 15 ml 02/13/20 23:04 02/16/20 17:53 Guaifenesin Dm 100-10/5 Ml Udcup PO 15 ml Q4H PRN Administration Cough Milrinone Lactate/Dextrose 20 100 mls @ 11.312 mls/hr 02/20/20 15:44 02/28/20 09:07 mg/ Device IV 100 mls INF YANNICK Administration 0.425 MCG/KG/MIN Insulin Glargine 18 units/ 0.18 mls @ 0 mls/hr 02/27/20 09:00 02/28/20 08:36 Miscellaneous Medication SC Not Given QAM YANNICK Insulin Glargine 22 units/ 0.22 mls @ 0 mls/hr 02/26/20 21:00 02/27/20 20:56 Miscellaneous Medication SC 0.22 mls HS YANNICK Administration Insulin Human Lispro 0 units 02/12/20 22:24 02/27/20 18:00 Humalog 300 Units/3 Ml Vial SC 4 unit .MODERATE SLIDING SC PRN Administration Moderate Correctional Scale Insulin Human Lispro 0 units 02/14/20 03:00 02/25/20 20:34 Humalog 300 Units/3 Ml Vial SC 2 unit .BEDTIME SLIDING SC PRN Administration BEDTIME SLIDING SCALE Protocol Loratadine 10 mg 02/15/20 16:25 02/15/20 21:17 Loratadine 10 Mg Tab PO 10 mg DAILYPRN PRN Administration Allergies Magnesium Oxide 400 mg 02/25/20 21:00 02/28/20 08:34 Magnesium Oxide 400 Mg Tab PO 400 mg BID YANNICK Administration Melatonin 3 mg 02/24/20 22:04 02/24/20 22:58 Melatonin 3 Mg Tab PO 3 mg HSPRN PRN Administration Insomnia Metoprolol Succinate 12.5 mg 02/24/20 21:00 02/28/20 05:44 Metoprolol Succinate Xl 25 Mg Tab PO 12.5 mg Q12HR YANNICK Administration Pantoprazole Sodium 40 mg 02/23/20 09:00 02/28/20 08:34 Pantoprazole 40 Mg Tab PO 40 mg DAILY YANNICK Administration Sodium Chloride 10 ml 02/13/20 09:00 02/28/20 08:36 Flush - Normal Saline 10 Ml Syringe IVF Not Given Q12HR YANNICK Spironolactone 25 mg 02/23/20 08:00 02/28/20 08:34 Spironolactone 25 Mg Tab PO 25 mg QAM-WM YANNICK Administration - Exam General Appearance: NAD, awake alert Eye: PERRL, anicteric sclera ENT: normocephalic atraumatic, no oropharyngeal lesions Neck: no JVD Heart: RRR, no murmur, no gallops, no rubs Heart - other findings: Mtz catheter in place Respiratory: CTAB, no wheezes, no rales, no ronchi Gastrointestinal: soft, non-tender, non-distended, normal bowel sounds Extremities: no cyanosis, no clubbing, no edema Skin: normal turgor, no lesions, no rashes Neurological: cranial nerve grossly intact, normal sensation to touch, no weakness Hosp A/P - Plan CT chest: possible right middle lobe malignancy and mediastinal LN metastases. Cirrhosis, splenomegaly, ascites This is a 64 year old male who presented with shortness of breath, possible syncope, black stools , found to be in acute heart failure Acute on chronic systolic heart failure with EF 15-20% vs lung cancer? -he is currently on milrinone which will be continued. He is status post Mtz catheter placement today - continue bumex 1 mg daily. Creatinine stable at 1.46 - outpatient workup for possible lung cancer for mass on CT chest Right middle lobe mass with metastases - pulmonary consulted, will need outpatient PET and bronchoscopy Hyponatremia- likely from hyperglycemia and CHF -Improved to 134 - bumex was restarted Diabetes type 2--controlled -blood sugar 135 to 180. Continue lantus 18 units qam and 22 units qhs Liver cirrhosis complicated with ascites --Status post paracentesis, 10 mL removed. Repeat abd US 02/24 showed no ascites Continue empiric IV antibiotic, follow culture - he is s/p ceftriaxone for SBP prophylaxis from 02/12 to 02/20 Chronic anemia --Status post Venofer, no active bleeding. -GI followed, did not recommend further workup CKD stage III --Creatinine stable at 1.46 CAD, status post PCI --On Coreg aspirin Plavix and statin Dispo: Pending insurance authorization for outpatient milrinone
[2020-02-28] MEDS: Atorvastatin Calcium 20 MG TAB PO SCH (21:55)
[2020-02-28] MEDS: Insulin Glargine 22 UNITS in Pre-Filled Syringe 1 EACH SC SCH (21:56)
[2020-02-29] MEDS: Milrinone Lactate/D5W 20 MG in Premix Bag 1 BAG IV SCH (05:24)
[2020-02-29 05:30] LABS: Anion Gap 13 mmol/L (10-20); BUN (Urea Nitrogen) 28 mg/dL (8.4-25.7); Calc. Creatinine Clearance 53 mL/min (70-130); Calcium 8.7 mg/dL (7.8-10.44); Carbon Dioxide 24 mmol/L (23-31); Chloride 100 mmol/L (98-107); Estimated GFR-MDRD 46; Glucose 265 mg/dL (80-115); Magnesium 1.7 mg/dL (1.6-2.6); Potassium 4.2 mmol/L (3.5-5.1); Sodium 133 mmol/L (136-145)
[2020-02-29] MEDS: HumaLOG 300 UNITS/3 ML VIAL SC PRN ×3 (06:30→18:33)
[2020-02-29] MEDS ORDERED: Magnesium 2 GM/50 ML 2 GM in Premix Bag 1 BAG IVPB SCH (08:00)
--- NOTE | 2020-02-29 08:31 | EKG ---
Test Reason : RATE GREATER 184 Blood Pressure : / mmHG Vent. Rate : 185 BPM Atrial Rate : 046 BPM P-R Int : 000 ms QRS Dur : 116 ms QT Int : 274 ms P-R-T Axes : 000 035 223 degrees QTc Int : 480 ms Supraventricular tachycardia Low voltage QRS Cannot rule out Inferior infarct , age undetermined Marked ST abnormality, possible lateral subendocardial injury Abnormal ECG Confirmed by TAMERA SORENSON MD ([id number]) on 02/29/2020 8:30:47 AM Referred By: FRANKIE Confirmed By:TAMERA SORENSON MD
--- NOTE | 2020-02-29 08:39 | PRG ---
DATE OF SERVICE: 02/29/2020 SUBJECTIVE: Mr. Kenyon Daniels had excellent few days. He had a Mtz port placed at the right chest going to the subclavian vein, thus now he has good permanent access for both milrinone and upcoming chemotherapy if needed. He went through the procedure without difficulties. His walking distance has significantly improved with milrinone. Now, he can walk 570 feet per trip without stopping or being feeling short of breath. This is a significant improvement since a week ago. He denies palpitation, chest pain, syncope, and he does not have any orthopnea. His PND is gone. However, he still has COPD cough. Sometimes, he coughs up some brown sputum. Besides the COPD, this also can be related to his lung cancer. REVIEW OF SYSTEMS: General: There is no fever or chills. HEENT: There is no change in vision, hearing, swallowing. PULMONARY: Please see HPI. CARDIAC: Please see HPI. GI: There is no nausea, vomiting, diarrhea. : He is able to urinate well on his own. MUSCULOSKELETAL: He is not complaining of any muscle or joint pains. INTEGUMENT: There is no skin breakdown. NEUROLOGIC: There are no focal deficits or weaknesses. MEDICATIONS: His medications are, 1. Albuterol and ipratropium nebs q.6 hours. 2. Aspirin 81 mg daily. 3. Atorvastatin 20 mg q.h.s. 4. Bumex 1 mg daily. 5. Clopidogrel 25 mg daily. 6. Fluticasone nasal spray twice a day. 7. Insulin glargine 22 units per day. 8. Levofloxacin 500 mg daily. 9. Loratadine 10 mg daily as needed. 10. Magnesium oxide 400 mg b.i.d. 11. Toprol-XL 12.5 mg q.12 hours. 12. Milrinone 0.425 mcg/kg per minute. 13. Protonix 40 mg daily. 14. Spironolactone 25 mg daily. IMAGING STUDIES: His telemetry was reviewed, he is in sinus rhythm. There are occasional PVCs. Besides that there are no concerning arrhythmia. PHYSICAL EXAMINATION: VITAL SIGNS: His last two sets of vitals are heart rate between 84 and 94. His systolic pressure between 107 to 128. His diastolic blood pressure between 55 and 61. GENERAL: He is alert and conversational, energetic, and comfortable sitting up. HEENT: Show EOMI. Oropharynx benign with moist mucosa, but has poor dentition. NECK: His JVP is about 9 cm. Negative hepatojugular reflux that is euvolemic. PULMONARY: There is good air movement bilaterally, however, he has had wheeze at right upper lung field, but there are no new crackles - no pulmonary edema, but there are signs of asthma. CARDIAC: Regular rate and rhythm with normal S1 and S2. There is 2/6 diastolic murmur in the right sternal border. There is 2/6 holosystolic murmur at the apex with radiation to the left axilla. ABDOMEN: Soft, nontender. Positive bowel sounds, but there is no fluid wave, so he does not have ascites today. EXTREMITIES: Lower extremities without edema. Positive dorsalis pedis pulses bilaterally. LABORATORY VALUES: Today showing sodium 133, potassium 4.2, chloride 100, bicarb of 24, BUN 28, and creatinine 1.53. ASSESSMENT: 64-year-old gentleman resides in [place] [employer] stage C and also [place] Heart Association class 3B heart failure with reduced ejection fraction. He has both systolic and diastolic dysfunctions. He has left ventricular ejection fraction 20%. He also has dilated right ventricle with depressed right ventricular function. Thus, he also has right ventricular failure. He depends on milrinone at 0.425 mcg/kg per minute to sustain good function. Currently at this dosage and current regimen, he is well compensated and euvolemic. He is fit to be discharged as outpatient at this regimen. At outpatient, they can pursue PET scan and also treatment for his lung cancer. His other problems include a mass in the right lung, most likely to be lung cancer due to his combinations of smoking history and appearance on the CT scan. He also has cirrhosis with esophageal varices. He also has chronic renal insufficiency and poorly controlled diabetes. His overall prognosis is still poor. He will need to have the lung cancer treated. Please see the following for my recommendations: RECOMMENDATIONS: 1. Continue milrinone at 0.425 mcg/kg per minute IV GTT, and use a dry weight of 170 pounds. 2. Continue to use Toprol-XL 12.5 mg q.12 hours for rate control with normal liver enzymes. In the future, he can switch to amiodarone if beta tahir want to be avoided. For now, Toprol-XL 12.5 mg q.12 hours keeping SVT under control. 3. Continue with spironolactone 25 mg daily. 4. Continue with Bumex 1 mg daily. This seemed to be sufficient to keep him euvolemic. 5. Please give him magnesium sulfate 2 g IV one dose and afterwards increase his magnesium supplementation to 800 mg orally twice a day. 6. Please consider use of Dulera or Advair. He has a longstanding COPD with asthmatic component, so any increase in dilation of bronchus would help. 7. He can be discharged home once his home health care and outpatient milrinone is set up. It has been a pleasure taking care of Mr. Kenyon Daniels. If you have questions, please give me a call. The visitation time is about 35 minutes today. Job ID: [id number] MTDD
[2020-02-29] MEDS: Clopidogrel Bisulfate 75 MG TAB PO SCH (10:15)
[2020-02-29] MEDS: Aspirin Chewable 81 MG TAB PO SCH (10:15)
[2020-02-29] MEDS: Spironolactone 25 MG TAB PO SCH (10:15)
[2020-02-29] MEDS: Benzonatate 100 MG CAP PO SCH ×3 (10:16→20:02)
[2020-02-29] MEDS: Bumetanide 1 MG TAB PO SCH (10:16)
[2020-02-29] MEDS: Magnesium Oxide 400 MG TAB PO SCH ×2 (10:16→20:02)
[2020-02-29] MEDS: Fluticasone Propionate Nasal Spray 16 gm Bottle NASAL SCH ×2 (10:16→20:02)
[2020-02-29] MEDS: Insulin Glargine 18 UNITS in Pre-Filled Syringe 1 EACH SC SCH (10:17)
[2020-02-29] MEDS: Diazepam 2 MG TAB PO PRN (12:12)
[2020-02-29 12:25] VITALS: BMI 26.2
--- NOTE | 2020-02-29 16:34 | PDOC.HOSPP ---
- Subjective Encounter Date: 02/29/20 Encounter Time: 10:00 Subjective: F/u: CHF The patient has no complaints of shortness of breath or chest pain. He is very angry that he has to wait for insurance approval of his outpatient milrinone. He reports being so angry that he just wants to punch something. He requested some valium to calm him down since this has helped him before. He repeatedly states "someone has dropped the ball." I explained to him several times that his milrinone dose was continuously being adjusted until yesterday so referral could not be placed before that. He worries about what may happen if insurance doesn't cover his milrinone - Objective Vital Signs & Weight: Vital Signs (12 hours) Temp Pulse Resp BP BP Pulse Ox 02/29/20 13:01 85 20 95 02/29/20 11:40 98.4 F 88 16 96/58 L 99 02/29/20 07:20 97.9 F 85 16 115/59 L 99 Weight Admit Weight 194 lb 8 oz Weight 167 lb I&O: 02/28/20 02/29/20 03/01/20 06:59 06:59 06:59 Intake Total 1315 1218 Output Total 2300 1250 Balance -985 -32 Result Diagrams: 02/25/20 04:21 02/29/20 04:12 Additional Labs: Accuchecks 02/29/20 02/29/20 02/28/20 11:20 06:23 21:01 POC Glucose 199 H 205 H 206 H 02/28/20 16:27 POC Glucose 175 H Hospitalist ROS - Review of Systems Constitutional: denies: fever, chills - Medication Medications: Active Medications Generic Name Dose Route Start Last Admin Trade Name Freq PRN Reason Stop Dose Admin Albuterol/Ipratropium 3 ml 02/13/20 01:00 02/29/20 13:01 Ipratropium/Albuterol Sulfate 3 Ml Neb NEB 3 ml [id number] YANNICK Administration Aspirin 81 mg 02/14/20 09:00 02/29/20 10:15 Aspirin Chewable 81 Mg Tab PO 81 mg DAILY YANNICK Administration Atorvastatin Calcium 20 mg 02/13/20 21:00 02/28/20 21:55 Atorvastatin Calcium 20 Mg Tab PO 20 mg HS YANNICK Administration Benzonatate 100 mg 02/16/20 15:00 02/29/20 15:43 Benzonatate 100 Mg Cap PO 100 mg TID YANNICK Administration Bumetanide 1 mg 02/26/20 09:00 02/29/20 10:16 Bumetanide 1 Mg Tab PO 1 mg DAILY YANNICK Administration Clopidogrel Bisulfate 75 mg 02/14/20 09:00 02/29/20 10:15 Clopidogrel Bisulfate 75 Mg Tab PO 75 mg DAILY YANNICK Administration Diazepam 2 mg 02/29/20 11:31 02/29/20 12:12 Diazepam 2 Mg Tab PO 2 mg Q24H PRN Administration Anxiety Fluticasone Propionate 0 gm 02/15/20 21:00 02/29/20 10:16 Fluticasone Propionate Nasal [place] 16 Gm Bottle NASAL 1 spr BID YANNICK Administration Guaifenesin/Dextromethorphan 15 ml 02/13/20 23:04 02/16/20 17:53 Guaifenesin Dm 100-10/5 Ml Udcup PO 15 ml Q4H PRN Administration Cough Milrinone Lactate/Dextrose 20 100 mls @ 11.312 mls/hr 02/20/20 15:44 02/29/20 05:24 mg/ Device IV 100 mls INF YANNICK Administration 0.425 MCG/KG/MIN Insulin Glargine 18 units/ 0.18 mls @ 0 mls/hr 02/27/20 09:00 02/29/20 10:17 Miscellaneous Medication SC 0.18 mls QAM YANNICK Administration Insulin Glargine 22 units/ 0.22 mls @ 0 mls/hr 02/26/20 21:00 02/28/20 21:56 Miscellaneous Medication SC 0.22 mls HS YANNICK Administration Insulin Human Lispro 0 units 02/12/20 22:24 02/29/20 12:12 Humalog 300 Units/3 Ml Vial SC 2 unit .MODERATE SLIDING SC PRN Administration Moderate Correctional Scale Insulin Human Lispro 0 units 02/14/20 03:00 02/25/20 20:34 Humalog 300 Units/3 Ml Vial SC 2 unit .BEDTIME SLIDING SC PRN Administration BEDTIME SLIDING SCALE Protocol Loratadine 10 mg 02/15/20 16:25 02/15/20 21:17 Loratadine 10 Mg Tab PO 10 mg DAILYPRN PRN Administration Allergies Magnesium Oxide 800 mg 02/29/20 09:00 02/29/20 10:16 Magnesium Oxide 400 Mg Tab PO 800 mg BID YANNICK Administration Melatonin 3 mg 02/24/20 22:04 02/24/20 22:58 Melatonin 3 Mg Tab PO 3 mg HSPRN PRN Administration Insomnia Metoprolol Succinate 12.5 mg 02/24/20 21:00 02/29/20 10:14 Metoprolol Succinate Xl 25 Mg Tab PO 12.5 mg Q12HR YANNICK Administration Pantoprazole Sodium 40 mg 02/23/20 09:00 02/29/20 10:14 Pantoprazole 40 Mg Tab PO 40 mg DAILY YANNICK Administration Sodium Chloride 10 ml 02/13/20 09:00 02/29/20 10:19 Flush - Normal Saline 10 Ml Syringe IVF 10 ml Q12HR YANNICK Administration Spironolactone 25 mg 02/23/20 08:00 02/29/20 10:15 Spironolactone 25 Mg Tab PO 25 mg QAM-WM YANNICK Administration - Exam General Appearance: NAD, awake alert Eye: anicteric sclera ENT: normocephalic atraumatic, no oropharyngeal lesions Neck: no JVD Heart: RRR, no murmur, no gallops Respiratory: CTAB, no wheezes, no ronchi Gastrointestinal: soft, non-tender, non-distended, normal bowel sounds Extremities: no cyanosis, no clubbing, no edema Skin: normal turgor, no lesions, no rashes Neurological: cranial nerve grossly intact, normal sensation to touch, no weakness Musculoskeletal: no muscle wasting Psychiatric: normal behavior, A&O x 3 Hosp A/P - Plan CT chest: possible right middle lobe malignancy and mediastinal LN metastases. Cirrhosis, splenomegaly, ascites This is a 64 year old male who presented with shortness of breath, possible syncope, black stools , found to be in acute heart failure Acute on chronic systolic heart failure with EF 15-20% vs lung cancer? -he is currently on milrinone which will be continued. He is status post Mtz catheter placement 02/27. - continue bumex 1 mg daily. Creatinine mildly increased to 1.56. Will monitor - outpatient workup for possible for mass on CT chest. THe patient is awaiting on insurance approval for outpatient milrinone Right middle lobe mass with metastases - pulmonary consulted, will need outpatient PET and bronchoscopy Hyponatremia- likely from hyperglycemia and CHF - down to 133. Continue bumex and milrinone. This may be from hyperglycemia. Corrected sodium is 136 Diabetes type 2--controlled -blood sugar 170-200. Continue lantus 18 units qam and 22 units qhs Liver cirrhosis complicated with ascites --Status post paracentesis, 10 mL removed. Repeat abd US 02/24 showed no ascites Continue empiric IV antibiotic, follow culture - he is s/p ceftriaxone for SBP prophylaxis from 02/12 to 02/20 Chronic anemia --Status post Venofer, no active bleeding. -GI followed, did not recommend further workup CKD stage III --Creatinine stable at 1.53 CAD, status post PCI --On Coreg aspirin Plavix and statin Dispo: Pending insurance authorization for outpatient milrinone
[2020-02-29] MEDS: Mometasone 200 MCG/Formoterol 5 MCG 120 PUFF INHALER INH SCH (18:53)
[2020-02-29] MEDS: Atorvastatin Calcium 20 MG TAB PO SCH (20:02)
[2020-02-29] MEDS: Insulin Glargine 22 UNITS in Pre-Filled Syringe 1 EACH SC SCH (20:07)
[2020-03-01] MEDS: Milrinone Lactate/D5W 20 MG in Premix Bag 1 BAG IV SCH ×3 (03:13→22:25)
[2020-03-01 04:55] LABS: Hemoglobin 9.4 g/dL (14.0-18.0); Mean Corpuscular HGB CONC 30.9 g/dL (32.0-36.0); Mean Corpuscular Hemoglobin 28.2 pg (27.0-31.0); Mean Corpuscular Volume 91.1 fL (78.0-98.0); Mean Platelet Volume 8.1 fL (7.4-10.4); Platelet Count 146 thou/uL (130-400); RBC Distribution Width 15.4 % (11.5-14.5); Red Blood Cell (RBC) Count 3.32 mill/uL (4.70-6.10); White Blood Cell (WBC) Count 4.7 thou/uL (4.8-10.8)
[2020-03-01 05:22] LABS: ALT (SGPT) 12 U/L (8-55); AST (SGOT) 19 U/L (5-34); Alkaline Phosphatase 125 U/L (40-110); Anion Gap 11 mmol/L (10-20); BUN (Urea Nitrogen) 27 mg/dL (8.4-25.7); Bilirubin, Total 0.6 mg/dL (0.2-1.2); Calc. Creatinine Clearance 55 mL/min (70-130); Calcium 8.5 mg/dL (7.8-10.44); Carbon Dioxide 26 mmol/L (23-31); Chloride 100 mmol/L (98-107); Estimated GFR-MDRD 48; Globulin 4.6 g/dL (2.4-3.5); Glucose 286 mg/dL (80-115); Magnesium 1.9 mg/dL (1.6-2.6); Potassium 3.9 mmol/L (3.5-5.1); Protein, Total 7.6 g/dL (5.8-8.1); Sodium 133 mmol/L (136-145)
[2020-03-01] MEDS: HumaLOG 300 UNITS/3 ML VIAL SC PRN ×3 (05:40→18:41)
[2020-03-01] MEDS: Mometasone 200 MCG/Formoterol 5 MCG 120 PUFF INHALER INH SCH ×2 (07:47→19:06)
[2020-03-01] MEDS: Fluticasone Propionate Nasal Spray 16 gm Bottle NASAL SCH ×2 (09:04→20:26)
[2020-03-01] MEDS: Bumetanide 1 MG TAB PO SCH (09:05)
[2020-03-01] MEDS: Magnesium Oxide 400 MG TAB PO SCH ×2 (09:05→20:26)
[2020-03-01] MEDS: Benzonatate 100 MG CAP PO SCH ×3 (09:06→20:26)
[2020-03-01] MEDS: Spironolactone 25 MG TAB PO SCH (09:06)
[2020-03-01] MEDS: Clopidogrel Bisulfate 75 MG TAB PO SCH (09:07)
[2020-03-01] MEDS: Insulin Glargine 18 UNITS in Pre-Filled Syringe 1 EACH SC SCH (09:07)
[2020-03-01] MEDS: Aspirin Chewable 81 MG TAB PO SCH (09:07)
[2020-03-01] MEDS: Diazepam 2 MG TAB PO PRN (13:53)
--- NOTE | 2020-03-01 15:29 | PDOC.HOSPP ---
- Subjective Encounter Date: 03/01/20 Encounter Time: 12:30 Subjective: pt up in bed no complains - Objective Vital Signs & Weight: Vital Signs (12 hours) Temp Pulse Resp BP Pulse Ox 03/01/20 13:45 103 H 20 03/01/20 11:40 98.1 F 94 18 115/77 95 03/01/20 07:44 91 16 03/01/20 07:25 97.8 F 86 16 107/52 L 95 03/01/20 03:35 97.9 F 94 18 101/51 L 97 Weight Admit Weight 194 lb 8 oz Weight 169 lb 1.6 oz I&O: 02/29/20 03/01/20 03/02/20 06:59 06:59 06:59 Intake Total 1218 1480 Output Total 1250 1725 Balance -32 -245 Result Diagrams: 03/01/20 04:11 03/01/20 04:11 Additional Labs: Accuchecks 03/01/20 02/29/20 02/29/20 05:21 20:06 17:01 POC Glucose 236 H 205 H 282 H Hospitalist ROS - Review of Systems Cardiovascular: denies: chest pain, palpitations, orthopnea, paroxysmal noc. dyspnea, edema, light headedness, other Gastrointestinal: denies: nausea, vomiting, abdominal pain, diarrhea, constipation, melena, hematochezia, other Genitourinary: denies: dysuria, frequency, incontinence, hematuria, retention, other - Medication Medications: Active Medications Generic Name Dose Route Start Last Admin Trade Name Freq PRN Reason Stop Dose Admin Albuterol/Ipratropium 3 ml 02/13/20 01:00 03/01/20 13:45 Ipratropium/Albuterol Sulfate 3 Ml Neb NEB 3 ml [id number] YANNICK Administration Aspirin 81 mg 02/14/20 09:00 03/01/20 09:07 Aspirin Chewable 81 Mg Tab PO 81 mg DAILY YANNICK Administration Atorvastatin Calcium 20 mg 02/13/20 21:00 02/29/20 20:02 Atorvastatin Calcium 20 Mg Tab PO 20 mg HS YANNICK Administration Benzonatate 100 mg 02/16/20 15:00 03/01/20 13:53 Benzonatate 100 Mg Cap PO 100 mg TID YANNICK Administration Bumetanide 1 mg 02/26/20 09:00 03/01/20 09:05 Bumetanide 1 Mg Tab PO 1 mg DAILY YANNICK Administration Clopidogrel Bisulfate 75 mg 02/14/20 09:00 03/01/20 09:07 Clopidogrel Bisulfate 75 Mg Tab PO 75 mg DAILY YANNICK Administration Diazepam 2 mg 02/29/20 11:31 03/01/20 13:53 Diazepam 2 Mg Tab PO 2 mg Q24H PRN Administration Anxiety Fluticasone Propionate 0 gm 02/15/20 21:00 03/01/20 09:04 Fluticasone Propionate Nasal [place] 16 Gm Bottle NASAL 1 spr BID YANNICK Administration Guaifenesin/Dextromethorphan 15 ml 02/13/20 23:04 02/16/20 17:53 Guaifenesin Dm 100-10/5 Ml Udcup PO 15 ml Q4H PRN Administration Cough Milrinone Lactate/Dextrose 20 100 mls @ 11.312 mls/hr 02/20/20 15:44 03/01/20 13:55 mg/ Device IV 100 mls INF YANNICK Administration 0.425 MCG/KG/MIN Insulin Glargine 18 units/ 0.18 mls @ 0 mls/hr 02/27/20 09:00 03/01/20 09:07 Miscellaneous Medication SC 0.18 mls QAM YANNICK Administration Insulin Glargine 22 units/ 0.22 mls @ 0 mls/hr 02/26/20 21:00 02/29/20 20:07 Miscellaneous Medication SC 0.22 mls HS YANNICK Administration Insulin Human Lispro 0 units 02/12/20 22:24 03/01/20 11:44 Humalog 300 Units/3 Ml Vial SC 4 unit .MODERATE SLIDING SC PRN Administration Moderate Correctional Scale Insulin Human Lispro 0 units 02/14/20 03:00 02/25/20 20:34 Humalog 300 Units/3 Ml Vial SC 2 unit .BEDTIME SLIDING SC PRN Administration BEDTIME SLIDING SCALE Protocol Loratadine 10 mg 02/15/20 16:25 02/15/20 21:17 Loratadine 10 Mg Tab PO 10 mg DAILYPRN PRN Administration Allergies Magnesium Oxide 800 mg 02/29/20 09:00 03/01/20 09:05 Magnesium Oxide 400 Mg Tab PO 800 mg BID YANNICK Administration Melatonin 3 mg 02/24/20 22:04 11/20/20 22:58 Melatonin 3 Mg Tab PO 3 mg HSPRN PRN Administration Insomnia Metoprolol Succinate 12.5 mg 02/24/20 21:00 03/01/20 09:06 Metoprolol Succinate Xl 25 Mg Tab PO 12.5 mg Q12HR YANNICK Administration Mometasone Furoate/Formoterol Fumar 2 puff 02/29/20 18:30 03/01/20 07:47 Mometasone 200 Mcg/Formoterol 5 Mcg 120 Puff Inhaler INH 2 puff BID-RT YANNICK Administration Pantoprazole Sodium 40 mg 02/23/20 09:00 03/01/20 09:07 Pantoprazole 40 Mg Tab PO 40 mg DAILY YANNICK Administration Sodium Chloride 10 ml 02/13/20 09:00 03/01/20 09:58 Flush - Normal Saline 10 Ml Syringe IVF 10 ml Q12HR YANNICK Administration Spironolactone 25 mg 02/23/20 08:00 03/01/20 09:06 Spironolactone 25 Mg Tab PO 25 mg QAM-WM YANNICK Administration - Exam Neck: negative: supple, symmetric, no JVD, no thyromegaly, no lymphadenopathy, no carotid bruit, JVD Heart: negative: RRR, no murmur, no gallops, no rubs, normal peripheral pulses, irregular, diminshed peripheral pulses, murmur present, II/IV, III/IV Respiratory: negative: CTAB, no wheezes, no rales, no ronchi, normal chest expansion, no tachypnea, normal percussion, rales, rhonchi, tachypneic, wheezes Hosp A/P (1) COPD with exacerbation Code(s): J44.1 - CHRONIC OBSTRUCTIVE PULMONARY DISEASE W (ACUTE) EXACERBATION Status: Acute (2) Right middle lobe pulmonary nodule Code(s): R91.1 - SOLITARY PULMONARY NODULE Status: Acute (3) Ascites Code(s): R18.8 - OTHER ASCITES Status: Acute (4) Cirrhosis Code(s): K74.60 - UNSPECIFIED CIRRHOSIS OF LIVER Status: Acute (5) Acute on chronic combined systolic and diastolic CHF, NYHA class 3 Code(s): I50.43 - ACUTE ON CHRONIC COMBINED SYSTOLIC AND DIASTOLIC HRT FAIL Status: Acute (6) CKD (chronic kidney disease) stage 3, GFR 30-59 ml/min Status: Chronic (7) HTN (hypertension) Code(s): I10 - ESSENTIAL (PRIMARY) HYPERTENSION Status: Chronic Qualifiers: (8) Mass of middle lobe of right lung Code(s): R91.8 - OTHER NONSPECIFIC ABNORMAL FINDING OF LUNG FIELD Status: Acute - Plan Status post paracentesis will need 10 mL removed. We will continue to diurese the patient. Pulmonary's note patient has to be Covid negative and medically stable for further testing of the right middle lobe lung lesion. Patient currently being treated for heart failure. With a EF of 15 to 20%. Patient was educated on low-sodium diet. 03/01 patient seen by pulmonary outpatient work-up for right middle lobe mass with metastasis. Patient will require PET scan or bronchoscopy. Patient is currently on milrinone drip. He had a Mtz's catheter placed on 02/27 waiting for insurance approval to be discharged.
[2020-03-01] MEDS: Atorvastatin Calcium 20 MG TAB PO SCH (20:26)
[2020-03-01] MEDS: Insulin Glargine 22 UNITS in Pre-Filled Syringe 1 EACH SC SCH (20:30)
[2020-03-02] MEDS: HumaLOG 300 UNITS/3 ML VIAL SC PRN (05:50)
[2020-03-02 07:28] VITALS: TEMP 97.5
[2020-03-02] MEDS: Mometasone 200 MCG/Formoterol 5 MCG 120 PUFF INHALER INH SCH (07:56)
[2020-03-02] MEDS ORDERED: Insulin Glargine 20 UNITS in Pre-Filled Syringe 1 EACH SC SCH (09:00)
[2020-03-02] MEDS: Milrinone Lactate/D5W 20 MG in Premix Bag 1 BAG IV SCH (09:57)
[2020-03-02] MEDS: Magnesium Oxide 400 MG TAB PO SCH (09:59)
[2020-03-02] MEDS: Spironolactone 25 MG TAB PO SCH (09:59)
[2020-03-02] MEDS: Aspirin Chewable 81 MG TAB PO SCH (09:59)
[2020-03-02] MEDS: Clopidogrel Bisulfate 75 MG TAB PO SCH (09:59)
[2020-03-02] MEDS: Bumetanide 1 MG TAB PO SCH (09:59)
[2020-03-02] MEDS: Benzonatate 100 MG CAP PO SCH (10:00)
[2020-03-02] MEDS: Fluticasone Propionate Nasal Spray 16 gm Bottle NASAL SCH (10:00)
[2020-03-02 12:02] VITALS: BP 136/63
--- NOTE | 2020-03-02 12:18 | PDOC.CPN ---
- Subjective Date: 03/02/20 Time: 09:00 Interval history: No new cardiac events overnight. Pt. is only wanting to make certain he gets his valium upon d/c. - Review of Systems General: denies: fever/chills, weight/appetite/sleep changes, night sweats, fatigue Respiratory: denies: cough, congestion, shortness of breath, exercise in tolerance Cardiovascular: denies: chest pain, palpitation, edema, paroxysmal nocturnal dyspnea, orthopnea Gastrointestinal: denies: nausea, vomiting, diarrhea, constipation, abd pain, GI bleeding Musculoskeletal: denies: pain, tenderness, stiffness, swelling, arthritis/arthralgias Neurological: denies: numbness, syncope, seizure, weakness - Objective Allergies/Adverse Reactions: Allergies Allergy/AdvReac Type Severity Reaction Status Date / Time Penicillins Allergy Severe Anaphylaxis Verified 06/27/19 19:34 Visit Medications: Current Medications Albuterol/Ipratropium (Ipratropium/Albuterol Sulfate 3 Ml Neb) 3 ml NEB Q2H PRN PRN Reason: SOB &/or Wheezing Albuterol/Ipratropium (Ipratropium/Albuterol Sulfate 3 Ml Neb) 3 ml NEB [id number] [facility] Last Admin: 03/02/20 07:47 Dose: 3 ml Documented by: Aspirin (Aspirin Chewable 81 Mg Tab) 81 mg PO DAILY [facility] Last Admin: 03/02/20 09:59 Dose: 81 mg Documented by: Atorvastatin Calcium (Atorvastatin Calcium 20 Mg Tab) 20 mg PO HS [facility] Last Admin: 03/01/20 20:26 Dose: 20 mg Documented by: Benzonatate (Benzonatate 100 Mg Cap) 100 mg PO TID [facility] Last Admin: 03/02/20 10:00 Dose: 100 mg Documented by: Bumetanide (Bumetanide 1 Mg Tab) 1 mg PO DAILY [facility] Last Admin: 03/02/20 09:59 Dose: 1 mg Documented by: Clopidogrel Bisulfate (Clopidogrel Bisulfate 75 Mg Tab) 75 mg PO DAILY [facility] Last Admin: 03/02/20 09:59 Dose: 75 mg Documented by: Al Hydroxide/Mg Hydroxide 60 ml/ Diphenhydramine HCl 150 mg / Lidocaine HCl 60 ml/Nystatin 6,000,000 units 0 ml SSW ACHS PRN PRN Reason: Mouth Irritation Dextrose/Water (Dextrose 50% Abboject 50 Ml Syringe) 25 gm SLOW IVP PRN PRN PRN Reason: Hypoglycemia Diazepam (Diazepam 2 Mg Tab) 2 mg PO Q24H PRN PRN Reason: Anxiety Last Admin: 03/01/20 13:53 Dose: 2 mg Documented by: Fluticasone Propionate (Fluticasone Propionate Nasal [place] 16 Gm Bottle) 0 gm NASAL BID [facility] Last Admin: 03/02/20 10:00 Dose: 1 spr Documented by: Glucagon (Glucagon 1 Mg/Ml Vial) 1 mg IM PRN PRN PRN Reason: Hypoglycemia Guaifenesin/Dextromethorphan (Guaifenesin Dm 100-10/5 Ml Udcup) 15 ml PO Q4H PRN PRN Reason: Cough Last Admin: 02/16/20 17:53 Dose: 15 ml Documented by: Dextrose/Water (D5w) 1,000 mls @ 0 mls/hr IV .Q0M PRN PRN Reason: Hypoglycemia Milrinone Lactate/Dextrose 20 (mg/ Device) 100 mls @ 11.312 mls/hr IV INF [facility] Last Admin: 03/02/20 09:57 Dose: 100 mls Documented by: Insulin Glargine 22 units/ (Miscellaneous Medication) 0.22 mls @ 0 mls/hr SC HS [facility] Last Admin: 03/01/20 20:30 Dose: 0.22 mls Documented by: Levofloxacin 500 mg/ Device 100 mls @ 100 mls/hr IVPB ONCALL-OR YANNICK Insulin Glargine 20 units/ (Miscellaneous Medication) 0.2 mls @ 0 mls/hr SC QAM [facility] Last Admin: 03/02/20 10:00 Dose: 0.2 mls Documented by: Insulin Human Lispro (Humalog 300 Units/3 Ml Vial) 0 units SC .MODERATE SLIDING SC PRN PRN Reason: Moderate Correctional Scale Last Admin: 03/02/20 05:50 Dose: 4 unit Documented by: Insulin Human Lispro (Humalog 300 Units/3 Ml Vial) 0 units SC .BEDTIME SLIDING SC PRN; Protocol PRN Reason: BEDTIME SLIDING SCALE Last Admin: 02/25/20 20:34 Dose: 2 unit Documented by: Loratadine (Loratadine 10 Mg Tab) 10 mg PO DAILYPRN PRN PRN Reason: Allergies Last Admin: 02/15/20 21:17 Dose: 10 mg Documented by: Magnesium Oxide (Magnesium Oxide 400 Mg Tab) 800 mg PO BID [facility] Last Admin: 03/02/20 09:59 Dose: 800 mg Documented by: Melatonin (Melatonin 3 Mg Tab) 3 mg PO HSPRN PRN PRN Reason: Insomnia Last Admin: 02/24/20 22:58 Dose: 3 mg Documented by: Metoprolol Succinate (Metoprolol Succinate Xl 25 Mg Tab) 12.5 mg PO Q12HR [facility] Last Admin: 03/02/20 09:59 Dose: 12.5 mg Documented by: Mometasone Furoate/Formoterol Fumar (Mometasone 200 Mcg/Formoterol 5 Mcg 120 Puff Inhaler) 2 puff INH BID-RT [facility] Last Admin: 03/02/20 07:56 Dose: 2 puff Documented by: Pantoprazole Sodium (Pantoprazole 40 Mg Tab) 40 mg PO DAILY [facility] Last Admin: 03/02/20 09:59 Dose: 40 mg Documented by: Sodium Chloride (Flush - Normal Saline 10 Ml Syringe) 10 ml IVF Q12HR [facility] Last Admin: 03/02/20 10:00 Dose: 10 ml Documented by: Sodium Chloride (Flush - Normal Saline 10 Ml Syringe) 10 ml IVF PRN PRN PRN Reason: Saline Flush Spironolactone (Spironolactone 25 Mg Tab) 25 mg PO QAM-WM [facility] Last Admin: 03/02/20 09:59 Dose: 25 mg Documented by: Vital Signs & Weight: Vital Signs Temp Pulse Resp BP Pulse Ox 03/02/20 11:20 97.5 F L 104 H 18 136/63 98 03/02/20 07:47 92 20 03/02/20 07:31 99 03/02/20 07:24 97.5 F L 95 16 117/95 H 99 03/02/20 03:43 97.8 F 61 18 118/58 L 95 03/02/20 03:35 98.2 F 101 H 16 111/58 L 96 03/02/20 01:20 72 16 96 Admit Weight 194 lb 8 oz Weight 170 lb 8 oz - Quality Measures Condition: Heart Failure CV meds: Beta Erica: Yes, ZEENAT/ARB: No (CKD), Statin: Yes, ASA: Yes - Physical Exam HEENT: normocephaly Neck: supple neck, no JVD/HJR Cardiac: regular rate and rhythm, regular rate Lungs: clear to auscultation Neuro: grossly intact Abdomen: unremarkable Extremities: no edema Skin: clear Musculoskeletal: normal range of motion - Labs Result Diagrams: 03/01/20 04:11 03/01/20 04:11 - Telemetry Sinus rhythms and dysrhythmias: sinus rhythm - Assessment/Plan Assessment/Plan: 1. Cirrhosis with ascitis and varices s/p paracentesis 2. Acute on chronic systolic CHF. Stable on IV Milrinone and chronic oral therapy. Should be going home on continuous infusion when insurance approves. 3. Cardiomyopathy. Ischemic. Refuses Life-Vest. 4. CKD. Stable. 5. CAD 6. Anemia Continue milrinone and diuresis. Patient has refused LifeVest in the past. On low-dose bblocker, sprironolactone. No ZEENAT/ARB with CKD.
== END 2020-03-02 13:51 | disposition home health service (06) | DRG 180 ==
LOC: ERS 17:27 → ERHOLD 21:44 → OBSVTOIN 22:04 → 2SE 02-13 06:33 → 2NO 02-19 22:35
PROVIDERS: ADMIT Internal Medicine Critical Care Medicine; ATTEND Internal Medicine
PROC: 0W9G3ZX Drainage of Peritoneal Cavity, Percutaneous Approach, Diagnostic (ICD-10-PCS; principal; 2020-02-14)
PROC: 0JH60XZ Insertion of Tunneled Vascular Access Device into Chest Subcutaneous Tissue and Fascia, Open Approach (ICD-10-PCS; 2020-02-28)
PROC: 02HV33Z Insertion of Infusion Device into Superior Vena Cava, Percutaneous Approach (ICD-10-PCS; 2020-02-28)
PROC: B518ZZA Fluoroscopy of Superior Vena Cava, Guidance (ICD-10-PCS; 2020-02-28)
DX: C34.2 Malignant neoplasm of middle lobe, bronchus or lung (principal); I50.43 Acute on chronic combined systolic (congestive) and diastolic (congestive) heart failure; I13.0 Hypertensive heart and chronic kidney disease with heart failure and stage 1 through stage 4 chronic kidney disease, or unspecified chronic kidney disease; J44.1 Chronic obstructive pulmonary disease with (acute) exacerbation; I85.10 Secondary esophageal varices without bleeding; I47.1 Supraventricular tachycardia; E87.1 Hypo-osmolality and hyponatremia; I25.10 Atherosclerotic heart disease of native coronary artery without angina pectoris; K21.9 Gastro-esophageal reflux disease without esophagitis; Z20.828 Contact with and (suspected) exposure to other viral communicable diseases; F17.210 Nicotine dependence, cigarettes, uncomplicated; F41.9 Anxiety disorder, unspecified; K70.31 Alcoholic cirrhosis of liver with ascites; E11.51 Type 2 diabetes mellitus with diabetic peripheral angiopathy without gangrene; N18.30 Chronic kidney disease, stage 3 unspecified; E11.22 Type 2 diabetes mellitus with diabetic chronic kidney disease; E11.40 Type 2 diabetes mellitus with diabetic neuropathy, unspecified; I25.5 Ischemic cardiomyopathy; D63.1 Anemia in chronic kidney disease; E11.65 Type 2 diabetes mellitus with hyperglycemia; Z95.5 Presence of coronary angioplasty implant and graft; Z86.73 Personal history of transient ischemic attack (TIA), and cerebral infarction without residual deficits; Z86.010 Personal history of colon polyps; Z88.0 Allergy status to penicillin; Z23 Encounter for immunization; Z91.19 Patient's noncompliance with other medical treatment and regimen; Z79.899 Other long term (current) drug therapy; Z79.84 Long term (current) use of oral hypoglycemic drugs; Z79.82 Long term (current) use of aspirin; Z79.02 Long term (current) use of antithrombotics/antiplatelets
CPT/HCPCS: 36415; 36416; 49083; 71045; 71260; 76705; 80048; 80053; 82042; 82274; 82728; 83036; 83540; 83550; 83735; 83880; 84157; 85014; 85018; 85025; 85027; 85046; 85060; 85610; 85730; 86850; 86900; 86901; 87070; 87205; 87635; 89051; 90471; 90662; 90670; 93005; 93010; 93306; 94640; 96365; 96366; 96368; C1751; C9113; G0008; G0009; J0690; J0696; J1642; J1756; J1815; J1940; J1956; J2250; J2260; J2405; J3010; J3475; J3480; J3490; J7050; J7620; Q9967; S0020; U0003

== ENCOUNTER 2020-06-04 11:59 | Emergency (ER) | payer MEDICARE ==
[~2020-06-04 11:59] MED LIST changes: +Calcium Chloride 1 GM/10 ML Abboject SYRINGE ONE; +EPINEPHrine 1 MG/10 ML Abboject SYRINGE ONE; -Iopamidol-370 76% 500 ML 1 ML ONE
== END 2020-06-04 12:10 | disposition expired ==
LOC: ERS 11:59
DX: I46.9 Cardiac arrest, cause unspecified (principal); I13.0 Hypertensive heart and chronic kidney disease with heart failure and stage 1 through stage 4 chronic kidney disease, or unspecified chronic kidney disease; I50.9 Heart failure, unspecified; N18.9 Chronic kidney disease, unspecified; J44.9 Chronic obstructive pulmonary disease, unspecified; D64.9 Anemia, unspecified; Z86.73 Personal history of transient ischemic attack (TIA), and cerebral infarction without residual deficits; F17.210 Nicotine dependence, cigarettes, uncomplicated; Z79.82 Long term (current) use of aspirin; Z79.899 Other long term (current) drug therapy
CPT/HCPCS: 31500; 92950; 96374; 96375; J0171